=== PATIENT | male | born 1965 | race Caucasian/White ===

== ENCOUNTER 2018-04-01 09:21 | Outpatient (RCR) | payer OTHER, SELFPAY ==
[2018-04-01 09:51] VITALS: BP 153/97; PULSE 102; RESP 18; TEMP 37.2; BMI 38.3
== END 2018-04-07 23:59 ==
LOC: WC 09:21
PROVIDERS: Visit Provider Nurse Practitioner
DX: Z09 Encounter for follow-up examination after completed treatment for conditions other than malignant neoplasm (principal)

== ENCOUNTER 2020-06-19 07:15 | Day surgery (SDC) | payer MEDICARE, SELFPAY ==
--- NOTE | 2020-06-09 14:13 | HP.PCM_ITS ---
History and Physical Date of Admission: 06/19/20 HISTORY AND PHYSICAL ? Timothy Shankar 1965 ? REFERRING PHYSICIAN: Suzanna Murphy MD ? CHIEF COMPLAINT: Postive IFOBT ? HPI: The patient is a 54 year old male referred for endoscopy. Timothy notes a recent hemoccult test which was positive for blood. He tells me has a long- term history of irregular bowel habits secondary to being on numerous antibiotics. He does note last year he had an episode of severe constipation was given the stuff they have you drink for this procedure, and it didn't work. Patient denies any weight changes, visible blood in stools, black tarry stools or abdominal pain. Family history unknown per patient in regards to colon issues. Timothy has not undergone prior endoscopy. ? Patient's past medical history is significant for diabetes, hypertension, hyperlipidemia, diabetes, depression, tobacco use, s/p right lower extremity below-knee amputation. He follows with Dr. Suzanna Murphy for his chronic medical conditions. ? Patient denies chest pain, shortness of breath or recent hospitalizations. Denies problems with sedation in the past. ? ? PAST MEDICAL HISTORY PAST MEDICAL HISTORY Diagnosis Date ? Amputation of right lower extremity below knee upon examination (HCC) ? ? Carpal tunnel syndrome on both sides ? ? Diabetes (HCC) ? ? Hyperlipidemia ? ? Hypertension ? ? Major depression, recurrent, chronic (HCC) ? ? Neuropathy associated with endocrine disorder (HCC) ? ? Tobacco use ? ? ? PAST SURGICAL HISTORY PAST SURGICAL HISTORY Procedure Laterality Date ? LEG AMPUTATION HX Right 02/2016 ? BKA ? PAST SURGICAL HISTORY OF Right 01/2019 ? carpal tunnel and cubital tunnel release ? SINUS SURGERY HX ? 1998 ? for [facility] ? ? ? CURRENT MEDICATIONS Current Outpatient Medications Medication Sig ? atorvastatin (LIPITOR) 40 mg tablet Take 1 tablet by mouth daily at bedtime. ? buPROPion XL (WELLBUTRIN XL) 300 mg 24 hr tablet Take 1 tablet by mouth once daily. ? dilTIAZem CD (CARDIZEM CD, CARTIA XT) 180 mg 24 hr capsule Take 1 capsule by mouth once daily. ? furosemide (LASIX) 40 mg tablet Take 1 tablet by mouth twice daily. ? gabapentin (NEURONTIN) 800 mg tablet Take 1 tablet by mouth three times daily for 180 days. ? hydroCHLOROthiazide (HYDRODIURIL, ESIDRIX) 25 mg tablet Take 1 tablet by mouth once daily. ? losartan (COZAAR) 100 mg tablet Take 1 tablet by mouth once daily. ? metFORMIN (GLUCOPHAGE) 1,000 mg tablet Take 1 tablet by mouth twice daily with meals. ? insulin glargine (LANTUS SOLOSTAR U-100 INSULIN) 100 unit/mL (3 mL) INJECT 70 UNITS SUBCUTANEOUSLY TWO TIMES DAILY ? pantoprazole DR (PROTONIX) 40 mg tablet Take 1 tablet by mouth once daily. ? ramelteon (ROZEREM) 8 mg tablet Take 1 tablet by mouth daily at bedtime. ? traZODone (DESYREL) 100 mg tablet Take 2 tablets by mouth daily at bedtime. ? sodium sulfate-potassium sulfate-magnesium sulfate (SUPREP BOWEL PREP KIT) 17.5-3.13-1.6 gram oral liquid Take 1 Bottle by mouth as directed. ? Blood Glucose Control, High (ONETOUCH VERIO HIGH CONTROL) Use to test accuracy of glucometer as directed. ? Blood Glucose Control, Normal (ONETOUCH VERIO MID CONTROL) soln Use to test accuracy of glucometer as directed. ? CPAP 1 Units by MISCELLANEOUS route daily at bedtime. Autopap 11-20 cm H2O. Use as directed. ? oxyCODONE-acetaminophen (PERCOCET) 5-325 mg tablet Take 1 tablet by mouth twice daily as needed for Pain for up to 30 days. Do not start before May 12, 2020. ? testosterone enanthate (DELATESTRYL) 200 mg/mL injection INJECT 1 ML EVERY 10 DAYS AND SAFETY LABS INDICATED IN PROTOCOL. ? Needle, Disp, 18 G ([employer] BLUNT CANNULA) 18 gauge x 1 ndle 1 Each as needed. ? blood sugar diagnostic (ONETOUCH VERIO TEST STRIPS) test strip Use as instructed QID ? insulin lispro (HUMALOG KWIKPEN INSULIN) 100 unit/mL Inject 14 Units subcutaneously three times daily before meals. ? traZODone (DESYREL) 100 mg tablet Take 2 tablets by mouth daily at bedtime. ? VICTOZA 3-EMPERATRIZ 0.6 mg/0.1 mL (18 mg/3 mL) INJECT SUBCUTANEOUSLY 1.8MG ONCE DAILY ? Syringe with Needle, Disp, (MONOJECT SYRINGE) 3 mL 22 x 1 1/2 1 syringe w needle for TRT Injection ? Blood-Glucose Meter (ONETOUCH VERIO SYSTEM) misc Use as directed. ? Diabetes Pen Pep 31 gauge, 8 mm Use TID as directed ? ACCU-CHEK FASTCLIX LANCET DRUM lancets ? ? aspirin, enteric coated (ASPIRIN, ENTERIC COATED) 81 mg EC tablet Take 81 mg by mouth once daily. ? mupirocin (BACTROBAN) 2 % ointment Apply to wound 2 times daily (Patient not taking: Reported on 06/03/2020 ) ? oxyCODONE-acetaminophen (PERCOCET) 5-325 mg tablet Take 1 tablet by mouth twice daily as needed for Pain for up to 30 days. Do not start before April 13, 2020. ? oxyCODONE-acetaminophen (PERCOCET) 5-325 mg tablet Take 1 tablet by mouth twice daily as needed for Pain for up to 30 days. ? No current facility-administered medications for this visit. ? ? ALLERGIES: Duloxetine and Penicillins ? PERSONAL HISTORY: SOCIAL HISTORY Social History ? Tobacco Use ? Smoking status: Former Smoker ? ? Packs/day: 1.00 ? ? Start date: 1976 ? ? Quit date: 04/21/2019 ? ? Years since quittin.1 ? Smokeless tobacco: Never Used Substance Use Topics ? Alcohol use: Yes ? ? Comment: rarely ? Drug use: No ? FAMILY HISTORY: FAMILY HISTORY FAMILY HISTORY Problem Relation Age of Onset ? other (adapted) Other ? ? other (congestive heart failure) Mother ? ? other (afib) Mother ? ? ? REVIEW OF SYMPTOMS: The review of systems data was entered by the nurse and reviewed by me ? Nursing Notes: Abimbola Russell LPN 06/03/2020 11:18 AM Signed REVIEW OF SYSTEMS: General: The patient denies fatigue, denies weight loss, denies weight gain, denies feeling hot, and denies feelings of cold. Eyes: The patient denies glaucoma, denies eye injury/surgery, wears glasses or contacts. Ear/Nose/Throat: The patient denies allergies, denies hayfever, denies ear infections, and denies bloody noses. Cardiovascular: The patient denies chest pain, denies heart disease, NOTES high blood pressure,denies cardiac stent, denies prior heart attack, denies irregular heart beat, denies high cholesterol, denies poor circulation, denies heart failure, other cardiac issues, denies claudication, denies cold feet, denies peripheral arterial stent. Respiratory: The patient denies tuberculosis, denies pneumonia, denies frequent cough, denies pulmonary embolism, denies shortness of breath, and denies coughing up blood. Gastrointestinal: The patient denies difficulty swallowing, NOTES acid reflux, denies ulcers, denies vomiting, denies jaundice/hepatitis, denies gallbladder problems, denies black or tarry stools, denies hemorrhoids, denies bleeding from rectum, denies diverticulitis, NOTES constipation, NOTES diarrhea, denies loss of stool control, and denies hernias. Kidney/Bladder: The patient denies kidney stones, denies urine infections, and denies bloody urine. Skin: The patient NOTES a history of skin cancer, denies bleeding/changing moles, and denies a history of skin rash. Neurologic: The patient denies a history of epilepsy/convulsions, denies headaches, denies head/spinal injuries, and denies stroke/TIA. Psychiatric: The patient denies psychiatric medications, NOTES depression, and denies voices, denies substance abuse. Endocrine: The patient denies thyroid disorders, denies diabetes, and denies hormonal problems. Hematologic: The patient denies a history of bruising, denies bleeding, and denies anemia, denies blood clots. Infections: The patient denies a history of measles and mumps, denies rheumatic fever, and denies sexually transmitted diseases. Musculoskeletal: The patient NOTES back pain/injury, denies back problems, denies sciatica, NOTES knee/foot trouble, NOTES arthritis, or denies gout. ? ? When was patient's last Mammogram screening? N/A ? Last Colonoscopy: None ? Abimbola Russell LPN I have confirmed and edited as necessary, the PFSH and ROS obtained by others. ? PHYSICAL EXAMINATION: ? General: The patient is 54 year old male, well nourished, well hydrated in no acute distress. The patient is oriented to time, place, and person. ? VITALS: Blood pressure 138/84, pulse 106, temperature 36.5 ?C (97.7 ?F), temperature source Temporal Artery, height 193 cm (6' 4), weight (!) 145.2 kg (320 lb), SpO2 96 %. Body mass index is 38.95 kg/m?. ? HEENT: Normal cephalic, ataumatic, pupils are equally round, sclera are anicteric, mucous membranes are moist, oropharynx is clear. Neck has no masses, asymmetry or lymphadenopathy. ? Respiratory: Clear to auscultation and percussion. Normal respiratory excursion and pattern. ? Cardiac: Examination is regular rate and rhythm. Normal S1/S2 ? Abdominal exam: Soft, nontender, with no palpable masses. No hepatosplenomegaly. No palpable hernias. ? Extremities: no clubbing, cyanosis or edema. No adenopathy. ? LABORATORY VALUES: As Noted ? RADIOLOGIC STUDIES: As Noted ? ? IMPRESSION: heme positive stool-recommend upper and lower endoscopy ? PLAN: I have reviewed my findings with the surgeon. Will plan for lower endoscopy. Patient was offered EGD as well but he declines at this time. He verbalizes he is unsure whether he will even end up having the colonoscopy. Patient called back 06/04 stating he does wish to proceed with both EGD and colonoscopy at same setting. He verbalizes frustration about requiring a cryogenic transport driver for the procedure, I explained that he will be unable to drive himself the rest of the day after having sedation. He states he will see if someone can bring him to [facility] for the procedure, but needs to check on his insurance coverage there. We discussed the risks and benefits of the planned endoscopy. I have informed the patient that complications can occur including failure to complete the endoscopy and perforation. The patient had the opportunity to ask questions concerning the planned endoscopy. My staff has also explained the procedure to the patient in understandable terms and has given the patient printed material concerning the procedure. The patient freely consents to surgery. ? The patient was offered a surgery/procedure at a [facility] facility. I have counseled the patient regarding the risk of exposure to and/or potential harm posed by the COVID-19 virus with having a surgery/procedure at this time versus the risk of? delaying the surgery/procedure. It is not possible to know either the risk of delaying the surgery or procedure or chance of getting an infection with perfect accuracy, but a joint decision was made between the patient and myself?to proceed at this time with endoscopy. ? ? I plan to use Suprep bowel prep (patient was given this Rx already by PCP), or can use miralax/dulcolax if he prefers. Recommend 3-5 days of low-residue diet prior to procedure, as patient notes history of long-term constipation ? The patient has medical comorbidities for which we will plan for the procedure to be performed under Monitored Anesthetic Care. The patient takes prescription medications which I feel decrease the chance of successful sedation, therefore we will plan for procedure to be done under Monitored Anesthetic Care. ? ? ? Diagnoses: (R19.5) Heme positive stool (primary encounter diagnosis) (R19.8) Irregular bowel habits ? Crystal Urban PA-C
[2020-06-12 08:08] VITALS: BMI 37.7
[2020-06-19] VITALS (7 sets, daily range): BP systolic 107–128; BP diastolic 73–93; PULSE 82–92; RESP 16; TEMP 36.5–36.9; O2SAT 96–100; BMI 38.9
--- NOTE | 2020-06-19 | GASB_PTH ---
PATIENT: JOHN BLEVINS LOC: EN U#:[id number] AGE/SX: 54/M ROOM: RE06/19/[address]: Dr. Myrna Cedeno MD : 1965 BED: DIS: 06/19/2020 SPEC #: [id number] RECD: 06/19/20 10:22 STATUS: TASH REMartha #: [id number] MATHEW: 06/19/20 00:[address]: Myrna Cedeno DEPT: SURGICAL PATHOLOGY RECD BY: Andriy Combs ENTERED: 06/19/20 10:23 SP TYPE: Gastric Bx OTHR DR: Dr. Suzanna Murphy MD Tissues: A - Gastric mucous membrane B - Gastric mucous membrane C - Rectum, NOS Procedures: Surgery Specimen Level IV HEADER OPERATION: [place] [place] DIAGNOSIS: Heme-positive stool TISSUE SUBMITTED: A - Antrum biopsy for H. pylori and path, B - Hepatic flexure polyp biopsy, C - Rectal polyp biopsy MICROSCOPIC DIAGNOSIS A. Gastric antrum, biopsy: Chronic gastritis. See comment. B. Colonic polyp at hepatic flexure, biopsy: Fragments of hyperplastic polyp. C. 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 AM:sarwat 06/20/2020 COMMENT A. The results of immunohistochemistry for Helicobacter pylori will be reported separately ([id number]). MICROSCOPIC DESCRIPTION Slides are reviewed. GROSS DESCRIPTION A - Received in fixative is one container labeled with the patient's name and designated antrum biopsy. The specimen consists of one irregular fragment of light nguyễn soft tissue that measures 0.3 x 0.3 x 0.1 cm. The specimen is totally submitted in one cassette. B - Received in fixative is one container labeled with the patient's name and designated hepatic flexure polyp biopsy. The specimen consists of multiple irregular fragments of nguyễn soft tissue mixed with fecal material that in aggregate measure 1.5 x 0.4 x 0.1 cm. The specimen is totally submitted in one cassette. C - Received in fixative is one container labeled with the patient's name and designated rectal polyp. The specimen consists of multiple irregular fragments of nguyễn soft tissue that in aggregate measure 2 x 0.5 x 0.3 cm. Multiple fragments of fecal material are also noted. The specimen is totally submitted in one cassette. / KIMBERLY:sarwat 06/19/20 TC:5 CPT: 52249 x3
[2020-06-19 07:41] LABS: Bedside Glucose 215 mg/dL (70-110)
[2020-06-19] MEDS: Lactated Ringers 1,000 ML 100 ML IV (07:54)
--- NOTE | 2020-06-19 08:15 | IMM_PTH ---
PATIENT: JOHN BLEVINS LOC: EN U#:[id number] AGE/SX: 54/M ROOM: RE06/19/[address]: Dr. Myrna Cedeno MD : 1965 BED: DIS: 06/19/2020 SPEC #: [id number] RECD: 06/19/20 14:20 STATUS: TASH REQ #: [id number] MATHEW: 06/19/20 08:[address]: Myrna Cedeno DEPT: IMMUNOHISTOCHEMISTRY RECD BY: Lisette Branch ENTERED: 06/19/20 14:21 SP TYPE: IMMUNO OTHR DR: Dr. Suzanna Murphy MD Tissues: A - Stomach, NOS Procedures: H Pylori (initial) PHYSICIAN & INSTITUTION [place] [id number] SPECIMEN INFORMATION: Tissue Source: A - Antrum biopsy Clinical Info: Heme-positive stool Specimen Number: [id number] CPT code: 59333 METHODOLOGY: Deparaffinized sections of prefer/formalin-fixed tissue or PAP/DQ stained slides are incubated with monoclonal/polyclonal antibodies/oligonucleotide probes. Localization is made via biotin free immunoperoxidase method. Appropriate controls are performed and reacted as expected. Results on target cell population are indicated in the following table: RESULTS: ANTIBODY / CLONE RESULT Block A H Pylori (polyclonal) negative These tests were developed and their performance characteristics determined by [facility]. They may not have been cleared or approved by the U.S. Food and Drug Administration. The FDA has determined that such clearance or approval is not necessary. INTERPRETATION: A. Antrum, biopsy: Negative for Helicobacter pylori organisms. AM:sarwat 06/20/2020
--- NOTE | 2020-06-19 09:18 | OP.CCLET_ITS ---
06/19/2020 Suzanna Murphy Md Re : Upper GI endoscopy procedure for Timothy Shankar Dear [place] This procedure was performed on Friday, June 19, 2020. My impressions and recommendations are as follows: Impressions : - Normal first portion of the duodenum and second portion of the duodenum. - Erythematous mucosa in the antrum. Biopsied. - Small hiatal hernia. Recommendations : - Discharge patient to home (via wheelchair). - Resume previous diet. - Continue present medications. - Await pathology results. - Follow up visit via telemedicine with Crystal Urban PA-C to discuss results. Call to set this up, thank you My findings are described in the full procedure note, which is enclosed. If I can be of further assistance, please feel free to contact me at Doctor phone number(s): , Work: . Sincerely, MD Myrna Sorto MD 06/19/2020 9:18:43 AM This report has been signed electronically.
--- NOTE | 2020-06-19 09:18 | OP.EGD_ITS ---
Patient Name: Timothy Shankar Procedure Date: 06/19/2020 8:10 AM Date of : 1965 Age: 54 Procedure: Upper GI endoscopy Indications: Heme positive stool Providers: Myrna Cedeno MD Referring MD: Myrna Cedeno MD Medicines: See the Anesthesia note for documentation of the administered medications Patient Profile: Refer to note in patient chart for documentation of history and physical. Complications: No immediate complications. Procedure: Pre-Anesthesia Assessment: - see anesthesia note After obtaining informed consent, the endoscope was passed under direct vision. Throughout the procedure, the patient's blood pressure, pulse, and oxygen saturations were monitored continuously. The gastroscope was introduced through the mouth, and advanced to the second part of duodenum. The upper GI endoscopy was accomplished without difficulty. The patient tolerated the procedure well. Scope In: 8:19:17 AM Scope Out: 8:25:00 AM Total Procedure Duration Time 0 hours 5 minutes 43 seconds Findings: The first portion of the duodenum and second portion of the duodenum were normal. Striped mildly erythematous mucosa without bleeding was found in the gastric antrum. Biopsies were taken with a cold forceps for histology. Estimated blood loss was minimal. A small hiatal hernia was present. Impression: - Normal first portion of the duodenum and second portion of the duodenum. - Erythematous mucosa in the antrum. Biopsied. - Small hiatal hernia. Recommendation: - Discharge patient to home (via wheelchair). - Resume previous diet. - Continue present medications. - Await pathology results. - Follow up visit via telemedicine with Crystal Urban PA-C to discuss results. Call to set this up, thank you Procedure Code(s): --- Professional --- 12152, Esophagogastroduodenoscopy, flexible, transoral; with biopsy, single or multiple Diagnosis Code(s): --- Professional --- K31.89, Other diseases of stomach and duodenum K44.9, Diaphragmatic hernia without obstruction or gangrene R19.5, Other fecal abnormalities CPT copyright 2017 [employer]. All rights reserved. The codes documented in this report are preliminary and upon chef de cuisine review may be revised to meet current compliance requirements. MD Myrna Sorto MD 06/19/2020 9:18:43 AM This report has been signed electronically. Number of Addenda: 0 Note Initiated On: 06/19/2020 8:10 AM
--- NOTE | 2020-06-19 09:21 | OP.CCLET_ITS ---
06/19/2020 Suzanna Murphy Md Re : Colonoscopy procedure for Timothy Shankar Dear [place] This procedure was performed on Friday, June 19, 2020. My impressions and recommendations are as follows: Impressions : - One 3 to 10 mm polyp at the hepatic flexure, removed with a hot snare. Resected and retrieved. - One 5 to 9 mm polyp in the rectum, removed with a hot snare. Resected and retrieved. - External and internal hemorrhoids. Recommendations : - Repeat colonoscopy date to be determined after pending pathology results are reviewed for surveillance based on pathology results. - Follow up visit via telemedicine with Crystal Urban PA-C to discuss results. Call to set this up, thank you - Continue present medications. My findings are described in the full procedure note, which is enclosed. If I can be of further assistance, please feel free to contact me at Doctor phone number(s): , Work: . Sincerely, MD Myrna Sorto MD 06/19/2020 9:21:06 AM This report has been signed electronically.
--- NOTE | 2020-06-19 09:21 | OP.COLON_ITS ---
Patient Name: Timothy Shankar Procedure Date: 06/19/2020 8:26 AM Date of : 1965 Age: 54 Procedure: Colonoscopy Indications: Heme positive stool Providers: Myrna Cedeno MD Referring MD: Myrna Cedeno MD Medicines: See the Anesthesia note for documentation of the administered medications Patient Profile: Refer to note in patient chart for documentation of history and physical. Last Colonoscopy: date unknown. Complications: No immediate complications. Procedure: Pre-Anesthesia Assessment: - see anesthesia note After I obtained informed consent, the scope was passed under direct vision. Throughout the procedure, the patient's blood pressure, pulse, and oxygen saturations were monitored continuously. The Colonoscope was introduced through the anus and advanced to the cecum, identified by the appendiceal orifice, ileocecal valve and palpation. The colonoscopy was performed without difficulty. The patient tolerated the procedure well. The quality of the bowel preparation was adequate to identify polyps 6 mm and larger in size. Scope In: 8:28:15 AM Scope Withdrawal Time 0 hours 21 minutes 9 seconds Scope Out: 9:14:38 AM Total Procedure Duration Time 0 hours 46 minutes 23 seconds Findings: The perianal and digital rectal examinations were normal. A 3 to 10 mm polyp was found in the hepatic flexure. The polyp was sessile. The polyp was removed with a hot snare. Resection and retrieval were complete. Verification of patient identification for the specimen was done by the nurse. Estimated blood loss was minimal. A 5 to 9 mm polyp was found in the rectum. The polyp was sessile. The polyp was removed with a hot snare. Resection and retrieval were complete. Verification of patient identification for the specimen was done by the nurse. Estimated blood loss was minimal. External and internal hemorrhoids were found. Impression: - One 3 to 10 mm polyp at the hepatic flexure, removed with a hot snare. Resected and retrieved. - One 5 to 9 mm polyp in the rectum, removed with a hot snare. Resected and retrieved. - External and internal hemorrhoids. Recommendation: - Repeat colonoscopy date to be determined after pending pathology results are reviewed for surveillance based on pathology results. - Follow up visit via telemedicine with Crystal Urban PA-C to discuss results. Call to set this up, thank you - Continue present medications. Procedure Code(s): --- Professional --- 00592, Colonoscopy, flexible; with removal of tumor(s), polyp(s), or other lesion(s) by snare technique Diagnosis Code(s): --- Professional --- D12.3, Benign neoplasm of transverse colon (hepatic flexure or splenic flexure) K62.1, Rectal polyp K64.8, Other hemorrhoids R19.5, Other fecal abnormalities CPT copyright 2017 [employer]. All rights reserved. The codes documented in this report are preliminary and upon mixed animal veterinarian review may be revised to meet current compliance requirements. MD Myrna Sorto MD 06/19/2020 9:21:06 AM This report has been signed electronically. Number of Addenda: 0 Note Initiated On: 06/19/2020 8:26 AM
== END 2020-06-19 10:13 | disposition home or self-care (01) ==
LOC: EN 07:15 → AC 07:16
PROVIDERS: PCP Family Medicine Sports Medicine; Referring Provider Surgery; Visit Provider Surgery
PROC: 0DJD8ZZ Inspection of Lower Intestinal Tract, Via Natural or Artificial Opening Endoscopic (ICD-10-PCS; CPT 45378; principal; 2020-06-19 08:10)
DX: D12.8 Benign neoplasm of rectum (principal); K63.5 Polyp of colon; K64.4 Residual hemorrhoidal skin tags; K64.8 Other hemorrhoids; K29.50 Unspecified chronic gastritis without bleeding; K44.9 Diaphragmatic hernia without obstruction or gangrene; E11.40 Type 2 diabetes mellitus with diabetic neuropathy, unspecified; I10 Essential (primary) hypertension; E78.5 Hyperlipidemia, unspecified; K21.9 Gastro-esophageal reflux disease without esophagitis; F32.9 Major depressive disorder, single episode, unspecified; F41.8 Other specified anxiety disorders; G47.33 Obstructive sleep apnea (adult) (pediatric); Z79.4 Long term (current) use of insulin; Z79.82 Long term (current) use of aspirin; Z87.891 Personal history of nicotine dependence; Z79.899 Other long term (current) drug therapy; Z89.511 Acquired absence of right leg below knee; Z85.828 Personal history of other malignant neoplasm of skin
CPT/HCPCS: 43239; 45385; 82962; 87426; 88305; 88342; C9803; J7120

== ENCOUNTER 2020-07-03 09:30 | Outpatient (RCR) | payer MEDICARE, SELFPAY ==
[2020-06-12 08:08] VITALS: BP 116/55; PULSE 100; RESP 16; TEMP 36.6; BMI 37.7
--- NOTE | 2020-06-12 09:04 | HP.PCM_ITS ---
(1) Diabetic foot ulcers Status: Acute Code(s): E11.621 - Type 2 diabetes mellitus with foot ulcer; L97.509 - Non-pressure chronic ulcer of other part of unspecified foot with unspecified severity (2) Diabetic peripheral vascular disease Status: Acute Code(s): E11.51 - Type 2 diabetes mellitus with diabetic peripheral angiopathy without gangrene (3) Pressure ulcer of foot, stage 3 Status: Acute Qualifiers: Laterality: left Qualified Code(s): L89.893 - Pressure ulcer of other site, stage 3 Code(s): L89.893 - Pressure ulcer of other site, stage 3 (4) Polyneuropathy in diabetes Status: Acute Code(s): E11.42 - Type 2 diabetes mellitus with diabetic po lyneuropathy History of Present Illness Date of Service: 06/12/20 Chief Complaint: Left foot ulceration History of Wound: 54-year-old white male with history of a right BK amp. 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 Patient is turning his foot and and developing Charcot. Now has a large open wound with depth and abrasion on top of the skin where a brace was cutting into the lateral foot. Patient wears a false leg on the right leg and is dependent on this leg that he wears brace to also to make up for the Charcot foot. Patient has been using silver to clean wound is very dry with lots of callus around the wound base. Past Medical History Past Medical History: Chronic Problems Type 2 diabetes mellitus with diabetic polyneuropathy (Chronic) Smoker (Chronic) Surgical History: - - R foot transmetatarsal amputation Allergies/Adverse Reactions: Allergies Penicillins Allergy (Unknown, Verified 04/01/18 10:16) Unknown duloxetine Adverse Reaction (Verified 06/12/20 08:27) Constipation Home Medications: Ambulatory Orders Medication Instructions Recorded Aspirin [Aspirin, Baby] 81 mg PO DAILY@0800 06/25/15 buPROPion XL [Wellbutrin Xl] 300 mg PO DAILY 06/25/15 metFORMIN HCl [Glucophage] 1,000 mg PO BID 06/25/15 Gabapentin [Neurontin] 800 mg PO TID 08/21/15 Pantoprazole Sodium [Protonix] 40 mg PO DAILY 08/21/15 Atorvastatin Calcium [Lipitor] 40 mg PO QHS 04/01/18 Hydrochlorothiazide [Hctz] 25 mg PO DAILY 04/01/18 Insulin Glargine,Hum.rec.anlog 70 unit SQ BID 04/01/18 [Lantus Solostar] Insulin Lispro [Humalog KwikPen] 14 unit SQ TID 04/01/18 Diltiazem CD [Cardizem CD] 180 mg PO DAILY 06/12/20 Furosemide 40 mg PO BID 06/12/20 Losartan Potassium 100 mg PO DAILY 06/12/20 Ramelteon 8 mg PO QHS 06/12/20 traZODone [Desyrel] 200 mg PO QHS 06/12/20 - Family History Maternal Diabetes Paternal Unknown, - - adopted Smoking Status: Former smoker Review of Systems Constitutional: Denies: Chills, Fever Eyes: Denies: Blurred vision, Drainage, Pain HEENT: Denies: Difficulty Hearing, Difficulty Swallowing, Sore Throat, Visual Changes Cardiovascular: Denies: Chest Pain, Palpitations, Syncope Respiratory: Denies: Cough, Shortness of Breath Gastrointestinal: Denies: Abdominal Pain, Nausea, Vomiting Genitourinary: Denies: Dysuria, Frequency Musculoskeletal: Denies: Joint Pain, Muscle pain Skin: Reports: - - DFU left lateral foot decubitus ulcer stage III from pressure of a brace. Denies: Jaundice, Rash Neurological: Denies: Balance problems, Change in Speech, Difficulty swallowing, Focal weakness Psychiatric: Denies: Anxiety, Depression Endocrine: Denies: Change in Body Habitus Hematologic/ Lymphatic: Denies: Adenopathy - Physical Exam Vital Signs Temp Pulse Resp BP 97.9 F 100 16 116/55 L 06/12/20 08:08 06/12/20 08:08 06/12/20 08:08 06/12/20 08:08 General: Oriented x3, Cooperative, Well developed HEENT: Atraumatic, PERRLA Oral: Moist Mucosa Neck: Supple, No JVD Lungs: Clear to auscultation, Normal air movement Cardiovascular: Regular rate, Regular Rhythm Abdomen: Bowel Sounds Present, Soft, Non Tender, No Hepato-splenomegaly Extremities: No clubbing, No edema Skin: Ulcer/ Wound - Left DFU lateral foot and pressure ulcer stage III Wound Measurements and Assessment WC - Nurse 1 - General Ulcer Measurement Start: 06/12/20 08:07 Freq: Status: Active Protocol: Activity Type Activity Date Activity User E-Sign Co-Sign Detail Recorded Client Recorded Date Recorded By Document 06/12/20 08:08 BM [id number] 06/12/20 08:23 BMF 06/12/20 08:08 Wound Center Nurse 1 [Ulcer Assessment] #3 L LATERAL PLANTAR FOOT -Combined with other wound No -Current Size (cm) - Length 1.6 -Current Size (cm) - Width 1.8 -Current Size (cm) - Depth 0.3 -Total Square Cm 2.88 -Date of Last Picture (Recall this 06/12/20 field) -Photo Taken Yes -Epithelialization None Present -Tunneling No -Undermining/Tunneling No -Circular Undermining No -Exudate Amt Medium -Exudate Type Serosanguineous -Wound Margin Distinct, Outline Attached -Granulation Amt Large (67-100%) -Granulation Quality [place] -Slough/Fibrin Yes -Necrosis Amt Small (1-33%) -Necrotic Tissue Type Adherent Slough -Texture ([place]-wound Skin Appearance) Assessed, Scarring -Moisture ([place]-wound Skin Appearance Assessed,Dry/ ) Scaly -Color ([place]-wound Skin Appearance) Assessed -Temperature ([place]-wound Skin No Abnormality Appearance) (Pt Warm) -Tenderness on Palpation ([place]-wound No Skin Appearance) -Ulcer Cleansing SOAPY WATER -Foul Odor after Cleansing No -Anesthetic Used 4% Lidocaine Solution [Edema Assessment] -Lower Limb Edema Present Yes -Left Calf (cm) 39 -Left Ankle (cm) 25.5 - Nurse 2 - General Ulcer CM Notes Start: 06/12/20 08:07 Freq: Status: Active Protocol: Activity Type Activity Date Activity User E-Sign Co-Sign Detail Recorded Client Recorded Date Recorded By Document 06/12/20 08:38 MW [id number] 06/12/20 08:52 MW 06/12/20 08:38 Wound Center Nurse 2 [Procedure/Treatment] #4 LEFT LATERAL FOOT CLUSTER -Time 08:46 -Correct Patient Yes -Correct Side, Site, Position Yes -Correct Procedure Yes -Procedure Performed Yes -Type of Procedure Debridement -Clinical Debridement Subcutaneous -Tissue Removed Subcutaneous -Post Debridement (cm) - Length 2.8 -Post Debridement (cm) - Width 1.0 -Post Debridement (cm) - Depth 0.2 -Total Square (Post) (cm) 2.80 -Area of Debridement (cm) - Length 2.8 -Area of Debridement (cm) - Width 1.0 -Total Square (Area) (cm) 2.80 -Tunneling No -Undermining/Tunneling No -Circular Undermining No -Wound/Ulcer Outcome Not Healed -Ulcer Cleansing Rinsed/ Irrigated with Saline -Foul Odor after Cleansing No -Bioengineered Tissue No -Bleeding Controlled with Pressure -Offloading No -Treatment Response Procedure Tolerated Well -Debridement - Subq, 1st 20sq cm No #3 L LATERAL PLANTAR FOOT -Time 08:38 -Correct Patient Yes -Correct Side, Site, Position Yes -Correct Procedure Yes -Procedure Performed Yes -Type of Procedure Debridement -Clinical Debridement Subcutaneous -Tissue Removed Subcutaneous -Post Debridement (cm) - Length 1.5 -Post Debridement (cm) - Width 1.5 -Post Debridement (cm) - Depth 0.5 -Total Square (Post) (cm) 2.25 -Area of Debridement (cm) - Length 1.5 -Area of Debridement (cm) - Width 1.5 -Total Square (Area) (cm) 2.25 -Tunneling No -Undermining/Tunneling No -Circular Undermining No -Wound/Ulcer Outcome Not Healed -Ulcer Cleansing Rinsed/ Irrigated with Saline -Foul Odor after Cleansing No -Bioengineered Tissue No -Bleeding Controlled with Pressure -Offloading No -Treatment Response Procedure Tolerated Well -Debridement - Subq, 1st 20sq cm Yes [See Physician Procedure note for Specifics] Pain Scale: 0-10 Numeric [Pain] -Is Patient Pain Free? Yes WC - Nurse 3 - General Ulcer D/C NN Start: 06/12/20 08:07 Freq: Status: Active Protocol: Activity Type Activity Date Activity User E-Sign Co-Sign Detail Recorded Client Recorded Date Recorded By Document 06/12/20 08:57 EV [id number] 06/12/20 08:59 EV 06/12/20 08:57 Wound Care Nurse 3 [Wound Dressing] #4 LEFT LATERAL FOOT CLUSTER -Ulcer Cleansing Rinsed/ Irrigated with Saline -Primary Dressing Applied NonAdherent Contact Layer -Primary Dressing Covered/Secured Dry Gauze,Dry with Gauze & Roll Gauze,Secured with Tape #3 L LATERAL PLANTAR FOOT -Ulcer Cleansing Rinsed/ Irrigated with Saline -Primary Dressing Applied C Hydrogel ($), NonAdherent Contact Layer -Primary Dressing Covered/Secured Dry Gauze,Dry with Gauze & Roll Gauze,Secured with Tape Pain Scale: 0-10 Numeric [Pain] -Is Patient Pain Free? Yes WC - Visit Discharge [Visit Discharge Information] -Discharge Condition Stable -Ambulatory Status Wheelchair -Transportation Private Auto Musculoskeletal: No Tenderness to Palpation of Joints or Extremities Lymphatic: No Cervical, Supraclavicular, or Inguinal Adenopathy Neurological: Cranial nerves II-XII grossly intact, Neuro grossly intact Psych/Mental Status: Normal Affect, Appropriate Debridement Note Post-Debridement Measurements/Treatment WC - Nurse 2 - General Ulcer CM Notes Start: 06/12/20 08:07 Freq: Status: Active Protocol: Activity Type Activity Date Activity User E-Sign Co-Sign Detail Recorded Client Recorded Date Recorded By Document 06/12/20 08:38 MW [id number] 06/12/20 08:52 MW 06/12/20 08:38 Wound Center Nurse 2 #4 LEFT LATERAL FOOT CLUSTER -Time 08:46 -Correct Patient Yes -Correct Side, Site, Position Yes -Correct Procedure Yes -Procedure Performed Yes -Type of Procedure Debridement -Clinical Debridement Subcutaneous -Tissue Removed Subcutaneous -Post Debridement (cm) - Length 2.8 -Post Debridement (cm) - Width 1.0 -Post Debridement (cm) - Depth 0.2 -Total Square (Post) (cm) 2.80 -Area of Debridement (cm) - Length 2.8 -Area of Debridement (cm) - Width 1.0 -Total Square (Area) (cm) 2.80 -Tunneling No -Undermining/Tunneling No -Circular Undermining No -Wound/Ulcer Outcome Not Healed -Ulcer Cleansing Rinsed/ Irrigated with Saline -Foul Odor after Cleansing No -Bioengineered Tissue No -Bleeding Controlled with Pressure -Offloading No -Treatment Response Procedure Tolerated Well -Debridement - Subq, 1st 20sq cm No #3 L LATERAL PLANTAR FOOT -Time 08:38 -Correct Patient Yes -Correct Side, Site, Position Yes -Correct Procedure Yes -Procedure Performed Yes -Type of Procedure Debridement -Clinical Debridement Subcutaneous -Tissue Removed Subcutaneous -Post Debridement (cm) - Length 1.5 -Post Debridement (cm) - Width 1.5 -Post Debridement (cm) - Depth 0.5 -Total Square (Post) (cm) 2.25 -Area of Debridement (cm) - Length 1.5 -Area of Debridement (cm) - Width 1.5 -Total Square (Area) (cm) 2.25 -Tunneling No -Undermining/Tunneling No -Circular Undermining No -Wound/Ulcer Outcome Not Healed -Ulcer Cleansing Rinsed/ Irrigated with Saline -Foul Odor after Cleansing No -Bioengineered Tissue No -Bleeding Controlled with Pressure -Offloading No -Treatment Response Procedure Tolerated Well -Debridement - Subq, 1st 20sq cm Yes Pain Scale: 0-10 Numeric Is Patient Pain Free? Yes - Nurse 3 - General Ulcer D/C NN Start: 06/12/20 08:07 Freq: Status: Active Protocol: Activity Type Activity Date Activity User E-Sign Co-Sign Detail Recorded Client Recorded Date Recorded By Document 06/12/20 08:57 EV [id number] 06/12/20 08:59 EV 06/12/20 08:57 Wound Care Nurse 3 #4 LEFT LATERAL FOOT CLUSTER -Ulcer Cleansing Rinsed/ Irrigated with Saline -Primary Dressing Applied NonAdherent Contact Layer -Primary Dressing Covered/Secured with Dry Gauze,Dry Gauze & Roll Gauze,Secured with Tape #3 L LATERAL PLANTAR FOOT -Ulcer Cleansing Rinsed/ Irrigated with Saline -Primary Dressing Applied C Hydrogel ($), NonAdherent Contact Layer -Primary Dressing Covered/Secured with Dry Gauze,Dry Gauze & Roll Gauze,Secured with Tape Pain Scale: 0-10 Numeric Is Patient Pain Free? Yes - Visit Discharge Discharge Condition Stable Ambulatory Status Wheelchair Transportation Private Auto Wound debrided: Left plantar midfoot Laterality: Left Wound Grade/Stage: Page 3 Type of Debridement: Excisional debridement Anesthesia Used: 5% Lidocaine Gel Depth: Down to and including healthy tissue, in the subcutaneous layer Percentage of wound debrided: 100 Instrument Used: 7mm curette, - - Nippers Tissue Removed: Callus and fibrin and slough Severity: Fat Layer Exposed Amount of bleeding with debridement: Mild Bleeding Controlled with: Pressure, Compression and gauze Patient tolerated procedure well - Additional Wound Wound debrided: Left lateral foot wound Laterality: Left Type of Debridement: Excisional debridement Anesthesia Used: 5% Lidocaine Gel Depth: Down to and including healthy tissue Percentage of wound debrided: 100 Instrument Used: 7mm curette Tissue Removed: Callus and devitalized tissue Severity: Limited To Skin Breakdown Amount of bleeding with debridement: Mild Bleeding Controlled with: Pressure Patient tolerated procedure: Patient tolerated procedure well Assessment/Plan Aerobic and anaerobic cultures obtained Active Problems Diabetic foot ulcers (Acute) Pressure ulcer of foot, stage 3 (Acute) Diabetic peripheral vascular disease (Acute) Assessment: see diagnoses Plan: Wash left foot well with antibacterial soap even between his toes. Santyl to wound base and left lateral foot nickel thickness cover with Adaptic then gauze and ABD every day dressing change. Wear splint on left foot. Will call with results of cultures if positive. Follow-up in 1 week
[2020-07-03 09:29] VITALS: BP 106/74; PULSE 98; RESP 16; TEMP 37; BMI 37.7
--- NOTE | 2020-07-03 11:11 | PCM.PROGNOTE ---
Subjective Subjective: 54 year old male diabetic male her for follow up on his L plantar mid foot DFU and L lat foot open wound. Objective Data Objective Data the plantr foot is more shallow than in the past from 0.7 to 0.3 the size .size has not changed much 1.7x2.0x0.3 and lat L foot is 0.2x1.0x0.1 performed debridement with a #7 for fibrin callus . Bleeding controlled with nitro stix then rinsed with NS. patient was approved for epifix . #1 applied and tolerated well . Vital Signs: Vital Signs Temp Pulse Resp BP 98.6 F 98 16 106/74 07/03/20 09:29 07/03/20 09:29 07/03/20 09:29 07/03/20 09:29 Oxygen Delivery Method Room Air Weight: 310 lb Body Mass Index (BMI) 37.7 Lab / Micro Data Micro: Microbiology 06/12/20 08:50 Wound - Heel, Left Gram Stain - Final 06/12/20 08:50 Wound - Heel, Left Wound Culture - Final Enterobacter cloacae complex Klebsiella oxytoca Strep anginosus 06/12/20 08:50 Wound - Heel, Left Anaerobic Culture - Final Anaerobic cocci Physical Exam Const alert and oriented x3 HEENT head/scalp atraumatic Eyes PERRL Neck supple Lymph Lymphatic: no lymphadenopathy noted Resp normal respiratory effort Cardio regular rate and regular rhythm GI normal to inspection, nondistended, normoactive bowel sounds Extremity Extremity Narrative: 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 intact L leg with wounds described above and with nurses notes and measurements Skin General Skin Exam: turgor normal Rashes: no rashes Wounds: wounds noted Neuro CN's II-XII intact bilaterally Psych affect normal Assessment & Plan Assessment/Plan (1) Diabetic foot ulcers: Status: Acute Code(s): E11.621 - Type 2 diabetes mellitus with foot ulcer; L97.509 - Non-pressure chronic ulcer of other part of unspecified foot with unspecified severity Qualifiers: Diabetic foot ulcer location: midfoot Diabetes mellitus type: type 2 Laterality: left Non-pressure ulcer stage: with fat layer exposed Qualified Code(s): E11.621 - Type 2 diabetes mellitus with foot ulcer; L97.422 - 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 follow up 1 week finish antibiotics till gone for bacteria growth. (2) Pressure ulcer of foot, stage 3: Status: Acute Code(s): L89.893 - Pressure ulcer of other site, stage 3 Qualifiers: Laterality: left Qualified Code(s): L89.893 - Pressure ulcer of other site, stage 3 (3) Polyneuropathy in diabetes: Status: Acute Code(s): E11.42 - Type 2 diabetes mellitus with diabetic polyneuropathy Qualifiers: Diabetes mellitus type: type 2 Qualified Code(s): E11.42 - Type 2 diabetes mellitus with diabetic polyneuropathy (4) Type 2 diabetes mellitus with diabetic polyneuropathy: Status: Chronic Code(s): E11.42 - Type 2 diabetes mellitus with diabetic polyneuropathy Qualifiers: Diabetes mellitus intermediate teacher insulin use: unspecified intermediate teacher insulin use status Qualified Code(s): E11.42 - Type 2 diabetes mellitus with diabetic polyneuropathy Plan: better control of BS (5) Smoker: Status: Chronic Code(s): F17.200 - Nicotine dependence, unspecified, uncomplicated Plan: Stop smoking for better healing (6) Diabetic peripheral vascular disease: Status: Acute Code(s): E11.51 - Type 2 diabetes mellitus with diabetic peripheral angiopathy without gangrene
== END 2020-07-05 23:59 ==
LOC: WC 09:30
PROVIDERS: PCP Family Medicine Sports Medicine; Visit Provider Nurse Practitioner
DX: E11.621 Type 2 diabetes mellitus with foot ulcer (principal); L97.422 Non-pressure 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 with fat layer exposed; E11.42 Type 2 diabetes mellitus with diabetic polyneuropathy; E11.51 Type 2 diabetes mellitus with diabetic peripheral angiopathy without gangrene; L89.893 Pressure ulcer of other site, stage 3; F17.200 Nicotine dependence, unspecified, uncomplicated
CPT/HCPCS: 11042; 15275; 87070; 87075; 87077; 87186; 87205; 99213; Q4186; G0463

== ENCOUNTER 2020-07-31 09:30 | Outpatient (RCR) | payer MEDICARE, SELFPAY ==
[2020-07-03 11:51] VITALS: BMI 38.9
[2020-07-06 00:53] VITALS: BP 106/74; PULSE 98; RESP 16; TEMP 37
[2020-07-10 09:25] VITALS: BP 131/97; PULSE 102; RESP 16; TEMP 36.9; BMI 38.9
--- NOTE | 2020-07-10 12:06 | PN.PCM_ITS ---
History of Present Illness Date of Service: 07/10/20 Chief Complaint: Left foot ulceration History of Wound: 54-year-old white male with history of a right BK amp. 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 Patient is turning his foot and and developing Charcot. Now has a large open wound with depth and abrasion on top of the skin where a brace was cutting into the lateral foot. Patient wears a false leg on the right leg and is dependent on this leg that he wears brace to also to make up for the Charcot foot. Patient has been using silver to clean wound is very dry with lots of callus around the wound base. Subjective Subjective: patient states he does not have Charcot but tendon problems that are collapsing in his ankle. Objective Data Objective Data Vital Signs: Vital Signs Temp Pulse Resp BP 98.5 F 102 H 16 131/97 H 07/10/20 09:25 07/10/20 09:25 07/10/20 09:25 07/10/20 09:25 Oxygen Delivery Method Room Air Weight: 310 lb Body Mass Index (BMI) 38.9 Assessment & Plan Assessment/Plan (1) Diabetic foot ulcers: Status: Acute Code(s): E11.621 - Type 2 diabetes mellitus with foot ulcer; L97.509 - Non-pressure chronic ulcer of other part of unspecified foot with unspecified severity Qualifiers: Diabetic foot ulcer location: midfoot Diabetes mellitus type: type 2 Laterality: left Non-pressure ulcer stage: with fat layer exposed Qualified Code(s): E11.621 - Type 2 diabetes mellitus with foot ulcer; L97.422 - Non- pressure 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 with fat layer exposed Plan: epifix #2 shows improvement from last week. covered with wound veil and steri- strips. covered all with aqucell-xtra then gauze dressing. follow up 1 week (2) Polyneuropathy in diabetes: Status: Acute Code(s): E11.42 - Type 2 diabetes mellitus with diabetic polyneuropathy Qualifiers: Diabetes mellitus type: type 2 Qualified Code(s): E11.42 - Type 2 diabetes mellitus with diabetic polyneuropathy (3) Type 2 diabetes mellitus with diabetic polyneuropathy: Status: Chronic Code(s): E11.42 - Type 2 diabetes mellitus with diabetic polyneuropathy Qualifiers: Diabetes mellitus long term care pharmacist insulin use: unspecified prison insulin use status Qualified Code(s): E11.42 - Type 2 diabetes mellitus with diabetic polyneuropathy (4) Non-pressure chronic ulcer of other part of right foot with fat layer exposed: Status: Acute Code(s): L97.512 - Non-pressure chronic ulcer of other part of right foot with fat layer exposed Plan: aquacell-Xtra to the area then moisten and covered with gauze dressing (5) Diabetic peripheral vascular disease: Status: Acute Code(s): E11.51 - Type 2 diabetes mellitus with diabetic peripheral angiopathy without gangrene Physical Exam Const oriented x3 General Appearance: cooperative Exam Limitations: no limitations HEENT normocephalic Head and Scalp: normal to inspection Face and Sinus: normal facial exam Nose: external nose normal General Ear: hearing grossly impaired External Ear: external ears normal Mouth: oral and palatal mucosa normal Eyes PERRL General Eye: normal appearance of both eyes Neck full ROM General: normal visual inspection Resp normal respiratory effort Effort and Inspection: able to speak in complete sentences Auscultation: clear to auscultation bilaterally Cardio regular rate and regular rhythm Palpation: normal PMI Rate: regular rate Rhythm: regular rhythm GI Auscultation: normoactive bowel sounds Palpation: soft and no hepatosplenomegaly external exam normal Back/Spine Cervical Spine: cervical ROM normal Thoracic Spine / Upper Back: normal to inspection Lumbar Spine / Lower Back: normal to inspection Extremity no pedal edema Extremity Narrative: amputated R leg L leg normal L foot open wounds and partial ampuatation Skin Wounds: wounds noted Neuro oriented x3 Psych Appearance: grossly normal Speech: normal speech Thought Content: normal thought content Judgement: judgement good Debridement Note Debridement Note Post-Debridement Measurements and Additional Note: Post-Debridement Measurements/Treatment WC - Nurse 2 - General Ulcer CM Notes Start: 07/10/20 09:25 Freq: Status: Active Protocol: Activity Type Activity Date Activity User E-Sign Co-Sign Detail Recorded Client Recorded Date Recorded By Document 07/10/20 09:44 MW [id number] 07/10/20 09:53 MW 07/10/20 09:44 Wound Center Nurse 2 #4 LEFT LATERAL FOOT CLUSTER -Time 09:51 -Correct Patient Yes -Correct Side, Site, Position Yes -Correct Procedure Yes -Procedure Performed No -Post Debridement (cm) - Length 0.2 -Post Debridement (cm) - Width 0.2 -Post Debridement (cm) - Depth 0.1 -Total Square (Post) (cm) 0.04 -Tunneling No -Undermining/Tunneling No -Circular Undermining No -Wound/Ulcer Outcome Not Healed -Ulcer Cleansing Rinsed/ Irrigated with Saline -Foul Odor after Cleansing No -Bioengineered Tissue No -Bleeding Controlled with NA -Offloading No #3 L LATERAL PLANTAR FOOT -Time 09:45 -Correct Patient Yes -Correct Side, Site, Position Yes -Correct Procedure Yes -Procedure Performed Yes -Type of Procedure Debridement -Clinical Debridement Subcutaneous -Tissue Removed Subcutaneous -Post Debridement (cm) - Length 1.4 -Post Debridement (cm) - Width 1.6 -Post Debridement (cm) - Depth 0.3 -Total Square (Post) (cm) 2.24 -Area of Debridement (cm) - Length 1.4 -Area of Debridement (cm) - Width 1.6 -Total Square (Area) (cm) 2.24 -Tunneling No -Tunneling Position (O'clock) 3 -Tunneling Distance (cm) 0.3 -Undermining/Tunneling No -Circular Undermining No -Wound/Ulcer Outcome Not Healed -Ulcer Cleansing Rinsed/ Irrigated with Saline -Foul Odor after Cleansing No -Bioengineered Tissue Yes -Type of Bioengineered Tissue Epifix -Expiration Date 03/08/25 -Product Lot Number [id number] -Percent Used 100 -Lot number of Saline Used [id number] -Bleeding Controlled with Pressure -Offloading No -Treatment Response Procedure Tolerated Well -Debridement - Subq, 1st 20sq cm No -Apply Skin Sub - 1st 25 sq cm - Feet 1 -Epifix (per sq cm) 4 WC - Nurse 3 - General Ulcer D/C NN Start: 07/10/20 09:25 Freq: Status: Active Protocol: Activity Type Activity Date Activity User E-Sign Co-Sign Detail Recorded Client Recorded Date Recorded By Document 07/10/20 09:57 EV [id number] 07/10/20 09:58 KR 07/10/20 09:57 Wound Care Nurse 3 #4 LEFT LATERAL FOOT CLUSTER -Primary Dressing Applied Aquacel Extra -Primary Dressing Covered/Secured with Dry Gauze, Secured with Tape -Aquacel Extra 1 #3 L LATERAL PLANTAR FOOT -Primary Dressing Covered/Secured with Dry Gauze, Secured with Tape Pain Scale: 0-10 Numeric Is Patient Pain Free? Yes WC - Visit Discharge Discharge Condition Stable Ambulatory Status Wheelchair Transportation Private Auto Wound debrided: l LATERAL PLANTAR Laterality: Left Type of Debridement: Excisional debridement Anesthesia Used: 5% Lidocaine Gel Depth: in the subcutaneous layer Percentage of wound debrided: 100 Instrument Used: 5mm curette and - (nippers) Tissue Removed: slough and devitalized tissue and callus Severity: Fat Layer Exposed Amount of bleeding with debridement: Mild Bleeding Controlled with: Pressure Patient tolerated procedure: Patient tolerated procedure well Additional Wound Wound debrided: L lat foot Laterality: Left Type of Debridement: Selective debridement Percentage of wound debrided: 100 Instrument Used: - (gauze) Tissue Removed: fibrin Severity: Limited To Skin Breakdown Amount of bleeding with debridement: None Bleeding Controlled with: Pressure Patient tolerated procedure: Patient tolerated procedure well
[2020-07-17 09:36] VITALS: BP 110/76; PULSE 106; RESP 18; TEMP 36.8; BMI 38.9
--- NOTE | 2020-07-17 11:52 | PN.PCM_ITS ---
History of Present Illness Date of Service: 07/17/20 Chief Complaint: Left foot ulceration History of Wound: 54-year-old white male with history of a right BK amp. 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 Patient is turning his foot and and developing Charcot. Now has a large open wound with depth and abrasion on top of the skin where a brace was cutting into the lateral foot. Patient wears a false leg on the right leg and is dependent on this leg that he wears brace to also to make up for the Charcot foot. Patient has been using silver to clean wound is very dry with lots of callus around the wound base. Progress of Wound: Today the opening is small but has depth and full of slough. Very painful. will debride and use Aquacel Xtra and off load as much as possible . Subjective Subjective he has no concerns Objective Data Objective Data mid wound is a pressure area and shows maceration to the mid wound area. The lat foot is still healed and will still continue to cover with Aquacel extra to protect . Continue to get callus around wound base and is filling in nicely with the Epifix. No undermining this week Vital Signs: Vital Signs Temp Pulse Resp BP 98.3 F 106 H 18 110/76 07/17/20 09:36 07/17/20 09:36 07/17/20 09:36 07/17/20 09:36 Oxygen Delivery Method Room Air Weight: 310 lb Body Mass Index (BMI) 38.9 Assessment & Plan Assessment/Plan (1) Diabetic foot ulcers: QUALIFIERS: Diabetic foot ulcer location: midfoot Diabetes mellitus type: type 2 Laterality: left Non-pressure ulcer stage: with fat layer exposed Qualified Code(s): E11.621 - Type 2 diabetes mellitus with foot ulcer; L97.422 - 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 layer exposed PLAN: Epifix #3 applied with wound veil and steri-strips and Aquacell extra overtop Will revamp his foot wear to stop the pressure on the L lat foot at the wound site. (2) Pressure ulcer of foot, stage 3: QUALIFIERS: Laterality: left Qualified Code(s): L89.893 - Pressure ulcer of other site, stage 3 (3) Polyneuropathy in diabetes: QUALIFIERS: Diabetes mellitus type: type 2 Qualified Code(s): E11.42 - Type 2 diabetes mellitus with diabetic polyneuropathy (4) Non-pressure chronic ulcer of other part of right foot with fat layer exposed: (5) Diabetic peripheral vascular disease: Physical Exam Const oriented x3 General Appearance: cooperative Exam Limitations: no limitations HEENT normocephalic Head and Scalp: normal to inspection Face and Sinus: normal facial exam Nose: external nose normal General Ear: hearing grossly impaired External Ear: external ears normal Mouth: oral and palatal mucosa normal Eyes PERRL General Eye: normal appearance of both eyes Neck full ROM General: normal visual inspection Resp normal respiratory effort Effort and Inspection: able to speak in complete sentences Auscultation: clear to auscultation bilaterally Cardio regular rate and regular rhythm Palpation: normal PMI Rate: regular rate Rhythm: regular rhythm GI Auscultation: normoactive bowel sounds Palpation: soft and no hepatosplenomegaly external exam normal Back/Spine Cervical Spine: cervical ROM normal Thoracic Spine / Upper Back: normal to inspection Lumbar Spine / Lower Back: normal to inspection Extremity normal to inspection General Extremity: normal exam except as noted Skin no rashes or lesions noted Neuro oriented x3 Psych Appearance: grossly normal Speech: normal speech Thought Content: normal thought content Judgement: judgement good Debridement Note Debridement Note Post-Debridement Measurements and Additional Note: Post-Debridement Measurements/Treatment - Nurse 1 - General Ulcer Assessment Start: 07/10/20 09:25 Freq: Status: Active Protocol: .[facility] Activity Type Activity Date Activity User E-Sign Co-Sign Detail Recorded Client Recorded Date Recorded By Document 07/10/20 09:25 [facility] [id number] 07/10/20 09:33 [facility] Document 07/17/20 09:36 [facility] [id number] 07/17/20 09:38 [facility] 07/10/20 07/17/20 09:25 09:36 - Today's Visit Information Type of service Follow-up Visit Follow-up Visit (Physician/BRUSHER HAND (Physician/BRUSHER HAND ) ) Arrival Mode Wheelchair Wheelchair Transfer Assistance None None Patient Identification Verified (Name & Yes Yes ) Patient Requires Transmission-Based No No Precautions Height and Weight Body Mass Index (BMI) 38.9 38.9 BMI Classification Obese Obese Vital Signs Temperature (97.8 F-99.1 F) 98.5 F 98.3 F Temperature Source Temporal Temporal Pulse Rate (60-100) 102 H 106 H Pulse Location Monitor Monitor Respiratory Rate (12-18) 16 18 Respiratory rate source Observation Observation Oxygen Delivery Method Room Air Room Air Blood Pressure (90/60-120/80) 131/97 H 110/76 Blood Pressure Mean (mm Hg) 108 87 Source Monitor Monitor Position Sitting Sitting Blood Pressure Location Left Arm Right Arm History Since Last Visit- (Skip if this is Patient's initial visit) Have you changed medications since your No No last visit? Any new allergies or adverse reactions No No Had a fall/change in ADL's that may No No increase risk of falls Signs or symptoms of abuse and/or No No neglect since last visit Have you been in the hospital since your No No last visit? Has dressing in place as prescribed Yes Yes Has compression in place as prescribed N/A No Has offloadiing in place as prescribed Yes Yes Experienced any changes in pain level or No No management Left Footwear Custom Shoe Custom Shoe Pain Scale: 0-10 Numeric Is Patient Pain Free? Yes Yes - Nurse 1 - General Ulcer Measurement Start: 07/10/20 09:25 Freq: Status: Active Protocol: Activity Type Activity Date Activity User E-Sign Co-Sign Detail Recorded Client Recorded Date Recorded By Document 07/10/20 09:25 [facility] [id number] 07/10/20 09:33 [facility] Document 07/17/20 09:36 [facility] [id number] 07/17/20 09:38 [facility] 07/10/20 07/17/20 09:25 09:36 Wound Center Nurse 1 #4 LEFT LATERAL FOOT CLUSTER -Combined with other wound No -Current Size (cm) - Length 0.1 0.1 -Current Size (cm) - Width 0.1 0.1 -Current Size (cm) - Depth 0.1 0.1 -Total Square Cm 0.01 0.01 -Photo Taken No -Epithelialization Large 67-100% -Tunneling No -Undermining/Tunneling No -Circular Undermining No -Exudate Amt None Present None Present -Wound Margin Distinct, Outline Attached -Granulation Amt None Present (0 %) -Slough/Fibrin No -Texture ([place]-wound Skin Appearance) Assessed, Assessed, Scarring Scarring -Moisture ([place]-wound Skin Appearance) No Abnormality, Assessed,Dry/ Assessed Scaly -Color ([place]-wound Skin Appearance) No Abnormality, Assessed, Assessed Erythema -Temperature ([place]-wound Skin No Abnormality Appearance) (Pt Warm) -Tenderness on Palpation ([place]-wound No Skin Appearance) -Ulcer Cleansing Rinsed/ Irrigated with Saline -Foul Odor after Cleansing No -Anesthetic Used 5% Lidocaine Gel #3 L LATERAL PLANTAR FOOT -Combined with other wound No -Current Size (cm) - Length 1.3 1.2 -Current Size (cm) - Width 1.4 1.5 -Current Size (cm) - Depth 0.3 0.2 -Total Square Cm 1.82 1.80 -Photo Taken No -Epithelialization None Present -Tunneling No -Undermining/Tunneling No -Undermining/Tunneling Starts (O'clock 2 ) -Undermining/Tunneling Ends (O'clock) 4 -Maximum Distance (cm) 0.3 -Circular Undermining No -Exudate Amt Medium Medium -Exudate Type Serosanguineous Serosanguineous -Wound Margin Distinct, Distinct, Outline Outline Attached Attached -Granulation Amt Medium (34-66%) Large (67-100%) -Granulation Quality Red -Slough/Fibrin Yes -Necrosis Amt Medium (34-66%) Small (1-33%) -Necrotic Tissue Type Adherent Slough Adherent Slough -Texture ([place]-wound Skin Appearance) Assessed, Assessed, Scarring Scarring -Moisture ([place]-wound Skin Appearance) No Abnormality, Assessed, Assessed Maceration -Color ([place]-wound Skin Appearance) No Abnormality, Assessed,Palor Assessed -Temperature ([place]-wound Skin No Abnormality No Abnormality Appearance) (Pt Warm) (Pt Warm) -Tenderness on Palpation ([place]-wound No No Skin Appearance) -Ulcer Cleansing Rinsed/ soapy water Irrigated with Saline -Foul Odor after Cleansing No No -Anesthetic Used 5% Lidocaine 5% Lidocaine Gel Gel WC - Nurse 2 - General Ulcer CM Notes Start: 07/10/20 09:25 Freq: Status: Active Protocol: Activity Type Activity Date Activity User E-Sign Co-Sign Detail Recorded Client Recorded Date Recorded By Document 07/10/20 09:44 MW [id number] 07/10/20 09:53 MW Document 07/17/20 09:48 MW [id number] 05/12/21 09:58 MW 07/10/20 07/17/20 09:44 09:48 Wound Center Nurse 2 #4 LEFT LATERAL FOOT CLUSTER -Time 09:51 09:48 -Correct Patient Yes Yes -Correct Side, Site, Position Yes Yes -Correct Procedure Yes Yes -Procedure Performed No No -Post Debridement (cm) - Length 0.2 0 -Post Debridement (cm) - Width 0.2 0 -Post Debridement (cm) - Depth 0.1 0 -Total Square (Post) (cm) 0.04 0 -Tunneling No No -Undermining/Tunneling No No -Circular Undermining No No -Wound/Ulcer Outcome Not Healed Healed- Epithelialized -Ulcer Cleansing Rinsed/ Irrigated with Saline -Foul Odor after Cleansing No -Bioengineered Tissue No -Bleeding Controlled with NA -Offloading No #3 L LATERAL PLANTAR FOOT -Time 09:45 09:49 -Correct Patient Yes Yes -Correct Side, Site, Position Yes Yes -Correct Procedure Yes Yes -Procedure Performed Yes Yes -Type of Procedure Debridement Debridement -Clinical Debridement Subcutaneous Subcutaneous -Tissue Removed Subcutaneous Subcutaneous -Post Debridement (cm) - Length 1.4 1.3 -Post Debridement (cm) - Width 1.6 1.1 -Post Debridement (cm) - Depth 0.3 0.3 -Total Square (Post) (cm) 2.24 1.43 -Area of Debridement (cm) - Length 1.4 1.3 -Area of Debridement (cm) - Width 1.6 1.1 -Total Square (Area) (cm) 2.24 1.43 -Tunneling No No -Tunneling Position (O'clock) 3 -Tunneling Distance (cm) 0.3 -Undermining/Tunneling No No -Circular Undermining No No -Wound/Ulcer Outcome Not Healed Not Healed -Ulcer Cleansing Rinsed/ Rinsed/ Irrigated with Irrigated with Saline Saline -Foul Odor after Cleansing No No -Bioengineered Tissue Yes Yes -Type of Bioengineered Tissue Epifix Epifix 18mm Disc -Expiration Date 03/08/25 03/08/25 -Product Lot Number [id number] -Percent Used 100 100 -Lot number of Saline Used [id number] -Bleeding Controlled with Pressure Pressure -Offloading No No -Treatment Response Procedure Procedure Tolerated Well Tolerated Well -Debridement - Subq, 1st 20sq cm No No -Apply Skin Sub - 1st 25 sq cm - Feet 1 1 -Epifix (per sq cm) 4 -Epifix 18mm Disc 3 Pain Scale: 0-10 Numeric Is Patient Pain Free? Yes - Nurse 3 - General Ulcer D/C NN Start: 07/10/20 09:25 Freq: Status: Active Protocol: Activity Type Activity Date Activity User E-Sign Co-Sign Detail Recorded Client Recorded Date Recorded By Document 07/10/20 09:57 EV [id number] 07/10/20 09:58 KR Document 07/17/20 10:18 EV [id number] 07/17/20 10:18 KR 07/10/20 07/17/20 09:57 10:18 Wound Care Nurse 3 #4 LEFT LATERAL FOOT CLUSTER -Primary Dressing Applied Aquacel Extra -Primary Dressing Covered/Secured with Dry Gauze, Secured with Tape -Aquacel Extra 1 #3 L LATERAL PLANTAR FOOT -Primary Dressing Applied Aquacel AG 4x4 -Primary Dressing Covered/Secured with Dry Gauze, Dry Gauze,Dry Secured with Gauze & Roll Tape Gauze,Secured with Tape -Aquacel AG 4x4 1 Pain Scale: 0-10 Numeric Is Patient Pain Free? Yes Yes WC - Visit Discharge Discharge Condition Stable Stable Ambulatory Status Wheelchair Wheelchair Transportation Private Auto Private Auto Wound debrided: L lat foot Laterality: Left Wound Grade/Stage: DFU medeiros 3 Type of Debridement: Excisional debridement Anesthesia Used: 5% Lidocaine Gel Depth: Down to and including healthy tissue and in the subcutaneous layer Percentage of wound debrided: 100 Instrument Used: 5mm curette and - (nippers) Tissue Removed: callus and fibrin Severity: Fat Layer Exposed Amount of bleeding with debridement: Mild Bleeding Controlled with: Compression and gauze Patient tolerated procedure: Patient tolerated procedure well
[2020-07-24 09:32] VITALS: BP 109/76; PULSE 98; RESP 16; TEMP 37; BMI 38.9
--- NOTE | 2020-07-24 12:20 | PN.PCM_ITS ---
History of Present Illness Date of Service: 07/25/20 Chief Complaint: Left foot ulceration History of Wound: 54-year-old white male with history of a right BK amp. 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 Patient is turning his foot and and developing Charcot. Now has a large open wound with depth and abrasion on top of the skin where a brace was cutting into the lateral foot. Patient wears a false leg on the right leg and is dependent on this leg that he wears brace to also to make up for the Charcot foot. Patient has been using silver to clean wound is very dry with lots of callus around the wound base. Progress of Wound: Today the opening is small but has depth and full of slough. Very painful. will debride and use Aquacel Xtra and off load as much as possible . Subjective Subjective WAs able to cut out the section of his boot that got rid of the pressure rausch through the wound . Looks better Objective Data Objective Data Epi fix # 4 applied . Wound is smaller and the surrounding tissue looks good no maceration like last week. Much improvement Vital Signs: Vital Signs Temp Pulse Resp BP 98.6 F 98 16 109/76 07/24/20 09:32 07/24/20 09:32 07/24/20 09:32 07/24/20 09:32 Oxygen Delivery Method Room Air Weight: 310 lb Body Mass Index (BMI) 38.9 Physical Exam Const oriented x3 General Appearance: cooperative Exam Limitations: no limitations HEENT normocephalic Head and Scalp: normal to inspection Face and Sinus: normal facial exam Nose: external nose normal General Ear: hearing grossly impaired External Ear: external ears normal Mouth: oral and palatal mucosa normal Eyes PERRL General Eye: normal appearance of both eyes Neck full ROM General: normal visual inspection Resp normal respiratory effort Effort and Inspection: able to speak in complete sentences Auscultation: clear to auscultation bilaterally Cardio regular rate and regular rhythm Palpation: normal PMI Rate: regular rate Rhythm: regular rhythm GI Auscultation: normoactive bowel sounds Palpation: soft and no hepatosplenomegaly external exam normal Back/Spine Cervical Spine: cervical ROM normal Thoracic Spine / Upper Back: normal to inspection Lumbar Spine / Lower Back: normal to inspection Extremity normal to inspection General Extremity: normal exam except as noted Skin no rashes or lesions noted Neuro oriented x3 Psych Appearance: grossly normal Speech: normal speech Thought Content: normal thought content Judgement: judgement good Debridement Note Debridement Note Post-Debridement Measurements and Additional Note: Post-Debridement Measurements/Treatment - Nurse 1 - General Ulcer Assessment Start: 07/10/20 09:25 Freq: Status: Active Protocol: GM.JOSÉ MIGUEL Activity Type Activity Date Activity User E-Sign Co-Sign Detail Recorded Client Recorded Date Recorded By Document 07/10/20 09:25 [facility] [id number] 07/10/20 09:33 [facility] Document 07/17/20 09:36 [facility] [id number] 07/17/20 09:38 BM Document 07/24/20 09:32 [facility] [id number] 07/24/20 09:38 BMF 07/10/20 07/17/20 07/24/20 09:25 09:36 09:32 - Today's Visit Information Type of service Follow-up Visit Follow-up Visit Follow-up Visit (Physician/PREFABRICATOR (Physician/PREFABRICATOR (Physician/PREFABRICATOR ) ) ) Arrival Mode Wheelchair Wheelchair Wheelchair Transfer Assistance None None None Patient Identification Verified (Name & Yes Yes Yes ) Patient Requires Transmission-Based No No No Precautions Height and Weight Body Mass Index (BMI) 38.9 38.9 38.9 BMI Classification Obese Obese Obese Vital Signs Temperature (97.8 F-99.1 F) 98.5 F 98.3 F 98.6 F Temperature Source Temporal Temporal Temporal Pulse Rate (60-100) 102 H 106 H 98 Pulse Location Monitor Monitor Monitor Respiratory Rate (12-18) 16 18 16 Respiratory rate source Observation Observation Observation Oxygen Delivery Method Room Air Room Air Room Air Blood Pressure (90/60-120/80) 131/97 H 110/76 109/76 Blood Pressure Mean (mm Hg) 108 87 87 Source Monitor Monitor Monitor Position Sitting Sitting Sitting Blood Pressure Location Left Arm Right Arm Left Arm History Since Last Visit- (Skip if this is Patient's initial visit) Have you changed medications since your No No No last visit? Any new allergies or adverse reactions No No No Had a fall/change in ADL's that may No No No increase risk of falls Signs or symptoms of abuse and/or No No No neglect since last visit Have you been in the hospital since your No No No last visit? Has dressing in place as prescribed Yes Yes Yes Has compression in place as prescribed N/A No Yes Has offloadiing in place as prescribed Yes Yes N/A Experienced any changes in pain level or No No No management Left Footwear Custom Shoe Custom Shoe Pain Scale: 0-10 Numeric Is Patient Pain Free? Yes Yes Yes WC - Nurse 1 - General Ulcer Measurement Start: 07/10/20 09:25 Freq: Status: Active Protocol: Activity Type Activity Date Activity User E-Sign Co-Sign Detail Recorded Client Recorded Date Recorded By Document 07/10/20 09:25 [employer] [id number] 07/10/20 09:33 [employer] Document 07/17/20 09:36 [employer] [id number] 07/17/20 09:38 [employer] Document 07/24/20 09:32 [employer] [id number] 07/24/20 09:38 BMF 07/10/20 07/17/20 07/24/20 09:25 09:36 09:32 Wound Center Nurse 1 #4 LEFT LATERAL FOOT CLUSTER -Combined with other wound No -Current Size (cm) - Length 0.1 0.1 -Current Size (cm) - Width 0.1 0.1 -Current Size (cm) - Depth 0.1 0.1 -Total Square Cm 0.01 0.01 -Photo Taken No -Epithelialization Large 67-100% -Tunneling No -Undermining/Tunneling No -Circular Undermining No -Exudate Amt None Present None Present -Wound Margin Distinct, Outline Attached -Granulation Amt None Present (0 %) -Slough/Fibrin No -Texture ([place]-wound Skin Appearance) Assessed, Assessed, Scarring Scarring -Moisture ([place]-wound Skin Appearance) No Abnormality, Assessed,Dry/ Assessed Scaly -Color ([place]-wound Skin Appearance) No Abnormality, Assessed, Assessed Erythema -Temperature ([place]-wound Skin No Abnormality Appearance) (Pt Warm) -Tenderness on Palpation ([place]-wound No Skin Appearance) -Ulcer Cleansing Rinsed/ Irrigated with Saline -Foul Odor after Cleansing No -Anesthetic Used 5% Lidocaine Gel #3 L LATERAL PLANTAR FOOT -Combined with other wound No No -Current Size (cm) - Length 1.3 1.2 1.3 -Current Size (cm) - Width 1.4 1.5 2 -Current Size (cm) - Depth 0.3 0.2 0.2 -Total Square Cm 1.82 1.80 2.6 -Photo Taken No No -Epithelialization None Present Small 1-33% -Tunneling No No -Undermining/Tunneling No No -Undermining/Tunneling Starts (O'clock 2 ) -Undermining/Tunneling Ends (O'clock) 4 -Maximum Distance (cm) 0.3 -Circular Undermining No No -Exudate Amt Medium Medium Medium -Exudate Type Serosanguineous Serosanguineous Serosanguineous -Wound Margin Distinct, Distinct, Thickened Outline Outline Attached Attached -Granulation Amt Medium (34-66%) Large (67-100%) Large (67-100%) -Granulation Quality Red [place] -Slough/Fibrin Yes -Necrosis Amt Medium (34-66%) Small (1-33%) -Necrotic Tissue Type Adherent Slough Adherent Slough -Texture ([place]-wound Skin Appearance) Assessed, Assessed, Assessed, Scarring Scarring Scarring -Moisture ([place]-wound Skin Appearance) No Abnormality, Assessed, Assessed, Assessed Maceration Maceration,Dry/ Scaly -Color ([place]-wound Skin Appearance) No Abnormality, Assessed,Palor Assessed,Palor Assessed -Temperature ([place]-wound Skin No Abnormality No Abnormality No Abnormality Appearance) (Pt Warm) (Pt Warm) (Pt Warm) -Tenderness on Palpation ([place]-wound No No No Skin Appearance) -Ulcer Cleansing Rinsed/ soapy water SOAPY WATER Irrigated with Saline -Foul Odor after Cleansing No No No -Anesthetic Used 5% Lidocaine 5% Lidocaine 5% Lidocaine Gel Gel Gel WC - Nurse 2 - General Ulcer CM Notes Start: 07/10/20 09:25 Freq: Status: Active Protocol: Activity Type Activity Date Activity User E-Sign Co-Sign Detail Recorded Client Recorded Date Recorded By Document 07/10/20 09:44 MW [id number] 07/10/20 09:53 MW Document 07/17/20 09:48 MW [id number] 07/17/20 09:58 MW Document 07/24/20 10:00 MW [id number] 07/24/20 10:06 MW 07/10/20 07/17/20 07/24/20 09:44 09:48 10:00 Wound Center Nurse 2 #4 LEFT LATERAL FOOT CLUSTER -Time 09:51 09:48 -Correct Patient Yes Yes -Correct Side, Site, Position Yes Yes -Correct Procedure Yes Yes -Procedure Performed No No -Post Debridement (cm) - Length 0.2 0 -Post Debridement (cm) - Width 0.2 0 -Post Debridement (cm) - Depth 0.1 0 -Total Square (Post) (cm) 0.04 0 -Tunneling No No -Undermining/Tunneling No No -Circular Undermining No No -Wound/Ulcer Outcome Not Healed Healed- Epithelialized -Ulcer Cleansing Rinsed/ Irrigated with Saline -Foul Odor after Cleansing No -Bioengineered Tissue No -Bleeding Controlled with NA -Offloading No #3 L LATERAL PLANTAR FOOT -Time 09:45 09:49 10:00 -Correct Patient Yes Yes Yes -Correct Side, Site, Position Yes Yes Yes -Correct Procedure Yes Yes Yes -Procedure Performed Yes Yes Yes -Type of Procedure Debridement Debridement Debridement -Clinical Debridement Subcutaneous Subcutaneous Subcutaneous -Tissue Removed Subcutaneous Subcutaneous Subcutaneous -Post Debridement (cm) - Length 1.4 1.3 1.3 -Post Debridement (cm) - Width 1.6 1.1 1.2 -Post Debridement (cm) - Depth 0.3 0.3 0.3 -Total Square (Post) (cm) 2.24 1.43 1.56 -Area of Debridement (cm) - Length 1.4 1.3 1.3 -Area of Debridement (cm) - Width 1.6 1.1 1.2 -Total Square (Area) (cm) 2.24 1.43 1.56 -Tunneling No No No -Tunneling Position (O'clock) 3 -Tunneling Distance (cm) 0.3 -Undermining/Tunneling No No No -Circular Undermining No No No -Wound/Ulcer Outcome Not Healed Not Healed Not Healed -Ulcer Cleansing Rinsed/ Rinsed/ Rinsed/ Irrigated with Irrigated with Irrigated with Saline Saline Saline -Foul Odor after Cleansing No No No -Bioengineered Tissue Yes Yes Yes -Type of Bioengineered Tissue Epifix Epifix 18mm Epifix 18mm Disc Disc -Expiration Date 03/08/25 03/08/25 03/08/25 -Product Lot Number [id number] -Percent Used 100 100 100 -Lot number of Saline Used [id number] -Bleeding Controlled with Pressure Pressure Pressure -Offloading No No No -Treatment Response Procedure Procedure Procedure Tolerated Well Tolerated Well Tolerated Well -Debridement - Subq, 1st 20sq cm No No No -Apply Skin Sub - 1st 25 sq cm - Feet 1 1 1 -Epifix (per sq cm) 4 -Epifix 18mm Disc 3 3 Pain Scale: 0-10 Numeric Is Patient Pain Free? Yes Yes - Nurse 3 - General Ulcer D/C NN Start: 07/10/20 09:25 Freq: Status: Active Protocol: Activity Type Activity Date Activity User E-Sign Co-Sign Detail Recorded Client Recorded Date Recorded By Document 07/10/20 09:57 KR [id number] 07/10/20 09:58 KR Document 07/17/20 10:18 KR [id number] 07/17/20 10:18 KR Document 07/24/20 10:17 KR [id number] 07/24/20 10:17 KR 07/10/20 07/17/20 07/24/20 09:57 10:18 10:17 Wound Care Nurse 3 #4 LEFT LATERAL FOOT CLUSTER -Primary Dressing Applied Aquacel Extra -Primary Dressing Covered/Secured with Dry Gauze, Secured with Tape -Aquacel Extra 1 #3 L LATERAL PLANTAR FOOT -Primary Dressing Applied Aquacel AG 4x4 Aquacel Extra -Primary Dressing Covered/Secured with Dry Gauze, Dry Gauze,Dry Dry Gauze, Secured with Gauze & Roll Secured with Tape Gauze,Secured Tape with Tape -Aquacel Extra 1 -Aquacel AG 4x4 1 Pain Scale: 0-10 Numeric Is Patient Pain Free? Yes Yes Yes - Visit Discharge Discharge Condition Stable Stable Stable Ambulatory Status Wheelchair Wheelchair Wheelchair Transportation Private Auto Private Auto Private Auto Wound debrided: L plantar foot Laterality: Left Wound Grade/Stage: [place] stage 3 Type of Debridement: Excisional debridement Anesthesia Used: 5% Lidocaine Gel Depth: Down to and including healthy tissue Percentage of wound debrided: 100 Instrument Used: 5mm curette Tissue Removed: fibrin Severity: Limited To Skin Breakdown Amount of bleeding with debridement: Mild Bleeding Controlled with: Pressure Patient tolerated procedure: Patient tolerated procedure well Assessment/Plan Assessment/Plan (1) Diabetic foot ulcers: CODE(S): Code(s): E11.621 - Type 2 diabetes mellitus with foot ulcer; L97.509 - Non-pressure chronic ulcer of other part of unspecified foot with unspecified severity QUALIFIERS: Diabetes mellitus type: type 2 Diabetic foot ulcer location: midfoot Laterality: left Non-pressure ulcer stage: with fat layer exposed Qualified Code(s): E11.621 - Type 2 diabetes mellitus with foot ulcer; L97.422 - 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 layer exposed PLAN: #4 Epifix applied to lat foot veil and steri-strips with abd for pad ding follow up 1 week (2) Pressure ulcer of foot, stage 3: CODE(S): Code(s): L89.893 - Pressure ulcer of other site, stage 3 QUALIFIERS: Laterality: left Qualified Code(s): L89.893 - Pressure ulcer of other site, stage 3 (3) Polyneuropathy in diabetes: CODE(S): Code(s): E11.42 - Type 2 diabetes mellitus with diabetic polyneuropathy QUALIFIERS: Diabetes mellitus type: type 2 Qualified Code(s): E11.42 - Type 2 diabetes mellitus with diabetic polyneuropathy (4) Cellulitis of right leg: CODE(S): Code(s): L03.115 - Cellulitis of right lower limb (5) Type 2 diabetes mellitus with diabetic polyneuropathy: CODE(S): Code(s): E11.42 - Type 2 diabetes mellitus with diabetic polyneuropathy QUALIFIERS: Diabetes mellitus rn long term care insulin use: unspecified mcc insulin use status Qualified Code(s): E11.42 - Type 2 diabetes mellitus with diabetic polyneuropathy (6) Type 2 diabetes mellitus with foot ulcer: CODE(S): Code(s): E11.621 - Type 2 diabetes mellitus with foot ulcer; L97.509 - Non-pressure chronic ulcer of other part of unspecified foot with unspecified severity QUALIFIERS: Diabetes mellitus rn long term care insulin use: unspecified rn long term care insulin use status Qualified Code(s): E11.621 - Type 2 diabetes me llitus with foot ulcer
[2020-07-31 09:48] VITALS: BP 109/67; PULSE 101; TEMP 36.6; BMI 38.9
--- NOTE | 2020-07-31 10:25 | PN.PCM_ITS ---
History of Present Illness Date of Service: 07/31/20 Chief Complaint: Left foot ulceration History of Wound: 54-year-old white male with history of a right BK amp. 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 Patient is turning his foot and and developing Charcot. Now has a large open wound with depth and abrasion on top of the skin where a brace was cutting into the lateral foot. Patient wears a false leg on the right leg and is dependent on this leg that he wears brace to also to make up for the Charcot foot. Patient has been using silver to clean wound is very dry with lots of callus around the wound base. Progress of Wound: Today the opening is smaller and improving Subjective Subjective States will be getting a new AFO next week for his left lower leg Objective Data Objective Data The wound itself is more shallow and filling in nicely with the epi fix. The surrounding tissue looks healthy. Patient is tolerating the epi fix as well. No sign of infection noted Vital Signs: Vital Signs Temp Pulse Resp BP 97.9 F 101 H 16 109/67 07/31/20 09:48 07/31/20 09:48 07/24/20 09:32 07/31/20 09:48 Oxygen Delivery Method Room Air Weight: 310 lb Body Mass Index (BMI) 38.9 Physical Exam Const oriented x3 General Appearance: cooperative Exam Limitations: no limitations Resp normal respiratory effort Effort and Inspection: able to speak in complete sentences Auscultation: clear to auscultation bilaterally Cardio regular rate and regular rhythm Palpation: normal PMI Rate: regular rate Rhythm: regular rhythm GI Auscultation: normoactive bowel sounds Palpation: soft and no hepatosplenomegaly external exam normal Back/Spine Cervical Spine: cervical ROM normal Thoracic Spine / Upper Back: normal to inspection Lumbar Spine / Lower Back: normal to inspection Extremity normal to inspection General Extremity: normal exam except as noted Skin Wounds: wounds noted Neuro oriented x3 Psych Appearance: grossly normal Speech: normal speech Thought Content: normal thought content Judgement: judgement good Debridement Note Debridement Note Post-Debridement Measurements and Additional Note: Post-Debridement Measurements/Treatment WC - Nurse 1 - General Ulcer Assessment Start: 07/10/20 09:25 Freq: Status: Active Protocol: WC.LOWEXT Activity Type Activity Date Activity User E-Sign Co-Sign Detail Recorded Client Recorded Date Recorded By Document 07/10/20 09:25 [facility] [id number] 07/10/20 09:33 [facility] Document 07/17/20 09:36 [facility] [id number] 07/17/20 09:38 BM Document 07/24/20 09:32 BMF [id number] 07/24/20 09:38 [facility] Document 07/31/20 09:48 KR [id number] 07/31/20 09:49 KR 07/10/20 07/17/20 07/24/20 09:25 09:36 09:32 WC - Today's Visit Information Type of service Follow-up Visit Follow-up Visit Follow-up Visit (Physician/GROUNDS AND NURSERY SPECIALIST (Physician/GROUNDS AND NURSERY SPECIALIST (Physician/GROUNDS AND NURSERY SPECIALIST ) ) ) Arrival Mode Wheelchair Wheelchair Wheelchair Transfer Assistance None None None Patient Identification Verified (Name & Yes Yes Yes ) Patient Requires Transmission-Based No No No Precautions Height and Weight Body Mass Index (BMI) 38.9 38.9 38.9 BMI Classification Obese Obese Obese Vital Signs Temperature (97.8 F-99.1 F) 98.5 F 98.3 F 98.6 F Temperature Source Temporal Temporal Temporal Pulse Rate (60-100) 102 H 106 H 98 Pulse Location Monitor Monitor Monitor Respiratory Rate (12-18) 16 18 16 Respiratory rate source Observation Observation Observation Oxygen Delivery Method Room Air Room Air Room Air Blood Pressure (90/60-120/80) 131/97 H 110/76 109/76 Blood Pressure Mean (mm Hg) 108 87 87 Source Monitor Monitor Monitor Position Sitting Sitting Sitting Blood Pressure Location Left Arm Right Arm Left Arm History Since Last Visit- (Skip if this is Patient's initial visit) Have you changed medications since your No No No last visit? Any new allergies or adverse reactions No No No Had a fall/change in ADL's that may No No No increase risk of falls Signs or symptoms of abuse and/or No No No neglect since last visit Have you been in the hospital since your No No No last visit? Has dressing in place as prescribed Yes Yes Yes Has compression in place as prescribed N/A No Yes Has offloadiing in place as prescribed Yes Yes N/A Experienced any changes in pain level or No No No management Left Footwear Custom Shoe Custom Shoe Right Footwear Pain Scale: 0-10 Numeric Is Patient Pain Free? Yes Yes Yes 07/31/20 09:48 WC - Today's Visit Information Type of service Follow-up Visit (Physician/GROUNDS AND NURSERY SPECIALIST ) Arrival Mode Wheelchair Transfer Assistance Patient Identification Verified (Name & Yes ) Patient Requires Transmission-Based Precautions Height and Weight Body Mass Index (BMI) 38.9 BMI Classification Obese Vital Signs Temperature (97.8 F-99.1 F) 97.9 F Temperature Source Temporal Pulse Rate (60-100) 101 H Pulse Location Monitor Respiratory Rate (12-18) Respiratory rate source Oxygen Delivery Method Blood Pressure (90/60-120/80) 109/67 Blood Pressure Mean (mm Hg) 81 Source Monitor Position Sitting Blood Pressure Location Right Arm History Since Last Visit- (Skip if this is Patient's initial visit) Have you changed medications since your No last visit? Any new allergies or adverse reactions No Had a fall/change in ADL's that may No increase risk of falls Signs or symptoms of abuse and/or No neglect since last visit Have you been in the hospital since your last visit? Has dressing in place as prescribed Yes Has compression in place as prescribed N/A Has offloadiing in place as prescribed N/A Experienced any changes in pain level or No management Left Footwear Regular Shoe Right Footwear Regular Shoe Pain Scale: 0-10 Numeric Is Patient Pain Free? Yes - Nurse 1 - General Ulcer Measurement Start: 07/10/20 09:25 Freq: Status: Active Protocol: Activity Type Activity Date Activity User E-Sign Co-Sign Detail Recorded Client Recorded Date Recorded By Document 07/10/20 09:25 [facility] [id number] 07/10/20 09:33 [facility] Document 07/17/20 09:36 [facility] [id number] 07/17/20 09:38 BM Document 07/24/20 09:32 BMF [id number] 07/24/20 09:38 BM Document 07/31/20 09:48 KR [id number] 07/31/20 09:49 KR 07/10/20 07/17/20 07/24/20 09:25 09:36 09:32 Wound Center Nurse 1 #4 LEFT LATERAL FOOT CLUSTER -Combined with other wound No -Current Size (cm) - Length 0.1 0.1 -Current Size (cm) - Width 0.1 0.1 -Current Size (cm) - Depth 0.1 0.1 -Total Square Cm 0.01 0.01 -Photo Taken No -Epithelialization Large 67-100% -Tunneling No -Undermining/Tunneling No -Circular Undermining No -Exudate Amt None Present None Present -Wound Margin Distinct, Outline Attached -Granulation Amt None Present (0 %) -Slough/Fibrin No -Texture ([place]-wound Skin Appearance) Assessed, Assessed, Scarring Scarring -Moisture ([place]-wound Skin Appearance) No Abnormality, Assessed,Dry/ Assessed Scaly -Color ([place]-wound Skin Appearance) No Abnormality, Assessed, Assessed Erythema -Temperature ([place]-wound Skin No Abnormality Appearance) (Pt Warm) -Tenderness on Palpation ([place]-wound No Skin Appearance) -Ulcer Cleansing Rinsed/ Irrigated with Saline -Foul Odor after Cleansing No -Anesthetic Used 5% Lidocaine Gel #3 L LATERAL PLANTAR FOOT -Combined with other wound No No -Current Size (cm) - Length 1.3 1.2 1.3 -Current Size (cm) - Width 1.4 1.5 2 -Current Size (cm) - Depth 0.3 0.2 0.2 -Total Square Cm 1.82 1.80 2.6 -Photo Taken No No -Epithelialization None Present Small 1-33% -Tunneling No No -Undermining/Tunneling No No -Undermining/Tunneling Starts (O'clock 2 ) -Undermining/Tunneling Ends (O'clock) 4 -Maximum Distance (cm) 0.3 -Circular Undermining No No -Exudate Amt Medium Medium Medium -Exudate Type Serosanguineous Serosanguineous Serosanguineous -Wound Margin Distinct, Distinct, Thickened Outline Outline Attached Attached -Granulation Amt Medium (34-66%) Large (67-100%) Large (67-100%) -Granulation Quality Red [place] -Slough/Fibrin Yes -Necrosis Amt Medium (34-66%) Small (1-33%) -Necrotic Tissue Type Adherent Slough Adherent Slough -Texture ([place]-wound Skin Appearance) Assessed, Assessed, Assessed, Scarring Scarring Scarring -Moisture ([place]-wound Skin Appearance) No Abnormality, Assessed, Assessed, Assessed Maceration Maceration,Dry/ Scaly -Color ([place]-wound Skin Appearance) No Abnormality, Assessed,Palor Assessed,Palor Assessed -Temperature ([place]-wound Skin No Abnormality No Abnormality No Abnormality Appearance) (Pt Warm) (Pt Warm) (Pt Warm) -Tenderness on Palpation ([place]-wound No No No Skin Appearance) -Ulcer Cleansing Rinsed/ soapy water SOAPY WATER Irrigated with Saline -Foul Odor after Cleansing No No No -Anesthetic Used 5% Lidocaine 5% Lidocaine 5% Lidocaine Gel Gel Gel 07/31/20 09:48 Wound Center Nurse 1 #4 LEFT LATERAL FOOT CLUSTER -Combined with other wound -Current Size (cm) - Length -Current Size (cm) - Width -Current Size (cm) - Depth -Total Square Cm -Photo Taken -Epithelialization -Tunneling -Undermining/Tunneling -Circular Undermining -Exudate Amt -Wound Margin -Granulation Amt -Slough/Fibrin -Texture ([place]-wound Skin Appearance) -Moisture ([place]-wound Skin Appearance) -Color ([place]-wound Skin Appearance) -Temperature ([place]-wound Skin Appearance) -Tenderness on Palpation ([place]-wound Skin Appearance) -Ulcer Cleansing -Foul Odor after Cleansing -Anesthetic Used #3 L LATERAL PLANTAR FOOT -Combined with other wound -Current Size (cm) - Length 1.1 -Current Size (cm) - Width 1.1 -Current Size (cm) - Depth 0.2 -Total Square Cm 1.21 -Photo Taken -Epithelialization -Tunneling -Undermining/Tunneling -Undermining/Tunneling Starts (O'clock ) -Undermining/Tunneling Ends (O'clock) -Maximum Distance (cm) -Circular Undermining -Exudate Amt Small -Exudate Type Serosanguineous -Wound Margin Distinct, Outline Attached -Granulation Amt Medium (34-66%) -Granulation Quality Red -Slough/Fibrin -Necrosis Amt Medium (34-66%) -Necrotic Tissue Type Adherent Slough -Texture ([place]-wound Skin Appearance) Assessed, Scarring -Moisture ([place]-wound Skin Appearance) No Abnormality, Assessed -Color ([place]-wound Skin Appearance) No Abnormality, Assessed -Temperature ([place]-wound Skin No Abnormality Appearance) (Pt Warm) -Tenderness on Palpation ([place]-wound No Skin Appearance) -Ulcer Cleansing Rinsed/ Irrigated with Saline -Foul Odor after Cleansing No -Anesthetic Used 5% Lidocaine Gel WC - Nurse 2 - General Ulcer CM Notes Start: 07/10/20 09:25 Freq: Status: Active Protocol: Activity Type Activity Date Activity User E-Sign Co-Sign Detail Recorded Client Recorded Date Recorded By Document 07/10/20 09:44 MW [id number] 07/10/20 09:53 MW Document 07/17/20 09:48 MW [id number] 07/17/20 09:58 MW Document 07/24/20 10:00 MW [id number] 07/24/20 10:06 MW Document 07/31/20 10:01 MW [id number] 07/31/20 10:08 MW 07/10/20 07/17/20 07/24/20 09:44 09:48 10:00 Wound Center Nurse 2 #4 LEFT LATERAL FOOT CLUSTER -Time 09:51 09:48 -Correct Patient Yes Yes -Correct Side, Site, Position Yes Yes -Correct Procedure Yes Yes -Procedure Performed No No -Post Debridement (cm) - Length 0.2 0 -Post Debridement (cm) - Width 0.2 0 -Post Debridement (cm) - Depth 0.1 0 -Total Square (Post) (cm) 0.04 0 -Tunneling No No -Undermining/Tunneling No No -Circular Undermining No No -Wound/Ulcer Outcome Not Healed Healed- Epithelialized -Ulcer Cleansing Rinsed/ Irrigated with Saline -Foul Odor after Cleansing No -Bioengineered Tissue No -Bleeding Controlled with NA -Offloading No #3 L LATERAL PLANTAR FOOT -Time 09:45 09:49 10:00 -Correct Patient Yes Yes Yes -Correct Side, Site, Position Yes Yes Yes -Correct Procedure Yes Yes Yes -Procedure Performed Yes Yes Yes -Type of Procedure Debridement Debridement Debridement -Clinical Debridement Subcutaneous Subcutaneous Subcutaneous -Tissue Removed Subcutaneous Subcutaneous Subcutaneous -Post Debridement (cm) - Length 1.4 1.3 1.3 -Post Debridement (cm) - Width 1.6 1.1 1.2 -Post Debridement (cm) - Depth 0.3 0.3 0.3 -Total Square (Post) (cm) 2.24 1.43 1.56 -Area of Debridement (cm) - Length 1.4 1.3 1.3 -Area of Debridement (cm) - Width 1.6 1.1 1.2 -Total Square (Area) (cm) 2.24 1.43 1.56 -Tunneling No No No -Tunneling Position (O'clock) 3 -Tunneling Distance (cm) 0.3 -Undermining/Tunneling No No No -Circular Undermining No No No -Wound/Ulcer Outcome Not Healed Not Healed Not Healed -Ulcer Cleansing Rinsed/ Rinsed/ Rinsed/ Irrigated with Irrigated with Irrigated with Saline Saline Saline -Foul Odor after Cleansing No No No -Bioengineered Tissue Yes Yes Yes -Type of Bioengineered Tissue Epifix Epifix 18mm Epifix 18mm Disc Disc -Expiration Date 03/08/25 03/08/25 03/08/25 -Product Lot Number [id number] -Percent Used 100 100 100 -Lot number of Saline Used [id number] -Bleeding Controlled with Pressure Pressure Pressure -Offloading No No No -Treatment Response Procedure Procedure Procedure Tolerated Well Tolerated Well Tolerated Well -Debridement - Subq, 1st 20sq cm No No No -Apply Skin Sub - 1st 25 sq cm - Feet 1 1 1 -Epifix (per sq cm) 4 -Epifix 18mm Disc 3 3 Pain Scale: 0-10 Numeric Is Patient Pain Free? Yes Yes 07/31/20 10:01 Wound Center Nurse 2 #4 LEFT LATERAL FOOT CLUSTER -Time -Correct Patient -Correct Side, Site, Position -Correct Procedure -Procedure Performed -Post Debridement (cm) - Length -Post Debridement (cm) - Width -Post Debridement (cm) - Depth -Total Square (Post) (cm) -Tunneling -Undermining/Tunneling -Circular Undermining -Wound/Ulcer Outcome -Ulcer Cleansing -Foul Odor after Cleansing -Bioengineered Tissue -Bleeding Controlled with -Offloading #3 L LATERAL PLANTAR FOOT -Time 10:01 -Correct Patient Yes -Correct Side, Site, Position Yes -Correct Procedure Yes -Procedure Performed Yes -Type of Procedure Debridement -Clinical Debridement Subcutaneous -Tissue Removed Subcutaneous -Post Debridement (cm) - Length 1.4 -Post Debridement (cm) - Width 1.1 -Post Debridement (cm) - Depth 0.2 -Total Square (Post) (cm) 1.54 -Area of Debridement (cm) - Length 1.4 -Area of Debridement (cm) - Width 1.1 -Total Square (Area) (cm) 1.54 -Tunneling No -Tunneling Position (O'clock) -Tunneling Distance (cm) -Undermining/Tunneling No -Circular Undermining No -Wound/Ulcer Outcome Not Healed -Ulcer Cleansing Rinsed/ Irrigated with Saline -Foul Odor after Cleansing No -Bioengineered Tissue Yes -Type of Bioengineered Tissue Epifix 18mm Disc -Expiration Date 05/06/25 -Product Lot Number [id number] -Percent Used 100 -Lot number of Saline Used [id number] -Bleeding Controlled with Pressure -Offloading No -Treatment Response Procedure Tolerated Well -Debridement - Subq, 1st 20sq cm No -Apply Skin Sub - 1st 25 sq cm - Feet 1 -Epifix (per sq cm) -Epifix 18mm Disc 3 Pain Scale: 0-10 Numeric Is Patient Pain Free? Yes - Nurse 3 - General Ulcer D/C NN Start: 07/10/20 09:25 Freq: Status: Active Protocol: Activity Type Activity Date Activity User E-Sign Co-Sign Detail Recorded Client Recorded Date Recorded By Document 07/10/20 09:57 KR [id number] 07/10/20 09:58 KR Document 07/17/20 10:18 KR [id number] 07/17/20 10:18 KR Document 07/24/20 10:17 KR [id number] 07/24/20 10:17 KR Document 07/31/20 10:17 [facility] [id number] 07/31/20 10:18 BMF 07/10/20 07/17/20 07/24/20 09:57 10:18 10:17 Wound Care Nurse 3 #4 LEFT LATERAL FOOT CLUSTER -Primary Dressing Applied Aquacel Extra -Primary Dressing Covered/Secured with Dry Gauze, Secured with Tape -Aquacel Extra 1 #3 L LATERAL PLANTAR FOOT -Primary Dressing Applied Aquacel AG 4x4 Aquacel Extra -Other Dressing -Primary Dressing Covered/Secured with Dry Gauze, Dry Gauze,Dry Dry Gauze, Secured with Gauze & Roll Secured with Tape Gauze,Secured Tape with Tape -Other Covering -Aquacel Extra 1 -Aquacel AG 4x4 1 Left -Compression Wrap -Other Treatment Response Pain Scale: 0-10 Numeric Is Patient Pain Free? Yes Yes Yes - Visit Discharge Discharge Condition Stable Stable Stable Ambulatory Status Wheelchair Wheelchair Wheelchair Transportation Private Auto Private Auto Private Auto 07/31/20 10:17 Wound Care Nurse 3 #4 LEFT LATERAL FOOT CLUSTER -Primary Dressing Applied -Primary Dressing Covered/Secured with -Aquacel Extra #3 L LATERAL PLANTAR FOOT -Primary Dressing Applied Aquacel Extra -Other Dressing EPIFIX -Primary Dressing Covered/Secured with Dry Gauze & Roll Gauze, Secured with Tape,Other -Other Covering ABD -Aquacel Extra 1 -Aquacel AG 4x4 Left -Compression Wrap Vinay Wrap -Other VINAY TO SECURE Treatment Response Procedure Tolerated Well Pain Scale: 0-10 Numeric Is Patient Pain Free? Yes WC - Visit Discharge Discharge Condition Stable Ambulatory Status Wheelchair Transportation Wound debrided: Left lateral plantar foot Wound Grade/Stage: Grimaldo 2 Type of Debridement: Excisional debridement Anesthesia Used: 5% Lidocaine Gel Depth: Down to and including healthy tissue Percentage of wound debrided: 100 Instrument Used: 5mm curette Tissue Removed: Fibrin and some callus Severity: Fat Layer Exposed Amount of bleeding with debridement: Mild Bleeding Controlled with: Compression and gauze Patient tolerated procedure: Patient tolerated procedure well Assessment/Plan Assessment/Plan (1) Diabetic foot ulcers: CODE(S): E11.621 - Type 2 diabetes mellitus with foot ulcer; L97.509 - Non-pressure chronic ulcer of other part of unspecified foot with unspecified severity QUALIFIERS: Diabetic foot ulcer location: midfoot Diabetes mellitus type: type 2 Laterality: left Non-pressure ulcer stage: with fat layer exposed Qualified Code(s): E11.621 - Type 2 diabetes mellitus with foot ulcer; L97.422 - 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 layer exposed PLAN: Epi fix #5 applied to foot covered with veil and Steri-Strips will continue to pad with an ABD Follow-up in 1 week (2) Pressure ulcer of foot, stage 3: CODE(S): L89.893 - Pressure ulcer of other site, stage 3 QUALIFIERS: Laterality: left Qualified Code(s): L89.893 - Pressure ulcer of other site, stage 3 (3) Polyneuropathy in diabetes: CODE(S): E11.42 - Type 2 diabetes mellitus with diabetic polyneuropathy QUALIFIERS: Diabetes mellitus type: type 2 Qualified Code(s): E11.42 - Type 2 diabetes mellitus with diabetic polyneuropathy
== END 2020-08-05 23:59 ==
LOC: WC 09:30
PROVIDERS: PCP Family Medicine Sports Medicine; Visit Provider Nurse Practitioner
DX: E11.621 Type 2 diabetes mellitus with foot ulcer (principal); L89.893 Pressure ulcer of other site, stage 3; L97.422 Non-pressure 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 with fat layer exposed; E11.42 Type 2 diabetes mellitus with diabetic polyneuropathy; E11.51 Type 2 diabetes mellitus with diabetic peripheral angiopathy without gangrene; Z79.4 Long term (current) use of insulin
CPT/HCPCS: 15275; Q4186

== ENCOUNTER 2020-08-28 09:30 | Outpatient (RCR) | payer MEDICARE, SELFPAY ==
[2020-08-06 00:34] VITALS: BP 109/67; PULSE 101; RESP 16; TEMP 36.6
[2020-08-07 09:28] VITALS: BP 122/75; PULSE 102; RESP 18; TEMP 36.2; BMI 38.9
--- NOTE | 2020-08-07 12:09 | PN.PCM_ITS ---
History of Present Illness Date of Service: 08/07/20 Chief Complaint: Left foot ulceration History of Wound: 54-year-old white male with history of a right BK amp. 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 Patient is turning his foot and and developing Charcot. Now has a large open wound with depth and abrasion on top of the skin where a brace was cutting into the lateral foot. Patient wears a false leg on the right leg and is dependent on this leg that he wears brace to also to make up for the Charcot foot. Patient has been using silver to clean wound is very dry with lots of callus around the wound base. Subjective Subjective Patient states he feels it is doing better though he cannot really see it he does have an appointment today for a new AFO fitting. Objective Data Objective Data Left lateral foot is just new skin looks good no sign of pressure the plantar lateral side of his foot has some maceration around the edges that was removed with nippers patient was tolerant the actual size of the wound is less than a di me it is flatter less depth improving definitely he is getting the epi fix will put an extra layer of Aquacel to help absorb drainage and wetness. Epifix #6 apply with wound veil and Steri-Strips extra padding of Aquacel and an ABD pad. He is to follow-up in 1 week Vital Signs: Vital Signs Temp Pulse Resp BP 97.2 F L 102 H 18 122/75 H 08/07/20 09:28 08/07/20 09:28 08/07/20 09:28 08/07/20 09:28 Weight: 310 lb Body Mass Index (BMI) 38.9 Physical Exam Const oriented x3 General Appearance: cooperative Exam Limitations: no limitations Resp normal respiratory effort Effort and Inspection: able to speak in complete sentences Auscultation: clear to auscultation bilaterally Cardio regular rate and regular rhythm Palpation: normal PMI Rate: regular rate Rhythm: regular rhythm Extremity normal to inspection General Extremity: normal exam except as noted Skin no rashes or lesions noted Neuro oriented x3 Psych Appearance: grossly normal Speech: normal speech Thought Content: normal thought content Judgement: judgement good Debridement Note Debridement Note Post-Debridement Measurements and Additional Note: Post-Debridement Measurements/Treatment WC - Nurse 1 - General Ulcer Assessment Start: 08/07/20 09:28 Freq: Status: Active Protocol: MARIEL Activity Type Activity Date Activity User E-Sign Co-Sign Detail Recorded Client Recorded Date Recorded By Document 08/07/20 09:28 PL [id number] 08/07/20 09:38 PL 08/07/20 09:28 - Today's Visit Information Type of service Follow-up Visit (Physician/[employer]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 ) Arrival Mode Wheelchair Transfer Assistance None Patient Identification Verified (Name & Yes ) Patient Requires Transmission-Based No Precautions Safety Precautions NA Finger Stick Blood Sugar(mg/dl) (if 138 indicated): Blood Sugar Stated by Patient Height and Weight Body Mass Index (BMI) 38.9 BMI Classification Obese Vital Signs Temperature (97.8 F-99.1 F) 97.2 F L Temperature Source Temporal Pulse Rate (60-100) 102 H Respiratory Rate (12-18) 18 Blood Pressure (90/60-120/80) 122/75 H Blood Pressure Mean (mm Hg) 90 History Since Last Visit- (Skip if this is Patient's initial visit) Have you changed medications since your No last visit? Any new allergies or adverse reactions No Had a fall/change in ADL's that may No increase risk of falls Signs or symptoms of abuse and/or No neglect since last visit Have you been in the hospital since your No last visit? Has dressing in place as prescribed Yes Has compression in place as prescribed N/A Has offloadiing in place as prescribed N/A Experienced any changes in pain level or No management Pain Scale: 0-10 Numeric Is Patient Pain Free? Yes - Nurse 1 - General Ulcer Measurement Start: 08/07/20 09:28 Freq: Status: Active Protocol: Activity Type Activity Date Activity User E-Sign Co-Sign Detail Recorded Client Recorded Date Recorded By Document 08/07/20 09:28 KJ [id number] 08/07/20 09:38 KJ 08/07/20 09:28 Wound Center Nurse 1 #3 L LATERAL PLANTAR FOOT -Combined with other wound No -Current Size (cm) - Length 1.0 -Current Size (cm) - Width 1.0 -Current Size (cm) - Depth 0.2 -Total Square Cm 1.00 -Photo Taken No -Epithelialization None Present -Tunneling No -Undermining/Tunneling No -Circular Undermining No -Exudate Amt Medium -Exudate Type Serosanguineous -Wound Margin Thickened & Rolled Under -Granulation Amt Large (67-100%) -Granulation Quality [place] -Slough/Fibrin Yes -Necrosis Amt Small (1-33%) -Necrotic Tissue Type Adherent Slough -Moisture ([place]-wound Skin Appearance) Maceration,Dry/ Scaly -Color ([place]-wound Skin Appearance) No Abnormality -Temperature ([place]-wound Skin No Abnormality Appearance) (Pt Warm) -Ulcer Cleansing Rinsed/ Irrigated with Saline -Foul Odor after Cleansing No WC - Nurse 2 - General Ulcer CM Notes Start: 08/07/20 09:28 Freq: Status: Active Protocol: Activity Type Activity Date Activity User E-Sign Co-Sign Detail Recorded Client Recorded Date Recorded By Document 08/07/20 09:44 MW [id number] 08/07/20 09:50 MW 08/07/20 09:44 Wound Center Nurse 2 -Time 09:48 -Correct Patient Yes -Correct Side, Site, Position Yes -Correct Procedure Yes -Procedure Performed Yes -Type of Procedure Debridement -Clinical Debridement Subcutaneous -Tissue Removed Subcutaneous -Post Debridement (cm) - Length 1.2 -Post Debridement (cm) - Width 1.0 -Post Debridement (cm) - Depth 0.2 -Total Square (Post) (cm) 1.20 -Area of Debridement (cm) - Length 1.2 -Area of Debridement (cm) - Width 1.0 -Total Square (Area) (cm) 1.20 -Tunneling No -Undermining/Tunneling No -Circular Undermining No -Wound/Ulcer Outcome Not Healed -Ulcer Cleansing Rinsed/ Irrigated with Saline -Foul Odor after Cleansing No -Bioengineered Tissue Yes -Type of Bioengineered Tissue Epifix 18mm Disc -Expiration Date 05/06/25 -Product Lot Number [id number] -Percent Used 100 -Lot number of Saline Used [id number] -Bleeding Controlled with Pressure -Offloading No -Treatment Response Procedure Tolerated Well -Debridement - Subq, 1st 20sq cm No -Apply Skin Sub - 1st 25 sq cm - Feet 1 -Epifix 18mm Disc 3 Pain Scale: 0-10 Numeric Is Patient Pain Free? Yes WC - Nurse 3 - General Ulcer D/C NN Start: 08/07/20 09:28 Freq: Status: Active Protocol: Activity Type Activity Date Activity User E-Sign Co-Sign Detail Recorded Client Recorded Date Recorded By Document 08/07/20 09:51 MW [id number] 08/07/20 09:52 MW 08/07/20 09:51 Wound Care Nurse 3 #3 L LATERAL PLANTAR FOOT -Ulcer Cleansing Not Cleansed -Foul Odor after Cleansing No -Negative Pressure Wound Therapy N/A -Primary Dressing Applied Aquacel Extra -Primary Dressing Covered/Secured with Dry Gauze & Roll Gauze, Secured with Tape -Other Covering ABD PAD -Aquacel Extra 2 Treatment Response Procedure Tolerated Well Pain Scale: 0-10 Numeric Is Patient Pain Free? Yes Teaching: Wound Center Dressing Your Wound -Person Taught Patient -Teaching Method Discussion -Response to teaching Verbalize understanding WC - Visit Discharge Discharge Condition Stable Ambulatory Status Wheelchair Transportation Private Auto Accompanied by SELF Medication Reconcilliation completed & No provided to patient/care provider Clinical Summary of Care Provided Yes Wound debrided: Left lateral plantar foot Wound Grade/Stage: Grimaldo II Type of Debridement: Excisional debridement Anesthesia Used: 5% Lidocaine Gel Depth: Down to and including healthy tissue Percentage of wound debrided: 100 Instrument Used: 5mm curette and - (Nippers for the maceration) Severity: Fat Layer Exposed Amount of bleeding with debridement: Mild Bleeding Controlled with: Compression and gauze Patient tolerated procedure: Patient tolerated procedure well Assessment/Plan Assessment/Plan (1) Diabetic foot ulcers: CODE(S): E11.621 - Type 2 diabetes mellitus with foot ulcer; L97.509 - Non-pressure chronic ulcer of other part of unspecified foot with unspecified severity QUALIFIERS: Diabetic foot ulcer location: midfoot Diabetes mellitus type: type 2 Laterality: left Non-pressure ulcer stage: with fat layer exposed Qualified Code(s): E11.621 - Type 2 diabetes mellitus with foot ulcer; L97.422 - 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 layer exposed PLAN: We will continue with epi fix #6 wound veil Steri-Strips and double layer Aquacel extra and ABD pad Continue wearing AFO and follow-up in 1 week (2) Pressure ulcer of foot, stage 3: CODE(S): L89.893 - Pressure ulcer of other site, stage 3 QUALIFIERS: Laterality: left Qualified Code(s): L89.893 - Pressure ulcer of other site, stage 3 (3) Polyneuropathy in diabetes: CODE(S): E11.42 - Type 2 diabetes mellitus with diabetic polyneuropathy QUALIFIERS: Diabetes mellitus type: type 2 Qualified Code(s): E11.42 - Type 2 diabetes mellitus with diabetic polyneuropathy (4) Diabetic peripheral vascular disease: CODE(S): E11.51 - Type 2 diabetes mellitus with diabetic peripheral angiopathy without gangrene
[2020-08-14 09:24] VITALS: BP 117/73; PULSE 111; RESP 18; TEMP 36.7; BMI 38.9
--- NOTE | 2020-08-14 12:52 | PN.PCM_ITS ---
History of Present Illness Date of Service: 08/14/20 Chief Complaint: Left foot ulceration History of Wound: 54-year-old white male with history of a right BK amp. 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 Patient is turning his foot and and developing Charcot. Now has a large open wound with depth and abrasion on top of the skin where a brace was cutting into the lateral foot. Patient wears a false leg on the right leg and is dependent on this leg that he wears brace to also to make up for the Charcot foot. Patient has been using silver to clean wound is very dry with lots of callus around the wound base. Subjective Subjective Just received a new AFO and wanted us to look at before using . I told him try it and see what happens. Objective Data Objective Data the wound is visibly improved flatter and just needs skin on top. Vital Signs: Vital Signs Temp Pulse Resp BP 98.1 F 111 H 18 117/73 08/14/20 09:24 08/14/20 09:24 08/14/20 09:24 08/14/20 09:24 Oxygen Delivery Method Room Air Weight: 310 lb Body Mass Index (BMI) 38.9 Physical Exam Const oriented x3 General Appearance: cooperative Exam Limitations: no limitations HEENT normocephalic Head and Scalp: normal to inspection Face and Sinus: normal facial exam Nose: external nose normal General Ear: hearing grossly impaired External Ear: external ears normal Mouth: oral and palatal mucosa normal Eyes PERRL General Eye: normal appearance of both eyes Neck full ROM General: normal visual inspection Resp normal respiratory effort Effort and Inspection: able to speak in complete sentences Auscultation: clear to auscultation bilaterally Cardio regular rate and regular rhythm Palpation: normal PMI Rate: regular rate Rhythm: regular rhythm GI Auscultation: normoactive bowel sounds Palpation: soft and no hepatosplenomegaly external exam normal Back/Spine Cervical Spine: cervical ROM normal Thoracic Spine / Upper Back: normal to inspection Lumbar Spine / Lower Back: normal to inspection Extremity normal to inspection General Extremity: normal exam except as noted Skin no rashes or lesions noted Neuro oriented x3 Psych Appearance: grossly normal Speech: normal speech Thought Content: normal thought content Judgement: judgement good Debridement Note Debridement Note Post-Debridement Measurements and Additional Note: Post-Debridement Measurements/Treatment - Nurse 1 - General Ulcer Assessment Start: 08/07/20 09:28 Freq: Status: Active Protocol: MARIEL Activity Type Activity Date Activity User E-Sign Co-Sign Detail Recorded Client Recorded Date Recorded By Document 08/07/20 09:28 PL [id number] 08/07/20 09:38 PL Document 08/14/20 09:24 [facility] [id number] 08/14/20 09:28 BM 08/07/20 08/14/20 09:28 09:24 WC - Today's Visit Information Type of service Follow-up Visit Follow-up Visit (Physician/DRILLING FIELD PROFESSIONAL (Physician/DRILLING FIELD PROFESSIONAL ) ) Arrival Mode Wheelchair Wheelchair Transfer Assistance None None Patient Identification Verified (Name & Yes Yes ) Patient Requires Transmission-Based No No Precautions Safety Precautions NA Finger Stick Blood Sugar(mg/dl) (if 138 indicated): Blood Sugar Stated by Patient Height and Weight Body Mass Index (BMI) 38.9 38.9 BMI Classification Obese Obese Vital Signs Temperature (97.8 F-99.1 F) 97.2 F L 98.1 F Temperature Source Temporal Temporal Pulse Rate (60-100) 102 H 111 H Pulse Location Monitor Respiratory Rate (12-18) 18 18 Respiratory rate source Observation Oxygen Delivery Method Room Air Blood Pressure (90/60-120/80) 122/75 H 117/73 Blood Pressure Mean (mm Hg) 90 87 Source Monitor Position Sitting Blood Pressure Location Left Arm History Since Last Visit- (Skip if this is Patient's initial visit) Have you changed medications since your No No last visit? Any new allergies or adverse reactions No No Had a fall/change in ADL's that may No No increase risk of falls Signs or symptoms of abuse and/or No No neglect since last visit Have you been in the hospital since your No No last visit? Has dressing in place as prescribed Yes Yes Has compression in place as prescribed N/A N/A Has offloadiing in place as prescribed N/A Yes Experienced any changes in pain level or No No management Left Footwear Custom Shoe Other Footwear r prosthesis Pain Scale: 0-10 Numeric Is Patient Pain Free? Yes Yes [facility] [place] Nurse 1 - General Ulcer Measurement Start: 08/07/20 09:28 Freq: Status: Active Protocol: Activity Type Activity Date Activity User E-Sign Co-Sign Detail Recorded Client Recorded Date Recorded By Document 08/07/20 09:28 PL [id number] 08/07/20 09:38 PL Document 08/14/20 09:24 BM [id number] 08/14/20 09:28 BM 08/07/20 08/14/20 09:28 09:24 Wound Center Nurse 1 #3 L LATERAL PLANTAR FOOT -Combined with other wound No No -Current Size (cm) - Length 1.0 1.3 -Current Size (cm) - Width 1.0 1.4 -Current Size (cm) - Depth 0.2 0.2 -Total Square Cm 1.00 1.82 -Photo Taken No No -Epithelialization None Present Medium 34-66% -Tunneling No No -Undermining/Tunneling No No -Circular Undermining No No -Exudate Amt Medium Medium -Exudate Type Serosanguineous Serosanguineous -Wound Margin Thickened & Distinct, Rolled Under Outline Attached -Granulation Amt Large (67-100%) Large (67-100%) -Granulation Quality [place] Red -Slough/Fibrin Yes Yes -Necrosis Amt Small (1-33%) Small (1-33%) -Necrotic Tissue Type Adherent Slough Adherent Slough -Texture ([place]-wound Skin Appearance) Assessed, Scarring -Moisture ([place]-wound Skin Appearance) Maceration,Dry/ Assessed, Scaly Maceration -Color ([place]-wound Skin Appearance) No Abnormality Assessed,Palor -Temperature ([place]-wound Skin No Abnormality No Abnormality Appearance) (Pt Warm) (Pt Warm) -Tenderness on Palpation ([place]-wound No Skin Appearance) -Ulcer Cleansing Rinsed/ soapy water Irrigated with Saline -Foul Odor after Cleansing No No -Anesthetic Used 5% Lidocaine Gel WC - Nurse 2 - General Ulcer CM Notes Start: 08/07/20 09:28 Freq: Status: Active Protocol: Activity Type Activity Date Activity User E-Sign Co-Sign Detail Recorded Client Recorded Date Recorded By Document 08/07/20 09:44 MW [id number] 08/07/20 09:50 MW Document 08/14/20 10:13 MW [id number] 08/14/20 10:15 MW 08/07/20 08/14/20 09:44 10:13 Wound Center Nurse 2 #3 L LATERAL PLANTAR FOOT -Time 09:48 10:13 -Correct Patient Yes Yes -Correct Side, Site, Position Yes Yes -Correct Procedure Yes Yes -Procedure Performed Yes Yes -Type of Procedure Debridement Debridement -Clinical Debridement Subcutaneous Subcutaneous -Tissue Removed Subcutaneous Subcutaneous -Post Debridement (cm) - Length 1.2 1.2 -Post Debridement (cm) - Width 1.0 1.0 -Post Debridement (cm) - Depth 0.2 0.1 -Total Square (Post) (cm) 1.20 1.20 -Area of Debridement (cm) - Length 1.2 1.2 -Area of Debridement (cm) - Width 1.0 1.0 -Total Square (Area) (cm) 1.20 1.20 -Tunneling No No -Undermining/Tunneling No No -Circular Undermining No No -Wound/Ulcer Outcome Not Healed Not Healed -Ulcer Cleansing Rinsed/ Rinsed/ Irrigated with Irrigated with Saline Saline -Foul Odor after Cleansing No No -Bioengineered Tissue Yes Yes -Type of Bioengineered Tissue Epifix 18mm Epifix 18mm Disc Disc -Expiration Date 05/06/25 05/06/25 -Product Lot Number [id number] -Percent Used 100 100 -Lot number of Saline Used [id number] -Bleeding Controlled with Pressure Pressure -Offloading No No -Treatment Response Procedure Procedure Tolerated Well Tolerated Well -Debridement - Subq, 1st 20sq cm No No -Apply Skin Sub - 1st 25 sq cm - Feet 1 -Apply Skin Sub - 1st 100 sq cm - Feet 1 -Epifix 18mm Disc 3 3 Pain Scale: 0-10 Numeric Is Patient Pain Free? Yes Yes - Nurse 3 - General Ulcer D/C NN Start: 08/07/20 09:28 Freq: Status: Active Protocol: Activity Type Activity Date Activity User E-Sign Co-Sign Detail Recorded Client Recorded Date Recorded By Document 08/07/20 09:51 MW [id number] 08/07/20 09:52 MW Document 08/14/20 10:21 BM [id number] 08/14/20 10:22 BMF 08/07/20 08/14/20 09:51 10:21 Wound Care Nurse 3 #3 L LATERAL PLANTAR FOOT -Ulcer Cleansing Not Cleansed -Foul Odor after Cleansing No -Negative Pressure Wound Therapy N/A -Primary Dressing Applied Aquacel Extra Aquacel Extra -Other Dressing EPIFIX -Primary Dressing Covered/Secured with Dry Gauze & Dry Gauze & Roll Gauze, Roll Gauze, Secured with Secured with Tape Tape,Other -Other Covering ABD PAD ABD -Aquacel Extra 2 1 Treatment Response Procedure Procedure Tolerated Well Tolerated Well Pain Scale: 0-10 Numeric Is Patient Pain Free? Yes Yes Teaching: Wound Center Dressing Your Wound -Person Taught Patient -Teaching Method Discussion -Response to teaching Verbalize understanding WC - Visit Discharge Discharge Condition Stable Stable Ambulatory Status Wheelchair Wheelchair Transportation Private Auto Accompanied by SELF Medication Reconcilliation completed & No provided to patient/care provider Clinical Summary of Care Provided Yes Wound debrided: L lat plantar foot Laterality: Left Type of Debridement: Excisional debridement Anesthesia Used: 5% Lidocaine Gel Depth: Down to and including healthy tissue Percentage of wound debrided: 100 Instrument Used: 5mm curette Severity: Limited To Skin Breakdown Amount of bleeding with debridement: Mild Bleeding Controlled with: Pressure Patient tolerated procedure: Patient tolerated procedure well Assessment/Plan Assessment/Plan (1) Diabetic foot ulcers: CODE(S): E11.621 - Type 2 diabetes mellitus with foot ulcer; L97.509 - Non-pressure chronic ulcer of other part of unspecified foot with unspecified severity QUALIFIERS: Diabetic foot ulcer location: midfoot Diabetes mellitus type: type 2 Laterality: left Non-pressure ulcer stage: with fat layer exposed Qualified Code(s): E11.621 - Type 2 diabetes mellitus with foot ulcer; L97.422 - 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 layer exposed (2) Pressure ulcer of foot, stage 3: CODE(S): L89.893 - Pressure ulcer of other site, stage 3 QUALIFIERS: Laterality: left Qualified Code(s): L89.893 - Pressure ulcer of other site, stage 3 PLAN: Epi-fix #7 to the wound covered with wound veil and steri-strips gauze dressing double layer of Aquacel then ABD dressing Try new AFO and keep the old one just incase of pressure (3) Polyneuropathy in diabetes: CODE(S): E11.42 - Type 2 diabetes mellitus with diabetic polyneuropathy QUALIFIERS: Diabetes mellitus type: type 2 Qualified Code(s): E11.42 - Type 2 diabetes mellitus with diabetic polyneuropathy PLAN: wear AFO L foot
[2020-08-21 09:31] VITALS: BP 138/77; PULSE 102; TEMP 35.7; BMI 38.9
--- NOTE | 2020-08-21 12:23 | PCM.WC.PN ---
History of Present Illness Date of Service: 08/21/20 Chief Complaint: Left foot ulceration History of Wound: 54-year-old white male with history of a right BK amp. 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 Patient is turning his foot and and developing Charcot. Now has a large open wound with depth and abrasion on top of the skin where a brace was cutting into the lateral foot. Patient wears a false leg on the right leg and is dependent on this leg that he wears brace to also to make up for the Charcot foot. Patient has been using silver to clean wound is very dry with lots of callus around the wound base. Subjective Subjective has been using the the New AFO on and off . Objective Data Objective Data The wound itself looks smaller and flatter still over producing skin cells . Will hit with nitrostix and irrigate well before adding the epifix looks very good Vital Signs: Vital Signs Temp Pulse Resp BP 96.3 F L 102 H 18 138/77 H 08/21/20 09:31 08/21/20 09:31 08/14/20 09:24 08/21/20 09:31 Oxygen Delivery Method Room Air Weight: 310 lb Body Mass Index (BMI) 38.9 Physical Exam Const oriented x3 General Appearance: cooperative Exam Limitations: no limitations HEENT normocephalic Head and Scalp: normal to inspection Face and Sinus: normal facial exam Nose: external nose normal General Ear: hearing grossly impaired External Ear: external ears normal Mouth: oral and palatal mucosa normal Eyes PERRL General Eye: normal appearance of both eyes Neck full ROM General: normal visual inspection Resp normal respiratory effort Effort and Inspection: able to speak in complete sentences Auscultation: clear to auscultation bilaterally Cardio regular rate and regular rhythm Palpation: normal PMI Rate: regular rate Rhythm: regular rhythm GI Auscultation: normoactive bowel sounds Palpation: soft and no hepatosplenomegaly external exam normal Back/Spine Cervical Spine: cervical ROM normal Thoracic Spine / Upper Back: normal to inspection Lumbar Spine / Lower Back: normal to inspection Extremity normal to inspection General Extremity: normal exam except as noted Skin no rashes or lesions noted Neuro oriented x3 Psych Appearance: grossly normal Speech: normal speech Thought Content: normal thought content Judgement: judgement good Debridement Note Debridement Note Post-Debridement Measurements and Additional Note: Post-Debridement Measurements/Treatment WC - Nurse 1 - General Ulcer Assessment Start: 08/07/20 09:28 Freq: Status: Active Protocol: MARIEL Activity Type Activity Date Activity User E-Sign Co-Sign Detail Recorded Client Recorded Date Recorded By Document 08/07/20 09:28 PL [id number] 08/07/20 09:38 PL Document 08/14/20 09:24 BMF [id number] 08/14/20 09:28 BMF Document 08/21/20 09:31 KR [id number] 08/21/20 09:36 KR 08/07/20 08/14/20 08/21/20 09:28 09:24 09:31 WC - Today's Visit Information Type of service Follow-up Visit Follow-up Visit Follow-up Visit (Physician/[employer] (Physician/[employer] (Physician/[employer] ) ) ) Arrival Mode Wheelchair Wheelchair Wheelchair Transfer Assistance None None Patient Identification Verified (Name & Yes Yes Yes ) Patient Requires Transmission-Based No No Precautions Safety Precautions NA Finger Stick Blood Sugar(mg/dl) (if 138 indicated): Blood Sugar Stated by Patient Height and Weight Body Mass Index (BMI) 38.9 38.9 38.9 BMI Classification Obese Obese Obese Vital Signs Temperature (97.8 F-99.1 F) 97.2 F L 98.1 F 96.3 F L Temperature Source Temporal Temporal Temporal Pulse Rate (60-100) 102 H 111 H 102 H Pulse Location Monitor Monitor Respiratory Rate (12-18) 18 18 Respiratory rate source Observation Oxygen Delivery Method Room Air Blood Pressure (90/60-120/80) 122/75 H 117/73 138/77 H Blood Pressure Mean (mm Hg) 90 87 97 Source Monitor Monitor Position Sitting Semi-Fowlers Blood Pressure Location Left Arm Right Arm History Since Last Visit- (Skip if this is Patient's initial visit) Have you changed medications since your No No No last visit? Any new allergies or adverse reactions No No No Had a fall/change in ADL's that may No No No increase risk of falls Signs or symptoms of abuse and/or No No No neglect since last visit Have you been in the hospital since your No No No last visit? Has dressing in place as prescribed Yes Yes Yes Has compression in place as prescribed N/A N/A N/A Has offloadiing in place as prescribed N/A Yes N/A Experienced any changes in pain level or No No No management Left Footwear Custom Shoe Other Footwear r prosthesis Pain Scale: 0-10 Numeric Is Patient Pain Free? Yes Yes Yes WC - Nurse 1 - General Ulcer Measurement Start: 08/07/20 09:28 Freq: Status: Active Protocol: Activity Type Activity Date Activity User E-Sign Co-Sign Detail Recorded Client Recorded Date Recorded By Document 08/07/20 09:28 PL [id number] 08/07/20 09:38 PL Document 08/14/20 09:24 BMF [id number] 08/14/20 09:28 BMF Document 08/21/20 09:31 KR [id number] 08/21/20 09:36 KR 08/07/20 08/14/20 08/21/20 09:28 09:24 09:31 Wound Center Nurse 1 #3 L LATERAL PLANTAR FOOT -Combined with other wound No No -Current Size (cm) - Length 1.0 1.3 1 -Current Size (cm) - Width 1.0 1.4 0.9 -Current Size (cm) - Depth 0.2 0.2 0.1 -Total Square Cm 1.00 1.82 0.9 -Photo Taken No No -Epithelialization None Present Medium 34-66% -Tunneling No No -Undermining/Tunneling No No -Circular Undermining No No -Exudate Amt Medium Medium Medium -Exudate Type Serosanguineous Serosanguineous Serosanguineous -Wound Margin Thickened & Distinct, Distinct, Rolled Under Outline Outline Attached Attached -Granulation Amt Large (67-100%) Large (67-100%) Medium (34-66%) -Granulation Quality [place] Red Red -Slough/Fibrin Yes Yes -Necrosis Amt Small (1-33%) Small (1-33%) Medium (34-66%) -Necrotic Tissue Type Adherent Slough Adherent Slough Adherent Slough -Texture ([place]-wound Skin Appearance) Assessed, Assessed, Scarring Scarring -Moisture ([place]-wound Skin Appearance) Maceration,Dry/ Assessed, No Abnormality, Scaly Maceration Assessed -Color ([place]-wound Skin Appearance) No Abnormality Assessed,Palor No Abnormality, Assessed -Temperature ([place]-wound Skin No Abnormality No Abnormality No Abnormality Appearance) (Pt Warm) (Pt Warm) (Pt Warm) -Tenderness on Palpation ([place]-wound No No Skin Appearance) -Ulcer Cleansing Rinsed/ soapy water Rinsed/ Irrigated with Irrigated with Saline Saline -Foul Odor after Cleansing No No No -Anesthetic Used 5% Lidocaine 5% Lidocaine Gel Gel WC - Nurse 2 - General Ulcer CM Notes Start: 08/07/20 09:28 Freq: Status: Active Protocol: Activity Type Activity Date Activity User E-Sign Co-Sign Detail Recorded Client Recorded Date Recorded By Document 08/07/20 09:44 MW [id number] 08/07/20 09:50 MW Document 08/14/20 10:13 MW [id number] 08/14/20 10:15 MW Edit Result 08/14/20 10:13 MW (1) [id number] 08/15/20 17:48 PL Document 08/21/20 10:03 MW [id number] 08/21/20 10:09 MW (1) #3 L LATERAL PLANTAR FOOT - Apply Skin Sub - 1st 25 sq cm - Feet => 1 - Apply Skin Sub - 1st 100 sq cm - Feet 1 => 08/07/20 08/14/20 08/21/20 09:44 10:13 10:03 Wound Center Nurse 2 #3 L LATERAL PLANTAR FOOT -Time 09:48 10:13 10:04 -Correct Patient Yes Yes Yes -Correct Side, Site, Position Yes Yes Yes -Correct Procedure Yes Yes Yes -Procedure Performed Yes Yes Yes -Type of Procedure Debridement Debridement Debridement -Clinical Debridement Subcutaneous Subcutaneous Subcutaneous -Tissue Removed Subcutaneous Subcutaneous Subcutaneous -Post Debridement (cm) - Length 1.2 1.2 1.1 -Post Debridement (cm) - Width 1.0 1.0 1.1 -Post Debridement (cm) - Depth 0.2 0.1 0.2 -Total Square (Post) (cm) 1.20 1.20 1.21 -Area of Debridement (cm) - Length 1.2 1.2 1.1 -Area of Debridement (cm) - Width 1.0 1.0 1.1 -Total Square (Area) (cm) 1.20 1.20 1.21 -Tunneling No No No -Undermining/Tunneling No No No -Circular Undermining No No No -Wound/Ulcer Outcome Not Healed Not Healed Not Healed -Ulcer Cleansing Rinsed/ Rinsed/ Rinsed/ Irrigated with Irrigated with Irrigated with Saline Saline Saline -Foul Odor after Cleansing No No No -Bioengineered Tissue Yes Yes Yes -Type of Bioengineered Tissue Epifix 18mm Epifix 18mm Epifix 18mm Disc Disc Disc -Expiration Date 05/06/25 05/06/25 05/06/25 -Product Lot Number [id number] -Percent Used 100 100 100 -Lot number of Saline Used [id number] -Bleeding Controlled with Pressure Pressure Pressure -Offloading No No No -Treatment Response Procedure Procedure Procedure Tolerated Well Tolerated Well Tolerated Well -Debridement - Subq, 1st 20sq cm No No No -Apply Skin Sub - 1st 25 sq cm - Feet 1 1 1 -Epifix 18mm Disc 3 3 3 Pain Scale: 0-10 Numeric Is Patient Pain Free? Yes Yes Yes - Nurse 3 - General Ulcer D/C NN Start: 08/07/20 09:28 Freq: Status: Active Protocol: Activity Type Activity Date Activity User E-Sign Co-Sign Detail Recorded Client Recorded Date Recorded By Document 08/07/20 09:51 MW [id number] 08/07/20 09:52 MW Document 08/14/20 10:21 [facility] [id number] 08/14/20 10:22 [facility] 08/07/20 08/14/20 09:51 10:21 Wound Care Nurse 3 #3 L LATERAL PLANTAR FOOT -Ulcer Cleansing Not Cleansed -Foul Odor after Cleansing No -Negative Pressure Wound Therapy N/A -Primary Dressing Applied Aquacel Extra Aquacel Extra -Other Dressing EPIFIX -Primary Dressing Covered/Secured with Dry Gauze & Dry Gauze & Roll Gauze, Roll Gauze, Secured with Secured with Tape Tape,Other -Other Covering ABD PAD ABD -Aquacel Extra 2 1 Treatment Response Procedure Procedure Tolerated Well Tolerated Well Pain Scale: 0-10 Numeric Is Patient Pain Free? Yes Yes Teaching: Wound Center Dressing Your Wound -Person Taught Patient -Teaching Method Discussion -Response to teaching Verbalize understanding WC - Visit Discharge Discharge Condition Stable Stable Ambulatory Status Wheelchair Wheelchair Transportation Private Auto Accompanied by SELF Medication Reconcilliation completed & No provided to patient/care provider Clinical Summary of Care Provided Yes Wound debrided: L lat plantar foot Laterality: Left Wound Grade/Stage: stage 3 Type of Debridement: Excisional debridement Anesthesia Used: 5% Lidocaine Gel Depth: Down to and including healthy tissue Percentage of wound debrided: 100 Instrument Used: 5mm curette and - (nippers) Tissue Removed: callus and maceration, Severity: Limited To Skin Breakdown Amount of bleeding with debridement: Mild Bleeding Controlled with: Pressure and Silver Nitrate Patient tolerated procedure: Patient tolerated procedure well Assessment/Plan Assessment/Plan (1) Diabetic foot ulcers: CODE(S): E11.621 - Type 2 diabetes mellitus with foot ulcer; L97.509 - Non-pressure chronic ulcer of other part of unspecified foot with unspecified severity QUALIFIERS: Diabetic foot ulcer location: midfoot Diabetes mellitus type: type 2 Laterality: left Non-pressure ulcer stage: with fat layer exposed Qualified Code(s): E11.621 - Type 2 diabetes mellitus with foot ulcer; L97.422 - 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 layer exposed (2) Pressure ulcer of foot, stage 3: CODE(S): L89.893 - Pressure ulcer of other site, stage 3 QUALIFIERS: Laterality: left Qualified Code(s): L89.893 - Pressure ulcer of other site, stage 3 PLAN: Epi-fix #8 to the wound covered with wound veil and steri-strips gauze dressing double layer of Aquacel then ABD dressing Try new AFO and keep the old one just incase of pressure (3) Polyneuropathy in diabetes: CODE(S): E11.42 - Type 2 diabetes mellitus with diabetic polyneuropathy QUALIFIERS: Diabetes mellitus type: type 2 Qualified Code(s): E11.42 - Type 2 diabetes mellitus with diabetic polyneuropathy PLAN: wear AFO L foot (4) Diabetic peripheral vascular disease: CODE(S): E11.51 - Type 2 diabetes mellitus with diabetic peripheral angiopathy without gangrene
[2020-08-28 09:45] VITALS: BP 128/74; PULSE 96; TEMP 36.5; BMI 38.9
--- NOTE | 2020-08-28 12:28 | PCM.WC.PN ---
History of Present Illness Date of Service: 08/28/20 Chief Complaint: Left foot ulceration History of Wound: 54-year-old white male with history of a right BK amp. Patient is referred to us from his chemistry intern in [place] for a left lateral foot DFU pressure ulcer from a improperly fitting splint that started back in 2019. Patient is turning his foot and and developing Charcot. Now has a large open wound with depth and abrasion on top of the skin where a brace was cutting into the lateral foot. Patient wears a false leg on the right leg and is dependent on this leg that he wears brace to also to make up for the Charcot foot. Patient has been using silver to clean wound is very dry with lots of callus around the wound base. Subjective Subjective Being more active on his artificial leg Objective Data Objective Data Wound is getting smaller but still has a lot of maceration around the edges may be because he has too many dressings over top to hold in place we are going to try to cut back on those to see if that is causing his foot to sweat and holding moisture. Vital Signs: Vital Signs Temp Pulse Resp BP 97.7 F L 96 18 128/74 H 08/28/20 09:45 08/28/20 09:45 08/14/20 09:24 08/28/20 09:45 Oxygen Delivery Method Room Air Weight: 310 lb Body Mass Index (BMI) 38.9 Physical Exam Const oriented x3 General Appearance: cooperative Exam Limitations: no limitations HEENT normocephalic Head and Scalp: normal to inspection Face and Sinus: normal facial exam Nose: external nose normal General Ear: hearing grossly impaired External Ear: external ears normal Mouth: oral and palatal mucosa normal Eyes PERRL General Eye: normal appearance of both eyes Neck full ROM General: normal visual inspection Resp normal respiratory effort Effort and Inspection: able to speak in complete sentences Auscultation: clear to auscultation bilaterally Cardio regular rate and regular rhythm Palpation: normal PMI Rate: regular rate Rhythm: regular rhythm GI Auscultation: normoactive bowel sounds Palpation: soft and no hepatosplenomegaly external exam normal Back/Spine Cervical Spine: cervical ROM normal Thoracic Spine / Upper Back: normal to inspection Lumbar Spine / Lower Back: normal to inspection Extremity normal to inspection General Extremity: normal exam except as noted Skin no rashes or lesions noted Neuro oriented x3 Psych Appearance: grossly normal Speech: normal speech Thought Content: normal thought content Judgement: judgement good Debridement Note Debridement Note Post-Debridement Measurements and Additional Note: Post-Debridement Measurements/Treatment - Nurse 1 - General Ulcer Assessment Start: 08/07/20 09:28 Freq: Status: Active Protocol: GM.ELIAST Activity Type Activity Date Activity User E-Sign Co-Sign Detail Recorded Client Recorded Date Recorded By Document 08/07/20 09:28 PL [id number] 08/07/20 09:38 PL Document 08/14/20 09:24 BMF [id number] 08/14/20 09:28 BMF Document 08/21/20 09:31 KR [id number] 08/21/20 09:36 KR Document 08/28/20 09:45 DL [id number] 08/28/20 09:51 DL 08/07/20 08/14/20 08/21/20 09:28 09:24 09:31 - Today's Visit Information Type of service Follow-up Visit Follow-up Visit Follow-up Visit (Physician/DIRECTOR EPIDEMIOLOGY (Physician/DIRECTOR EPIDEMIOLOGY (Physician/DIRECTOR EPIDEMIOLOGY ) ) ) Arrival Mode Wheelchair Wheelchair Wheelchair Transfer Assistance None None Patient Identification Verified (Name & Yes Yes Yes ) Patient Requires Transmission-Based No No Precautions Safety Precautions NA Finger Stick Blood Sugar(mg/dl) (if 138 indicated): Blood Sugar Stated by Patient Height and Weight Body Mass Index (BMI) 38.9 38.9 38.9 BMI Classification Obese Obese Obese Vital Signs Temperature (97.8 F-99.1 F) 97.2 F L 98.1 F 96.3 F L Temperature Source Temporal Temporal Temporal Pulse Rate (60-100) 102 H 111 H 102 H Pulse Location Monitor Monitor Respiratory Rate (12-18) 18 18 Respiratory rate source Observation Oxygen Delivery Method Room Air Blood Pressure (90/60-120/80) 122/75 H 117/73 138/77 H Blood Pressure Mean (mm Hg) 90 87 97 Source Monitor Monitor Position Sitting Semi-Fowlers Blood Pressure Location Left Arm Right Arm History Since Last Visit- (Skip if this is Patient's initial visit) Have you changed medications since your No No No last visit? Any new allergies or adverse reactions No No No Had a fall/change in ADL's that may No No No increase risk of falls Signs or symptoms of abuse and/or No No No neglect since last visit Have you been in the hospital since your No No No last visit? Has dressing in place as prescribed Yes Yes Yes Has compression in place as prescribed N/A N/A N/A Has offloadiing in place as prescribed N/A Yes N/A Experienced any changes in pain level or No No No management Left Footwear Custom Shoe Other Footwear r prosthesis Pain Scale: 0-10 Numeric Is Patient Pain Free? Yes Yes Yes 08/28/20 09:45 WC - Today's Visit Information Type of service Follow-up Visit (Physician/DIRECTOR EPIDEMIOLOGY ) Arrival Mode Ambulatory,Cane Transfer Assistance Patient Identification Verified (Name & Yes ) Patient Requires Transmission-Based Precautions Safety Precautions Finger Stick Blood Sugar(mg/dl) (if indicated): Blood Sugar Height and Weight Body Mass Index (BMI) 38.9 BMI Classification Obese Vital Signs Temperature (97.8 F-99.1 F) 97.7 F L Temperature Source Temporal Pulse Rate (60-100) 96 Pulse Location Monitor Respiratory Rate (12-18) Respiratory rate source Oxygen Delivery Method Blood Pressure (90/60-120/80) 128/74 H Blood Pressure Mean (mm Hg) 92 Source Monitor Position Sitting Blood Pressure Location Right Arm History Since Last Visit- (Skip if this is Patient's initial visit) Have you changed medications since your No last visit? Any new allergies or adverse reactions No Had a fall/change in ADL's that may No increase risk of falls Signs or symptoms of abuse and/or No neglect since last visit Have you been in the hospital since your No last visit? Has dressing in place as prescribed Yes Has compression in place as prescribed N/A Has offloadiing in place as prescribed N/A Experienced any changes in pain level or No management Left Footwear Other Footwear Pain Scale: 0-10 Numeric Is Patient Pain Free? Yes - Nurse 1 - General Ulcer Measurement Start: 08/07/20 09:28 Freq: Status: Active Protocol: Activity Type Activity Date Activity User E-Sign Co-Sign Detail Recorded Client Recorded Date Recorded By Document 08/07/20 09:28 PL [id number] 08/07/20 09:38 PL Document 08/14/20 09:24 BMF [id number] 08/14/20 09:28 BMF Document 08/21/20 09:31 KR [id number] 08/21/20 09:36 KR Document 08/28/20 09:45 DL [id number] 08/28/20 09:51 DL 08/07/20 08/14/20 08/21/20 09:28 09:24 09:31 Wound Center Nurse 1 #3 L LATERAL PLANTAR FOOT -Combined with other wound No No -Current Size (cm) - Length 1.0 1.3 1 -Current Size (cm) - Width 1.0 1.4 0.9 -Current Size (cm) - Depth 0.2 0.2 0.1 -Total Square Cm 1.00 1.82 0.9 -Photo Taken No No -Epithelialization None Present Medium 34-66% -Tunneling No No -Undermining/Tunneling No No -Circular Undermining No No -Exudate Amt Medium Medium Medium -Exudate Type Serosanguineous Serosanguineous Serosanguineous -Wound Margin Thickened & Distinct, Distinct, Rolled Under Outline Outline Attached Attached -Granulation Amt Large (67-100%) Large (67-100%) Medium (34-66%) -Granulation Quality [place] Red Red -Slough/Fibrin Yes Yes -Necrosis Amt Small (1-33%) Small (1-33%) Medium (34-66%) -Necrotic Tissue Type Adherent Slough Adherent Slough Adherent Slough -Texture ([place]-wound Skin Appearance) Assessed, Assessed, Scarring Scarring -Moisture ([place]-wound Skin Appearance) Maceration,Dry/ Assessed, No Abnormality, Scaly Maceration Assessed -Color ([place]-wound Skin Appearance) No Abnormality Assessed,Palor No Abnormality, Assessed -Temperature ([place]-wound Skin No Abnormality No Abnormality No Abnormality Appearance) (Pt Warm) (Pt Warm) (Pt Warm) -Tenderness on Palpation ([place]-wound No No Skin Appearance) -Ulcer Cleansing Rinsed/ soapy water Rinsed/ Irrigated with Irrigated with Saline Saline -Foul Odor after Cleansing No No No -Anesthetic Used 5% Lidocaine 5% Lidocaine Gel Gel 08/28/20 09:45 Wound Center Nurse 1 #3 L LATERAL PLANTAR FOOT -Combined with other wound -Current Size (cm) - Length 0.9 -Current Size (cm) - Width 0.8 -Current Size (cm) - Depth 0.1 -Total Square Cm 0.72 -Photo Taken -Epithelialization -Tunneling -Undermining/Tunneling -Circular Undermining -Exudate Amt Medium -Exudate Type Serosanguineous -Wound Margin Distinct, Outline Attached -Granulation Amt Medium (34-66%) -Granulation Quality Red -Slough/Fibrin -Necrosis Amt Medium (34-66%) -Necrotic Tissue Type Adherent Slough -Texture ([place]-wound Skin Appearance) Assessed, Scarring -Moisture ([place]-wound Skin Appearance) No Abnormality, Assessed -Color ([place]-wound Skin Appearance) No Abnormality, Assessed -Temperature ([place]-wound Skin No Abnormality Appearance) (Pt Warm) -Tenderness on Palpation ([place]-wound No Skin Appearance) -Ulcer Cleansing soap and water -Foul Odor after Cleansing No -Anesthetic Used 4% Lidocaine Solution WC - Nurse 2 - General Ulcer CM Notes Start: 08/07/20 09:28 Freq: Status: Active Protocol: Activity Type Activity Date Activity User E-Sign Co-Sign Detail Recorded Client Recorded Date Recorded By Document 08/07/20 09:44 MW [id number] 08/07/20 09:50 MW Document 08/14/20 10:13 MW [id number] 08/14/20 10:15 MW Edit Result 08/14/20 10:13 MW (1) [id number] 08/15/20 17:48 PL Document 08/21/20 10:03 MW [id number] 08/21/20 10:09 MW Document 08/28/20 10:19 MW [id number] 08/28/20 10:29 MW (1) #3 L LATERAL PLANTAR FOOT - Apply Skin Sub - 1st 25 sq cm - Feet => 1 - Apply Skin Sub - 1st 100 sq cm - Feet 1 => 08/07/20 08/14/20 08/21/20 09:44 10:13 10:03 Wound Center Nurse 2 #3 L LATERAL PLANTAR FOOT -Time 09:48 10:13 10:04 -Correct Patient Yes Yes Yes -Correct Side, Site, Position Yes Yes Yes -Correct Procedure Yes Yes Yes -Procedure Performed Yes Yes Yes -Type of Procedure Debridement Debridement Debridement -Clinical Debridement Subcutaneous Subcutaneous Subcutaneous -Tissue Removed Subcutaneous Subcutaneous Subcutaneous -Post Debridement (cm) - Length 1.2 1.2 1.1 -Post Debridement (cm) - Width 1.0 1.0 1.1 -Post Debridement (cm) - Depth 0.2 0.1 0.2 -Total Square (Post) (cm) 1.20 1.20 1.21 -Area of Debridement (cm) - Length 1.2 1.2 1.1 -Area of Debridement (cm) - Width 1.0 1.0 1.1 -Total Square (Area) (cm) 1.20 1.20 1.21 -Tunneling No No No -Undermining/Tunneling No No No -Circular Undermining No No No -Wound/Ulcer Outcome Not Healed Not Healed Not Healed -Ulcer Cleansing Rinsed/ Rinsed/ Rinsed/ Irrigated with Irrigated with Irrigated with Saline Saline Saline -Foul Odor after Cleansing No No No -Bioengineered Tissue Yes Yes Yes -Type of Bioengineered Tissue Epifix 18mm Epifix 18mm Epifix 18mm Disc Disc Disc -Expiration Date 05/06/25 05/06/25 05/06/25 -Product Lot Number [id number] -Percent Used 100 100 100 -Lot number of Saline Used [id number] -Bleeding Controlled with Pressure Pressure Pressure -Offloading No No No -Treatment Response Procedure Procedure Procedure Tolerated Well Tolerated Well Tolerated Well -Debridement - Subq, 1st 20sq cm No No No -Apply Skin Sub - 1st 25 sq cm - Feet 1 1 1 -Epifix 18mm Disc 3 3 3 Pain Scale: 0-10 Numeric Is Patient Pain Free? Yes Yes Yes 08/28/20 10:19 Wound Center Nurse 2 #3 L LATERAL PLANTAR FOOT -Time 10:19 -Correct Patient Yes -Correct Side, Site, Position Yes -Correct Procedure Yes -Procedure Performed Yes -Type of Procedure Debridement -Clinical Debridement Subcutaneous -Tissue Removed Subcutaneous -Post Debridement (cm) - Length 1.0 -Post Debridement (cm) - Width 0.7 -Post Debridement (cm) - Depth 0.1 -Total Square (Post) (cm) 0.70 -Area of Debridement (cm) - Length 1.0 -Area of Debridement (cm) - Width 0.7 -Total Square (Area) (cm) 0.70 -Tunneling No -Undermining/Tunneling No -Circular Undermining No -Wound/Ulcer Outcome Not Healed -Ulcer Cleansing Rinsed/ Irrigated with Saline -Foul Odor after Cleansing No -Bioengineered Tissue Yes -Type of Bioengineered Tissue Epifix 18mm Disc -Expiration Date 06/06/25 -Product Lot Number [id number] -Percent Used 100 -Lot number of Saline Used [id number] -Bleeding Controlled with Pressure -Offloading No -Treatment Response Procedure Tolerated Well -Debridement - Subq, 1st 20sq cm Yes -Apply Skin Sub - 1st 25 sq cm - Feet 1 -Epifix 18mm Disc 3 Pain Scale: 0-10 Numeric Is Patient Pain Free? Yes - Nurse 3 - General Ulcer D/C NN Start: 08/07/20 09:28 Freq: Status: Active Protocol: Activity Type Activity Date Activity User E-Sign Co-Sign Detail Recorded Client Recorded Date Recorded By Document 08/07/20 09:51 MW [id number] 08/07/20 09:52 MW Document 08/14/20 10:21 [facility] [id number] 08/14/20 10:22 [facility] Document 08/28/20 10:43 [facility] [id number] 08/28/20 10:44 [facility] 08/07/20 08/14/20 08/28/20 09:51 10:21 10:43 Wound Care Nurse 3 #3 L LATERAL PLANTAR FOOT -Ulcer Cleansing Not Cleansed -Foul Odor after Cleansing No -Negative Pressure Wound Therapy N/A -Primary Dressing Applied Aquacel Extra Aquacel Extra Mepilex Border -Other Dressing EPIFIX EPIFIX -Primary Dressing Covered/Secured with Dry Gauze & Dry Gauze & Dry Gauze & Roll Gauze, Roll Gauze, Roll Gauze, Secured with Secured with Secured with Tape Tape,Other Tape -Other Covering ABD PAD ABD -Aquacel Extra 2 1 -Mepilex Border 2 Left -Compression Wrap Vinay Wrap Treatment Response Procedure Procedure Procedure Tolerated Well Tolerated Well Tolerated Well Pain Scale: 0-10 Numeric Is Patient Pain Free? Yes Yes Yes Teaching: Wound Center Dressing Your Wound -Person Taught Patient -Teaching Method Discussion -Response to teaching Verbalize understanding WC - Visit Discharge Discharge Condition Stable Stable Stable Ambulatory Status Wheelchair Wheelchair Ambulatory,Cane Transportation Private Auto Private Auto Accompanied by SELF Medication Reconcilliation completed & No provided to patient/care provider Clinical Summary of Care Provided Yes Wound debrided: Left lateral plantar foot Wound Grade/Stage: Stage III Type of Debridement: Excisional debridement Anesthesia Used: 5% Lidocaine Gel Depth: Down to and including healthy tissue and in the subcutaneous layer Percentage of wound debrided: 100 Instrument Used: 5mm curette Tissue Removed: Macerated tissue devitalized and fibrin Severity: Limited To Skin Breakdown Amount of bleeding with debridement: Mild Bleeding Controlled with: Pressure and Silver Nitrate Patient tolerated procedure: Patient tolerated procedure well Assessment/Plan Assessment/Plan (1) Diabetic foot ulcers: CODE(S): E11.621 - Type 2 diabetes mellitus with foot ulcer; L97.509 - Non-pressure chronic ulcer of other part of unspecified foot with unspecified severity QUALIFIERS: Diabetic foot ulcer location: midfoot Diabetes mellitus type: type 2 Laterality: left Non-pressure ulcer stage: with fat layer exposed Qualified Code(s): E11.621 - Type 2 diabetes mellitus with foot ulcer; L97.422 - 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 layer exposed (2) Pressure ulcer of foot, stage 3: CODE(S): L89.893 - Pressure ulcer of other site, stage 3 QUALIFIERS: Laterality: left Qualified Code(s): L89.893 - Pressure ulcer of other site, stage 3 PLAN: Epi-fix #9 to the wound covered with wound veil and steri-strips gauze dressing double layer of Aquacel then Mediplex dressing then Vinay wrap Try new AFO and keep the old one just incase of pressure
== END 2020-09-04 23:59 ==
LOC: WC 09:30
PROVIDERS: PCP Family Medicine Sports Medicine; Visit Provider Nurse Practitioner
DX: E11.621 Type 2 diabetes mellitus with foot ulcer (principal); L97.422 Non-pressure 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 with fat layer exposed; L89.893 Pressure ulcer of other site, stage 3; E11.42 Type 2 diabetes mellitus with diabetic polyneuropathy; E11.51 Type 2 diabetes mellitus with diabetic peripheral angiopathy without gangrene
CPT/HCPCS: 11042; 15275; 15277; Q4186

== ENCOUNTER 2020-10-02 09:30 | Outpatient (RCR) | payer MEDICARE, SELFPAY ==
[2020-09-05 00:25] VITALS: BP 128/74; PULSE 96; RESP 18; TEMP 36.5
[2020-09-11 09:21] VITALS: BP 100/60; PULSE 95; RESP 18; TEMP 37; BMI 38.9
--- NOTE | 2020-09-11 10:09 | PN.PCM_ITS ---
History of Present Illness Date of Service: 09/11/20 Chief Complaint: Left foot ulceration History of Wound: 54-year-old white male with history of a right BK amp. Patient is referred to us from his glycerin operator in [place] for a left lateral foot DFU pressure ulcer from a improperly fitting splint that started back in 2019. Patient is turning his foot and and developing Charcot. Now has a large open wound with depth and abrasion on top of the skin where a brace was cutting into the lateral foot. Patient wears a false leg on the right leg and is dependent on this leg that he wears brace to also to make up for the Charcot foot. Patient has been using silver to clean wound is very dry with lots of callus around the wound base. Progress of Wound: The wound itself is improved it is flat it is much smaller he just needs to get another good layer skin over top. Patient has been gone on vacation for 2 weeks. Has developed some pressure on the lateral aspect that has scabbed over but needs to pay more attention to the pressure. Subjective Subjective Has no concerns at this time Objective Data Objective Data Today will be his last epi fix applied #10 to wound base covered with Adaptic gentle Steri-Strips and Aquacel padding and then ABD over top. Needs to be more careful about his pressure on the lateral side of his foot Vital Signs: Vital Signs Temp Pulse Resp BP 98.6 F 95 18 100/60 09/11/20 09:21 09/11/20 09:21 09/11/20 09:21 09/11/20 09:21 Weight: 310 lb Body Mass Index (BMI) 38.9 Physical Exam Const oriented x3 General Appearance: cooperative Exam Limitations: no limitations Resp normal respiratory effort Effort and Inspection: able to speak in complete sentences Auscultation: clear to auscultation bilaterally Cardio regular rate and regular rhythm Palpation: normal PMI Rate: regular rate Rhythm: regular rhythm Extremity normal to inspection General Extremity: normal exam except as noted Skin no rashes or lesions noted Wounds: wounds noted Neuro oriented x3 Psych Appearance: grossly normal Speech: normal speech Thought Content: normal thought content Judgement: judgement good Debridement Note Debridement Note Post-Debridement Measurements and Additional Note: Post-Debridement Measurements/Treatment GM - Nurse 1 - General Ulcer Assessment Start: 09/11/20 09:18 Freq: Status: Active Protocol: WC.LOWEXT Activity Type Activity Date Activity User E-Sign Co-Sign Detail Recorded Client Recorded Date Recorded By Document 09/11/20 09:21 [id number] 09/11/20 09:27 09/11/20 09:21 - Today's Visit Information Type of service Follow-up Visit (Physician/MATHEMATICS ACADEMIC CHAIR ) Arrival Mode Wheelchair Transfer Assistance None Patient Identification Verified (Name & Yes ) Patient Requires Transmission-Based No Precautions Safety Precautions NA Finger Stick Blood Sugar(mg/dl) (if 131 indicated): Blood Sugar Stated by Patient Height and Weight Body Mass Index (BMI) 38.9 BMI Classification Obese Vital Signs Temperature (97.8 F-99.1 F) 98.6 F Temperature Source Temporal Pulse Rate (60-100) 95 Respiratory Rate (12-18) 18 Blood Pressure (90/60-120/80) 100/60 Blood Pressure Mean (mm Hg) 73 History Since Last Visit- (Skip if this is Patient's initial visit) Have you changed medications since your No last visit? Any new allergies or adverse reactions No Had a fall/change in ADL's that may No increase risk of falls Signs or symptoms of abuse and/or No neglect since last visit Have you been in the hospital since your No last visit? Has dressing in place as prescribed Yes Has compression in place as prescribed N/A Has offloadiing in place as prescribed N/A Experienced any changes in pain level or No management Pain Scale: 0-10 Numeric Is Patient Pain Free? Yes - Nurse 1 - General Ulcer Measurement Start: 09/11/20 09:18 Freq: Status: Active Protocol: Activity Type Activity Date Activity User E-Sign Co-Sign Detail Recorded Client Recorded Date Recorded By Document 09/11/20 09:21 [id number] 09/11/20 09:27 09/11/20 09:21 Wound Center Nurse 1 #3 L LATERAL PLANTAR FOOT -Combined with other wound No -Current Size (cm) - Length 0.7 -Current Size (cm) - Width 0.5 -Current Size (cm) - Depth 0.1 -Total Square Cm 0.35 -Photo Taken No -Epithelialization None Present -Tunneling No -Undermining/Tunneling No -Circular Undermining No -Exudate Amt Medium -Exudate Type Serosanguineous -Granulation Amt Medium (34-66%) -Granulation Quality [place] -Slough/Fibrin Yes -Necrosis Amt Medium (34-66%) -Necrotic Tissue Type Adherent Slough -Ulcer Cleansing Rinsed/ Irrigated with Saline -Foul Odor after Cleansing No WC - Nurse 2 - General Ulcer CM Notes Start: 09/11/20 09:18 Freq: Status: Active Protocol: Activity Type Activity Date Activity User E-Sign Co-Sign Detail Recorded Client Recorded Date Recorded By Document 09/11/20 09:40 MW [id number] 09/11/20 09:47 MW 09/11/20 09:40 Wound Center Nurse 2 -Time 09:40 -Correct Patient Yes -Correct Side, Site, Position Yes -Correct Procedure Yes -Procedure Performed Yes -Type of Procedure Debridement -Clinical Debridement Subcutaneous -Tissue Removed Subcutaneous -Post Debridement (cm) - Length 0.9 -Post Debridement (cm) - Width 0.8 -Post Debridement (cm) - Depth 0.1 -Total Square (Post) (cm) 0.72 -Area of Debridement (cm) - Length 0.9 -Area of Debridement (cm) - Width 0.8 -Total Square (Area) (cm) 0.72 -Tunneling No -Undermining/Tunneling No -Circular Undermining No -Wound/Ulcer Outcome Not Healed -Ulcer Cleansing Rinsed/ Irrigated with Saline -Foul Odor after Cleansing No -Bioengineered Tissue Yes -Type of Bioengineered Tissue Epifix 18mm Disc -Expiration Date 06/06/25 -Product Lot Number [id number] -Percent Used 100 -Lot number of Saline Used [id number] -Bleeding Controlled with Pressure -Offloading No -Treatment Response Procedure Tolerated Well -Debridement - Subq, 1st 20sq cm No -Apply Skin Sub - 1st 25 sq cm - Feet 1 -Epifix 18mm Disc 3 Pain Scale: 0-10 Numeric Is Patient Pain Free? Yes Wound debrided: Left lateral plantar foot Laterality: Left Wound Grade/Stage: Stage III Type of Debridement: Excisional debridement Anesthesia Used: 5% Lidocaine Gel Depth: Down to and including healthy tissue and in the subcutaneous layer Percentage of wound debrided: 100 Instrument Used: 3mm curette Tissue Removed: Fibrin and devitalized tissue Severity: Limited To Skin Breakdown Amount of bleeding with debridement: None Bleeding Controlled with: Pressure Patient tolerated procedure: Patient tolerated procedure well Assessment/Plan Assessment/Plan (1) Diabetic foot ulcers: CODE(S): E11.621 - Type 2 diabetes mellitus with foot ulcer; L97.509 - Non-pressure chronic ulcer of other part of unspecified foot with unspecified severity QUALIFIERS: Diabetic foot ulcer location: midfoot Diabetes mellitus type: type 2 Laterality: left Non-pressure ulcer stage: with fat layer exposed Qualified Code(s): E11.621 - Type 2 diabetes mellitus with foot ulcer; L97.422 - 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 layer exposed (2) Pressure ulcer of foot, stage 3: CODE(S): L89.893 - Pressure ulcer of other site, stage 3 QUALIFIERS: Laterality: left Qualified Code(s): L89.893 - Pressure ulcer of other site, stage 3 PLAN: Epi-fix #10 to the wound covered with wound veil and steri-strips gauze dressing double layer of Aquacel then ABD dressing then Vinay wrap Try new AFO and keep the old one just incase of pressure (3) Polyneuropathy in diabetes: CODE(S): E11.42 - Type 2 diabetes mellitus with diabetic polyneuropathy QUALIFIERS: Diabetes mellitus type: type 2 Qualified Code(s): E11.42 - Type 2 diabetes mellitus with diabetic polyneuropathy
[2020-09-18 10:06] VITALS: BP 129/69; PULSE 96; RESP 16; TEMP 36.4; BMI 38.9
--- NOTE | 2020-09-18 12:13 | PCM.WC.PN ---
History of Present Illness Date of Service: 09/18/20 Chief Complaint: Left foot ulceration History of Wound: 54-year-old white male with history of a right BK amp. 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 Patient is turning his foot and and developing Charcot. Now has a large open wound with depth and abrasion on top of the skin where a brace was cutting into the lateral foot. Patient wears a false leg on the right leg and is dependent on this leg that he wears brace to also to make up for the Charcot foot. Patient has been using silver to clean wound is very dry with lots of callus around the wound base. Progress of Wound: The wound itself is improved it is flat it is much smaller he just needs to get another good layer skin over top. Has developed some pressure on the lateral aspect that has scabbed over but needs to pay more attention to the pressure. I suggested he changed back to his old AFO Subjective Subjective No concerns Objective Data Objective Data Pay more attention to the pressure that is developing on the lateral foot above the wound that is has a good layer of skin over but is not quite tough. We will continue with Promogran for another week to see if we can get another layer of skin to consider it closed. Vital Signs: Vital Signs Temp Pulse Resp BP 97.5 F L 96 16 129/69 H 09/18/20 10:06 09/18/20 10:06 09/18/20 10:06 09/18/20 10:06 Oxygen Delivery Method Room Air Weight: 310 lb Body Mass Index (BMI) 38.9 Lab / Micro Data Attestation: I reviewed the patient's lab results. Physical Exam Const oriented x3 General Appearance: cooperative Exam Limitations: no limitations Resp normal respiratory effort Effort and Inspection: able to speak in complete sentences Auscultation: clear to auscultation bilaterally Cardio regular rate and regular rhythm Palpation: normal PMI Rate: regular rate Rhythm: regular rhythm Extremity normal to inspection General Extremity: normal exam except as noted and amputation Skin Wounds: wounds noted Neuro oriented x3 Psych Appearance: grossly normal Speech: normal speech Thought Content: normal thought content Judgement: judgement good Debridement Note Debridement Note Post-Debridement Measurements and Additional Note: Post-Debridement Measurements/Treatment WC - Nurse 1 - General Ulcer Assessment Start: 09/11/20 09:18 Freq: Status: Active Protocol: MARIEL Activity Type Activity Date Activity User E-Sign Co-Sign Detail Recorded Client Recorded Date Recorded By Document 09/11/20 09:21 PL [id number] 09/11/20 09:27 PL Document 09/18/20 10:06 BM [id number] 09/18/20 10:12 BM 09/11/20 09/18/20 09:21 10:06 WC - Today's Visit Information Type of service Follow-up Visit Follow-up Visit (Physician/OPHTHALMIC MEDICAL TECHNICIAN (Physician/OPHTHALMIC MEDICAL TECHNICIAN ) ) Arrival Mode Wheelchair Wheelchair Transfer Assistance None Patient Identification Verified (Name & Yes Yes ) Patient Requires Transmission-Based No No Precautions Safety Precautions NA Finger Stick Blood Sugar(mg/dl) (if 131 indicated): Blood Sugar Stated by Patient Height and Weight Body Mass Index (BMI) 38.9 38.9 BMI Classification Obese Obese Vital Signs Temperature (97.8 F-99.1 F) 98.6 F 97.5 F L Temperature Source Temporal Temporal Pulse Rate (60-100) 95 96 Pulse Location Monitor Respiratory Rate (12-18) 18 16 Respiratory rate source Observation Oxygen Delivery Method Room Air Blood Pressure (90/60-120/80) 100/60 129/69 H Blood Pressure Mean (mm Hg) 73 89 Source Monitor Position Sitting Blood Pressure Location Left Arm History Since Last Visit- (Skip if this is Patient's initial visit) Have you changed medications since your No No last visit? Any new allergies or adverse reactions No No Had a fall/change in ADL's that may No No increase risk of falls Signs or symptoms of abuse and/or No No neglect since last visit Have you been in the hospital since your No No last visit? Has dressing in place as prescribed Yes Yes Has compression in place as prescribed N/A N/A Has offloadiing in place as prescribed N/A N/A Experienced any changes in pain level or No No management Pain Scale: 0-10 Numeric Is Patient Pain Free? Yes Yes GM - Nurse 1 - General Ulcer Measurement Start: 09/11/20 09:18 Freq: Status: Active Protocol: Activity Type Activity Date Activity User E-Sign Co-Sign Detail Recorded Client Recorded Date Recorded By Document 09/11/20 09:21 PL [id number] 09/11/20 09:27 PL Document 09/18/20 10:06 BM [id number] 09/18/20 10:12 BM 09/11/20 09/18/20 09:21 10:06 Wound Center Nurse 1 #3 L LATERAL PLANTAR FOOT -Combined with other wound No No -Current Size (cm) - Length 0.7 1 -Current Size (cm) - Width 0.5 0.4 -Current Size (cm) - Depth 0.1 0.2 -Total Square Cm 0.35 0.4 -Photo Taken No -Epithelialization None Present Medium 34-66% -Tunneling No No -Undermining/Tunneling No No -Circular Undermining No No -Exudate Amt Medium Medium -Exudate Type Serosanguineous Serosanguineous -Wound Margin Distinct, Outline Attached -Granulation Amt Medium (34-66%) Large (67-100%) -Granulation Quality [place] Red -Slough/Fibrin Yes No -Necrosis Amt Medium (34-66%) None Present (0 %) -Necrotic Tissue Type Adherent Slough -Texture ([place]-wound Skin Appearance) Assessed, Scarring -Moisture ([place]-wound Skin Appearance) Assessed, Maceration -Color ([place]-wound Skin Appearance) Assessed,Palor -Temperature ([place]-wound Skin No Abnormality Appearance) (Pt Warm) -Tenderness on Palpation ([place]-wound No Skin Appearance) -Ulcer Cleansing Rinsed/ SOAPY WATER Irrigated with Saline -Foul Odor after Cleansing No No -Anesthetic Used 5% Lidocaine Gel WC - Nurse 2 - General Ulcer CM Notes Start: 09/11/20 09:18 Freq: Status: Active Protocol: Activity Type Activity Date Activity User E-Sign Co-Sign Detail Recorded Client Recorded Date Recorded By Document 09/11/20 09:40 MW [id number] 09/11/20 09:47 MW Document 09/18/20 10:37 MW [id number] 09/18/20 10:41 MW 09/11/20 09/18/20 09:40 10:37 Wound Center Nurse 2 #3 L LATERAL PLANTAR FOOT -Time 09:40 10:38 -Correct Patient Yes Yes -Correct Side, Site, Position Yes Yes -Correct Procedure Yes Yes -Procedure Performed Yes Yes -Type of Procedure Debridement Debridement -Clinical Debridement Subcutaneous Subcutaneous -Tissue Removed Subcutaneous Subcutaneous -Post Debridement (cm) - Length 0.9 0.8 -Post Debridement (cm) - Width 0.8 0.4 -Post Debridement (cm) - Depth 0.1 0.1 -Total Square (Post) (cm) 0.72 0.32 -Area of Debridement (cm) - Length 0.9 0.8 -Area of Debridement (cm) - Width 0.8 0.4 -Total Square (Area) (cm) 0.72 0.32 -Tunneling No No -Undermining/Tunneling No No -Circular Undermining No No -Wound/Ulcer Outcome Not Healed Not Healed -Ulcer Cleansing Rinsed/ Rinsed/ Irrigated with Irrigated with Saline Saline -Foul Odor after Cleansing No No -Bioengineered Tissue Yes No -Type of Bioengineered Tissue Epifix 18mm Disc -Expiration Date 06/06/25 -Product Lot Number [id number] -Percent Used 100 -Lot number of Saline Used [id number] -Bleeding Controlled with Pressure Pressure -Offloading No No -Treatment Response Procedure Procedure Tolerated Well Tolerated Well -Debridement - Subq, 1st 20sq cm No Yes -Apply Skin Sub - 1st 25 sq cm - Feet 1 -Epifix 18mm Disc 3 Pain Scale: 0-10 Numeric Is Patient Pain Free? Yes Yes - Nurse 3 - General Ulcer D/C NN Start: 09/11/20 09:18 Freq: Status: Active Protocol: Activity Type Activity Date Activity User E-Sign Co-Sign Detail Recorded Client Recorded Date Recorded By Document 09/11/20 13:18 PL [id number] 09/11/20 13:18 PL Document 09/18/20 10:51 [facility] [id number] 09/18/20 10:52 [facility] 09/11/20 09/18/20 13:18 10:51 Wound Care Nurse 3 #3 L LATERAL PLANTAR FOOT -Ulcer Cleansing Rinsed/ Irrigated with Saline -Foul Odor after Cleansing No -Primary Dressing Applied Aquacel Extra Fibracol Plus 4x4 -Other Dressing ABD, Kerlix OK PER CM TO USE FIBRACOL IN PLACE OF PROMOGRAN. -Primary Dressing Covered/Secured with Secured with Dry Gauze & Tape Roll Gauze, Secured with Tape,Other -Other Covering ABD -Aquacel Extra 1 -Fibracol Plus 4x4 1 Treatment Response Procedure Tolerated Well Pain Scale: 0-10 Numeric Is Patient Pain Free? Yes WC - Visit Discharge Discharge Condition Stable Ambulatory Status Wheelchair Transportation Private Auto Wound debrided: Left lateral foot Wound Grade/Stage: DFU stage III Type of Debridement: Excisional debridement Anesthesia Used: 5% Lidocaine Gel Depth: Down to and including healthy tissue Percentage of wound debrided: 100 Instrument Used: 7mm curette Severity: Limited To Skin Breakdown Amount of bleeding with debridement: None Bleeding Controlled with: Pressure Patient tolerated procedure: Patient tolerated procedure well Assessment/Plan Assessment/Plan (1) Diabetic foot ulcers: CODE(S): E11.621 - Type 2 diabetes mellitus with foot ulcer; L97.509 - Non-pressure chronic ulcer of other part of unspecified foot with unspecified severity QUALIFIERS: Diabetic foot ulcer location: midfoot Diabetes mellitus type: type 2 Laterality: left Non-pressure ulcer stage: with fat layer exposed Qualified Code(s): E11.621 - Type 2 diabetes mellitus with foot ulcer; L97.422 - 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 layer exposed (2) Pressure ulcer of foot, stage 3: CODE(S): L89.893 - Pressure ulcer of other site, stage 3 QUALIFIERS: Laterality: left Qualified Code(s): L89.893 - Pressure ulcer of other site, stage 3 PLAN: Wash right foot with antibacterial soap or Hibiclens apply Promogran to wound and cover with Adaptic pad try using old AFO because the new one is causing pressure get it reevaluated in follow-up in 1 week (3) Polyneuropathy in diabetes: CODE(S): E11.42 - Type 2 diabetes mellitus with diabetic polyneuropathy QUALIFIERS: Diabetes mellitus type: type 2 Qualified Code(s): E11.42 - Type 2 diabetes mellitus with diabetic polyneuropathy (4) Non-pressure chronic ulcer of other part of right foot with fat layer exposed: CODE(S): L97.512 - Non-pressure chronic ulcer of other part of right foot with fat layer exposed
[2020-09-25 09:21] VITALS: BP 116/69; PULSE 101; RESP 17; TEMP 36.5; BMI 38.9
--- NOTE | 2020-09-25 11:08 | PCM.WC.PN ---
History of Present Illness Date of Service: 09/25/20 Chief Complaint: Left foot ulceration History of Wound: 54-year-old white male with history of a right BK amp. 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 Patient is turning his foot and and developing Charcot. Now has a large open wound with depth and abrasion on top of the skin where a brace was cutting into the lateral foot. Patient wears a false leg on the right leg and is dependent on this leg that he wears brace to also to make up for the Charcot foot. Patient has been using silver to clean wound is very dry with lots of callus around the wound base. Progress of Wound: The wound itself is improved it is flat it is much smaller he just needs to get another good layer skin over top. Patient has finished his 10 epi fix his and he just needs good developed skin over the top. Patient dropped a piece of steel down his leg and scraped the skin off the top of his left agrawal cluster no infection noted no redness top layer of skin off granulated tissue with some scabbing around the edge Subjective Subjective Patient stopped wearing his AFO to stop the pressure which now looks good Objective Data Objective Data The wound itself on the left plantar is practically healed were just waiting for a thicker to the skin to develop on top patient is using Promogran which we will continue left lateral foot no more scabbing and no more pressure just new skin agrawal is open no real depth clean we will try to heal with Aquacel extra. Vital Signs: Vital Signs Temp Pulse Resp BP 97.7 F L 101 H 17 116/69 09/25/20 09:21 09/25/20 09:21 09/25/20 09:21 09/25/20 09:21 Oxygen Delivery Method Room Air Weight: 310 lb Body Mass Index (BMI) 38.9 Physical Exam Const oriented x3 General Appearance: cooperative Exam Limitations: no limitations Resp normal respiratory effort Effort and Inspection: able to speak in complete sentences Auscultation: clear to auscultation bilaterally Cardio regular rate and regular rhythm Palpation: normal PMI Rate: regular rate Rhythm: regular rhythm Extremity normal to inspection General Extremity: normal exam except as noted and amputation Skin Wounds: wounds noted Neuro oriented x3 Psych Appearance: grossly normal Speech: normal speech Thought Content: normal thought content Judgement: judgement good Debridement Note Debridement Note Post-Debridement Measurements and Additional Note: Post-Debridement Measurements/Treatment - Nurse 1 - General Ulcer Assessment Start: 09/11/20 09:18 Freq: Status: Active Protocol: GM.JOSÉ MIGUEL Activity Type Activity Date Activity User E-Sign Co-Sign Detail Recorded Client Recorded Date Recorded By Document 09/11/20 09:21 PL [id number] 09/11/20 09:27 PL Document 09/18/20 10:06 BMF [id number] 09/18/20 10:12 BMF Document 09/25/20 09:21 ML [id number] 09/25/20 09:30 ML 09/11/20 09/18/20 09/25/20 09:21 10:06 09:21 - Today's Visit Information Type of service Follow-up Visit Follow-up Visit Follow-up Visit (Physician/PAD EXTRACTION TENDER (Physician/PAD EXTRACTION TENDER (Physician/PAD EXTRACTION TENDER ) ) ) Arrival Mode Wheelchair Wheelchair Wheelchair Transfer Assistance None Patient Identification Verified (Name & Yes Yes Yes ) Patient Requires Transmission-Based No No No Precautions Safety Precautions NA NA Finger Stick Blood Sugar(mg/dl) (if 131 indicated): Blood Sugar Stated by Patient Height and Weight Body Mass Index (BMI) 38.9 38.9 38.9 BMI Classification Obese Obese Obese Vital Signs Temperature (97.8 F-99.1 F) 98.6 F 97.5 F L 97.7 F L Temperature Source Temporal Temporal Temporal Pulse Rate (60-100) 95 96 101 H Pulse Location Monitor Monitor Respiratory Rate (12-18) 18 16 17 Respiratory rate source Observation Observation Oxygen Delivery Method Room Air Blood Pressure (90/60-120/80) 100/60 129/69 H 116/69 Blood Pressure Mean (mm Hg) 73 89 84 Source Monitor Monitor Position Sitting Sitting Blood Pressure Location Left Arm Left Arm History Since Last Visit- (Skip if this is Patient's initial visit) Have you changed medications since your No No No last visit? Any new allergies or adverse reactions No No No Had a fall/change in ADL's that may No No No increase risk of falls Signs or symptoms of abuse and/or No No No neglect since last visit Have you been in the hospital since your No No No last visit? Has dressing in place as prescribed Yes Yes Yes Has compression in place as prescribed N/A N/A N/A Has offloadiing in place as prescribed N/A N/A N/A Experienced any changes in pain level or No No No management Left Footwear Regular Shoe Right Footwear No Footwear Pain Scale: 0-10 Numeric Is Patient Pain Free? Yes Yes Yes WC - Nurse 1 - General Ulcer Measurement Start: 09/11/20 09:18 Freq: Status: Active Protocol: Activity Type Activity Date Activity User E-Sign Co-Sign Detail Recorded Client Recorded Date Recorded By Document 09/11/20 09:21 PL [id number] 09/11/20 09:27 PL Document 09/18/20 10:06 BMF [id number] 09/18/20 10:12 BMF Document 09/25/20 09:21 ML [id number] 09/25/20 09:30 ML 09/11/20 09/18/20 09/25/20 09:21 10:06 09:21 Wound Center Nurse 1 #5 left lower leg cluster -Current Size (cm) - Length 7 -Current Size (cm) - Width 3.5 -Current Size (cm) - Depth 0.1 -Total Square Cm 24.5 -Exudate Amt Medium -Exudate Type Serosanguineous -Wound Margin Distinct, Outline Attached -Granulation Amt Medium (34-66%) -Slough/Fibrin Yes -Necrosis Amt Medium (34-66%) -Necrotic Tissue Type Adherent Slough -Texture ([place]-wound Skin Appearance) Assessed -Color ([place]-wound Skin Appearance) Assessed -Temperature ([place]-wound Skin No Abnormality Appearance) (Pt Warm) -Tenderness on Palpation ([place]-wound No Skin Appearance) -Ulcer Cleansing Wound Cleanser -Foul Odor after Cleansing No #3 L LATERAL PLANTAR FOOT -Combined with other wound No No -Current Size (cm) - Length 0.7 1 0.1 -Current Size (cm) - Width 0.5 0.4 0.1 -Current Size (cm) - Depth 0.1 0.2 0.1 -Total Square Cm 0.35 0.4 0.01 -Photo Taken No -Epithelialization None Present Medium 34-66% -Tunneling No No -Undermining/Tunneling No No -Circular Undermining No No -Exudate Amt Medium Medium Small -Exudate Type Serosanguineous Serosanguineous Serosanguineous -Wound Margin Distinct, Distinct, Outline Outline Attached Attached -Granulation Amt Medium (34-66%) Large (67-100%) Medium (34-66%) -Granulation Quality [place] Red -Slough/Fibrin Yes No Yes -Necrosis Amt Medium (34-66%) None Present (0 Small (1-33%) %) -Necrotic Tissue Type Adherent Slough Adherent Slough -Texture ([place]-wound Skin Appearance) Assessed, Assessed Scarring -Moisture ([place]-wound Skin Appearance) Assessed, Assessed Maceration -Color ([place]-wound Skin Appearance) Assessed,Palor Assessed -Temperature ([place]-wound Skin No Abnormality No Abnormality Appearance) (Pt Warm) (Pt Warm) -Tenderness on Palpation ([place]-wound No Skin Appearance) -Ulcer Cleansing Rinsed/ SOAPY WATER Wound Cleanser Irrigated with Saline -Foul Odor after Cleansing No No -Anesthetic Used 5% Lidocaine Gel WC - Nurse 2 - General Ulcer CM Notes Start: 09/11/20 09:18 Freq: Status: Active Protocol: Activity Type Activity Date Activity User E-Sign Co-Sign Detail Recorded Client Recorded Date Recorded By Document 09/11/20 09:40 MW [id number] 09/11/20 09:47 MW Document 09/18/20 10:37 MW [id number] 09/18/20 10:41 MW Document 09/25/20 09:44 MW [id number] 09/25/20 09:48 MW 09/11/20 09/18/20 09/25/20 09:40 10:37 09:44 Wound Center Nurse 2 #5 left lower leg cluster -Time 09:44 -Correct Patient Yes -Correct Side, Site, Position Yes -Correct Procedure Yes -Procedure Performed Yes -Type of Procedure Debridement -Clinical Debridement Subcutaneous -Tissue Removed Subcutaneous -Post Debridement (cm) - Length 7.3 -Post Debridement (cm) - Width 2.5 -Post Debridement (cm) - Depth 0.1 -Total Square (Post) (cm) 18.25 -Area of Debridement (cm) - Length 7.3 -Area of Debridement (cm) - Width 2.5 -Total Square (Area) (cm) 18.25 -Tunneling No -Undermining/Tunneling No -Circular Undermining No -Ulcer Cleansing Rinsed/ Irrigated with Saline -Foul Odor after Cleansing No -Bioengineered Tissue No -Bleeding Controlled with Pressure -Offloading No -Treatment Response Procedure Tolerated Well -Debridement - Subq, 1st 20sq cm Yes #3 L LATERAL PLANTAR FOOT -Time 09:40 10:38 09:45 -Correct Patient Yes Yes Yes -Correct Side, Site, Position Yes Yes Yes -Correct Procedure Yes Yes Yes -Procedure Performed Yes Yes Yes -Type of Procedure Debridement Debridement Debridement -Clinical Debridement Subcutaneous Subcutaneous Subcutaneous -Tissue Removed Subcutaneous Subcutaneous Subcutaneous -Post Debridement (cm) - Length 0.9 0.8 0.5 -Post Debridement (cm) - Width 0.8 0.4 0.3 -Post Debridement (cm) - Depth 0.1 0.1 0.1 -Total Square (Post) (cm) 0.72 0.32 0.15 -Area of Debridement (cm) - Length 0.9 0.8 0.5 -Area of Debridement (cm) - Width 0.8 0.4 0.3 -Total Square (Area) (cm) 0.72 0.32 0.15 -Tunneling No No No -Undermining/Tunneling No No No -Circular Undermining No No No -Wound/Ulcer Outcome Not Healed Not Healed Not Healed -Ulcer Cleansing Rinsed/ Rinsed/ Rinsed/ Irrigated with Irrigated with Irrigated with Saline Saline Saline -Foul Odor after Cleansing No No No -Bioengineered Tissue Yes No No -Type of Bioengineered Tissue Epifix 18mm Disc -Expiration Date 06/06/25 -Product Lot Number [id number] -Percent Used 100 -Lot number of Saline Used [id number] -Bleeding Controlled with Pressure Pressure Pressure -Offloading No No No -Treatment Response Procedure Procedure Procedure Tolerated Well Tolerated Well Tolerated Well -Debridement - Subq, 1st 20sq cm No Yes No -Apply Skin Sub - 1st 25 sq cm - Feet 1 -Epifix 18mm Disc 3 Pain Scale: 0-10 Numeric Is Patient Pain Free? Yes Yes Yes - Nurse 3 - General Ulcer D/C NN Start: 09/11/20 09:18 Freq: Status: Active Protocol: Activity Type Activity Date Activity User E-Sign Co-Sign Detail Recorded Client Recorded Date Recorded By Document 09/11/20 13:18 PL [id number] 09/11/20 13:18 PL Document 09/18/20 10:51 [facility] [id number] 09/18/20 10:52 [facility] Document 09/25/20 10:06 ML [id number] 09/25/20 10:09 ML 09/11/20 09/18/20 09/25/20 13:18 10:51 10:06 Wound Care Nurse 3 #5 left lower leg cluster -Ulcer Cleansing Rinsed/ Irrigated with Saline -Primary Dressing Applied Aquacel Extra -Other Dressing ADAPTIC -Primary Dressing Covered/Secured with Dry Gauze,Dry Gauze & Roll Gauze,Secured with Tape -Aquacel Extra 1 #3 L LATERAL PLANTAR FOOT -Ulcer Cleansing Rinsed/ Rinsed/ Irrigated with Irrigated with Saline Saline -Foul Odor after Cleansing No No -Primary Dressing Applied Aquacel Extra Fibracol Plus Promogran 4x4 -Other Dressing ABD, Kerlix OK PER CM TO USE FIBRACOL IN PLACE OF PROMOGRAN. -Primary Dressing Covered/Secured with Secured with Dry Gauze & Dry Gauze & Tape Roll Gauze, Roll Gauze, Secured with Secured with Tape,Other Tape -Other Covering ABD CANDACE -Aquacel Extra 1 -Fibracol Plus 4x4 1 -Promogran 1 Treatment Response Procedure Tolerated Well Pain Scale: 0-10 Numeric Is Patient Pain Free? Yes WC - Visit Discharge Discharge Condition Stable Stable Ambulatory Status Wheelchair Wheelchair Transportation Private Auto Medication Reconcilliation completed & No provided to patient/care provider Clinical Summary of Care Provided Yes Wound debrided: Left agrawal cluster traumatic wound Type of Debridement: Excisional debridement Anesthesia Used: 5% Lidocaine Gel Depth: Down to and including healthy tissue Percentage of wound debrided: 100 Instrument Used: 7mm curette Tissue Removed: Devitalized tissue and fibrin Severity: Limited To Skin Breakdown Amount of bleeding with debridement: Mild Bleeding Controlled with: Pressure Patient tolerated procedure: Patient tolerated procedure well Additional Wound Wound debrided: Left plantar DFU Wound Grade/Stage: Stage 3 resolving Type of Debridement: Excisional debridement Anesthesia Used: 5% Lidocaine Gel Depth: Down to and including healthy tissue Percentage of wound debrided: 100 Instrument Used: 7mm curette Tissue Removed: Callus fibrin Severity: Limited To Skin Breakdown Amount of bleeding with debridement: Mild Bleeding Controlled with: Pressure Patient tolerated procedure: Patient tolerated procedure well Assessment/Plan Assessment/Plan (1) Pressure ulcer of foot, stage 3: CODE(S): L89.893 - Pressure ulcer of other site, stage 3 QUALIFIERS: Laterality: left Qualified Code(s): L89.893 - Pressure ulcer of other site, stage 3 PLAN: Wash right foot with antibacterial soap or Hibiclens apply Promogran to wound and cover with Adaptic pad try using old AFO because the new one is causing pressure get it reevaluated in follow-up in 1 week (2) Polyneuropathy in diabetes: CODE(S): E11.42 - Type 2 diabetes mellitus with diabetic polyneuropathy QUALIFIERS: Diabetes mellitus type: type 2 Qualified Code(s): E11.42 - Type 2 diabetes mellitus with diabetic polyneuropathy (3) Nonhealing nonsurgical wound limited to breakdown of skin: CODE(S): T14.8XXA - Other injury of unspecified body region, initial encounter PLAN: Wash agrawal with soap and water apply Aquacel extra to wound base moistened cover with Adaptic gauze and tape every day, follow-up in 1 week
[2020-10-02 09:29] VITALS: BP 144/80; PULSE 96; RESP 18; TEMP 37.1; BMI 38.9
--- NOTE | 2020-10-02 11:58 | PN.PCM_ITS ---
History of Present Illness Date of Service: 10/02/20 Chief Complaint: Left foot ulceration History of Wound: 54-year-old white male with history of a right BK amp. Patient is referred to us from his water/wastewater project engineer in [place] for a left lateral foot DFU pressure ulcer from a improperly fitting splint that started back in 2019. Patient is turning his foot and and developing Charcot. Now has a large open wound with depth and abrasion on top of the skin where a brace was cutting into the lateral foot. Patient wears a false leg on the right leg and is dependent on this leg that he wears brace to also to make up for the Charcot foot. Patient has been using silver to clean wound is very dry with lots of callus around the wound base. Progress of Wound: The left foot plantar and lateral foot is healed patient will be discharged from the wound center. Subjective Subjective Patient has no concerns Objective Data Objective Data Continue to talk to him about the lateral foot pressure that the AFO is causing on that foot and it is going to reopen we took the pad that was there off and gave him new pads and discussed new shoes for him that are wider so when he puts pressure on his foot the width can give and not rub. Patient states he has an appointment with his water/wastewater project engineer to buy new shoes that they can develop may be something else with his AFO. Vital Signs: Vital Signs Temp Pulse Resp BP 98.7 F 96 18 144/80 H 10/02/20 09:29 10/02/20 09:29 10/02/20 09:29 10/02/20 09:29 Oxygen Delivery Method Room Air Weight: 310 lb Body Mass Index (BMI) 38.9 Physical Exam Const oriented x3 General Appearance: cooperative Exam Limitations: no limitations HEENT normocephalic Head and Scalp: normal to inspection Face and Sinus: normal facial exam Nose: external nose normal General Ear: hearing grossly impaired External Ear: external ears normal Mouth: oral and palatal mucosa normal Eyes PERRL General Eye: normal appearance of both eyes Neck full ROM General: normal visual inspection Resp normal respiratory effort Effort and Inspection: able to speak in complete sentences Auscultation: clear to auscultation bilaterally Cardio regular rate and regular rhythm Palpation: normal PMI Rate: regular rate Rhythm: regular rhythm GI Auscultation: normoactive bowel sounds Palpation: soft and no hepatosplenomegaly external exam normal Back/Spine Cervical Spine: cervical ROM normal Thoracic Spine / Upper Back: normal to inspection Lumbar Spine / Lower Back: normal to inspection Extremity normal to inspection General Extremity: normal exam except as noted Skin no rashes or lesions noted Neuro oriented x3 Psych Appearance: grossly normal Speech: normal speech Thought Content: normal thought content Judgement: judgement good Debridement Note Debridement Note Wound debrided: Left lateral lower leg No debridement was completed: No debridement was completed today Assessment/Plan Assessment/Plan (1) Nonhealing nonsurgical wound limited to breakdown of skin: CODE(S): T14.8XXA - Other injury of unspecified body region, initial encounter PLAN: Discharge from the wound center follow-up as needed keep appointment with your water/wastewater project engineer about proper foot wear for that left foot. (2) Diabetic foot ulcers: CODE(S): E11.621 - Type 2 diabetes mellitus with foot ulcer; L97.509 - Non-pressure chronic ulcer of other part of unspecified foot with unspecified severity QUALIFIERS: Diabetic foot ulcer location: midfoot Diabetes mellitus type: type 2 Laterality: left Non-pressure ulcer stage: with fat layer exposed Qualified Code(s): E11.621 - Type 2 diabetes mellitus with foot ulcer; L97.422 - 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 layer exposed (3) Polyneuropathy in diabetes: CODE(S): E11.42 - Type 2 diabetes mellitus with diabetic polyneuropathy QUALIFIERS: Diabetes mellitus type: type 2 Qualified Code(s): E11.42 - Type 2 diabetes mellitus with diabetic polyneuropathy
== END 2020-10-02 10:28 | disposition home or self-care (01) ==
LOC: WC 09:30
PROVIDERS: PCP Family Medicine Sports Medicine; Visit Provider Nurse Practitioner
DX: E11.621 Type 2 diabetes mellitus with foot ulcer (principal); L97.421 Non-pressure 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 limited to breakdown of skin; E11.42 Type 2 diabetes mellitus with diabetic polyneuropathy; A52.16 Charcot's arthropathy (tabetic); Z89.511 Acquired absence of right leg below knee
CPT/HCPCS: 11042; 15275; 99213; Q4186; G0463

== ENCOUNTER 2020-12-04 09:15 | Outpatient (RCR) | payer MEDICARE, SELFPAY ==
[2020-11-20 08:57] VITALS: BP 125/74; TEMP 35.8
--- NOTE | 2020-11-20 10:13 | PCM.WC.PN ---
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 He therefore wears an AFO on the left lower leg. Patient is developing Charcot and his left foot and the AFO rubs on the bone that is protruding at the left lateral foot. Is a currently scabbed was seen by a wood carver in [place] and he felt it looked infected and start him on antibiotics which patient refused to take. The area does not look infected it looks irritated. We will try covering the area with Aquacel and a Mepilex dressing. Have him follow-up with Dr. Araujo on 4 evaluation of that left lateral foot. Progress of Wound: Today the wound is scabbed did not do any kind of debridement just washed it and will try padding it with medicated dressings. Patient will have him follow-up with podiatry. Subjective Subjective No concerns would like to get it fixed Objective Data Objective Data As above no debridement done area looks irritated but not infected scab intact good scab Vital Signs: Vital Signs Temp BP 96.5 F L 125/74 H 11/20/20 08:57 11/20/20 08:57 Physical Exam Const oriented x3 General Appearance: cooperative Exam Limitations: no limitations HEENT normocephalic Head and Scalp: normal to inspection Face and Sinus: normal facial exam Nose: external nose normal General Ear: hearing grossly impaired External Ear: external ears normal Mouth: oral and palatal mucosa normal Eyes PERRL General Eye: normal appearance of both eyes Neck full ROM General: normal visual inspection Resp normal respiratory effort Effort and Inspection: able to speak in complete sentences Auscultation: clear to auscultation bilaterally Cardio regular rate and regular rhythm Palpation: normal PMI Rate: regular rate Rhythm: regular rhythm GI Auscultation: normoactive bowel sounds Palpation: soft and no hepatosplenomegaly external exam normal Back/Spine Cervical Spine: cervical ROM normal Thoracic Spine / Upper Back: normal to inspection Lumbar Spine / Lower Back: normal to inspection Extremity normal to inspection General Extremity: normal exam except as noted Skin no rashes or lesions noted Neuro oriented x3 Psych Appearance: grossly normal Speech: normal speech Thought Content: normal thought content Judgement: judgement good Debridement Note Debridement Note Wound debrided: Left lateral foot No debridement was completed: No debridement was completed today Post-Debridement Measurements and Additional Note: Post-Debridement Measurements/Treatment - Nurse 1 - General Ulcer Assessment Start: 11/20/20 08:57 Freq: Status: Active Protocol: MARIEL Activity Type Activity Date Activity User E-Sign Co-Sign Detail Recorded Client Recorded Date Recorded By Document 11/20/20 08:57 EV [id number] 11/20/20 09:00 EV 11/20/20 08:57 WC - Today's Visit Information Type of service Follow-up Visit (Physician/MONOTYPE KEYBOARD OPERATOR ) Arrival Mode Wheelchair Patient Identification Verified (Name & Yes ) Vital Signs Temperature (97.8 F-99.1 F) 96.5 F L Temperature Source Temporal Pulse Location Monitor Blood Pressure (90/60-120/80) 125/74 H Blood Pressure Mean (mm Hg) 91 Source Monitor Position Sitting Blood Pressure Location Left Arm History Since Last Visit- (Skip if this is Patient's initial visit) Have you changed medications since your No last visit? Any new allergies or adverse reactions No Had a fall/change in ADL's that may No increase risk of falls Signs or symptoms of abuse and/or No neglect since last visit Have you been in the hospital since your No last visit? Has dressing in place as prescribed Yes Has compression in place as prescribed N/A Has offloadiing in place as prescribed N/A Experienced any changes in pain level or No management Left Footwear Regular Shoe Right Footwear Regular Shoe Pain Scale: 0-10 Numeric Is Patient Pain Free? Yes GM - Nurse 1 - General Ulcer Measurement Start: 11/20/20 08:57 Freq: Status: Active Protocol: Activity Type Activity Date Activity User E-Sign Co-Sign Detail Recorded Client Recorded Date Recorded By Document 11/20/20 08:57 KR [id number] 11/20/20 09:00 KR 11/20/20 08:57 Wound Center Nurse 1 #6 Left Lateral Plantar foot -Current Size (cm) - Length 0.3 -Current Size (cm) - Width 0.3 -Current Size (cm) - Depth 0.1 -Total Square Cm 0.09 -Exudate Amt Small -Exudate Type Serosanguineous -Wound Margin Distinct, Outline Attached -Granulation Amt Medium (34-66%) -Granulation Quality Red -Necrosis Amt Small (1-33%) -Necrotic Tissue Type Adherent Slough -Texture ([place]-wound Skin Appearance) Assessed, Scarring -Moisture ([place]-wound Skin Appearance) Assessed, Maceration -Color ([place]-wound Skin Appearance) No Abnormality, Assessed -Temperature ([place]-wound Skin No Abnormality Appearance) (Pt Warm) -Tenderness on Palpation ([place]-wound No Skin Appearance) -Ulcer Cleansing Rinsed/ Irrigated with Saline -Foul Odor after Cleansing No -Anesthetic Used 5% Lidocaine Gel Right Calf (cm) 40 Right Ankle (cm) 24 WC - Nurse 2 - General Ulcer CM Notes Start: 11/20/20 08:57 Freq: Status: Active Protocol: Activity Type Activity Date Activity User E-Sign Co-Sign Detail Recorded Client Recorded Date Recorded By Document 11/20/20 09:15 MW [id number] 11/20/20 09:18 MW 11/20/20 09:15 Wound Center Nurse 2 #6 Left Lateral Plantar foot -Time 09:16 -Correct Patient Yes -Correct Side, Site, Position Yes -Correct Procedure Yes -Procedure Performed No -Wound/Ulcer Outcome Healed- Surgical Closure -Foul Odor after Cleansing No -Bioengineered Tissue No Pain Scale: 0-10 Numeric Is Patient Pain Free? Yes WC - Nurse 3 - General Ulcer D/C NN Start: 11/20/20 08:57 Freq: Status: Active Protocol: Activity Type Activity Date Activity User E-Sign Co-Sign Detail Recorded Client Recorded Date Recorded By Document 11/20/20 09:34 AK [id number] 11/20/20 09:36 AK 11/20/20 09:34 Wound Care Nurse 3 #6 Left Lateral Plantar foot -Ulcer Cleansing Rinsed/ Irrigated with Saline -Foul Odor after Cleansing No -Negative Pressure Wound Therapy N/A -Primary Dressing Applied Aquacel Extra, Mepilex Border -Other Dressing ABD- patient request -Aquacel Extra 1 -Mepilex Border 1 Left -Lotion applied to leg before No compression wrap -Other Vinay wrap small patient request WC - Visit Discharge Discharge Condition Stable Ambulatory Status Wheelchair Transportation Private Auto Medication Reconcilliation completed & No provided to patient/care provider Clinical Summary of Care Provided Yes Assessment/Plan Assessment/Plan (1) Nonhealing nonsurgical wound limited to breakdown of skin: CODE(S): T14.8XXA - Other injury of unspecified body region, initial encounter PLAN: Wash the left lateral foot with soap and water apply the Aquacel to the scabbed area dry and cover with Mepilex dressing Follow-up in 2 weeks (2) Diabetic foot ulcers: CODE(S): E11.621 - Type 2 diabetes mellitus with foot ulcer; L97.509 - Non-pressure chronic ulcer of other part of unspecified foot with unspecified severity QUALIFIERS: Diabetic foot ulcer location: midfoot Diabetes mellitus type: type 2 Laterality: left Non-pressure ulcer stage: with fat layer exposed Qualified Code(s): E11.621 - Type 2 diabetes mellitus with foot ulcer; L97.422 - 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 layer exposed PLAN: Referral to Dr. Araujo's office for proper fitting and evaluation of the left lateral foot (3) Polyneuropathy in diabetes: CODE(S): E11.42 - Type 2 diabetes mellitus with diabetic polyneuropathy QUALIFIERS: Diabetes mellitus type: type 2 Qualified Code(s): E11.42 - Type 2 diabetes mellitus with diabetic polyneuropathy
[2020-12-04 09:13] VITALS: BP 124/65; PULSE 94; TEMP 36.4
--- NOTE | 2020-12-04 10:39 | PCM.WC.PN ---
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 He therefore wears an AFO on the left lower leg. Patient is developing Charcot and his left foot and the AFO rubs on the bone that is protruding at the left lateral foot. Is a currently scabbed was seen by a property management accountant in [place] and he felt it looked infected and start him on antibiotics which patient refused to take. The area does not look infected it looks irritated. We will try covering the area with Aquacel and a Mepilex dressing. Have him follow-up with Dr. Araujo on 4 evaluation of that left lateral foot. Progress of Wound: Today the wound is scabbed he is gone and he is has a deep hole now on the lateral plantar side of his foot foot. Patient has an appointment with podiatry in a few days. Subjective Subjective Patient is just keeps talking about his pads not working. He states the wound will never heal Objective Data Objective Data The odor is overwhelming when you walk in the room unable to determine if it is from the foot or shoe but cultures were obtained after debridement. Pretty significant hole in the lateral plantar side of his foot. Vital Signs: Vital Signs Temp Pulse BP 97.6 F L 94 124/65 H 12/04/20 09:13 12/04/20 09:13 12/04/20 09:13 Physical Exam Const oriented x3 General Appearance: cooperative Exam Limitations: no limitations HEENT normocephalic Head and Scalp: normal to inspection Face and Sinus: normal facial exam Nose: external nose normal General Ear: hearing grossly impaired External Ear: external ears normal Mouth: oral and palatal mucosa normal Eyes PERRL General Eye: normal appearance of both eyes Neck full ROM General: normal visual inspection Resp normal respiratory effort Effort and Inspection: able to speak in complete sentences Auscultation: clear to auscultation bilaterally Cardio regular rate and regular rhythm Palpation: normal PMI Rate: regular rate Rhythm: regular rhythm GI Auscultation: normoactive bowel sounds Palpation: soft and no hepatosplenomegaly external exam normal Back/Spine Cervical Spine: cervical ROM normal Thoracic Spine / Upper Back: normal to inspection Lumbar Spine / Lower Back: normal to inspection Extremity normal to inspection General Extremity: normal exam except as noted Skin no rashes or lesions noted Neuro oriented x3 Psych Appearance: grossly normal Speech: normal speech Thought Content: normal thought content Judgement: judgement good Debridement Note Debridement Note Wound debrided: Left lateral plantar ulcer Laterality: Left Type of Debridement: Excisional debridement Anesthesia Used: 5% Lidocaine Gel Depth: Down to and including healthy tissue, in the subcutaneous layer and to bone Percentage of wound debrided: 100 Instrument Used: 5mm curette Tissue Removed: Fibrin and devitalized tissue Severity: Fat Layer Exposed Amount of bleeding with debridement: Mild Bleeding Controlled with: Compression and gauze Patient tolerated procedure: Patient tolerated procedure well Post-Debridement Measurements and Additional Note: Post-Debridement Measurements/Treatment - Nurse 1 - General Ulcer Assessment Start: 11/20/20 08:57 Freq: Status: Active Protocol: MARIEL Activity Type Activity Date Activity User E-Sign Co-Sign Detail Recorded Client Recorded Date Recorded By Document 11/20/20 08:57 EV [id number] 11/20/20 09:00 KR Document 12/04/20 09:13 EV [id number] 12/04/20 09:16 KR 11/20/20 12/04/20 08:57 09:13 - Today's Visit Information Type of service Follow-up Visit Follow-up Visit (Physician/VIRTUAL OFFICE ASSISTANT (Physician/VIRTUAL OFFICE ASSISTANT ) ) Arrival Mode Wheelchair Wheelchair Patient Identification Verified (Name & Yes Yes ) Vital Signs Temperature (97.8 F-99.1 F) 96.5 F L 97.6 F L Temperature Source Temporal Oral Pulse Rate (60-100) 94 Pulse Location Monitor Monitor Blood Pressure (90/60-120/80) 125/74 H 124/65 H Blood Pressure Mean (mm Hg) 91 84 Source Monitor Monitor Position Sitting Semi-Fowlers Blood Pressure Location Left Arm Left Arm History Since Last Visit- (Skip if this is Patient's initial visit) Have you changed medications since your No No last visit? Any new allergies or adverse reactions No No Had a fall/change in ADL's that may No No increase risk of falls Signs or symptoms of abuse and/or No No neglect since last visit Have you been in the hospital since your No No last visit? Has dressing in place as prescribed Yes Yes Has compression in place as prescribed N/A N/A Has offloadiing in place as prescribed N/A N/A Experienced any changes in pain level or No No management Left Footwear Regular Shoe Regular Shoe Right Footwear Regular Shoe Regular Shoe Pain Scale: 0-10 Numeric Is Patient Pain Free? Yes Yes - Nurse 1 - General Ulcer Measurement Start: 11/20/20 08:57 Freq: Status: Active Protocol: Activity Type Activity Date Activity User E-Sign Co-Sign Detail Recorded Client Recorded Date Recorded By Document 11/20/20 08:57 KR [id number] 11/20/20 09:00 KR Document 12/04/20 09:13 KR [id number] 12/04/20 09:16 KR 11/20/20 12/04/20 08:57 09:13 Wound Center Nurse 1 #6 Left Lateral Plantar foot -Current Size (cm) - Length 0.3 0.7 -Current Size (cm) - Width 0.3 0.6 -Current Size (cm) - Depth 0.1 0.6 -Total Square Cm 0.09 0.42 -Exudate Amt Small Small -Exudate Type Serosanguineous Serosanguineous -Wound Margin Distinct, Distinct, Outline Outline Attached Attached -Granulation Amt Medium (34-66%) Small (1-33%) -Granulation Quality Red Red -Necrosis Amt Small (1-33%) Small (1-33%) -Necrotic Tissue Type Adherent Slough Adherent Slough -Texture ([place]-wound Skin Appearance) Assessed, Callus,Scarring Scarring -Moisture ([place]-wound Skin Appearance) Assessed, No Abnormality, Maceration Assessed -Color ([place]-wound Skin Appearance) No Abnormality, Assessed -Temperature ([place]-wound Skin No Abnormality No Abnormality Appearance) (Pt Warm) (Pt Warm) -Tenderness on Palpation ([place]-wound No No Skin Appearance) -Ulcer Cleansing Rinsed/ Rinsed/ Irrigated with Irrigated with Saline Saline -Foul Odor after Cleansing No No -Anesthetic Used 5% Lidocaine 5% Lidocaine Gel Gel Right Calf (cm) 40 Right Ankle (cm) 24 WC - Nurse 2 - General Ulcer CM Notes Start: 11/20/20 08:57 Freq: Status: Active Protocol: Activity Type Activity Date Activity User E-Sign Co-Sign Detail Recorded Client Recorded Date Recorded By Document 11/20/20 09:15 MW [id number] 11/20/20 09:18 MW Document 12/04/20 09:25 MW [id number] 12/04/20 09:27 MW 11/20/20 12/04/20 09:15 09:25 Wound Center Nurse 2 #6 Left Lateral Plantar foot -Time 09:16 09:26 -Correct Patient Yes Yes -Correct Side, Site, Position Yes Yes -Correct Procedure Yes Yes -Procedure Performed No Yes -Type of Procedure Debridement -Clinical Debridement Subcutaneous -Tissue Removed Subcutaneous -Post Debridement (cm) - Length 0.5 -Post Debridement (cm) - Width 0.5 -Post Debridement (cm) - Depth 0.6 -Total Square (Post) (cm) 0.25 -Area of Debridement (cm) - Length 0.5 -Area of Debridement (cm) - Width 0.5 -Total Square (Area) (cm) 0.25 -Tunneling No -Undermining/Tunneling No -Circular Undermining No -Wound/Ulcer Outcome Healed- Not Healed Surgical Closure -Ulcer Cleansing Rinsed/ Irrigated with Saline -Foul Odor after Cleansing No No -Bioengineered Tissue No No -Bleeding Controlled with Pressure -Offloading No -Treatment Response Procedure Tolerated Well -Debridement - Subq, 1st 20sq cm Yes Pain Scale: 0-10 Numeric Is Patient Pain Free? Yes WC - Nurse 3 - General Ulcer D/C NN Start: 11/20/20 08:57 Freq: Status: Active Protocol: Activity Type Activity Date Activity User E-Sign Co-Sign Detail Recorded Client Recorded Date Recorded By Document 11/20/20 09:34 AK [id number] 11/20/20 09:36 AK Document 12/04/20 09:33 AK [id number] 12/04/20 09:34 AK 11/20/20 12/04/20 09:34 09:33 Wound Care Nurse 3 #6 Left Lateral Plantar foot -Ulcer Cleansing Rinsed/ Rinsed/ Irrigated with Irrigated with Saline Saline -Foul Odor after Cleansing No No -Negative Pressure Wound Therapy N/A N/A -Primary Dressing Applied Aquacel Extra, Aquacel Extra Mepilex Border -Other Dressing ABD- patient ABD request -Primary Dressing Covered/Secured with Secured with Tape -Aquacel Extra 1 1 -Mepilex Border 1 Left -Lotion applied to leg before No No compression wrap -Compression Wrap Vinay Wrap -Other Vinay wrap small patient request WC - Visit Discharge Discharge Condition Stable Stable Ambulatory Status Wheelchair Wheelchair Transportation Private Auto Medication Reconcilliation completed & No No provided to patient/care provider Clinical Summary of Care Provided Yes Yes Assessment/Plan Assessment/Plan (1) Diabetic foot ulcers: CODE(S): E11.621 - Type 2 diabetes mellitus with foot ulcer; L97.509 - Non-pressure chronic ulcer of other part of unspecified foot with unspecified severity QUALIFIERS: Diabetic foot ulcer location: midfoot Diabetes mellitus type: type 2 Laterality: left Non-pressure ulcer stage: with fat layer exposed Qualified Code(s): E11.621 - Type 2 diabetes mellitus with foot ulcer; L97.422 - 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 layer exposed PLAN: Wash foot with Hibiclens or antibacterial soap pack wound with Aquacel extra cover with Adaptic gauze ABD pad Follow-up [address] Araujo for proper foot covering (2) Pressure ulcer of foot, stage 3: CODE(S): L89.893 - Pressure ulcer of other site, stage 3 QUALIFIERS: Laterality: left Qualified Code(s): L89.893 - Pressure ulcer of other site, stage 3 (3) Polyneuropathy in diabetes: CODE(S): E11.42 - Type 2 diabetes mellitus with diabetic polyneuropathy QUALIFIERS: Diabetes mellitus type: type 2 Qualified Code(s): E11.42 - Type 2 diabetes mellitus with diabetic polyneuropathy
--- NOTE | 2020-12-10 09:50 | WC ---
Spoke to patient regarding wound culture results per Gaye Diaz RN PROCEDURE from Wednesday12/04/20. Patient stated he is in [facility] in [place]. Stated he went to ER wednesday and was diagnosed with cellulitis of LLE. Spoke to his hospital nurse Magda GREWAL. She requested wound culture results be faxed to the hospital at [phone] for continuity of care. She stated patient is currently on IV Vacomycin and Muropenem. Hospital will notify wound center when patient is discharged home. Gaye Diaz NP notified.
== END 2020-12-05 23:59 ==
LOC: WC 09:15
PROVIDERS: PCP Family Medicine Sports Medicine; Visit Provider Nurse Practitioner
DX: E11.621 Type 2 diabetes mellitus with foot ulcer (principal); L97.422 Non-pressure 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 with fat layer exposed; L89.893 Pressure ulcer of other site, stage 3; E11.42 Type 2 diabetes mellitus with diabetic polyneuropathy; Z99.3 Dependence on wheelchair; Z89.511 Acquired absence of right leg below knee
CPT/HCPCS: 11042; 87070; 87075; 87077; 87186; 87205; 99213; G0463

== ENCOUNTER 2021-06-04 09:30 | Outpatient (RCR) | payer MEDICARE, SELFPAY ==
[2020-12-06 00:37] VITALS: BP 124/65; PULSE 94; TEMP 36.4
--- NOTE | 2021-01-01 10:10 | WC ---
Letter of missed appointment was sent to the patient today.
[2021-05-14 09:32] VITALS: BP 121/69; PULSE 91; RESP 16; TEMP 36.4; BMI 37.7
--- NOTE | 2021-05-14 10:40 | PCM.WC.PN ---
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 He therefore wears an AFO on the left lower leg. Patient is developing Charcot and his left foot and the AFO rubs on the bone that is protruding at the left lateral foot. The area is perfectly round and positive depth about the size of a dime on the left lateral foot. Same area that always opens. Patient never follows up with Christopher about the rubbing and is gone back to his old boot. Progress of Wound: Cultures obtained today it was crusted and callused around the wound area perfectly round round valley half inch depth and old dried blood in the center. Patient still wearing old boot on his foot. We will try to get home health care nurse and therefore wound dressed changing. Subjective Subjective Patient states the Monserrate boot rubbed so he stopped wearing it. Patient states just noticed wound in last 2 weeks Objective Data Objective Data Obtain cultures after debridement. Callus around the edge of wound debrided with a 15 blade and the positive deep about the size of a dime open wound on left lateral foot same area as we have been treating for the last year at just keeps reopening because of improper footwear and not offloading properly.. Vital Signs: Vital Signs Temp Pulse Resp BP 97.5 F L 91 16 121/69 H 05/14/21 09:32 05/14/21 09:32 05/14/21 09:32 05/14/21 09:32 Oxygen Delivery Method Room Air Weight: 310 lb Body Mass Index (BMI) 37.7 Lab / Micro Data Attestation: I reviewed the patient's lab results. Physical Exam Const oriented x3 General Appearance: cooperative Exam Limitations: no limitations Resp normal respiratory effort Effort and Inspection: able to speak in complete sentences Auscultation: clear to auscultation bilaterally Cardio regular rate and regular rhythm Palpation: normal PMI Rate: regular rate Rhythm: regular rhythm Extremity Extremity Narrative: Left lateral foot wound DFU from improper footwear and offloading about the size of a dime with depth General Extremity: normal exam except as noted Skin Wound Narrative: Left lateral foot DFU wound Neuro oriented x3 Psych Appearance: grossly normal Speech: normal speech Thought Content: normal thought content Judgement: judgement good Debridement Note Debridement Note Wound debrided: Left lateral foot DFU Laterality: Left Wound Grade/Stage: Stage III Type of Debridement: Excisional debridement Anesthesia Used: 5% Lidocaine Gel Depth: Down to and including healthy tissue Percentage of wound debrided: 100 Instrument Used: 7mm curette and #15 blade Tissue Removed: Callus and fibrin and devitalized tissue Severity: Fat Layer Exposed Amount of bleeding with debridement: Mild Bleeding Controlled with: Compression and gauze Patient tolerated procedure: Patient tolerated procedure well Post-Debridement Measurements and Additional Note: Post-Debridement Measurements/Treatment - Nurse 1 - General Ulcer Assessment Start: 05/14/21 09:32 Freq: Status: Active Protocol: MARIEL Activity Type Activity Date Activity User E-Sign Co-Sign Detail Recorded Client Recorded Date Recorded By Document 05/14/21 09:32 [facility] [id number] 05/14/21 09:38 [facility] 05/14/21 09:32 WC - Today's Visit Information Type of service Initial Visit Arrival Mode Wheelchair Transfer Assistance None Patient Identification Verified (Name & Yes ) Patient Requires Transmission-Based No Precautions Height and Weight Height 6 ft 4 in Weight 310 lb Weight in Pounds 310.0 lbs Weight Measurement Method Stated by Patient Body Mass Index (BMI) 37.7 BMI Classification Obese BSA - Emily 2.67 Vital Signs Temperature (97.8 F-99.1 F) 97.5 F L Temperature Source Temporal Pulse Rate (60-100) 91 Pulse Location Monitor Respiratory Rate (12-18) 16 Respiratory rate source Observation Oxygen Delivery Method Room Air Blood Pressure (90/60-120/80) 121/69 H Blood Pressure Mean (mm Hg) 86 Source Monitor Position Sitting Blood Pressure Location Left Arm History Since Last Visit- (Skip if this is Patient's initial visit) Left Footwear Removable Cast Walker/Walking Boot Right Footwear Other Footwear (Comment) Other Footwear RBKA Pain Scale: 0-10 Numeric Is Patient Pain Free? Yes [facility] Nurse 1 - General Ulcer Measurement Start: 05/14/21 09:32 Freq: Status: Active Protocol: Activity Type Activity Date Activity User E-Sign Co-Sign Detail Recorded Client Recorded Date Recorded By Document 05/14/21 09:32 [facility] [id number] 05/14/21 09:38 BMF 05/14/21 09:32 Wound Center Nurse 1 #7- L LAT PLANTAR FOOT -Combined with other wound No -Current Size (cm) - Length 1 -Current Size (cm) - Width 1.2 -Current Size (cm) - Depth 0.3 -Total Square Cm 1.2 -Date of Last Picture (Recall this 05/14/21 field) -Photo Taken Yes -Epithelialization None Present -Tunneling No -Undermining/Tunneling No -Circular Undermining No -Exudate Amt Large -Exudate Type Serosanguineous -Wound Margin Distinct, Outline Attached -Granulation Amt Large (67-100%) -Granulation Quality Red -Slough/Fibrin Yes -Necrosis Amt Small (1-33%) -Necrotic Tissue Type Adherent Slough -Texture ([place]-wound Skin Appearance) Assessed,Callus ,Localized Edema,Scarring -Moisture ([place]-wound Skin Appearance) Assessed -Color ([place]-wound Skin Appearance) Assessed, Erythema -Temperature ([place]-wound Skin No Abnormality Appearance) (Pt Warm) -Tenderness on Palpation ([place]-wound No Skin Appearance) -Ulcer Cleansing Soap and Water -Foul Odor after Cleansing No -Anesthetic Used 5% Lidocaine Gel WC - Nurse 2 - General Ulcer CM Notes Start: 05/14/21 09:32 Freq: Status: Active Protocol: Activity Type Activity Date Activity User E-Sign Co-Sign Detail Recorded Client Recorded Date Recorded By Document 05/14/21 09:49 MW [id number] 05/14/21 10:00 MW 05/14/21 09:49 Wound Center Nurse 2 -Time 09:50 -Correct Patient Yes -Correct Side, Site, Position Yes -Correct Procedure Yes -Procedure Performed Yes -Type of Procedure Debridement -Clinical Debridement Subcutaneous -Tissue Removed Subcutaneous -Post Debridement (cm) - Length 1.2 -Post Debridement (cm) - Width 1.2 -Post Debridement (cm) - Depth 0.7 -Total Square (Post) (cm) 1.44 -Area of Debridement (cm) - Length 1.2 -Area of Debridement (cm) - Width 1.2 -Total Square (Area) (cm) 1.44 -Tunneling No -Undermining/Tunneling No -Circular Undermining Yes -Wound/Ulcer Outcome Not Healed -Ulcer Cleansing Rinsed/ Irrigated with Saline -Foul Odor after Cleansing No -Bioengineered Tissue No -Bleeding Controlled with Pressure -Offloading No -Treatment Response Procedure Tolerated Well -Debridement - Subq, 1st 20sq cm Yes Pain Scale: 0-10 Numeric Is Patient Pain Free? Yes Assessment/Plan Assessment/Plan (1) Nonhealing nonsurgical wound limited to breakdown of skin: CODE(S): T14.8XXA - Other injury of unspecified body region, initial encounter (2) Diabetic foot ulcers: CODE(S): E11.621 - Type 2 diabetes mellitus with foot ulcer; L97.509 - Non-pressure chronic ulcer of other part of unspecified foot with unspecified severity QUALIFIERS: Diabetic foot ulcer location: midfoot Diabetes mellitus type: type 2 Laterality: left Non-pressure ulcer stage: with fat layer exposed Qualified Code(s): E11.621 - Type 2 diabetes mellitus with foot ulcer; L97.422 - 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 Apply Aquacel extra to wound base cover with Adaptic gauze and tape and ABD Continue to offload foot Applied for home health nursing to do dressing changes Follow-up 1 week (3) Pressure ulcer of foot, stage 3: CODE(S): L89.893 - Pressure ulcer of other site, stage 3 QUALIFIERS: Laterality: left Qualified Code(s): L89.893 - Pressure ulcer of other site, stage 3 (4) Polyneuropathy in diabetes: CODE(S): E11.42 - Type 2 diabetes mellitus with diabetic polyneuropathy QUALIFIERS: Diabetes mellitus type: type 2 Qualified Code(s): E11.42 - Type 2 diabetes mellitus with diabetic polyneuropathy
[2021-05-21 09:32] VITALS: BP 118/83; PULSE 98; TEMP 36.1; BMI 37.7
--- NOTE | 2021-05-21 10:12 | PCM.WC.PN ---
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 He therefore wears an AFO on the left lower leg. Patient is developing Charcot and his left foot and the AFO rubs on the bone that is protruding at the left lateral foot. The area is perfectly round and positive depth about the size of a dime on the left lateral foot. Same area that always opens. Patient never follows up with Karjason about the rubbing and is gone back to his old boot. Progress of Wound: Cultures show 2 bacteria and 2 anaerobes patient will be started on ciprofloxacin and metronidazole. Continues to callus around the wound. A little bit more shallow wound base using the Aquacel extra. Trying to get home health in there but until then we are going to switch up his medications to something that can stay on for a couple of days. We will use Samantha with an absorbent dressing and a stasis pad over the pressure area on the lateral side of his foot. And he will do dry day Wednesday we do Wednesdays. Patient still wearing a boot, trying to convince him to go back to [place] and get his brace readjusted. Patient shows no fever chills nausea vomiting or signs of infection foot coloring has a a wide barrow of redness that will probably disappear with antibiotic therapy. Subjective Subjective Patient has 1 amputated leg wears a thick leg and then his left leg is in a boot not real ambulatory denies pain that is the problem he has no feeling. Objective Data Objective Data As written in progress notes the same. No sign of other infections noted we will continue with wound care as described and progress note Vital Signs: Vital Signs Temp Pulse Resp BP 96.9 F L 98 16 118/83 H 05/21/21 09:32 05/21/21 09:32 05/14/21 09:32 05/21/21 09:32 Oxygen Delivery Method Room Air Weight: 310 lb Body Mass Index (BMI) 37.7 Lab / Micro Data Micro: Microbiology 05/14/21 10:00 Wound Abcess - Left Foot Gram Stain - Final 05/14/21 10:00 Wound Abcess - Left Foot Wound Culture - Final Proteus hauseri Corynebacterium striatum 05/14/21 10:00 Wound Abcess - Left Foot Anaerobic Culture - Final Bacteroides fragilis group Peptostreptococcus species Physical Exam Const oriented x3 General Appearance: cooperative Exam Limitations: no limitations Resp normal respiratory effort Effort and Inspection: able to speak in complete sentences Auscultation: clear to auscultation bilaterally Cardio regular rate and regular rhythm Palpation: normal PMI Rate: regular rate Rhythm: regular rhythm Extremity Extremity Narrative: Left lateral foot wound DFU from improper footwear and offloading about the size of a dime with depth General Extremity: normal exam except as noted Skin Wound Narrative: Left lateral foot DFU wound Neuro oriented x3 Psych Appearance: grossly normal Speech: normal speech Thought Content: normal thought content Judgement: judgement good Debridement Note Debridement Note Wound debrided: Left lateral ulcer DFU Wound Grade/Stage: Stage III Type of Debridement: Excisional debridement Anesthesia Used: 5% Lidocaine Gel Depth: Down to and including healthy tissue Percentage of wound debrided: 100 Instrument Used: 7mm curette Severity: Fat Layer Exposed Amount of bleeding with debridement: Mild Bleeding Controlled with: Pressure Patient tolerated procedure: Patient tolerated procedure well Post-Debridement Measurements and Additional Note: Post-Debridement Measurements/Treatment - Nurse 1 - General Ulcer Assessment Start: 05/14/21 09:32 Freq: Status: Active Protocol: MARIEL Activity Type Activity Date Activity User E-Sign Co-Sign Detail Recorded Client Recorded Date Recorded By Document 05/14/21 09:32 [facility] [id number] 05/14/21 09:38 [facility] Document 05/21/21 09:32 MS [id number] 05/21/21 09:40 MS 05/14/21 05/21/21 09:32 09:32 - Today's Visit Information Type of service Initial Visit Follow-up Visit (Physician/ENGINEERING INSPECTOR ) Arrival Mode Wheelchair Wheelchair Transfer Assistance None Patient Identification Verified (Name & Yes Yes ) Patient Requires Transmission-Based No No Precautions Height and Weight Height 6 ft 4 in Weight 310 lb Weight in Pounds 310.0 lbs Weight Measurement Method Stated by Patient Body Mass Index (BMI) 37.7 37.7 BMI Classification Obese Obese BSA - Emily 2.67 Vital Signs Temperature (97.8 F-99.1 F) 97.5 F L 96.9 F L Temperature Source Temporal Temporal Pulse Rate (60-100) 91 98 Pulse Location Monitor Monitor Respiratory Rate (12-18) 16 Respiratory rate source Observation Oxygen Delivery Method Room Air Blood Pressure (90/60-120/80) 121/69 H 118/83 H Blood Pressure Mean (mm Hg) 86 94 Source Monitor Monitor Position Sitting Blood Pressure Location Left Arm Have you changed medications since your No last visit? Any new allergies or adverse reactions No Had a fall/change in ADL's that may No increase risk of falls Signs or symptoms of abuse and/or No neglect since last visit Have you been in the hospital since your No last visit? Has dressing in place as prescribed Yes Has compression in place as prescribed Yes Has offloadiing in place as prescribed N/A Experienced any changes in pain level or No management History Since Last Visit- (Skip if this is Patient's initial visit) Left Footwear Removable Cast Regular Shoe Walker/Walking Boot Right Footwear Other Footwear Regular Shoe (Comment) Other Footwear RBKA Pain Scale: 0-10 Numeric Is Patient Pain Free? Yes Yes WC - Nurse 1 - General Ulcer Measurement Start: 05/14/21 09:32 Freq: Status: Active Protocol: Activity Type Activity Date Activity User E-Sign Co-Sign Detail Recorded Client Recorded Date Recorded By Document 05/14/21 09:32 [facility] [id number] 05/14/21 09:38 [facility] Document 05/21/21 09:32 MS [id number] 05/21/21 09:40 [place] 05/14/21 05/21/21 09:32 09:32 Wound Center Nurse 1 #7- L LAT PLANTAR FOOT -Combined with other wound No No -Current Size (cm) - Length 1 1.2 -Current Size (cm) - Width 1.2 1 -Current Size (cm) - Depth 0.3 0.4 -Total Square Cm 1.2 1.2 -Date of Last Picture (Recall this 05/14/21 field) -Photo Taken Yes No -Epithelialization None Present None Present -Tunneling No No -Undermining/Tunneling No No -Circular Undermining No No -Change in Wound Grade/Stage No -Exudate Amt Large Medium -Exudate Type Serosanguineous Serosanguineous -Wound Margin Distinct, Distinct, Outline Outline Attached Attached -Granulation Amt Large (67-100%) Medium (34-66%) -Granulation Quality Red N/A -Slough/Fibrin Yes Yes -Necrosis Amt Small (1-33%) Medium (34-66%) -Necrotic Tissue Type Adherent Slough Adherent Slough -Structure Exposed N/A -Texture ([place]-wound Skin Appearance) Assessed,Callus Assessed,Callus ,Localized Edema,Scarring -Moisture ([place]-wound Skin Appearance) Assessed No Abnormality, Assessed -Color ([place]-wound Skin Appearance) Assessed, No Abnormality, Erythema Assessed -Temperature ([place]-wound Skin No Abnormality No Abnormality Appearance) (Pt Warm) (Pt Warm) -Tenderness on Palpation ([place]-wound No Yes Skin Appearance) -Ulcer Cleansing Soap and Water Rinsed/ Irrigated with Saline -Foul Odor after Cleansing No No -Anesthetic Used 5% Lidocaine 4% Lidocaine Gel Solution Lower Limb Edema Present No Left Calf (cm) 39 Left Ankle (cm) 26 WC - Nurse 2 - General Ulcer CM Notes Start: 05/14/21 09:32 Freq: Status: Active Protocol: Activity Type Activity Date Activity User E-Sign Co-Sign Detail Recorded Client Recorded Date Recorded By Document 05/14/21 09:49 MW [id number] 05/14/21 10:00 MW Document 05/21/21 09:48 MW [id number] 05/21/21 09:57 MW 05/14/21 05/21/21 09:49 09:48 Wound Center Nurse 2 #7- L LAT PLANTAR FOOT -Time 09:50 09:48 -Correct Patient Yes Yes -Correct Side, Site, Position Yes Yes -Correct Procedure Yes Yes -Procedure Performed Yes Yes -Type of Procedure Debridement Debridement -Clinical Debridement Subcutaneous Subcutaneous -Tissue Removed Subcutaneous Subcutaneous -Post Debridement (cm) - Length 1.2 1.4 -Post Debridement (cm) - Width 1.2 1.4 -Post Debridement (cm) - Depth 0.7 0.3 -Total Square (Post) (cm) 1.44 1.96 -Area of Debridement (cm) - Length 1.2 1.4 -Area of Debridement (cm) - Width 1.2 1.4 -Total Square (Area) (cm) 1.44 1.96 -Tunneling No No -Undermining/Tunneling No No -Circular Undermining Yes No -Wound/Ulcer Outcome Not Healed Not Healed -Ulcer Cleansing Rinsed/ Rinsed/ Irrigated with Irrigated with Saline Saline -Foul Odor after Cleansing No No -Bioengineered Tissue No No -Bleeding Controlled with Pressure Pressure -Offloading No No -Treatment Response Procedure Procedure Tolerated Well Tolerated Well -Debridement - Subq, 1st 20sq cm Yes Yes Pain Scale: 0-10 Numeric Is Patient Pain Free? Yes Yes - Nurse 3 - General Ulcer D/C NN Start: 05/14/21 09:32 Freq: Status: Active Protocol: Activity Type Activity Date Activity User E-Sign Co-Sign Detail Recorded Client Recorded Date Recorded By Document 05/14/21 10:53 MS [id number] 05/14/21 10:54 MS Document 05/21/21 10:05 [facility] [id number] 05/21/21 10:07 [facility] 05/14/21 05/21/21 10:53 10:05 Wound Care Nurse 3 #7- L LAT PLANTAR FOOT -Ulcer Cleansing Rinsed/ Rinsed/ Irrigated with Irrigated with Saline Saline -Foul Odor after Cleansing No No -Negative Pressure Wound Therapy N/A -Primary Dressing Applied Aquacel Extra Optilok 6.5x10, Promogran Samantha Matter -Primary Dressing Covered/Secured with Dry Gauze Dry Gauze & Roll Gauze, Secured with Tape -Other Covering vinay wrap requested -Aquacel Extra 1 -Optilok 6.5x10 1 -Promogran Samantha Matter 1 Left -Compression Wrap Vinay Wrap Treatment Response Procedure Tolerated Well Pain Scale: 0-10 Numeric Is Patient Pain Free? Yes Yes - Visit Discharge Discharge Condition Stable Stable Ambulatory Status Ambulatory Wheelchair Transportation Private Auto Medication Reconcilliation completed & Yes provided to patient/care provider Clinical Summary of Care Provided Yes Assessment/Plan Assessment/Plan (1) Nonhealing nonsurgical wound limited to breakdown of skin: CODE(S): T14.8XXA - Other injury of unspecified body region, initial encounter (2) Diabetic foot ulcers: CODE(S): E11.621 - Type 2 diabetes mellitus with foot ulcer; L97.509 - Non-pressure chronic ulcer of other part of unspecified foot with unspecified severity QUALIFIERS: Diabetic foot ulcer location: midfoot Diabetes mellitus type: type 2 Laterality: left Non-pressure ulcer stage: with fat layer exposed Qualified Code(s): E11.621 - Type 2 diabetes mellitus with foot ulcer; L97.422 - 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 Apply Samantha to wound base cover with absorbent dressing and stasis pad on left lateral pressure area change Fridays Start ciprofloxacin 500 mg orally 2 times a day for 14 days Start metronidazole 250 mg 3 times a day for 14 days #42 Continue to offload foot Applied for home health nursing to do dressing changes Follow-up 1 week (3) Pressure ulcer of foot, stage 3: CODE(S): L89.893 - Pressure ulcer of other site, stage 3 QUALIFIERS: Laterality: left Qualified Code(s): L89.893 - Pressure ulcer of other site, stage 3 (4) Polyneuropathy in diabetes: CODE(S): E11.42 - Type 2 diabetes mellitus with diabetic polyneuropathy QUALIFIERS: Diabetes mellitus type: type 2 Qualified Code(s): E11.42 - Type 2 diabetes mellitus with diabetic polyneuropathy
[2021-06-04 09:30] VITALS: BP 102/67; PULSE 97; TEMP 35.3; BMI 37.7
--- NOTE | 2021-06-04 11:09 | PN.PCM_ITS ---
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 He therefore wears an AFO on the left lower leg. Patient is developing Charcot and his left foot and the AFO rubs on the bone that is protruding at the left lateral foot. The area is perfectly round and positive depth about the size of a dime on the left lateral foot. Same area that always opens. Patient never follows up with Christopher about the rubbing and is gone back to his old boot. Progress of Wound: Patient has not been seen for 2 weeks because he developed sepsis from his left foot wound. Ended up in [facility], For sepsis of the wound on his left foot was admitted from Wednesday to last Wednesday. Feeling better wound is developed some undermining but is slightly smaller depth is deeper. No sign of infection patient is still taking new pills they gave him of Levaquin and doxycycline. Subjective Subjective Patient states he feels much better he had not had a lot of pain in his leg. Still has not gotten home health care. The hospital did question him about it but has not proceeded also Objective Data Objective Data As written above open wound positive depth more undermining no odor debrided to bleeding clear. We will continue with same treatments Vital Signs: Vital Signs Temp Pulse Resp BP 95.6 F L 97 16 102/67 06/04/21 09:30 06/04/21 09:30 05/14/21 09:32 06/04/21 09:30 Oxygen Delivery Method Room Air Weight: 310 lb Body Mass Index (BMI) 37.7 Lab / Micro Data Micro: Microbiology 05/14/21 10:00 Wound Abcess - Left Foot Gram Stain - Final 05/14/21 10:00 Wound Abcess - Left Foot Wound Culture - Final Proteus hauseri Corynebacterium striatum 05/14/21 10:00 Wound Abcess - Left Foot Anaerobic Culture - Final Bacteroides fragilis group Peptostreptococcus species Physical Exam Const oriented x3 General Appearance: cooperative Exam Limitations: no limitations Resp normal respiratory effort Effort and Inspection: able to speak in complete sentences Auscultation: clear to auscultation bilaterally Cardio regular rate and regular rhythm Palpation: normal PMI Rate: regular rate Rhythm: regular rhythm Extremity Extremity Narrative: Left lateral foot wound DFU from improper footwear and offloading about the size of a dime with depth General Extremity: normal exam except as noted Skin Wound Narrative: Left lateral foot DFU wound Neuro oriented x3 Psych Appearance: grossly normal Speech: normal speech Thought Content: normal thought content Judgement: judgement good Debridement Note Debridement Note Wound debrided: Left lateral foot DFU Laterality: Left Wound Grade/Stage: Stage III Type of Debridement: Excisional debridement Anesthesia Used: 5% Lidocaine Gel Depth: Down to and including healthy tissue and in the subcutaneous layer Percentage of wound debrided: 100 Instrument Used: 5mm curette Tissue Removed: Fibrin and devitalized tissue Severity: Fat Layer Exposed Amount of bleeding with debridement: Mild Bleeding Controlled with: Compression and gauze Patient tolerated procedure: Patient tolerated procedure well Post-Debridement Measurements and Additional Note: Post-Debridement Measurements/Treatment - Nurse 1 - General Ulcer Assessment Start: 05/14/21 09:32 Freq: Status: Active Protocol: MARIEL Activity Type Activity Date Activity User E-Sign Co-Sign Detail Recorded Client Recorded Date Recorded By Document 05/14/21 09:32 [facility] [id number] 05/14/21 09:38 [facility] Document 05/21/21 09:32 CO [id number] 05/21/21 09:40 CO Document 06/04/21 09:30 CO [id number] 06/04/21 09:39 CO 05/14/21 05/21/21 06/04/21 09:32 09:32 09:30 - Today's Visit Information Type of service Initial Visit Follow-up Visit Follow-up Visit (Physician/ANAESTHESIOLOGIST (Physician/ANAESTHESIOLOGIST ) ) Arrival Mode Wheelchair Wheelchair Wheelchair Transfer Assistance None Patient Identification Verified (Name & Yes Yes Yes ) Patient Requires Transmission-Based No No No Precautions Height and Weight Height 6 ft 4 in Weight 310 lb Weight in Pounds 310.0 lbs Weight Measurement Method Stated by Patient Body Mass Index (BMI) 37.7 37.7 37.7 BMI Classification Obese Obese Obese BSA - Emily 2.67 Vital Signs Temperature (97.8 F-99.1 F) 97.5 F L 96.9 F L 95.6 F L Temperature Source Temporal Temporal Temporal Pulse Rate (60-100) 91 98 97 Pulse Location Monitor Monitor Monitor Respiratory Rate (12-18) 16 Respiratory rate source Observation Oxygen Delivery Method Room Air Blood Pressure (90/60-120/80) 121/69 H 118/83 H 102/67 Blood Pressure Mean (mm Hg) 86 94 78 Source Monitor Monitor Monitor Position Sitting Blood Pressure Location Left Arm Have you changed medications since your No Yes last visit? Any new allergies or adverse reactions No No Had a fall/change in ADL's that may No No increase risk of falls Signs or symptoms of abuse and/or No No neglect since last visit Have you been in the hospital since your No No last visit? Has dressing in place as prescribed Yes Yes Has compression in place as prescribed Yes Yes Has offloadiing in place as prescribed N/A N/A Experienced any changes in pain level or No No management History Since Last Visit- (Skip if this is Patient's initial visit) Left Footwear Removable Cast Regular Shoe Regular Shoe Walker/Walking Boot Right Footwear Other Footwear Regular Shoe (Comment) Other Footwear RBKA Pain Scale: 0-10 Numeric Is Patient Pain Free? Yes Yes Yes WC - Nurse 1 - General Ulcer Measurement Start: 05/14/21 09:32 Freq: Status: Active Protocol: Activity Type Activity Date Activity User E-Sign Co-Sign Detail Recorded Client Recorded Date Recorded By Document 05/14/21 09:32 [facility] [id number] 05/14/21 09:38 [facility] Document 05/21/21 09:32 AK [id number] 05/21/21 09:40 AK Document 06/04/21 09:30 CO [id number] 06/04/21 09:39 AK 05/14/21 05/21/21 06/04/21 09:32 09:32 09:30 Wound Center Nurse 1 #7- L LAT PLANTAR FOOT -Combined with other wound No No No -Current Size (cm) - Length 1 1.2 0.5 -Current Size (cm) - Width 1.2 1 1 -Current Size (cm) - Depth 0.3 0.4 0.3 -Total Square Cm 1.2 1.2 0.5 -Date of Last Picture (Recall this 05/14/21 field) -Photo Taken Yes No No -Epithelialization None Present None Present -Tunneling No No No -Undermining/Tunneling No No No -Circular Undermining No No No -Change in Wound Grade/Stage No No -Exudate Amt Large Medium Medium -Exudate Type Serosanguineous Serosanguineous Serosanguineous -Wound Margin Distinct, Distinct, Distinct, Outline Outline Outline Attached Attached Attached -Granulation Amt Large (67-100%) Medium (34-66%) None Present (0 %) -Granulation Quality Red N/A N/A -Slough/Fibrin Yes Yes Yes -Necrosis Amt Small (1-33%) Medium (34-66%) Medium (34-66%) -Necrotic Tissue Type Adherent Slough Adherent Slough Adherent Slough -Structure Exposed N/A N/A -Texture ([place]-wound Skin Appearance) Assessed,Callus Assessed,Callus Assessed,Callus ,Localized Edema,Scarring -Moisture ([place]-wound Skin Appearance) Assessed No Abnormality, No Abnormality, Assessed Assessed -Color ([place]-wound Skin Appearance) Assessed, No Abnormality, No Abnormality, Erythema Assessed Assessed -Temperature ([place]-wound Skin No Abnormality No Abnormality No Abnormality Appearance) (Pt Warm) (Pt Warm) (Pt Warm) -Tenderness on Palpation ([place]-wound No Yes No Skin Appearance) -Ulcer Cleansing Soap and Water Rinsed/ Rinsed/ Irrigated with Irrigated with Saline Saline -Foul Odor after Cleansing No No No -Anesthetic Used 5% Lidocaine 4% Lidocaine 5% Lidocaine Gel Solution Gel Lower Limb Edema Present No Left Calf (cm) 39 37 Left Ankle (cm) 26 24.6 WC - Nurse 2 - General Ulcer CM Notes Start: 05/14/21 09:32 Freq: Status: Active Protocol: Activity Type Activity Date Activity User E-Sign Co-Sign Detail Recorded Client Recorded Date Recorded By Document 05/14/21 09:49 MW [id number] 05/14/21 10:00 MW Document 05/21/21 09:48 MW [id number] 05/21/21 09:57 MW Document 06/04/21 09:58 MW [id number] 06/04/21 10:03 MW 05/14/21 05/21/21 06/04/21 09:49 09:48 09:58 Wound Center Nurse 2 #7- L LAT PLANTAR FOOT -Time 09:50 09:48 09:59 -Correct Patient Yes Yes Yes -Correct Side, Site, Position Yes Yes Yes -Correct Procedure Yes Yes Yes -Procedure Performed Yes Yes Yes -Type of Procedure Debridement Debridement Debridement -Clinical Debridement Subcutaneous Subcutaneous Subcutaneous -Tissue Removed Subcutaneous Subcutaneous Subcutaneous -Post Debridement (cm) - Length 1.2 1.4 0.7 -Post Debridement (cm) - Width 1.2 1.4 1.4 -Post Debridement (cm) - Depth 0.7 0.3 0.5 -Total Square (Post) (cm) 1.44 1.96 0.98 -Area of Debridement (cm) - Length 1.2 1.4 0.7 -Area of Debridement (cm) - Width 1.2 1.4 1.4 -Total Square (Area) (cm) 1.44 1.96 0.98 -Tunneling No No No -Undermining/Tunneling No No Yes -Undermining/Tunneling Starts (O'clock 9 ) -Undermining/Tunneling Ends (O'clock) 3 -Maximum Distance (cm) 0.6 -Circular Undermining Yes No No -Wound/Ulcer Outcome Not Healed Not Healed Not Healed -Ulcer Cleansing Rinsed/ Rinsed/ Rinsed/ Irrigated with Irrigated with Irrigated with Saline Saline Saline -Foul Odor after Cleansing No No No -Bioengineered Tissue No No No -Bleeding Controlled with Pressure Pressure Pressure -Treatment Response Procedure Procedure Procedure Tolerated Well Tolerated Well Tolerated Well -Offloading No No No -Debridement - Subq, 1st 20sq cm Yes Yes Yes Pain Scale: 0-10 Numeric Is Patient Pain Free? Yes Yes Yes WC - Nurse 3 - General Ulcer D/C NN Start: 05/14/21 09:32 Freq: Status: Active Protocol: Activity Type Activity Date Activity User E-Sign Co-Sign Detail Recorded Client Recorded Date Recorded By Document 05/14/21 10:53 CO [id number] 05/14/21 10:54 AK Document 05/21/21 10:05 [facility] [id number] 05/21/21 10:07 [facility] Document 06/04/21 10:17 [facility] [id number] 06/04/21 10:17 [facility] 05/14/21 05/21/21 06/04/21 10:53 10:05 10:17 Wound Care Nurse 3 #7- L LAT PLANTAR FOOT -Ulcer Cleansing Rinsed/ Rinsed/ Rinsed/ Irrigated with Irrigated with Irrigated with Saline Saline Saline -Foul Odor after Cleansing No No No -Negative Pressure Wound Therapy N/A -Primary Dressing Applied Aquacel Extra Optilok 6.5x10, Promogran Promogran Samantha Matter Samantha Matter -Primary Dressing Covered/Secured with Dry Gauze Dry Gauze & Dry Gauze & Roll Gauze, Roll Gauze, Secured with Secured with Tape Tape,Other -Other Covering vinay wrap ABD requested -Aquacel Extra 1 -Optilok 6.5x10 1 -Promogran Samantha Matter 1 1 Left -Compression Wrap Vinay Wrap Vinay Wrap Treatment Response Procedure Procedure Tolerated Well Tolerated Well Pain Scale: 0-10 Numeric Is Patient Pain Free? Yes Yes Yes WC - Visit Discharge Discharge Condition Stable Stable Stable Ambulatory Status Ambulatory Wheelchair Wheelchair Transportation Private Auto Medication Reconcilliation completed & Yes provided to patient/care provider Clinical Summary of Care Provided Yes Notes: HOME HEALTH PENDING Assessment/Plan Assessment/Plan (1) Nonhealing nonsurgical wound limited to breakdown of skin: CODE(S): T14.8XXA - Other injury of unspecified body region, initial encounter (2) Diabetic foot ulcers: CODE(S): E11.621 - Type 2 diabetes mellitus with foot ulcer; L97.509 - Non-pressure chronic ulcer of other part of unspecified foot with unspecified severity QUALIFIERS: Diabetic foot ulcer location: midfoot Diabetes mellitus type: type 2 Laterality: left Non-pressure ulcer stage: with fat layer exposed Qualified Code(s): E11.621 - Type 2 diabetes mellitus with foot ulcer; L97.422 - 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 Apply Samantha to wound base cover with absorbent dressing and stasis pad on left lateral pressure area change Fridays Continue levofloxacin 500 mg orally daily Continue doxycycline as prescribed from hospital Continue to offload foot Applied for home health nursing to do dressing changes Mondays will call again Follow-up 1 week (3) Pressure ulcer of foot, stage 3: CODE(S): L89.893 - Pressure ulcer of other site, stage 3 QUALIFIERS: Laterality: left Qualified Code(s): L89.893 - Pressure ulcer of other site, stage 3 (4) Polyneuropathy in diabetes: CODE(S): E11.42 - Type 2 diabetes mellitus with diabetic polyneuropathy QUALIFIERS: Diabetes mellitus type: type 2 Qualified Code(s): E11.42 - Type 2 diabetes mellitus with diabetic polyneuropathy
== END 2021-06-05 23:59 | disposition home or self-care (01) ==
LOC: WC 09:30
PROVIDERS: PCP Family Medicine Sports Medicine; Visit Provider Nurse Practitioner
DX: E11.621 Type 2 diabetes mellitus with foot ulcer (principal); L89.893 Pressure ulcer of other site, stage 3; Z89.511 Acquired absence of right leg below knee; L97.422 Non-pressure 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 with fat layer exposed; E11.42 Type 2 diabetes mellitus with diabetic polyneuropathy; T14.8XXA Other injury of unspecified body region, initial encounter; Z86.19 Personal history of other infectious and parasitic diseases; Z86.2 Personal history of diseases of the blood and blood-forming organs and certain disorders involving the immune mechanism
CPT/HCPCS: 11042; 87070; 87075; 87077; 87186; 87205; 99213; G0463

== ENCOUNTER 2021-07-02 09:30 | Outpatient (RCR) | payer MEDICARE, SELFPAY ==
[2021-06-06 00:05] VITALS: BP 102/67; PULSE 97; RESP 16; TEMP 35.3; BMI 37.7
[2021-06-11 09:22] VITALS: BP 130/77; PULSE 91; TEMP 36.4; BMI 37.7
--- NOTE | 2021-06-11 10:37 | PCM.WC.PN ---
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 He therefore wears an AFO on the left lower leg. Patient is developing Charcot and his left foot and the AFO rubs on the bone that is protruding at the left lateral foot. The area is perfectly round and positive depth about the size of a dime on the left lateral foot. Same area that always opens. Patient never follows up with Christopher about the rubbing and is gone back to his old boot. Progress of Wound: Left lateral foot DFU is improving still has some undermining measuring smaller. Also developed a skin tear on the left agrawal Subjective Subjective No concerns doing well. Nursing has finally showed up and is doing him 3 days a week. Objective Data Objective Data No sign of infection all wounds are measuring smaller new wound on left agrawal. Vital Signs: Vital Signs Temp Pulse Resp BP 97.6 F L 91 16 130/77 H 06/11/21 09:22 06/11/21 09:22 06/06/21 00:05 06/11/21 09:22 Weight: 310 lb Body Mass Index (BMI) 37.7 Lab / Micro Data Attestation: I reviewed the patient's lab results. Physical Exam Const oriented x3 General Appearance: cooperative Exam Limitations: no limitations Resp normal respiratory effort Effort and Inspection: able to speak in complete sentences Auscultation: clear to auscultation bilaterally Cardio regular rate and regular rhythm Palpation: normal PMI Rate: regular rate Rhythm: regular rhythm Extremity Extremity Narrative: Left lateral foot wound DFU from improper footwear and offloading about the size of a dime with depth General Extremity: normal exam except as noted Skin Wound Narrative: Left lateral foot DFU wound Neuro oriented x3 Psych Appearance: grossly normal Speech: normal speech Thought Content: normal thought content Judgement: judgement good Debridement Note Debridement Note Wound debrided: Left lateral foot DFU Laterality: Left Wound Grade/Stage: Stage III Type of Debridement: Excisional debridement Anesthesia Used: 5% Lidocaine Gel Depth: Down to and including healthy tissue Percentage of wound debrided: 100 Instrument Used: 7mm curette Tissue Removed: Callus and fibrin Severity: Limited To Skin Breakdown Amount of bleeding with debridement: Mild Bleeding Controlled with: Compression and gauze Patient tolerated procedure: Patient tolerated procedure well Post-Debridement Measurements and Additional Note: Post-Debridement Measurements/Treatment - Nurse 1 - General Ulcer Assessment Start: 06/11/21 09:22 Freq: Status: Active Protocol: MARIEL Activity Type Activity Date Activity User E-Sign Co-Sign Detail Recorded Client Recorded Date Recorded By Document 06/11/21 09:22 EV [id number] 06/11/21 09:27 EV 06/11/21 09:22 WC - Today's Visit Information Type of service 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-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 ) Arrival Mode Wheelchair Patient Identification Verified (Name & Yes ) Finger Stick Blood Sugar(mg/dl) (if 139 indicated): Blood Sugar Stated by Patient Height and Weight Body Mass Index (BMI) 37.7 BMI Classification Obese Vital Signs Temperature (97.8 F-99.1 F) 97.6 F L Temperature Source Temporal Pulse Rate (60-100) 91 Pulse Location Monitor Blood Pressure (90/60-120/80) 130/77 H Blood Pressure Mean (mm Hg) 94 Source Monitor Position Sitting Blood Pressure Location Right Arm History Since Last Visit- (Skip if this is Patient's initial visit) Have you changed medications since your No last visit? Any new allergies or adverse reactions No Had a fall/change in ADL's that may No increase risk of falls Signs or symptoms of abuse and/or No neglect since last visit Have you been in the hospital since your No last visit? Has dressing in place as prescribed Yes Has compression in place as prescribed Yes Has offloadiing in place as prescribed N/A Experienced any changes in pain level or No management Pain Scale: 0-10 Numeric Is Patient Pain Free? Yes - Nurse 1 - General Ulcer Measurement Start: 06/11/21 09:22 Freq: Status: Active Protocol: Activity Type Activity Date Activity User E-Sign Co-Sign Detail Recorded Client Recorded Date Recorded By Document 06/11/21 09:22 EV [id number] 06/11/21 09:27 EV 06/11/21 09:22 Wound Center Nurse 1 #8 Left Agrawal -Current Size (cm) - Length 1.6 -Current Size (cm) - Width 2 -Current Size (cm) - Depth 0.1 -Total Square Cm 3.2 -Exudate Amt Small -Exudate Type Serosanguineous -Wound Margin Distinct, Outline Attached -Granulation Amt Large (67-100%) -Granulation Quality Red -Necrosis Amt None Present (0 %) -Texture ([place]-wound Skin Appearance) Assessed, Scarring -Moisture ([place]-wound Skin Appearance) No Abnormality, Assessed -Color ([place]-wound Skin Appearance) No Abnormality, Assessed -Temperature ([place]-wound Skin No Abnormality Appearance) (Pt Warm) -Tenderness on Palpation ([place]-wound No Skin Appearance) -Ulcer Cleansing Rinsed/ Irrigated with Saline -Foul Odor after Cleansing No -Anesthetic Used 5% Lidocaine Gel #7- L LAT PLANTAR FOOT -Current Size (cm) - Length 0.6 -Current Size (cm) - Width 1.2 -Current Size (cm) - Depth 0.3 -Total Square Cm 0.72 -Exudate Amt Small -Exudate Type Serosanguineous -Wound Margin Distinct, Outline Attached -Granulation Amt Small (1-33%) -Granulation Quality [place] -Necrosis Amt Medium (34-66%) -Necrotic Tissue Type Adherent Slough -Texture ([place]-wound Skin Appearance) Assessed, Scarring -Moisture ([place]-wound Skin Appearance) Assessed,Dry/ Scaly -Color ([place]-wound Skin Appearance) No Abnormality, Assessed -Ulcer Cleansing Rinsed/ Irrigated with Saline -Foul Odor after Cleansing No -Anesthetic Used 5% Lidocaine Gel Left Calf (cm) 38 Left Ankle (cm) 25 WC - Nurse 2 - General Ulcer CM Notes Start: 06/11/21 09:22 Freq: Status: Active Protocol: Activity Type Activity Date Activity User E-Sign Co-Sign Detail Recorded Client Recorded Date Recorded By Document 06/11/21 09:36 MW [id number] 06/11/21 09:42 MW 06/11/21 09:36 Wound Center Nurse 2 #8 Left Agrwaal -Time 09:36 -Correct Patient Yes -Correct Side, Site, Position Yes -Correct Procedure Yes -Procedure Performed Yes -Type of Procedure Debridement -Clinical Debridement Subcutaneous -Tissue Removed Subcutaneous -Post Debridement (cm) - Length 1.5 -Post Debridement (cm) - Width 1.8 -Post Debridement (cm) - Depth 0.1 -Total Square (Post) (cm) 2.70 -Area of Debridement (cm) - Length 1.5 -Area of Debridement (cm) - Width 1.8 -Total Square (Area) (cm) 2.70 -Tunneling No -Undermining/Tunneling No -Circular Undermining No -Wound/Ulcer Outcome Not Healed -Ulcer Cleansing Rinsed/ Irrigated with Saline -Foul Odor after Cleansing No -Bioengineered Tissue No -Bleeding Controlled with Pressure -Treatment Response Procedure Tolerated Well -Offloading No -Debridement - Subq, 1st 20sq cm Yes #7- L LAT PLANTAR FOOT -Time 09:37 -Correct Patient Yes -Correct Side, Site, Position Yes -Correct Procedure Yes -Procedure Performed Yes -Type of Procedure Debridement -Clinical Debridement Subcutaneous -Tissue Removed Subcutaneous -Post Debridement (cm) - Length 0.8 -Post Debridement (cm) - Width 1.0 -Post Debridement (cm) - Depth 0.3 -Total Square (Post) (cm) 0.80 -Area of Debridement (cm) - Length 0.8 -Area of Debridement (cm) - Width 1.0 -Total Square (Area) (cm) 0.80 -Tunneling No -Undermining/Tunneling No -Circular Undermining No -Wound/Ulcer Outcome Not Healed -Ulcer Cleansing Rinsed/ Irrigated with Saline -Foul Odor after Cleansing No -Bioengineered Tissue No -Bleeding Controlled with Pressure -Treatment Response Procedure Tolerated Well -Offloading No -Debridement - Subq, 1st 20sq cm No Pain Scale: 0-10 Numeric Is Patient Pain Free? Yes - Nurse 3 - General Ulcer D/C NN Start: 06/11/21 09:22 Freq: Status: Active Protocol: Activity Type Activity Date Activity User E-Sign Co-Sign Detail Recorded Client Recorded Date Recorded By Document 06/11/21 09:58 EV [id number] 06/11/21 09:59 EV 06/11/21 09:58 Wound Care Nurse 3 #8 Left Agrawal -Ulcer Cleansing Rinsed/ Irrigated with Saline -Other Dressing 2 x xeroform -Primary Dressing Covered/Secured with Dry Gauze, Secured with Tape #7- L LAT PLANTAR FOOT -Ulcer Cleansing Rinsed/ Irrigated with Saline -Primary Dressing Applied Promogran Samantha Matter -Other Dressing ABD -Primary Dressing Covered/Secured with Dry Gauze,Dry Gauze & Roll Gauze,Secured with Tape -Promogran Samantha Matter 1 Pain Scale: 0-10 Numeric Is Patient Pain Free? Yes WC - Visit Discharge Discharge Condition Stable Ambulatory Status Wheelchair Transportation Private Auto Additional Wound Wound debrided: Left agrawal skin tear Type of Debridement: Excisional debridement Anesthesia Used: 5% Lidocaine Gel Depth: Down to and including healthy tissue Percentage of wound debrided: 100 Instrument Used: 7mm curette Severity: Limited To Skin Breakdown Amount of bleeding with debridement: Mild Bleeding Controlled with: Pressure Patient tolerated procedure: Patient tolerated procedure well Assessment/Plan Assessment/Plan (1) Nonhealing nonsurgical wound limited to breakdown of skin: CODE(S): T14.8XXA - Other injury of unspecified body region, initial encounter PLAN: Wash left leg with antibacterial soap pat dry apply Xeroform dressing cover with gauze and Vicky (2) Diabetic foot ulcers: CODE(S): E11.621 - Type 2 diabetes mellitus with foot ulcer; L97.509 - Non-pressure chronic ulcer of other part of unspecified foot with unspecified severity QUALIFIERS: Diabetic foot ulcer location: midfoot Diabetes mellitus type: type 2 Laterality: left Non-pressure ulcer stage: with fat layer exposed Qualified Code(s): E11.621 - Type 2 diabetes mellitus with foot ulcer; L97.422 - 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 Apply Samantha to wound base cover with absorbent dressing and stasis pad on left lateral pressure area change Fridays Continue levofloxacin 500 mg orally daily Continue doxycycline as prescribed from hospital Continue to offload foot Applied for home health nursing to do dressing changes Mondays will call again Follow-up 1 week (3) Pressure ulcer of foot, stage 3: CODE(S): L89.893 - Pressure ulcer of other site, stage 3 QUALIFIERS: Laterality: left Qualified Code(s): L89.893 - Pressure ulcer of other site, stage 3 (4) Polyneuropathy in diabetes: CODE(S): E11.42 - Type 2 diabetes mellitus with diabetic polyneuropathy QUALIFIERS: Diabetes mellitus type: type 2 Qualified Code(s): E11.42 - Type 2 diabetes mellitus with diabetic polyneuropathy (5) Type 2 diabetes mellitus with diabetic polyneuropathy: CODE(S): E11.42 - Type 2 diabetes mellitus with diabetic polyneuropathy QUALIFIERS: Diabetes mellitus buttermaker helper insulin use: unspecified custodial insulin use status Qualified Code(s): E11.42 - Type 2 diabetes mellitus with diabetic polyneuropathy
--- NOTE | 2021-06-18 10:45 | PCM.WC.PN ---
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 He therefore wears an AFO on the left lower leg. Patient is developing Charcot and his left foot and the AFO rubs on the bone that is protruding at the left lateral foot. The area is perfectly round and positive depth about the size of a dime on the left lateral foot. Same area that always opens. Patient never follows up with Christopher about the rubbing and is gone back to his old boot. Progress of Wound: Left lateral foot DFU is improving now has circumferential undermining. We will change up in try Fibracol and continue using the Xeroform to the agrawal. Subjective Subjective Patient has been compliant with his dressing changes has no concerns at this time Objective Data Objective Data As stated above circumferential undermining no increase in callus developing around wound base like before. Measurements are about the same. Left agrawal is flatter and improving Vital Signs: Vital Signs Temp Pulse Resp BP 97.6 F L 91 16 130/77 H 06/11/21 09:22 06/11/21 09:22 06/06/21 00:05 06/11/21 09:22 Weight: 310 lb Body Mass Index (BMI) 37.7 Physical Exam Const oriented x3 General Appearance: cooperative Exam Limitations: no limitations Resp normal respiratory effort Effort and Inspection: able to speak in complete sentences Auscultation: clear to auscultation bilaterally Cardio regular rate and regular rhythm Palpation: normal PMI Rate: regular rate Rhythm: regular rhythm Extremity Extremity Narrative: Left lateral foot wound DFU from improper footwear and offloading about the size of a dime with depth General Extremity: normal exam except as noted Skin Wound Narrative: Left lateral foot DFU wound Neuro oriented x3 Psych Appearance: grossly normal Speech: normal speech Thought Content: normal thought content Judgement: judgement good Debridement Note Debridement Note Wound debrided: Left lateral foot DFU Wound Grade/Stage: Stage III Type of Debridement: Excisional debridement Anesthesia Used: 5% Lidocaine Gel Depth: Down to and including healthy tissue Percentage of wound debrided: 100 Instrument Used: 3mm curette Tissue Removed: Fibrin Severity: Fat Layer Exposed Amount of bleeding with debridement: Mild Bleeding Controlled with: Compression and gauze Patient tolerated procedure: Patient tolerated procedure well Post-Debridement Measurements and Additional Note: Post-Debridement Measurements/Treatment - Nurse 1 - General Ulcer Assessment Start: 06/11/21 09:22 Freq: Status: Active Protocol: MARIEL Activity Type Activity Date Activity User E-Sign Co-Sign Detail Recorded Client Recorded Date Recorded By Document 06/11/21 09:22 EV [id number] 06/11/21 09:27 EV 06/11/21 09:22 - Today's Visit Information Type of service Follow-up Visit (Physician/[employer]ER ) Arrival Mode Wheelchair Patient Identification Verified (Name & Yes ) Finger Stick Blood Sugar(mg/dl) (if 139 indicated): Blood Sugar Stated by Patient Height and Weight Body Mass Index (BMI) 37.7 BMI Classification Obese Vital Signs Temperature (97.8 F-99.1 F) 97.6 F L Temperature Source Temporal Pulse Rate (60-100) 91 Pulse Location Monitor Blood Pressure (90/60-120/80) 130/77 H Blood Pressure Mean (mm Hg) 94 Source Monitor Position Sitting Blood Pressure Location Right Arm History Since Last Visit- (Skip if this is Patient's initial visit) Have you changed medications since your No last visit? Any new allergies or adverse reactions No Had a fall/change in ADL's that may No increase risk of falls Signs or symptoms of abuse and/or No neglect since last visit Have you been in the hospital since your No last visit? Has dressing in place as prescribed Yes Has compression in place as prescribed Yes Has offloadiing in place as prescribed N/A Experienced any changes in pain level or No management Pain Scale: 0-10 Numeric Is Patient Pain Free? Yes - Nurse 1 - General Ulcer Measurement Start: 06/11/21 09:22 Freq: Status: Active Protocol: Activity Type Activity Date Activity User E-Sign Co-Sign Detail Recorded Client Recorded Date Recorded By Document 06/11/21 09:22 EV [id number] 06/11/21 09:27 EV 06/11/21 09:22 Wound Center Nurse 1 #8 Left Agrawal -Current Size (cm) - Length 1.6 -Current Size (cm) - Width 2 -Current Size (cm) - Depth 0.1 -Total Square Cm 3.2 -Exudate Amt Small -Exudate Type Serosanguineous -Wound Margin Distinct, Outline Attached -Granulation Amt Large (67-100%) -Granulation Quality Red -Necrosis Amt None Present (0 %) -Texture ([place]-wound Skin Appearance) Assessed, Scarring -Moisture ([place]-wound Skin Appearance) No Abnormality, Assessed -Color ([place]-wound Skin Appearance) No Abnormality, Assessed -Temperature ([place]-wound Skin No Abnormality Appearance) (Pt Warm) -Tenderness on Palpation ([place]-wound No Skin Appearance) -Ulcer Cleansing Rinsed/ Irrigated with Saline -Foul Odor after Cleansing No -Anesthetic Used 5% Lidocaine Gel #7- L LAT PLANTAR FOOT -Current Size (cm) - Length 0.6 -Current Size (cm) - Width 1.2 -Current Size (cm) - Depth 0.3 -Total Square Cm 0.72 -Exudate Amt Small -Exudate Type Serosanguineous -Wound Margin Distinct, Outline Attached -Granulation Amt Small (1-33%) -Granulation Quality [place] -Necrosis Amt Medium (34-66%) -Necrotic Tissue Type Adherent Slough -Texture ([place]-wound Skin Appearance) Assessed, Scarring -Moisture ([place]-wound Skin Appearance) Assessed,Dry/ Scaly -Color ([place]-wound Skin Appearance) No Abnormality, Assessed -Ulcer Cleansing Rinsed/ Irrigated with Saline -Foul Odor after Cleansing No -Anesthetic Used 5% Lidocaine Gel Left Calf (cm) 38 Left Ankle (cm) 25 WC - Nurse 2 - General Ulcer CM Notes Start: 06/11/21 09:22 Freq: Status: Active Protocol: Activity Type Activity Date Activity User E-Sign Co-Sign Detail Recorded Client Recorded Date Recorded By Document 06/11/21 09:36 MW [id number] 06/11/21 09:42 MW Document 06/18/21 09:29 MW [id number] 06/18/21 09:33 MW 06/11/21 06/18/21 09:36 09:29 Wound Center Nurse 2 #8 Left Agrawal -Time 09:36 09:32 -Correct Patient Yes Yes -Correct Side, Site, Position Yes Yes -Correct Procedure Yes Yes -Procedure Performed Yes Yes -Type of Procedure Debridement Debridement -Clinical Debridement Subcutaneous Subcutaneous -Tissue Removed Subcutaneous Subcutaneous -Post Debridement (cm) - Length 1.5 2.5 -Post Debridement (cm) - Width 1.8 1.5 -Post Debridement (cm) - Depth 0.1 0.1 -Total Square (Post) (cm) 2.70 3.75 -Area of Debridement (cm) - Length 1.5 2.5 -Area of Debridement (cm) - Width 1.8 1.5 -Total Square (Area) (cm) 2.70 3.75 -Tunneling No No -Undermining/Tunneling No No -Circular Undermining No No -Wound/Ulcer Outcome Not Healed Not Healed -Ulcer Cleansing Rinsed/ Rinsed/ Irrigated with Irrigated with Saline Saline -Foul Odor after Cleansing No No -Bioengineered Tissue No No -Bleeding Controlled with Pressure Pressure -Treatment Response Procedure Procedure Tolerated Well Tolerated Well -Offloading No No -Debridement - Subq, 1st 20sq cm Yes Yes #7- L LAT PLANTAR FOOT -Time 09:37 09:32 -Correct Patient Yes Yes -Correct Side, Site, Position Yes Yes -Correct Procedure Yes Yes -Procedure Performed Yes Yes -Type of Procedure Debridement Debridement -Clinical Debridement Subcutaneous Subcutaneous -Tissue Removed Subcutaneous Subcutaneous -Post Debridement (cm) - Length 0.8 0.8 -Post Debridement (cm) - Width 1.0 1.0 -Post Debridement (cm) - Depth 0.3 0.5 -Total Square (Post) (cm) 0.80 0.80 -Area of Debridement (cm) - Length 0.8 0.8 -Area of Debridement (cm) - Width 1.0 1.0 -Total Square (Area) (cm) 0.80 0.80 -Tunneling No No -Undermining/Tunneling No No -Circular Undermining No Yes -Wound/Ulcer Outcome Not Healed Not Healed -Ulcer Cleansing Rinsed/ Rinsed/ Irrigated with Irrigated with Saline Saline -Foul Odor after Cleansing No No -Bioengineered Tissue No No -Bleeding Controlled with Pressure Pressure -Treatment Response Procedure Procedure Tolerated Well Tolerated Well -Offloading No No -Debridement - Subq, 1st 20sq cm No No Pain Scale: 0-10 Numeric Is Patient Pain Free? Yes Yes WC - Nurse 3 - General Ulcer D/C NN Start: 06/11/21 09:22 Freq: Status: Active Protocol: Activity Type Activity Date Activity User E-Sign Co-Sign Detail Recorded Client Recorded Date Recorded By Document 06/11/21 09:58 [id number] 06/11/21 09:59 EV 06/11/21 09:58 Wound Care Nurse 3 #8 Left Agrawal -Ulcer Cleansing Rinsed/ Irrigated with Saline -Other Dressing 2 x xeroform -Primary Dressing Covered/Secured with Dry Gauze, Secured with Tape #7- L LAT PLANTAR FOOT -Ulcer Cleansing Rinsed/ Irrigated with Saline -Primary Dressing Applied Promogran Samantha Matter -Other Dressing ABD -Primary Dressing Covered/Secured with Dry Gauze,Dry Gauze & Roll Gauze,Secured with Tape -Promogran Samantha Matter 1 Pain Scale: 0-10 Numeric Is Patient Pain Free? Yes WC - Visit Discharge Discharge Condition Stable Ambulatory Status Wheelchair Transportation Private Auto Additional Wound Wound debrided: Left agrawal from trauma Type of Debridement: Excisional debridement Anesthesia Used: 5% Lidocaine Gel Depth: Down to and including healthy tissue Percentage of wound debrided: 100 Instrument Used: 5mm curette Severity: Limited To Skin Breakdown Amount of bleeding with debridement: Mild Bleeding Controlled with: Compression and gauze Patient tolerated procedure: Patient tolerated procedure well Assessment/Plan Assessment/Plan (1) Nonhealing nonsurgical wound limited to breakdown of skin: CODE(S): T14.8XXA - Other injury of unspecified body region, initial encounter PLAN: Wash left leg with antibacterial soap pat dry apply Xeroform dressing cover with gauze and Vicky (2) Diabetic foot ulcers: CODE(S): E11.621 - Type 2 diabetes mellitus with foot ulcer; L97.509 - Non-pressure chronic ulcer of other part of unspecified foot with unspecified severity QUALIFIERS: Diabetic foot ulcer location: midfoot Diabetes mellitus type: type 2 Laterality: left Non-pressure ulcer stage: with fat layer exposed Qualified Code(s): E11.621 - Type 2 diabetes mellitus with foot ulcer; L97.422 - 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 Apply Fibracol to wound base cover with absorbent dressing and stasis pad on left lateral pressure area change Fridays Continue to offload foot home health nursing to do dressing changes Mondays Follow-up 2 week (3) Pressure ulcer of foot, stage 3: CODE(S): L89.893 - Pressure ulcer of other site, stage 3 QUALIFIERS: Laterality: left Qualified Code(s): L89.893 - Pressure ulcer of other site, stage 3 (4) Polyneuropathy in diabetes: CODE(S): E11.42 - Type 2 diabetes mellitus with diabetic polyneuropathy QUALIFIERS: Diabetes mellitus type: type 2 Qualified Code(s): E11.42 - Type 2 diabetes mellitus with diabetic polyneuropathy (5) Type 2 diabetes mellitus with diabetic polyneuropathy: CODE(S): E11.42 - Type 2 diabetes mellitus with diabetic polyneuropathy QUALIFIERS: Diabetes mellitus nursing home insulin use: unspecified oysterman insulin use status Qualified Code(s): E11.42 - Type 2 diabetes mellitus with diabetic polyneuropathy
[2021-06-18 11:40] VITALS: BP 115/76; PULSE 101; RESP 18; TEMP 36.2; BMI 37.7
[2021-07-02 09:39] VITALS: BP 132/82; PULSE 104; TEMP 36.1; BMI 37.7
--- NOTE | 2021-07-02 11:20 | PCM.WC.PN ---
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 He therefore wears an AFO on the left lower leg. Patient is developing Charcot and his left foot and the AFO rubs on the bone that is protruding at the left lateral foot. The area is perfectly round and positive depth about the size of a dime on the left lateral foot. Same area that always opens. Patient never follows up with Christopher about the rubbing and is gone back to his old boot. Progress of Wound: Left lateral foot DFU is improving now has circumferential undermining. We will continue using Fibracol and continue . The left agrawal is healed Subjective Subjective No concerns Home health is showing up Objective Data Objective Data No sign of infection still has the undermining circumferential but smaller wound is measuring smaller also doing well on the Fibracol will continue Vital Signs: Vital Signs Temp Pulse Resp BP 97.0 F L 104 H 18 132/82 H 07/02/21 09:39 07/02/21 09:39 06/18/21 11:40 07/02/21 09:39 Weight: 310 lb Body Mass Index (BMI) 37.7 Physical Exam Const oriented x3 General Appearance: cooperative Exam Limitations: no limitations Resp normal respiratory effort Effort and Inspection: able to speak in complete sentences Auscultation: clear to auscultation bilaterally Cardio regular rate and regular rhythm Palpation: normal PMI Rate: regular rate Rhythm: regular rhythm Extremity Extremity Narrative: Left lateral foot wound DFU from improper footwear and offloading about the size of a dime with depth General Extremity: normal exam except as noted Skin Wound Narrative: Left lateral foot DFU wound Neuro oriented x3 Psych Appearance: grossly normal Speech: normal speech Thought Content: normal thought content Judgement: judgement good Debridement Note Debridement Note Wound debrided: Left lateral foot DFU Laterality: Left Wound Grade/Stage: Stage III Type of Debridement: Excisional debridement Anesthesia Used: 5% Lidocaine Gel Depth: in the subcutaneous layer Percentage of wound debrided: 100 Instrument Used: 3mm curette Tissue Removed: Fibrin devitalized tissue Severity: Fat Layer Exposed Amount of bleeding with debridement: Mild Bleeding Controlled with: Compression and gauze Patient tolerated procedure: Patient tolerated procedure well Post-Debridement Measurements and Additional Note: Post-Debridement Measurements/Treatment WC - Nurse 1 - General Ulcer Assessment Start: 06/11/21 09:22 Freq: Status: Active Protocol: MARIEL Activity Type Activity Date Activity User E-Sign Co-Sign Detail Recorded Client Recorded Date Recorded By Document 06/11/21 09:22 EV [id number] 06/11/21 09:27 KR Document 06/18/21 11:40 DL [id number] 06/18/21 11:46 DL Document 07/02/21 09:39 KR [id number] 07/02/21 09:45 KR 06/11/21 06/18/21 07/02/21 09:22 11:40 09:39 WC - Today's Visit Information Type of service Follow-up Visit Follow-up Visit Follow-up Visit (Physician/ANALYSIS DIRECTOR (Physician/ANALYSIS DIRECTOR (Physician/ANALYSIS DIRECTOR ) ) ) Arrival Mode Wheelchair Wheelchair Wheelchair Patient Identification Verified (Name & Yes Yes Yes ) Patient Requires Transmission-Based No Precautions Finger Stick Blood Sugar(mg/dl) (if 139 indicated): Blood Sugar Stated by Patient Height and Weight Body Mass Index (BMI) 37.7 37.7 37.7 BMI Classification Obese Obese Obese Vital Signs Temperature (97.8 F-99.1 F) 97.6 F L 97.2 F L 97.0 F L Temperature Source Temporal Temporal Temporal Pulse Rate (60-100) 91 101 H 104 H Pulse Location Monitor Monitor Monitor Respiratory Rate (12-18) 18 Respiratory rate source Observation Blood Pressure (90/60-120/80) 130/77 H 115/76 132/82 H Blood Pressure Mean (mm Hg) 94 89 98 Source Monitor Monitor Monitor Position Sitting Sitting Blood Pressure Location Right Arm Right Arm History Since Last Visit- (Skip if this is Patient's initial visit) Have you changed medications since your No No No last visit? Any new allergies or adverse reactions No No No Had a fall/change in ADL's that may No No No increase risk of falls Signs or symptoms of abuse and/or No No No neglect since last visit Have you been in the hospital since your No No No last visit? Has dressing in place as prescribed Yes Yes Yes Has compression in place as prescribed Yes N/A Yes Has offloadiing in place as prescribed N/A Yes N/A Experienced any changes in pain level or No Yes No management Left Footwear Surgical Shoe Regular Shoe with pressure relief insole Right Footwear Regular Shoe Pain Scale: 0-10 Numeric Is Patient Pain Free? Yes Yes Yes WC - Nurse 1 - General Ulcer Measurement Start: 06/11/21 09:22 Freq: Status: Active Protocol: Activity Type Activity Date Activity User E-Sign Co-Sign Detail Recorded Client Recorded Date Recorded By Document 06/11/21 09:22 KR [id number] 06/11/21 09:27 KR Document 06/18/21 11:40 DL [id number] 06/18/21 11:46 DL Document 07/02/21 09:39 KR [id number] 07/02/21 09:45 KR 06/11/21 06/18/21 07/02/21 09:22 11:40 09:39 Wound Center Nurse 1 #8 Left Agrawal -Current Size (cm) - Length 1.6 2.3 0.4 -Current Size (cm) - Width 2 2.1 0.8 -Current Size (cm) - Depth 0.1 0.1 0.2 -Total Square Cm 3.2 4.83 0.32 -Photo Taken No -Exudate Amt Small Small Small -Exudate Type Serosanguineous Serosanguineous Serosanguineous -Wound Margin Distinct, Distinct, Distinct, Outline Outline Outline Attached Attached Attached -Granulation Amt Large (67-100%) Large (67-100%) Medium (34-66%) -Granulation Quality Red [place] -Necrosis Amt None Present (0 Small (1-33%) Medium (34-66%) %) -Necrotic Tissue Type Adherent Slough -Structure Exposed N/A -Texture ([place]-wound Skin Appearance) Assessed, Scarring Assessed, Scarring Scarring -Moisture ([place]-wound Skin Appearance) No Abnormality, No Abnormality Assessed,Dry/ Assessed Scaly -Color ([place]-wound Skin Appearance) No Abnormality, Hemosiderin No Abnormality, Assessed Staining Assessed -Temperature ([place]-wound Skin No Abnormality No Abnormality No Abnormality Appearance) (Pt Warm) (Pt Warm) (Pt Warm) -Tenderness on Palpation ([place]-wound No No No Skin Appearance) -Ulcer Cleansing Rinsed/ Soap and Water Rinsed/ Irrigated with Irrigated with Saline Saline -Foul Odor after Cleansing No No No -Anesthetic Used 5% Lidocaine 4% Lidocaine 5% Lidocaine Gel Solution Gel #7- L LAT PLANTAR FOOT -Current Size (cm) - Length 0.6 0.7 -Current Size (cm) - Width 1.2 1 -Current Size (cm) - Depth 0.3 0.7 -Total Square Cm 0.72 0.7 -Photo Taken No -Exudate Amt Small Small -Exudate Type Serosanguineous Serosanguineous -Wound Margin Distinct, Distinct, Outline Outline Attached Attached -Granulation Amt Small (1-33%) Medium (34-66%) -Granulation Quality [place] Red -Necrosis Amt Medium (34-66%) Medium (34-66%) -Necrotic Tissue Type Adherent Slough Adherent Slough -Structure Exposed N/A -Texture ([place]-wound Skin Appearance) Assessed, Scarring Scarring -Moisture ([place]-wound Skin Appearance) Assessed,Dry/ Dry/Scaly Scaly -Color ([place]-wound Skin Appearance) No Abnormality, Hemosiderin Assessed Staining -Temperature ([place]-wound Skin No Abnormality Appearance) (Pt Warm) -Tenderness on Palpation ([place]-wound No Skin Appearance) -Ulcer Cleansing Rinsed/ Soap and Water Irrigated with Saline -Foul Odor after Cleansing No No -Anesthetic Used 5% Lidocaine 4% Lidocaine Gel Solution Left Calf (cm) 38 Left Ankle (cm) 25 WC - Nurse 2 - General Ulcer CM Notes Start: 06/11/21 09:22 Freq: Status: Active Protocol: Activity Type Activity Date Activity User E-Sign Co-Sign Detail Recorded Client Recorded Date Recorded By Document 06/11/21 09:36 MW [id number] 06/11/21 09:42 MW Document 06/18/21 09:29 MW [id number] 06/18/21 09:33 MW Document 07/02/21 09:59 MW [id number] 07/02/21 10:02 MW 06/11/21 06/18/21 07/02/21 09:36 09:29 09:59 Wound Center Nurse 2 #8 Left Agrawal -Time 09:36 09:32 09:59 -Correct Patient Yes Yes Yes -Correct Side, Site, Position Yes Yes Yes -Correct Procedure Yes Yes Yes -Procedure Performed Yes Yes No -Type of Procedure Debridement Debridement -Clinical Debridement Subcutaneous Subcutaneous -Tissue Removed Subcutaneous Subcutaneous -Post Debridement (cm) - Length 1.5 2.5 0 -Post Debridement (cm) - Width 1.8 1.5 0 -Post Debridement (cm) - Depth 0.1 0.1 0 -Total Square (Post) (cm) 2.70 3.75 0 -Area of Debridement (cm) - Length 1.5 2.5 -Area of Debridement (cm) - Width 1.8 1.5 -Total Square (Area) (cm) 2.70 3.75 -Tunneling No No -Undermining/Tunneling No No -Circular Undermining No No -Wound/Ulcer Outcome Not Healed Not Healed Healed- Epithelialized -Ulcer Cleansing Rinsed/ Rinsed/ Irrigated with Irrigated with Saline Saline -Foul Odor after Cleansing No No -Bioengineered Tissue No No -Bleeding Controlled with Pressure Pressure -Treatment Response Procedure Procedure Tolerated Well Tolerated Well -Offloading No No -Debridement - Subq, 1st 20sq cm Yes Yes #7- L LAT PLANTAR FOOT -Time 09:37 09:32 09:59 -Correct Patient Yes Yes Yes -Correct Side, Site, Position Yes Yes Yes -Correct Procedure Yes Yes Yes -Procedure Performed Yes Yes Yes -Type of Procedure Debridement Debridement Debridement -Clinical Debridement Subcutaneous Subcutaneous Subcutaneous -Tissue Removed Subcutaneous Subcutaneous Subcutaneous -Post Debridement (cm) - Length 0.8 0.8 0.6 -Post Debridement (cm) - Width 1.0 1.0 0.9 -Post Debridement (cm) - Depth 0.3 0.5 0.4 -Total Square (Post) (cm) 0.80 0.80 0.54 -Area of Debridement (cm) - Length 0.8 0.8 0.6 -Area of Debridement (cm) - Width 1.0 1.0 0.9 -Total Square (Area) (cm) 0.80 0.80 0.54 -Tunneling No No No -Undermining/Tunneling No No No -Circular Undermining No Yes Yes -Wound/Ulcer Outcome Not Healed Not Healed Not Healed -Ulcer Cleansing Rinsed/ Rinsed/ Rinsed/ Irrigated with Irrigated with Irrigated with Saline Saline Saline -Foul Odor after Cleansing No No No -Bioengineered Tissue No No No -Bleeding Controlled with Pressure Pressure Pressure -Treatment Response Procedure Procedure Procedure Tolerated Well Tolerated Well Tolerated Well -Offloading No No No -Debridement - Subq, 1st 20sq cm No No Yes Pain Scale: 0-10 Numeric Is Patient Pain Free? Yes Yes Yes - Nurse 3 - General Ulcer D/C NN Start: 06/11/21 09:22 Freq: Status: Active Protocol: Activity Type Activity Date Activity User E-Sign Co-Sign Detail Recorded Client Recorded Date Recorded By Document 06/11/21 09:58 KR [id number] 06/11/21 09:59 KR Document 06/18/21 11:46 DL [id number] 06/18/21 11:49 DL 06/11/21 06/18/21 09:58 11:46 Wound Care Nurse 3 #8 Left Agrawal -Ulcer Cleansing Rinsed/ Soap and Water Irrigated with Saline -Foul Odor after Cleansing No -Primary Dressing Applied NonAdherent Contact Layer -Other Dressing 2 x xeroform adaptic today -Primary Dressing Covered/Secured with Dry Gauze, Dry Gauze & Secured with Roll Gauze, Tape Secured with Tape #7- L LAT PLANTAR FOOT -Ulcer Cleansing Rinsed/ Soap and Water Irrigated with Saline -Foul Odor after Cleansing No -Primary Dressing Applied Promogran Fibracol Plus Samantha Matter 4x4 -Other Dressing ABD -Primary Dressing Covered/Secured with Dry Gauze,Dry Dry Gauze & Gauze & Roll Roll Gauze, Gauze,Secured Secured with with Tape Tape -Fibracol Plus 4x4 1 -Promogran Samantha Matter 1 Treatment Response Procedure Tolerated Well Pain Scale: 0-10 Numeric Is Patient Pain Free? Yes Yes - Visit Discharge Discharge Condition Stable Stable Ambulatory Status Wheelchair Wheelchair Transportation Private Auto Private Auto Facility Type Lap Polisher Care Facility Notes: pt to resume xeroform with next dressing change. Orders Sent Yes Assessment/Plan Assessment/Plan (1) Nonhealing nonsurgical wound limited to breakdown of skin: CODE(S): T14.8XXA - Other injury of unspecified body region, initial encounter PLAN: Resolved agrawal may start doing with dressing changes open air follow-up as needed (2) Diabetic foot ulcers: CODE(S): E11.621 - Type 2 diabetes mellitus with foot ulcer; L97.509 - Non-pressure chronic ulcer of other part of unspecified foot with unspecified severity QUALIFIERS: Diabetic foot ulcer location: midfoot Diabetes mellitus type: type 2 Laterality: left Non-pressure ulcer stage: with fat layer exposed Qualified Code(s): E11.621 - Type 2 diabetes mellitus with foot ulcer; L97.422 - 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 Apply Fibracol to wound base cover with absorbent dressing and stasis pad on left lateral pressure area change Fridays Continue to offload foot home health nursing to do dressing changes Mondays Follow-up 1 week (3) Pressure ulcer of foot, stage 3: CODE(S): L89.893 - Pressure ulcer of other site, stage 3 QUALIFIERS: Laterality: left Qualified Code(s): L89.893 - Pressure ulcer of other site, stage 3 (4) Polyneuropathy in diabetes: CODE(S): E11.42 - Type 2 diabetes mellitus with diabetic polyneuropathy QUALIFIERS: Diabetes mellitus type: type 2 Qualified Code(s): E11.42 - Type 2 diabetes mellitus with diabetic polyneuropathy (5) Type 2 diabetes mellitus with diabetic polyneuropathy: CODE(S): E11.42 - Type 2 diabetes mellitus with diabetic polyneuropathy QUALIFIERS: Diabetes mellitus group home insulin use: 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
== END 2021-07-05 23:59 | disposition home or self-care (01) ==
LOC: WC 09:30
PROVIDERS: PCP Family Medicine Sports Medicine; Visit Provider Nurse Practitioner
DX: E11.621 Type 2 diabetes mellitus with foot ulcer (principal); L89.893 Pressure ulcer of other site, stage 3; L97.422 Non-pressure 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 with fat layer exposed; E11.42 Type 2 diabetes mellitus with diabetic polyneuropathy; M14.672 Charcot's joint, left ankle and foot
CPT/HCPCS: 11042

== ENCOUNTER 2021-07-30 09:30 | Outpatient (RCR) | payer MEDICARE, SELFPAY ==
[2021-07-06 00:11] VITALS: BP 132/82; PULSE 104; RESP 18; TEMP 36.1; BMI 37.7
[2021-07-09 09:13] VITALS: BP 128/75; PULSE 91; TEMP 36.2; BMI 37.7
--- NOTE | 2021-07-09 09:46 | PN.PCM_ITS ---
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 He therefore wears an AFO on the left lower leg. Patient is developing Charcot and his left foot and the AFO rubs on the bone that is protruding at the left lateral foot. The area is perfectly round and positive depth about the size of a dime on the left lateral foot. Same area that always opens. Patient never follows up with Christopher about the rubbing and is gone back to his old boot. Progress of Wound: Patient was admitted to [facility] over the weekend for sepsis. Given IV antibiotics and cultures no wound care was performed. Patient is currently on doxycycline twice a day. The foot wound looks about the same measurements are about the same. No erythema around the wound actually looks very good and clean Subjective Subjective Patient has no concerns feeling better since his hospitalization Objective Data Objective Data Patient is continue his doxycycline. Measurements were about the same and size no sign of any infection or slough. We will continue with same dressing as this time Vital Signs: Vital Signs Temp Pulse Resp BP 97.2 F L 91 18 128/75 H 07/09/21 09:13 07/09/21 09:13 07/06/21 00:11 07/09/21 09:13 Weight: 310 lb Body Mass Index (BMI) 37.7 Physical Exam Const oriented x3 General Appearance: cooperative Exam Limitations: no limitations Resp normal respiratory effort Effort and Inspection: able to speak in complete sentences Auscultation: clear to auscultation bilaterally Cardio regular rate and regular rhythm Palpation: normal PMI Rate: regular rate Rhythm: regular rhythm Extremity Extremity Narrative: Left lateral foot wound DFU from improper footwear and offloading about the size of a dime with depth General Extremity: normal exam except as noted Skin Wound Narrative: Left lateral foot DFU wound Neuro oriented x3 Psych Appearance: grossly normal Speech: normal speech Thought Content: normal thought content Judgement: judgement good Debridement Note Debridement Note Wound debrided: Left lateral foot DFU Wound Grade/Stage: Stage III Type of Debridement: Excisional debridement Anesthesia Used: 5% Lidocaine Gel Depth: Down to and including healthy tissue Percentage of wound debrided: 100 Instrument Used: 5mm curette Tissue Removed: Fibrin Severity: Fat Layer Exposed Amount of bleeding with debridement: Mild Bleeding Controlled with: Compression and gauze Patient tolerated procedure: Patient tolerated procedure well Post-Debridement Measurements and Additional Note: Post-Debridement Measurements/Treatment - Nurse 1 - General Ulcer Assessment Start: 07/09/21 09:13 Freq: Status: Active Protocol: MARIEL Activity Type Activity Date Activity User E-Sign Co-Sign Detail Recorded Client Recorded Date Recorded By Document 07/09/21 09:13 STANLEY [id number] 07/09/21 09:18 SC 07/09/21 09:13 - Today's Visit Information Type of service Follow-up Visit (Physician/EXPLOSIVE ORDNANCE MANAGER ) Arrival Mode Wheelchair Patient Identification Verified (Name & Yes ) Height and Weight Body Mass Index (BMI) 37.7 BMI Classification Obese Vital Signs Temperature (97.8 F-99.1 F) 97.2 F L Temperature Source Temporal Pulse Rate (60-100) 91 Pulse Location Monitor Blood Pressure (90/60-120/80) 128/75 H Blood Pressure Mean (mm Hg) 92 Source Monitor Position Sitting Blood Pressure Location Left Arm History Since Last Visit- (Skip if this is Patient's initial visit) Have you changed medications since your No last visit? Any new allergies or adverse reactions No Had a fall/change in ADL's that may No increase risk of falls Signs or symptoms of abuse and/or No neglect since last visit Have you been in the hospital since your No last visit? Has dressing in place as prescribed Yes Has compression in place as prescribed Yes Has offloadiing in place as prescribed N/A Experienced any changes in pain level or No management Pain Scale: 0-10 Numeric Is Patient Pain Free? Yes - Nurse 1 - General Ulcer Measurement Start: 07/09/21 09:13 Freq: Status: Active Protocol: Activity Type Activity Date Activity User E-Sign Co-Sign Detail Recorded Client Recorded Date Recorded By Document 07/09/21 09:13 STANLEY [id number] 07/09/21 09:18 SC 07/09/21 09:13 Wound Center Nurse 1 #7- L LAT PLANTAR FOOT -Current Size (cm) - Length 0.4 -Current Size (cm) - Width 0.8 -Current Size (cm) - Depth 0.2 -Total Square Cm 0.32 -Undermining/Tunneling Starts (O'clock 7 ) -Undermining/Tunneling Ends (O'clock) 2 -Maximum Distance (cm) 0.2 -Exudate Amt Medium -Exudate Type Serosanguineous -Wound Margin Distinct, Outline Attached -Granulation Amt Medium (34-66%) -Granulation Quality [place] -Necrosis Amt None Present (0 %) -Texture ([place]-wound Skin Appearance) Assessed,Callus ,Scarring -Moisture ([place]-wound Skin Appearance) No Abnormality, Assessed -Color ([place]-wound Skin Appearance) No Abnormality, Assessed -Temperature ([place]-wound Skin No Abnormality Appearance) (Pt Warm) -Tenderness on Palpation ([place]-wound No Skin Appearance) -Ulcer Cleansing Rinsed/ Irrigated with Saline -Foul Odor after Cleansing No -Anesthetic Used 5% Lidocaine Gel WC - Nurse 2 - General Ulcer CM Notes Start: 07/09/21 09:13 Freq: Status: Active Protocol: Activity Type Activity Date Activity User E-Sign Co-Sign Detail Recorded Client Recorded Date Recorded By Document 07/09/21 09:28 MW [id number] 07/09/21 09:34 MW 07/09/21 09:28 Wound Center Nurse 2 #8 Left Agrawal -Time 09:28 -Correct Patient Yes -Correct Side, Site, Position Yes -Correct Procedure Yes -Procedure Performed No -Post Debridement (cm) - Length 0 -Post Debridement (cm) - Width 0 -Post Debridement (cm) - Depth 0 -Total Square (Post) (cm) 0 -Wound/Ulcer Outcome Healed- Epithelialized #7- L LAT PLANTAR FOOT -Time 09:28 -Correct Patient Yes -Correct Side, Site, Position Yes -Correct Procedure Yes -Procedure Performed Yes -Type of Procedure Incision & Drainage -Clinical Debridement Subcutaneous -Tissue Removed Subcutaneous -Post Debridement (cm) - Length 0.8 -Post Debridement (cm) - Width 1.0 -Post Debridement (cm) - Depth 0.3 -Total Square (Post) (cm) 0.80 -Area of Debridement (cm) - Length 0.8 -Area of Debridement (cm) - Width 1.0 -Total Square (Area) (cm) 0.80 -Tunneling No -Undermining/Tunneling No -Circular Undermining Yes -Wound/Ulcer Outcome Not Healed -Ulcer Cleansing Rinsed/ Irrigated with Saline -Foul Odor after Cleansing No -Bioengineered Tissue No -Bleeding Controlled with Pressure -Treatment Response Procedure Tolerated Well -Offloading No -Debridement - Subq, 1st 20sq cm Yes Pain Scale: 0-10 Numeric Is Patient Pain Free? Yes Assessment/Plan Assessment/Plan (1) Nonhealing nonsurgical wound limited to breakdown of skin: CODE(S): T14.8XXA - Other injury of unspecified body region, initial encounter PLAN: Resolved agrawal may start doing with dressing changes open air follow- up as needed (2) Diabetic foot ulcers: CODE(S): E11.621 - Type 2 diabetes mellitus with foot ulcer; L97.509 - Non-pressure chronic ulcer of other part of unspecified foot with unspecified severity QUALIFIERS: Diabetic foot ulcer location: midfoot Diabetes mellitus type: type 2 Laterality: left Non-pressure ulcer stage: with fat layer exposed Qualified Code(s): E11.621 - Type 2 diabetes mellitus with foot ulcer; L97.422 - 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 Apply Fibracol to wound base cover with absorbent dressing and stasis pad on left lateral pressure area change Fridays Continue to offload foot home health nursing to do dressing changes Mondays Follow-up 1 week (3) Pressure ulcer of foot, stage 3: CODE(S): L89.893 - Pressure ulcer of other site, stage 3 QUALIFIERS: Laterality: left Qualified Code(s): L89.893 - Pressure ulcer of other site, stage 3 (4) Polyneuropathy in diabetes: CODE(S): E11.42 - Type 2 diabetes mellitus with diabetic polyneuropathy QUALIFIERS: Diabetes mellitus type: type 2 Qualified Code(s): E11.42 - Type 2 diabetes mellitus with diabetic polyneuropathy (5) Type 2 diabetes mellitus with diabetic polyneuropathy: CODE(S): E11.42 - Type 2 diabetes mellitus with diabetic polyneuropathy QUALIFIERS: Diabetes mellitus watermaster insulin use: unspecified usp insulin use status Qualified Code(s): E11.42 - Type 2 diabetes mellitus with diabetic polyneuropathy
[2021-07-16 09:09] VITALS: BP 107/66; PULSE 98; RESP 18; TEMP 36.4; BMI 37.7
--- NOTE | 2021-07-16 09:34 | PN.PCM_ITS ---
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 He therefore wears an AFO on the left lower leg. Patient is developing Charcot and his left foot and the AFO rubs on the bone that is protruding at the left lateral foot. The area is perfectly round and positive depth about the size of a dime on the left lateral foot. Same area that always opens. Patient never follows up with Christopher about the rubbing and is gone back to his old boot. Progress of Wound: Patient is currently on doxycycline twice a day. The foot wound looks about the same measurements. Agrawal still has this undermining will trim the edge of the wound back and continue Fibracol for 1 more week. Subjective Subjective Patient is trying to offload well he states. Objective Data Objective Data As above no sign of infection healing fair not moving real quickly we suggested he start drinking protein shakes or supplements that are 30 g of protein and may be help boost his healing abilities. Vital Signs: Vital Signs Temp Pulse Resp BP 97.6 F L 98 18 107/66 07/16/21 09:09 07/16/21 09:09 07/16/21 09:09 07/16/21 09:09 Oxygen Delivery Method Room Air Weight: 310 lb Body Mass Index (BMI) 37.7 Physical Exam Const oriented x3 General Appearance: cooperative Exam Limitations: no limitations Resp normal respiratory effort Effort and Inspection: able to speak in complete sentences Auscultation: clear to auscultation bilaterally Cardio regular rate and regular rhythm Palpation: normal PMI Rate: regular rate Rhythm: regular rhythm Extremity Extremity Narrative: Left lateral foot wound DFU from improper footwear and offloading about the size of a dime with depth General Extremity: normal exam except as noted Skin Wound Narrative: Left lateral foot DFU wound Neuro oriented x3 Psych Appearance: grossly normal Speech: normal speech Thought Content: normal thought content Judgement: judgement good Debridement Note Debridement Note Wound debrided: Left plantar foot Wound Grade/Stage: DFU Grimaldo 2 Type of Debridement: Excisional debridement Anesthesia Used: 5% Lidocaine Gel Depth: Down to and including healthy tissue Percentage of wound debrided: 100 Instrument Used: 3mm curette and - (Nippers) Tissue Removed: Fibrin and devitalized tissue Severity: Fat Layer Exposed Amount of bleeding with debridement: Mild Bleeding Controlled with: Compression and gauze Patient tolerated procedure: Patient tolerated procedure well Post-Debridement Measurements and Additional Note: Post-Debridement Measurements/Treatment GM - Nurse 1 - General Ulcer Assessment Start: 07/09/21 09:13 Freq: Status: Active Protocol: JERSEYT Activity Type Activity Date Activity User E-Sign Co-Sign Detail Recorded Client Recorded Date Recorded By Document 07/09/21 09:13 AK [id number] 07/09/21 09:18 AK Document 07/16/21 09:09 [facility] [id number] 07/16/21 09:15 BM 07/09/21 07/16/21 09:13 09:09 WC - Today's Visit Information Type of service Follow-up Visit Follow-up Visit (Physician/THERAPY TECHNICIAN (Physician/THERAPY TECHNICIAN ) ) Arrival Mode Wheelchair Ambulatory, Wheelchair Transfer Assistance None Patient Identification Verified (Name & Yes Yes ) Patient Requires Transmission-Based No Precautions Height and Weight Body Mass Index (BMI) 37.7 37.7 BMI Classification Obese Obese Vital Signs Temperature (97.8 F-99.1 F) 97.2 F L 97.6 F L Temperature Source Temporal Temporal Pulse Rate (60-100) 91 98 Pulse Location Monitor Monitor Respiratory Rate (12-18) 18 Respiratory rate source Observation Oxygen Delivery Method Room Air Blood Pressure (90/60-120/80) 128/75 H 107/66 Blood Pressure Mean (mm Hg) 92 79 Source Monitor Monitor Position Sitting Sitting Blood Pressure Location Left Arm Right Arm History Since Last Visit- (Skip if this is Patient's initial visit) Have you changed medications since your No No last visit? Any new allergies or adverse reactions No No Had a fall/change in ADL's that may No No increase risk of falls Signs or symptoms of abuse and/or No No neglect since last visit Have you been in the hospital since your No No last visit? Has dressing in place as prescribed Yes Yes Has compression in place as prescribed Yes N/A Has offloadiing in place as prescribed N/A Yes Experienced any changes in pain level or No No management Left Footwear Removable Cast Walker/Walking Boot Pain Scale: 0-10 Numeric Is Patient Pain Free? Yes Yes GM - Nurse 1 - General Ulcer Measurement Start: 07/09/21 09:13 Freq: Status: Active Protocol: Activity Type Activity Date Activity User E-Sign Co-Sign Detail Recorded Client Recorded Date Recorded By Document 07/09/21 09:13 AK [id number] 07/09/21 09:18 AK Document 07/16/21 09:09 [facility] [id number] 07/16/21 09:15 BM 07/09/21 07/16/21 09:13 09:09 Wound Center Nurse 1 #7- L LAT PLANTAR FOOT -Combined with other wound No -Current Size (cm) - Length 0.4 0.5 -Current Size (cm) - Width 0.8 0.9 -Current Size (cm) - Depth 0.2 0.4 -Total Square Cm 0.32 0.45 -Date of Last Picture (Recall this 07/16/21 field) -Photo Taken Yes -Epithelialization Small 1-33% -Tunneling No -Undermining/Tunneling Yes -Undermining/Tunneling Starts (O'clock 7 12 ) -Undermining/Tunneling Ends (O'clock) 2 12 -Maximum Distance (cm) 0.2 0.2 -Circular Undermining Yes -Exudate Amt Medium Medium -Exudate Type Serosanguineous Serosanguineous -Wound Margin Distinct, Distinct, Outline Outline Attached Attached -Granulation Amt Medium (34-66%) Large (67-100%) -Granulation Quality [place] -Slough/Fibrin Yes -Necrosis Amt None Present (0 Small (1-33%) %) -Necrotic Tissue Type Adherent Slough -Texture ([place]-wound Skin Appearance) Assessed,Callus Assessed,Callus ,Scarring ,Localized Edema -Moisture ([place]-wound Skin Appearance) No Abnormality, Assessed,Dry/ Assessed Scaly -Color ([place]-wound Skin Appearance) No Abnormality, Assessed, Assessed Erythema -Temperature ([place]-wound Skin No Abnormality No Abnormality Appearance) (Pt Warm) (Pt Warm) -Tenderness on Palpation ([place]-wound No No Skin Appearance) -Ulcer Cleansing Rinsed/ Rinsed/ Irrigated with Irrigated with Saline Saline -Foul Odor after Cleansing No No -Anesthetic Used 5% Lidocaine 5% Lidocaine Gel Gel WC - Nurse 2 - General Ulcer CM Notes Start: 07/09/21 09:13 Freq: Status: Active Protocol: Activity Type Activity Date Activity User E-Sign Co-Sign Detail Recorded Client Recorded Date Recorded By Document 07/09/21 09:28 MW [id number] 07/09/21 09:34 MW Document 07/16/21 09:20 MW [id number] 07/16/21 09:25 MW 07/09/21 07/16/21 09:28 09:20 Wound Center Nurse 2 #8 Left Agrawal -Time 09:28 -Correct Patient Yes -Correct Side, Site, Position Yes -Correct Procedure Yes -Procedure Performed No -Post Debridement (cm) - Length 0 -Post Debridement (cm) - Width 0 -Post Debridement (cm) - Depth 0 -Total Square (Post) (cm) 0 -Wound/Ulcer Outcome Healed- Epithelialized #7- L LAT PLANTAR FOOT -Time 09: 09:21 -Correct Patient Yes Yes -Correct Side, Site, Position Yes Yes -Correct Procedure Yes Yes -Procedure Performed Yes Yes -Type of Procedure Incision & Debridement Drainage -Clinical Debridement Subcutaneous Subcutaneous -Tissue Removed Subcutaneous Subcutaneous -Post Debridement (cm) - Length 0.8 0.7 -Post Debridement (cm) - Width 1.0 1.0 -Post Debridement (cm) - Depth 0.3 0.3 -Total Square (Post) (cm) 0.80 0.70 -Area of Debridement (cm) - Length 0.8 0.7 -Area of Debridement (cm) - Width 1.0 1.0 -Total Square (Area) (cm) 0.80 0.70 -Tunneling No No -Undermining/Tunneling No No -Circular Undermining Yes No -Wound/Ulcer Outcome Not Healed Not Healed -Ulcer Cleansing Rinsed/ Rinsed/ Irrigated with Irrigated with Saline Saline -Foul Odor after Cleansing No No -Bioengineered Tissue No No -Bleeding Controlled with Pressure Pressure -Treatment Response Procedure Procedure Tolerated Well Tolerated Well -Offloading No No -Debridement - Subq, 1st 20sq cm Yes Yes Pain Scale: 0-10 Numeric Is Patient Pain Free? Yes Yes Assessment/Plan Assessment/Plan (1) Nonhealing nonsurgical wound limited to breakdown of skin: CODE(S): T14.8XXA - Other injury of unspecified body region, initial encounter PLAN: Resolved agrawal may start doing with dressing changes open air follow-up as needed (2) Diabetic foot ulcers: CODE(S): E11.621 - Type 2 diabetes mellitus with foot ulcer; L97.509 - Non-pressure chronic ulcer of other part of unspecified foot with unspecified severity QUALIFIERS: Diabetic foot ulcer location: midfoot Diabetes mellitus type: type 2 Laterality: left Non-pressure ulcer stage: with fat layer exposed Qualified Code(s): E11.621 - Type 2 diabetes mellitus with foot ulcer; L97.422 - 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 Apply Fibracol to woun d base cover with absorbent dressing and stasis pad on left lateral pressure area change Fridays Continue to offload foot home health nursing to do dressing changes Mondays Drink supplements of Premier 30 g of protein and increase protein intake. Follow-up 1 week (3) Pressure ulcer of foot, stage 3: CODE(S): L89.893 - Pressure ulcer of other site, stage 3 QUALIFIERS: Laterality: left Qualified Code(s): L89.893 - Pressure ulcer of other site, stage 3 (4) Polyneuropathy in diabetes: CODE(S): E11.42 - Type 2 diabetes mellitus with diabetic polyneuropathy QUALIFIERS: Diabetes mellitus type: type 2 Qualified Code(s): E11.42 - Type 2 diabetes mellitus with diabetic polyneuropathy (5) Type 2 diabetes mellitus with diabetic polyneuropathy: CODE(S): E11.42 - Type 2 diabetes mellitus with diabetic polyneuropathy QUALIFIERS: Diabetes mellitus penitentiary insulin use: unspecified penitentiary insulin use status Qualified Code(s): E11.42 - Type 2 diabetes mellitus with diabetic polyneuropathy
--- NOTE | 2021-07-16 11:33 | PCM.WC.PN ---
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 He therefore wears an AFO on the left lower leg. Patient is developing Charcot and his left foot and the AFO rubs on the bone that is protruding at the left lateral foot. The area is perfectly round and positive depth about the size of a dime on the left lateral foot. Same area that always opens. Patient never follows up with Christopher about the rubbing and is gone back to his old boot. Progress of Wound: The foot wound looks about the same measurements. Still has undermining circumferential to the wound trimmed back skin and callus around the edge of the wound to promote healing. No sign of infection surrounding skin looks very good. We will continue 1 more week with Fibracol. Subjective Subjective Patient just wonders if he should continue being offloading and I said yes he is doing a good job of staying off of the foot is much as possible. Objective Data Objective Data As above the same no sign of infection healing slowly we will try a new product on him next week if we see no movement this week. Suggested patient increase his protein intake to 30 g a day with a supplemental drink and eat more lean meat and more protein-based foods. Vital Signs: Vital Signs Temp Pulse Resp BP 97.6 F L 98 18 107/66 07/16/21 09:09 07/16/21 09:09 07/16/21 09:09 07/16/21 09:09 Oxygen Delivery Method Room Air Weight: 310 lb Body Mass Index (BMI) 37.7 Lab / Micro Data Attestation: I reviewed the patient's lab results. Physical Exam Const oriented x3 General Appearance: cooperative Exam Limitations: no limitations Resp normal respiratory effort Effort and Inspection: able to speak in complete sentences Auscultation: clear to auscultation bilaterally Cardio regular rate and regular rhythm Palpation: normal PMI Rate: regular rate Rhythm: regular rhythm Extremity Extremity Narrative: Left lateral foot wound DFU from improper footwear and offloading about the size of a dime with depth General Extremity: normal exam except as noted Skin Wound Narrative: Left lateral foot DFU wound Neuro oriented x3 Psych Appearance: grossly normal Speech: normal speech Thought Content: normal thought content Judgement: judgement good Debridement Note Debridement Note Wound debrided: Left plantar foot DFU Wound Grade/Stage: Grimaldo 2 Type of Debridement: Excisional debridement Anesthesia Used: 5% Lidocaine Gel Depth: Down to and including healthy tissue Percentage of wound debrided: 100 Instrument Used: 3mm curette Tissue Removed: Fibrin and devitalized tissue Severity: Fat Layer Exposed Amount of bleeding with debridement: Mild Bleeding Controlled with: Compression and gauze Patient tolerated procedure: Patient tolerated procedure well Post-Debridement Measurements and Additional Note: Post-Debridement Measurements/Treatment - Nurse 1 - General Ulcer Assessment Start: 07/09/21 09:13 Freq: Status: Active Protocol: JERSEYT Activity Type Activity Date Activity User E-Sign Co-Sign Detail Recorded Client Recorded Date Recorded By Document 07/09/21 09:13 [place] [id number] 07/09/21 09:18 AK Document 07/16/21 09:09 [facility] [id number] 07/16/21 09:15 [facility] 07/09/21 07/16/21 09:13 09:09 - Today's Visit Information Type of service Follow-up Visit Follow-up Visit (Physician/JOURNEYMAN TOOL AND DIE MAKER (Physician/JOURNEYMAN TOOL AND DIE MAKER ) ) Arrival Mode Wheelchair Ambulatory, Wheelchair Transfer Assistance None Patient Identification Verified (Name & Yes Yes ) Patient Requires Transmission-Based No Precautions Height and Weight Body Mass Index (BMI) 37.7 37.7 BMI Classification Obese Obese Vital Signs Temperature (97.8 F-99.1 F) 97.2 F L 97.6 F L Temperature Source Temporal Temporal Pulse Rate (60-100) 91 98 Pulse Location Monitor Monitor Respiratory Rate (12-18) 18 Respiratory rate source Observation Oxygen Delivery Method Room Air Blood Pressure (90/60-120/80) 128/75 H 107/66 Blood Pressure Mean (mm Hg) 92 79 Source Monitor Monitor Position Sitting Sitting Blood Pressure Location Left Arm Right Arm History Since Last Visit- (Skip if this is Patient's initial visit) Have you changed medications since your No No last visit? Any new allergies or adverse reactions No No Had a fall/change in ADL's that may No No increase risk of falls Signs or symptoms of abuse and/or No No neglect since last visit Have you been in the hospital since your No No last visit? Has dressing in place as prescribed Yes Yes Has compression in place as prescribed Yes N/A Has offloadiing in place as prescribed N/A Yes Experienced any changes in pain level or No No management Left Footwear Removable Cast Walker/Walking Boot Pain Scale: 0-10 Numeric Is Patient Pain Free? Yes Yes WC - Nurse 1 - General Ulcer Measurement Start: 07/09/21 09:13 Freq: Status: Active Protocol: Activity Type Activity Date Activity User E-Sign Co-Sign Detail Recorded Client Recorded Date Recorded By Document 07/09/21 09:13 AK [id number] 07/09/21 09:18 AK Document 07/16/21 09:09 BM [id number] 07/16/21 09:15 BM 07/09/21 07/16/21 09:13 09:09 Wound Center Nurse 1 #7- L LAT PLANTAR FOOT -Combined with other wound No -Current Size (cm) - Length 0.4 0.5 -Current Size (cm) - Width 0.8 0.9 -Current Size (cm) - Depth 0.2 0.4 -Total Square Cm 0.32 0.45 -Date of Last Picture (Recall this 07/16/21 field) -Photo Taken Yes -Epithelialization Small 1-33% -Tunneling No -Undermining/Tunneling Yes -Undermining/Tunneling Starts (O'clock 7 12 ) -Undermining/Tunneling Ends (O'clock) 2 12 -Maximum Distance (cm) 0.2 0.2 -Circular Undermining Yes -Exudate Amt Medium Medium -Exudate Type Serosanguineous Serosanguineous -Wound Margin Distinct, Distinct, Outline Outline Attached Attached -Granulation Amt Medium (34-66%) Large (67-100%) -Granulation Quality [place] -Slough/Fibrin Yes -Necrosis Amt None Present (0 Small (1-33%) %) -Necrotic Tissue Type Adherent Slough -Texture ([place]-wound Skin Appearance) Assessed,Callus Assessed,Callus ,Scarring ,Localized Edema -Moisture ([place]-wound Skin Appearance) No Abnormality, Assessed,Dry/ Assessed Scaly -Color ([place]-wound Skin Appearance) No Abnormality, Assessed, Assessed Erythema -Temperature ([place]-wound Skin No Abnormality No Abnormality Appearance) (Pt Warm) (Pt Warm) -Tenderness on Palpation ([place]-wound No No Skin Appearance) -Ulcer Cleansing Rinsed/ Rinsed/ Irrigated with Irrigated with Saline Saline -Foul Odor after Cleansing No No -Anesthetic Used 5% Lidocaine 5% Lidocaine Gel Gel - Nurse 2 - General Ulcer CM Notes Start: 07/09/21 09:13 Freq: Status: Active Protocol: Activity Type Activity Date Activity User E-Sign Co-Sign Detail Recorded Client Recorded Date Recorded By Document 07/09/21 09:28 MW [id number] 07/09/21 09:34 MW Document 07/16/21 09:20 MW [id number] 07/16/21 09:25 MW 07/09/21 07/16/21 09:28 09:20 Wound Center Nurse 2 #8 Left Agrawal -Time :28 -Correct Patient Yes -Correct Side, Site, Position Yes -Correct Procedure Yes -Procedure Performed No -Post Debridement (cm) - Length 0 -Post Debridement (cm) - Width 0 -Post Debridement (cm) - Depth 0 -Total Square (Post) (cm) 0 -Wound/Ulcer Outcome Healed- Epithelialized #7- L LAT PLANTAR FOOT -Time : 09:21 -Correct Patient Yes Yes -Correct Side, Site, Position Yes Yes -Correct Procedure Yes Yes -Procedure Performed Yes Yes -Type of Procedure Incision & Debridement Drainage -Clinical Debridement Subcutaneous Subcutaneous -Tissue Removed Subcutaneous Subcutaneous -Post Debridement (cm) - Length 0.8 0.7 -Post Debridement (cm) - Width 1.0 1.0 -Post Debridement (cm) - Depth 0.3 0.3 -Total Square (Post) (cm) 0.80 0.70 -Area of Debridement (cm) - Length 0.8 0.7 -Area of Debridement (cm) - Width 1.0 1.0 -Total Square (Area) (cm) 0.80 0.70 -Tunneling No No -Undermining/Tunneling No No -Circular Undermining Yes No -Wound/Ulcer Outcome Not Healed Not Healed -Ulcer Cleansing Rinsed/ Rinsed/ Irrigated with Irrigated with Saline Saline -Foul Odor after Cleansing No No -Bioengineered Tissue No No -Bleeding Controlled with Pressure Pressure -Treatment Response Procedure Procedure Tolerated Well Tolerated Well -Offloading No No -Debridement - Subq, 1st 20sq cm Yes Yes Pain Scale: 0-10 Numeric Is Patient Pain Free? Yes Yes WC - Nurse 3 - General Ulcer D/C NN Start: 07/09/21 09:13 Freq: Status: Active Protocol: Activity Type Activity Date Activity User E-Sign Co-Sign Detail Recorded Client Recorded Date Recorded By Document 07/16/21 09:41 MW [id number] 07/16/21 09:42 MW 07/16/21 09:41 Wound Care Nurse 3 #7- L LAT PLANTAR FOOT -Ulcer Cleansing Rinsed/ Irrigated with Saline -Foul Odor after Cleansing No -Negative Pressure Wound Therapy N/A -Primary Dressing Applied Fibracol Plus 4x4 -Primary Dressing Covered/Secured with Dry Gauze & Roll Gauze, Secured with Tape -Other Covering abd pad -Fibracol Plus 4x4 1 Left -Lotion applied to leg before No compression wrap -Compression Wrap Vinay Wrap -Tubular Bandage Double Layer -Size of Tubigrip Used Size E -Size E ($) 2 Treatment Response Procedure Tolerated Well Pain Scale: 0-10 Numeric Is Patient Pain Free? Yes Teaching: Wound Center Dressing Your Wound -Person Taught Patient -Teaching Method Discussion, Demonstration -Response to teaching Verbalize understanding WC - Visit Discharge Discharge Condition Stable Ambulatory Status Wheelchair Transportation Private Auto Accompanied by self Medication Reconcilliation completed & No provided to patient/care provider Clinical Summary of Care Provided Yes Assessment/Plan Assessment/Plan (1) Nonhealing nonsurgical wound limited to breakdown of skin: CODE(S): T14.8XXA - Other injury of unspecified body region, initial encounter PLAN: Resolved agrawal may start doing with dressing changes open air follow-up as needed (2) Diabetic foot ulcers: CODE(S): E11.621 - Type 2 diabetes mellitus with foot ulcer; L97.509 - Non-pressure chronic ulcer of other part of unspecified foot with unspecified severity QUALIFIERS: Diabetic foot ulcer location: midfoot Diabetes mellitus type: type 2 Laterality: left Non-pressure ulcer stage: with fat layer exposed Qualified Code(s): E11.621 - Type 2 diabetes mellitus with foot ulcer; L97.422 - 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 Apply Fibracol to wound base cover with absorbent dressing and stasis pad on left lateral pressure area change Fridays Continue to offload foot home health nursing to do dressing changes Mondays Drink supplements of Premier 30 g of protein and increase protein intake. Follow-up 1 week (3) Pressure ulcer of foot, stage 3: CODE(S): L89.893 - Pressure ulcer of other site, stage 3 QUALIFIERS: Laterality: left Qualified Code(s): L89.893 - Pressure ulcer of other site, stage 3 (4) Polyneuropathy in diabetes: CODE(S): E11.42 - Type 2 diabetes mellitus with diabetic polyneuropathy QUALIFIERS: Diabetes mellitus type: type 2 Qualified Code(s): E11.42 - Type 2 diabetes mellitus with diabetic polyneuropathy (5) Type 2 diabetes mellitus with diabetic polyneuropathy: CODE(S): E11.42 - Type 2 diabetes mellitus with diabetic polyneuropathy QUALIFIERS: Diabetes mellitus fci insulin use: unspecified long term care social worker insulin use status Qualified Code(s): E11.42 - Type 2 diabetes mellitus with diabetic polyneuropathy
[2021-07-30 08:57] VITALS: BP 112/72; PULSE 88; TEMP 36.3; BMI 37.7
--- NOTE | 2021-07-30 09:27 | PN.PCM_ITS ---
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 He therefore wears an AFO on the left lower leg. Patient is developing Charcot and his left foot and the AFO rubs on the bone that is protruding at the left lateral foot. The area is perfectly round and positive depth about the size of a dime on the left lateral foot. Same area that always opens. Patient never follows up with Christopher about the rubbing and is gone back to his old boot. Progress of Wound: The foot wound looks about the same measurements. Undermining is resolved wound is slightly bigger probably from a trimming back from last week patient is currently on ciprofloxacin and metronidazole from sepsis. We will stop the Fibracol and go back to Aquacel extra seems to be doing better on that. Subjective Subjective Patient is doing well wants to stop home health with he can do his own dressings now Objective Data Objective Data Same as progress notes as above we will change her over to the Aquacel and an check him in another week Vital Signs: Vital Signs Temp Pulse Resp BP 97.4 F L 88 18 112/72 07/30/21 08:57 07/30/21 08:57 07/16/21 09:09 07/30/21 08:57 Oxygen Delivery Method Room Air Weight: 310 lb Body Mass Index (BMI) 37.7 Lab / Micro Data Attestation: I reviewed the patient's lab results. Physical Exam Const oriented x3 General Appearance: cooperative Exam Limitations: no limitations Resp normal respiratory effort Effort and Inspection: able to speak in complete sentences Auscultation: clear to auscultation bilaterally Cardio regular rate and regular rhythm Palpation: normal PMI Rate: regular rate Rhythm: regular rhythm Extremity Extremity Narrative: Left lateral foot wound DFU from improper footwear and offloading about the size of a dime with depth General Extremity: normal exam except as noted Skin Wound Narrative: Left lateral foot DFU wound Neuro oriented x3 Psych Appearance: grossly normal Speech: normal speech Thought Content: normal thought content Judgement: judgement good Debridement Note Debridement Note Wound debrided: Left plantar foot DFU Wound Grade/Stage: Stage III Type of Debridement: Excisional debridement Anesthesia Used: 5% Lidocaine Gel Depth: Down to and including healthy tissue Percentage of wound debrided: 100 Instrument Used: 5mm curette Tissue Removed: Devitalized tissue and fibrin Severity: Fat Layer Exposed Amount of bleeding with debridement: Mild Bleeding Controlled with: Compression and gauze Patient tolerated procedure: Patient tolerated procedure well Post-Debridement Measurements and Additional Note: Post-Debridement Measurements/Treatment WC - Nurse 1 - General Ulcer Assessment Start: 07/09/21 09:13 Freq: Status: Active Protocol: MARIEL Activity Type Activity Date Activity User E-Sign Co-Sign Detail Recorded Client Recorded Date Recorded By Document 07/09/21 09:13 AK [id number] 07/09/21 09:18 AK Document 07/16/21 09:09 [facility] [id number] 07/16/21 09:15 BM Document 07/30/21 08:57 KR [id number] 07/30/21 09:03 KR 07/09/21 07/16/21 07/30/21 09:13 09:09 08:57 - Today's Visit Information Type of service Follow-up Visit Follow-up Visit Follow-up Visit (Physician/CONCHE LOADER AND UNLOADER (Physician/CONCHE LOADER AND UNLOADER (Physician/CONCHE LOADER AND UNLOADER ) ) ) Arrival Mode Wheelchair Ambulatory, Wheelchair Wheelchair Transfer Assistance None Patient Identification Verified (Name & Yes Yes Yes ) Patient Requires Transmission-Based No Precautions Height and Weight Body Mass Index (BMI) 37.7 37.7 37.7 BMI Classification Obese Obese Obese Vital Signs Temperature (97.8 F-99.1 F) 97.2 F L 97.6 F L 97.4 F L Temperature Source Temporal Temporal Temporal Pulse Rate (60-100) 91 98 88 Pulse Location Monitor Monitor Monitor Respiratory Rate (12-18) 18 Respiratory rate source Observation Oxygen Delivery Method Room Air Blood Pressure (90/60-120/80) 128/75 H 107/66 112/72 Blood Pressure Mean (mm Hg) 92 79 85 Source Monitor Monitor Monitor Position Sitting Sitting Sitting Blood Pressure Location Left Arm Right Arm Right Arm History Since Last Visit- (Skip if this is Patient's initial visit) Have you changed medications since your No No No last visit? Any new allergies or adverse reactions No No No Had a fall/change in ADL's that may No No No increase risk of falls Signs or symptoms of abuse and/or No No No neglect since last visit Have you been in the hospital since your No No last visit? Has dressing in place as prescribed Yes Yes Yes Has compression in place as prescribed Yes N/A Yes Has offloadiing in place as prescribed N/A Yes N/A Experienced any changes in pain level or No No No management Left Footwear Removable Cast Walker/Walking Boot Pain Scale: 0-10 Numeric Is Patient Pain Free? Yes Yes Yes WC - Nurse 1 - General Ulcer Measurement Start: 07/09/21 09:13 Freq: Status: Active Protocol: Activity Type Activity Date Activity User E-Sign Co-Sign Detail Recorded Client Recorded Date Recorded By Document 07/09/21 09:13 AK [id number] 07/09/21 09:18 AK Document 07/16/21 09:09 BM [id number] 07/16/21 09:15 BM Document 07/30/21 08:57 KR [id number] 07/30/21 09:03 KR 07/09/21 07/16/21 07/30/21 09:13 09:09 08:57 Wound Center Nurse 1 #7- L LAT PLANTAR FOOT -Combined with other wound No -Current Size (cm) - Length 0.4 0.5 0.7 -Current Size (cm) - Width 0.8 0.9 1.3 -Current Size (cm) - Depth 0.2 0.4 0.3 -Total Square Cm 0.32 0.45 0.91 -Date of Last Picture (Recall this 07/16/21 field) -Photo Taken Yes -Epithelialization Small 1-33% -Tunneling No -Undermining/Tunneling Yes -Undermining/Tunneling Starts (O'clock 7 12 ) -Undermining/Tunneling Ends (O'clock) 2 12 -Maximum Distance (cm) 0.2 0.2 -Circular Undermining Yes -Exudate Amt Medium Medium Medium -Exudate Type Serosanguineous Serosanguineous Serosanguineous -Wound Margin Distinct, Distinct, Distinct, Outline Outline Outline Attached Attached Attached -Granulation Amt Medium (34-66%) Large (67-100%) Small (1-33%) -Granulation Quality Sarita Sarita Sarita -Slough/Fibrin Yes -Necrosis Amt None Present (0 Small (1-33%) Large (67-100%) %) -Necrotic Tissue Type Adherent Slough Adherent Slough -Texture ([place]-wound Skin Appearance) Assessed,Callus Assessed,Callus Assessed, ,Scarring ,Localized Scarring Edema -Moisture ([place]-wound Skin Appearance) No Abnormality, Assessed,Dry/ No Abnormality, Assessed Scaly Assessed -Color ([place]-wound Skin Appearance) No Abnormality, Assessed, No Abnormality, Assessed Erythema Assessed -Temperature ([place]-wound Skin No Abnormality No Abnormality No Abnormality Appearance) (Pt Warm) (Pt Warm) (Pt Warm) -Tenderness on Palpation ([place]-wound No No No Skin Appearance) -Ulcer Cleansing Rinsed/ Rinsed/ Rinsed/ Irrigated with Irrigated with Irrigated with Saline Saline Saline -Foul Odor after Cleansing No No No -Anesthetic Used 5% Lidocaine 5% Lidocaine 5% Lidocaine Gel Gel Gel Left Calf (cm) 38.5 Left Ankle (cm) 26.5 WC - Nurse 2 - General Ulcer CM Notes Start: 07/09/21 09:13 Freq: Status: Active Protocol: Activity Type Activity Date Activity User E-Sign Co-Sign Detail Recorded Client Recorded Date Recorded By Document 07/09/21 09:28 MW [id number] 07/09/21 09:34 MW Document 07/16/21 09:20 MW [id number] 07/16/21 09:25 MW Document 07/30/21 09:19 PL [id number] 07/30/21 09:22 PL 07/09/21 07/16/21 07/30/21 09:28 09:20 09:19 Wound Center Nurse 2 #8 Left Agrawal -Time 09:28 -Correct Patient Yes -Correct Side, Site, Position Yes -Correct Procedure Yes -Procedure Performed No -Post Debridement (cm) - Length 0 -Post Debridement (cm) - Width 0 -Post Debridement (cm) - Depth 0 -Total Square (Post) (cm) 0 -Wound/Ulcer Outcome Healed- Epithelialized #7- L LAT PLANTAR FOOT -Time 09:28 09:21 09:10 -Correct Patient Yes Yes Yes -Correct Side, Site, Position Yes Yes Yes -Correct Procedure Yes Yes Yes -Procedure Performed Yes Yes Yes -Type of Procedure Incision & Debridement Debridement Drainage -Clinical Debridement Subcutaneous Subcutaneous Subcutaneous -Tissue Removed Subcutaneous Subcutaneous Subcutaneous -Post Debridement (cm) - Length 0.8 0.7 1.0 -Post Debridement (cm) - Width 1.0 1.0 1.0 -Post Debridement (cm) - Depth 0.3 0.3 0.3 -Total Square (Post) (cm) 0.80 0.70 1.00 -Area of Debridement (cm) - Length 0.8 0.7 1.0 -Area of Debridement (cm) - Width 1.0 1.0 1.0 -Total Square (Area) (cm) 0.80 0.70 1.00 -Tunneling No No No -Undermining/Tunneling No No No -Circular Undermining Yes No No -Wound/Ulcer Outcome Not Healed Not Healed Not Healed -Ulcer Cleansing Rinsed/ Rinsed/ Rinsed/ Irrigated with Irrigated with Irrigated with Saline Saline Saline -Foul Odor after Cleansing No No No -Bioengineered Tissue No No No -Bleeding Controlled with Pressure Pressure Pressure -Treatment Response Procedure Procedure Procedure Tolerated Well Tolerated Well Tolerated Well -Offloading No No -Debridement - Subq, 1st 20sq cm Yes Yes Yes Pain Scale: 0-10 Numeric Is Patient Pain Free? Yes Yes Yes WC - Nurse 3 - General Ulcer D/C NN Start: 07/09/21 09:13 Freq: Status: Active Protocol: Activity Type Activity Date Activity User E-Sign Co-Sign Detail Recorded Client Recorded Date Recorded By Document 07/16/21 09:41 MW [id number] 07/16/21 09:42 MW Document 07/30/21 09:20 KR [id number] 07/30/21 09:20 KR 07/16/21 07/30/21 09:41 09:20 Wound Care Nurse 3 #7- L LAT PLANTAR FOOT -Ulcer Cleansing Rinsed/ Rinsed/ Irrigated with Irrigated with Saline Saline -Foul Odor after Cleansing No -Negative Pressure Wound Therapy N/A -Primary Dressing Applied Fibracol Plus Aquacel AG 4x4 4x4 -Other Dressing ABD Pad -Primary Dressing Covered/Secured with Dry Gauze & Dry Gauze,Dry Roll Gauze, Gauze & Roll Secured with Gauze,Secured Tape with Tape -Other Covering abd pad -Aquacel AG 4x4 1 -Fibracol Plus 4x4 1 Left -Lotion applied to leg before No compression wrap -Compression Wrap Vinay Wrap -Tubular Bandage Double Layer -Size of Tubigrip Used Size E -Size E ($) 2 Treatment Response Procedure Tolerated Well Pain Scale: 0-10 Numeric Is Patient Pain Free? Yes Yes Teaching: Wound Center Dressing Your Wound -Person Taught Patient -Teaching Method Discussion, Demonstration -Response to teaching Verbalize understanding WC - Visit Discharge Discharge Condition Stable Stable Ambulatory Status Wheelchair Wheelchair Transportation Private Auto Private Auto Accompanied by self Medication Reconcilliation completed & No provided to patient/care provider Clinical Summary of Care Provided Yes Assessment/Plan Assessment/Plan (1) Nonhealing nonsurgical wound limited to breakdown of skin: CODE(S): T14.8XXA - Other injury of unspecified body region, initial encounter PLAN: Resolved agrawal may start doing with dressing changes open air follow- up as needed (2) Diabetic foot ulcers: CODE(S): E11.621 - Type 2 diabetes mellitus with foot ulcer; L97.509 - Non-pressure chronic ulcer of other part of unspecified foot with unspecified severity QUALIFIERS: Diabetic foot ulcer location: midfoot Diabetes mellitus type: type 2 Laterality: left Non-pressure ulcer stage: with fat layer exposed Qualified Code(s): E11.621 - Type 2 diabetes mellitus with foot ulcer; L97.422 - 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 Apply Aquacel extra to wound base cover with absorbent dressing and stasis pad on left lateral pressure area change Fridays Continue to offload foot Will discontinue home health nursing to do dressing changes Mondays Drink supplements of Premier 30 g of protein and increase protein intake. Follow-up 1 week (3) Pressure ulcer of foot, stage 3: CODE(S): L89.893 - Pressure ulcer of other site, stage 3 QUALIFIERS: Laterality: left Qualified Code(s): L89.893 - Pressure ulcer of other site, stage 3 (4) Polyneuropathy in diabetes: CODE(S): E11.42 - Type 2 diabetes mellitus with diabetic polyneuropathy QUALIFIERS: Diabetes mellitus type: type 2 Qualified Code(s): E11.42 - Type 2 diabetes mellitus with diabetic polyneuropathy (5) Type 2 diabetes mellitus with diabetic polyneuropathy: CODE(S): E11.42 - Type 2 diabetes mellitus with diabetic polyneuropathy QUALIFIERS: Diabetes mellitus extermination supervisor insulin use: unspecified snf insulin use status Qualified Code(s): E11.42 - Type 2 diabetes mellitus with diabetic polyneuropathy
== END 2021-08-05 23:59 | disposition home or self-care (01) ==
LOC: WC 09:30
PROVIDERS: PCP Family Medicine Sports Medicine; Visit Provider Nurse Practitioner
DX: E11.621 Type 2 diabetes mellitus with foot ulcer (principal); L89.893 Pressure ulcer of other site, stage 3; Z89.511 Acquired absence of right leg below knee; L97.422 Non-pressure 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 with fat layer exposed; E11.42 Type 2 diabetes mellitus with diabetic polyneuropathy; M14.672 Charcot's joint, left ankle and foot; T14.8XXA Other injury of unspecified body region, initial encounter
CPT/HCPCS: 11042

== ENCOUNTER 2021-09-03 09:30 | Outpatient (RCR) | payer MEDICARE, SELFPAY ==
[2021-08-06 00:24] VITALS: BP 112/72; PULSE 88; RESP 18; TEMP 36.3; BMI 37.7
[2021-08-06 09:27] VITALS: BP 139/78; PULSE 91; TEMP 36.2; BMI 37.7
--- NOTE | 2021-08-06 10:16 | PN.PCM_ITS ---
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 He therefore wears an AFO on the left lower leg. Patient is developing Charcot and his left foot and the AFO rubs on the bone that is protruding at the left lateral foot. The area is perfectly round and positive depth about the size of a dime on the left lateral foot. Same area that always opens. Patient never follows up with Christopher about the rubbing and is gone back to his old boot. Progress of Wound: The wound today is worse than it has been in the past. Positive depth and now it is macerated around to the site again and opened up another ulcer on the side of his foot same exact places last time. We will continue using the Aquacel extra and obtain cultures. Patient states he is currently on antibiotics from the hospital being septic. Patient has an appointment with [facility] and we gave him a prescription to go there to get offloading shoes or boot what ever is needed Subjective Subjective Patient states seeing [facility] either today or tomorrow for an appointment to get a better shoe fit. Objective Data Objective Data Same as above written progress note for today. The wound is bigger and slightly larger will be able to tell more after cultures are obtained and he needs a better fitting shoe Vital Signs: Vital Signs Temp Pulse Resp BP 97.2 F L 91 18 139/78 H 08/06/21 09:27 08/06/21 09:27 08/06/21 00:24 08/06/21 09:27 Weight: 310 lb Body Mass Index (BMI) 37.7 Lab / Micro Data Attestation: I reviewed the patient's lab results. Physical Exam Const oriented x3 General Appearance: cooperative Exam Limitations: no limitations Resp normal respiratory effort Effort and Inspection: able to speak in complete sentences Auscultation: clear to auscultation bilaterally Cardio regular rate and regular rhythm Palpation: normal PMI Rate: regular rate Rhythm: regular rhythm Extremity Extremity Narrative: Left lateral foot wound DFU from improper footwear and offloading about the size of a dime with depth General Extremity: normal exam except as noted Skin Wound Narrative: Left lateral foot DFU wound Neuro oriented x3 Psych Appearance: grossly normal Speech: normal speech Thought Content: normal thought content Judgement: judgement good Debridement Note Debridement Note Wound debrided: Left plantar foot and side Laterality: Left Wound Grade/Stage: Stage III Type of Debridement: Excisional debridement Anesthesia Used: 5% Lidocaine Gel Depth: in the subcutaneous layer Percentage of wound debrided: 100 Instrument Used: 5mm curette Tissue Removed: Fibrin devitalized tissue Severity: Fat Layer Exposed Amount of bleeding with debridement: Mild Bleeding Controlled with: Compression and gauze Patient tolerated procedure: Patient tolerated procedure well Post-Debridement Measurements and Additional Note: Post-Debridement Measurements/Treatment - Nurse 1 - General Ulcer Assessment Start: 08/06/21 09:27 Freq: Status: Active Protocol: MARIEL Activity Type Activity Date Activity User E-Sign Co-Sign Detail Recorded Client Recorded Date Recorded By Document 08/06/21 09:27 EV [id number] 08/06/21 09:34 EV 08/06/21 09:27 WC - Today's Visit Information Type of service Follow-up Visit (Physician/STOCKKEEPER ) Arrival Mode Wheelchair Patient Identification Verified (Name & Yes ) Height and Weight Body Mass Index (BMI) 37.7 BMI Classification Obese Vital Signs Temperature (97.8 F-99.1 F) 97.2 F L Temperature Source Temporal Pulse Rate (60-100) 91 Pulse Location Monitor Blood Pressure (90/60-120/80) 139/78 H Blood Pressure Mean (mm Hg) 98 Source Monitor Position Semi-Fowlers Blood Pressure Location Left Arm History Since Last Visit- (Skip if this is Patient's initial visit) Have you changed medications since your No last visit? Any new allergies or adverse reactions No Had a fall/change in ADL's that may No increase risk of falls Signs or symptoms of abuse and/or No neglect since last visit Have you been in the hospital since your No last visit? Has dressing in place as prescribed Yes Has compression in place as prescribed Yes Has offloadiing in place as prescribed N/A Experienced any changes in pain level or No management Pain Scale: 0-10 Numeric Is Patient Pain Free? Yes GM - Nurse 1 - General Ulcer Measurement Start: 08/06/21 09:27 Freq: Status: Active Protocol: Activity Type Activity Date Activity User E-Sign Co-Sign Detail Recorded Client Recorded Date Recorded By Document 08/06/21 09:27 EV [id number] 08/06/21 09:34 KR 08/06/21 09:27 Wound Center Nurse 1 #7- L LAT PLANTAR FOOT -Current Size (cm) - Length 1.1 -Current Size (cm) - Width 1 -Current Size (cm) - Depth 0.3 -Total Square Cm 1.1 -Exudate Amt Medium -Exudate Type Serosanguineous -Wound Margin Distinct, Outline Attached -Granulation Amt Medium (34-66%) -Granulation Quality [place] -Necrosis Amt Medium (34-66%) -Necrotic Tissue Type Adherent Slough -Texture ([place]-wound Skin Appearance) Assessed, Scarring -Moisture ([place]-wound Skin Appearance) No Abnormality, Assessed -Color ([place]-wound Skin Appearance) No Abnormality, Assessed -Temperature ([place]-wound Skin No Abnormality Appearance) (Pt Warm) -Tenderness on Palpation ([place]-wound No Skin Appearance) -Ulcer Cleansing Rinsed/ Irrigated with Saline -Foul Odor after Cleansing No -Anesthetic Used 5% Lidocaine Gel WC - Nurse 2 - General Ulcer CM Notes Start: 08/06/21 09:27 Freq: Status: Active Protocol: Activity Type Activity Date Activity User E-Sign Co-Sign Detail Recorded Client Recorded Date Recorded By Document 08/06/21 09:58 MW [id number] 08/06/21 10:05 MW 08/06/21 09:58 Wound Center Nurse 2 -Time 09:58 -Correct Patient Yes -Correct Side, Site, Position Yes -Correct Procedure Yes -Procedure Performed Yes -Type of Procedure Debridement -Clinical Debridement Subcutaneous -Tissue Removed Subcutaneous -Post Debridement (cm) - Length 2.0 -Post Debridement (cm) - Width 3.5 -Post Debridement (cm) - Depth 0.5 -Total Square (Post) (cm) 7.00 -Area of Debridement (cm) - Length 2.0 -Area of Debridement (cm) - Width 3.5 -Total Square (Area) (cm) 7.00 -Tunneling No -Undermining/Tunneling No -Circular Undermining No -Wound/Ulcer Outcome Not Healed -Ulcer Cleansing Rinsed/ Irrigated with Saline -Foul Odor after Cleansing No -Bioengineered Tissue No -Bleeding Controlled with Pressure -Treatment Response Procedure Tolerated Well -Offloading No -Debridement - Subq, 1st 20sq cm Yes Pain Scale: 0-10 Numeric Is Patient Pain Free? Yes Assessment/Plan Assessment/Plan (1) Nonhealing nonsurgical wound limited to breakdown of skin: CODE(S): T14.8XXA - Other injury of unspecified body region, initial encounter (2) Diabetic foot ulcers: CODE(S): E11.621 - Type 2 diabetes mellitus with foot ulcer; L97.509 - Non-pressure chronic ulcer of other part of unspecified foot with unspecified severity QUALIFIERS: Diabetic foot ulcer location: midfoot Diabetes mellitus type: type 2 Laterality: left Non-pressure ulcer stage: with fat layer exposed Qualified Code(s): E11.621 - Type 2 diabetes mellitus with foot ulcer; L97.422 - 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 Apply Aquacel extra to wound base cover with absorbent dressing and stasis pad on left lateral pressure area change daily Continue to offload foot Drink supplements of Premier 30 g of protein and increase protein intake. Follow-up 1 week (3) Pressure ulcer of foot, stage 3: CODE(S): L89.893 - Pressure ulcer of other site, stage 3 QUALIFIERS: Laterality: left Qualified Code(s): L89.893 - Pressure ulcer of other site, stage 3 (4) Polyneuropathy in diabetes: CODE(S): E11.42 - Type 2 diabetes mellitus with diabetic polyneuropathy QUALIFIERS: Diabetes mellitus type: type 2 Qualified Code(s): E11.42 - Type 2 diabetes mellitus with diabetic polyneuropathy (5) Type 2 diabetes mellitus with diabetic polyneuropathy: CODE(S): E11.42 - Type 2 diabetes mellitus with diabetic polyneuropathy QUALIFIERS: Diabetes mellitus chcf insulin use: unspecified inspector printed circuit boards insulin use status Qualified Code(s): E11.42 - Type 2 diabetes mellitus with diabetic polyneuropathy
[2021-08-13 09:16] VITALS: BP 120/79; PULSE 88; TEMP 36.6; BMI 37.7
--- NOTE | 2021-08-13 11:11 | PCM.WC.PN ---
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 He therefore wears an AFO on the left lower leg. Patient is developing Charcot and his left foot and the AFO rubs on the bone that is protruding at the left lateral foot. The area is perfectly round and positive depth about the size of a dime on the left lateral foot. Same area that always opens. Patient never follows up with Christopher about the rubbing and is gone back to his old boot. Progress of Wound: The wound looks a lot better this week has not started his linezolid yet though he will be seeing infectious disease today. He states he has been offloading and saw [employer]ion[employer] that really helped fix his offloading boot. The lateral aspect of his foot is scabbed over and looks very good and the plantar side of his left lateral foot is smaller. Subjective Subjective Patient is very happy with his boot Objective Data Objective Data As stated above in progress notes we will give him 1 more week off before we start the epi fix to close to give him a chance to get on the antibiotic for 1 week. Vital Signs: Vital Signs Temp Pulse Resp BP 97.8 F 88 18 120/79 08/13/21 09:16 08/13/21 09:16 08/06/21 00:24 08/13/21 09:16 Weight: 310 lb Body Mass Index (BMI) 37.7 Lab / Micro Data Attestation: I reviewed the patient's lab results. Micro: Microbiology 08/06/21 10:02 Wound Abcess - Plantar Gram Stain - Final 08/06/21 10:02 Wound Abcess - Plantar Wound Culture - Final Streptococcus agalactiae (B) Staphylococcus epidermidis Corynebacterium striatum 08/06/21 10:02 Wound Abcess - Plantar Anaerobic Culture - Final No anaerobic bacteria isolated. Physical Exam Const oriented x3 General Appearance: cooperative Exam Limitations: no limitations Resp normal respiratory effort Effort and Inspection: able to speak in complete sentences Auscultation: clear to auscultation bilaterally Cardio regular rate and regular rhythm Palpation: normal PMI Rate: regular rate Rhythm: regular rhythm Extremity Extremity Narrative: Left lateral foot wound DFU from improper footwear and offloading about the size of a dime with depth General Extremity: normal exam except as noted Skin Wound Narrative: Left lateral foot DFU wound Neuro oriented x3 Psych Appearance: grossly normal Speech: normal speech Thought Content: normal thought content Judgement: judgement good Debridement Note Debridement Note Wound debrided: Left foot plantar side ulcer stage III Laterality: Left Wound Grade/Stage: Stage III Type of Debridement: Excisional debridement Anesthesia Used: 5% Lidocaine Gel Depth: in the subcutaneous layer Percentage of wound debrided: 100 Instrument Used: 3mm curette Tissue Removed: Fibrin and some devitalized tissue Severity: Fat Layer Exposed Amount of bleeding with debridement: Mild Bleeding Controlled with: Compression and gauze Patient tolerated procedure: Patient tolerated procedure well Post-Debridement Measurements and Additional Note: Post-Debridement Measurements/Treatment - Nurse 1 - General Ulcer Assessment Start: 08/06/21 09:27 Freq: Status: Active Protocol: GM.ELIAST Activity Type Activity Date Activity User E-Sign Co-Sign Detail Recorded Client Recorded Date Recorded By Document 08/06/21 09:27 EV [id number] 08/06/21 09:34 KR Document 08/13/21 09:16 EV [id number] 08/13/21 09:18 KR 08/06/21 08/13/21 09:27 09:16 - Today's Visit Information Type of service Follow-up Visit Follow-up Visit (Physician/ANALYTICAL SCIENCES DIRECTOR (Physician/ANALYTICAL SCIENCES DIRECTOR ) ) Arrival Mode Wheelchair Wheelchair Patient Identification Verified (Name & Yes Yes ) Height and Weight Body Mass Index (BMI) 37.7 37.7 BMI Classification Obese Obese Vital Signs Temperature (97.8 F-99.1 F) 97.2 F L 97.8 F Temperature Source Temporal Temporal Pulse Rate (60-100) 91 88 Pulse Location Monitor Monitor Blood Pressure (90/60-120/80) 139/78 H 120/79 Blood Pressure Mean (mm Hg) 98 92 Source Monitor Monitor Position Semi-Fowlers Semi-Fowlers Blood Pressure Location Left Arm Left Arm History Since Last Visit- (Skip if this is Patient's initial visit) Have you changed medications since your No No last visit? Any new allergies or adverse reactions No No Had a fall/change in ADL's that may No No increase risk of falls Signs or symptoms of abuse and/or No No neglect since last visit Have you been in the hospital since your No No last visit? Has dressing in place as prescribed Yes Yes Has compression in place as prescribed Yes Has offloadiing in place as prescribed N/A N/A Experienced any changes in pain level or No No management Pain Scale: 0-10 Numeric Is Patient Pain Free? Yes Yes GM - Nurse 1 - General Ulcer Measurement Start: 08/06/21 09:27 Freq: Status: Active Protocol: Activity Type Activity Date Activity User E-Sign Co-Sign Detail Recorded Client Recorded Date Recorded By Document 08/06/21 09:27 EV [id number] 08/06/21 09:34 KR Document 08/13/21 09:16 KR [id number] 08/13/21 09:18 KR 08/06/21 08/13/21 09:27 09:16 Wound Center Nurse 1 #7- L LAT PLANTAR FOOT -Current Size (cm) - Length 1.1 0.4 -Current Size (cm) - Width 1 0.9 -Current Size (cm) - Depth 0.3 0.2 -Total Square Cm 1.1 0.36 -Exudate Amt Medium Medium -Exudate Type Serosanguineous Serosanguineous -Wound Margin Distinct, Distinct, Outline Outline Attached Attached -Granulation Amt Medium (34-66%) Medium (34-66%) -Granulation Quality [place] -Necrosis Amt Medium (34-66%) Medium (34-66%) -Necrotic Tissue Type Adherent Slough Adherent Slough -Texture ([place]-wound Skin Appearance) Assessed, Assessed, Scarring Scarring -Moisture ([place]-wound Skin Appearance) No Abnormality, No Abnormality, Assessed Assessed -Color ([place]-wound Skin Appearance) No Abnormality, No Abnormality, Assessed Assessed -Temperature ([place]-wound Skin No Abnormality No Abnormality Appearance) (Pt Warm) (Pt Warm) -Tenderness on Palpation ([place]-wound No No Skin Appearance) -Ulcer Cleansing Rinsed/ Rinsed/ Irrigated with Irrigated with Saline Saline -Foul Odor after Cleansing No No -Anesthetic Used 5% Lidocaine 5% Lidocaine Gel Gel WC - Nurse 2 - General Ulcer CM Notes Start: 08/06/21 09:27 Freq: Status: Active Protocol: Activity Type Activity Date Activity User E-Sign Co-Sign Detail Recorded Client Recorded Date Recorded By Document 08/06/21 09:58 MW [id number] 08/06/21 10:05 MW Document 08/13/21 09:26 MW [id number] 08/13/21 09:29 MW 08/06/21 08/13/21 09:58 09:26 Wound Center Nurse 2 #7- L LAT PLANTAR FOOT -Time 09:58 09:26 -Correct Patient Yes Yes -Correct Side, Site, Position Yes Yes -Correct Procedure Yes Yes -Procedure Performed Yes Yes -Type of Procedure Debridement Debridement -Clinical Debridement Subcutaneous Subcutaneous -Tissue Removed Subcutaneous Subcutaneous -Post Debridement (cm) - Length 2.0 0.5 -Post Debridement (cm) - Width 3.5 0.9 -Post Debridement (cm) - Depth 0.5 0.3 -Total Square (Post) (cm) 7.00 0.45 -Area of Debridement (cm) - Length 2.0 0.5 -Area of Debridement (cm) - Width 3.5 0.9 -Total Square (Area) (cm) 7.00 0.45 -Tunneling No No -Undermining/Tunneling No No -Circular Undermining No No -Wound/Ulcer Outcome Not Healed Not Healed -Ulcer Cleansing Rinsed/ Rinsed/ Irrigated with Irrigated with Saline Saline -Foul Odor after Cleansing No No -Bioengineered Tissue No No -Bleeding Controlled with Pressure Pressure -Treatment Response Procedure Procedure Tolerated Well Tolerated Well -Offloading No -Debridement - Subq, 1st 20sq cm Yes Yes Pain Scale: 0-10 Numeric Is Patient Pain Free? Yes Yes WC - Nurse 3 - General Ulcer D/C NN Start: 08/06/21 09:27 Freq: Status: Active Protocol: Activity Type Activity Date Activity User E-Sign Co-Sign Detail Recorded Client Recorded Date Recorded By Document 08/06/21 10:30 KR [id number] 08/06/21 10:31 KR Document 08/13/21 09:35 KR [id number] 08/13/21 09:35 KR 08/06/21 08/13/21 10:30 09:35 Wound Care Nurse 3 #7- L LAT PLANTAR FOOT -Ulcer Cleansing Rinsed/ Rinsed/ Irrigated with Irrigated with Saline Saline -Primary Dressing Applied Aquacel Extra Aquacel Extra -Primary Dressing Covered/Secured with Dry Gauze, Dry Gauze,Dry Secured with Gauze & Roll Tape Gauze,Secured with Tape -Aquacel Extra 1 1 Pain Scale: 0-10 Numeric Is Patient Pain Free? Yes Yes WC - Visit Discharge Discharge Condition Stable Stable Ambulatory Status Wheelchair Wheelchair Transportation Private Auto Private Auto Assessment/Plan Assessment/Plan (1) Nonhealing nonsurgical wound limited to breakdown of skin: CODE(S): T14.8XXA - Other injury of unspecified body region, initial encounter (2) Diabetic foot ulcers: CODE(S): E11.621 - Type 2 diabetes mellitus with foot ulcer; L97.509 - Non-pressure chronic ulcer of other part of unspecified foot with unspecified severity QUALIFIERS: Diabetic foot ulcer location: midfoot Diabetes mellitus type: type 2 Laterality: left Non-pressure ulcer stage: with fat layer exposed Qualified Code(s): E11.621 - Type 2 diabetes mellitus with foot ulcer; L97.422 - 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 Apply Aquacel extra to wound base cover with absorbent dressing and stasis pad on left lateral pressure area change daily Continue to offload foot Drink supplements of Premier 30 g of protein and increase protein intake. Start the linezolid 600 mg twice daily for 10 days with food Follow-up 1 week (3) Pressure ulcer of foot, stage 3: CODE(S): L89.893 - Pressure ulcer of other site, stage 3 QUALIFIERS: Laterality: left Qualified Code(s): L89.893 - Pressure ulcer of other site, stage 3 (4) Polyneuropathy in diabetes: CODE(S): E11.42 - Type 2 diabetes mellitus with diabetic polyneuropathy QUALIFIERS: Diabetes mellitus type: type 2 Qualified Code(s): E11.42 - Type 2 diabetes mellitus with diabetic polyneuropathy (5) Type 2 diabetes mellitus with diabetic polyneuropathy: CODE(S): E11.42 - Type 2 diabetes mellitus with diabetic polyneuropathy QUALIFIERS: Diabetes mellitus fci insulin use: unspecified adjunct faculty for medical terminology insulin use status Qualified Code(s): E11.42 - Type 2 diabetes mellitus with diabetic polyneuropathy
[2021-08-20 09:07] VITALS: BP 138/74; PULSE 90; TEMP 36.1; BMI 37.7
--- NOTE | 2021-08-20 11:52 | PCM.WC.PN ---
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 He therefore wears an AFO on the left lower leg. Patient is developing Charcot and his left foot and the AFO rubs on the bone that is protruding at the left lateral foot. The area is perfectly round and positive depth about the size of a dime on the left lateral foot. Same area that always opens. Patient never follows up with [facility] about the rubbing and is gone back to his old boot. Progress of Wound: The wound looks a lot better this week has started his linezolid . He states he has been offloading and saw Christopher hutchinss that really helped fix his offloading boot. The lateral aspect of his foot is scabbed over and looks very good and the plantar side of his left lateral foot is smaller. We applied epi fix #1 he was approved but had infection we waited. Subjective Subjective Patient is very happy that we get the approval for epi fix and will do what he can to keep it clean and dry Objective Data Objective Data As stated above in progress notes no sign of infection still has depth were applying epi fix #1 to the area. Vital Signs: Vital Signs Temp Pulse Resp BP 97.0 F L 90 18 138/74 H 08/20/21 09:07 08/20/21 09:07 08/06/21 00:24 08/20/21 09:07 Weight: 310 lb Body Mass Index (BMI) 37.7 Lab / Micro Data Micro: Microbiology 08/06/21 10:02 Wound Abcess - Plantar Gram Stain - Final 08/06/21 10:02 Wound Abcess - Plantar Wound Culture - Final Streptococcus agalactiae (B) Staphylococcus epidermidis Corynebacterium striatum 08/06/21 10:02 Wound Abcess - Plantar Anaerobic Culture - Final No anaerobic bacteria isolated. Physical Exam Const oriented x3 General Appearance: cooperative Exam Limitations: no limitations Resp normal respiratory effort Effort and Inspection: able to speak in complete sentences Auscultation: clear to auscultation bilaterally Cardio regular rate and regular rhythm Palpation: normal PMI Rate: regular rate Rhythm: regular rhythm Extremity Extremity Narrative: Left lateral foot wound DFU from improper footwear and offloading about the size of a dime with depth General Extremity: normal exam except as noted Skin Wound Narrative: Left lateral foot DFU wound Neuro oriented x3 Psych Appearance: grossly normal Speech: normal speech Thought Content: normal thought content Judgement: judgement good Debridement Note Debridement Note Wound debrided: Left plantar foot diabetic foot ulcer from pressure Wound Grade/Stage: Stage III Type of Debridement: Excisional debridement Anesthesia Used: 4% Lidocaine Solution and 5% Lidocaine Gel Depth: in the subcutaneous layer Percentage of wound debrided: 100 Instrument Used: 3mm curette, #15 blade (To pare down the surrounding skin) and - Tissue Removed: Fibrin devitalized tissue Severity: Fat Layer Exposed Amount of bleeding with debridement: Mild Bleeding Controlled with: Compression and gauze Patient tolerated procedure: Patient tolerated procedure well Post-Debridement Measurements and Additional Note: Post-Debridement Measurements/Treatment - Nurse 1 - General Ulcer Assessment Start: 08/06/21 09:27 Freq: Status: Active Protocol: MARIEL Activity Type Activity Date Activity User E-sign Co-sign Detail Recorded Client Recorded Date Recorded By Document 08/06/21 09:27 EV [id number] 08/06/21 09:34 KR Document 08/13/21 09:16 KR [id number] 08/13/21 09:18 KR Document 08/20/21 09:07 EV [id number] 08/20/21 09:08 KR 08/06/21 08/13/21 08/20/21 09:27 09:16 09:07 - Today's Visit Information Type of service Follow-up Visit Follow-up Visit Follow-up Visit (Physician/CHOCOLATE MAKER (Physician/CHOCOLATE MAKER (Physician/CHOCOLATE MAKER ) ) ) Arrival Mode Wheelchair Wheelchair Wheelchair Patient Identification Verified (Name & Yes Yes Yes ) Height and Weight Body Mass Index (BMI) 37.7 37.7 37.7 BMI Classification Obese Obese Obese Vital Signs Temperature (97.8 F-99.1 F) 97.2 F L 97.8 F 97.0 F L Temperature Source Temporal Temporal Temporal Pulse Rate (60-100) 91 88 90 Pulse Location Monitor Monitor Monitor Blood Pressure (90/60-120/80) 139/78 H 120/79 138/74 H Blood Pressure Mean (mm Hg) 98 92 95 Source Monitor Monitor Monitor Position Semi-Fowlers Semi-Fowlers Sitting Blood Pressure Location Left Arm Left Arm Right Arm History Since Last Visit- (Skip if this is Patient's initial visit) Have you changed medications since your No No No last visit? Any new allergies or adverse reactions No No No Had a fall/change in ADL's that may No No No increase risk of falls Signs or symptoms of abuse and/or No No No neglect since last visit Have you been in the hospital since your No No No last visit? Has dressing in place as prescribed Yes Yes Yes Has compression in place as prescribed Yes N/A Has offloadiing in place as prescribed N/A N/A N/A Experienced any changes in pain level or No No No management Left Footwear Regular Shoe Right Footwear Regular Shoe Pain Scale: 0-10 Numeric Is Patient Pain Free? Yes Yes Yes WC - Nurse 1 - General Ulcer Measurement Start: 08/06/21 09:27 Freq: Status: Active Protocol: Activity Type Activity Date Activity User E-sign Co-sign Detail Recorded Client Recorded Date Recorded By Document 08/06/21 09:27 EV [id number] 08/06/21 09:34 KR Document 08/13/21 09:16 KR [id number] 08/13/21 09:18 KR Document 08/20/21 09:07 KR [id number] 08/20/21 09:08 KR 08/06/21 08/13/21 08/20/21 09:27 09:16 09:07 Wound Center Nurse 1 #7- L LAT PLANTAR FOOT -Current Size (cm) - Length 1.1 0.4 0.8 -Current Size (cm) - Width 1 0.9 1 -Current Size (cm) - Depth 0.3 0.2 0.1 -Total Square Cm 1.1 0.36 0.8 -Exudate Amt Medium Medium Small -Exudate Type Serosanguineous Serosanguineous Serosanguineous -Wound Margin Distinct, Distinct, Distinct, Outline Outline Outline Attached Attached Attached -Granulation Amt Medium (34-66%) Medium (34-66%) Small (1-33%) -Granulation Quality [place] -Necrosis Amt Medium (34-66%) Medium (34-66%) Small (1-33%) -Necrotic Tissue Type Adherent Slough Adherent Slough Adherent Slough -Texture ([place]-wound Skin Appearance) Assessed, Assessed, Assessed, Scarring Scarring Scarring -Moisture ([place]-wound Skin Appearance) No Abnormality, No Abnormality, No Abnormality, Assessed Assessed Assessed -Color ([place]-wound Skin Appearance) No Abnormality, No Abnormality, No Abnormality, Assessed Assessed Assessed -Temperature ([place]-wound Skin No Abnormality No Abnormality No Abnormality Appearance) (Pt Warm) (Pt Warm) (Pt Warm) -Tenderness on Palpation ([place]-wound No No No Skin Appearance) -Ulcer Cleansing Rinsed/ Rinsed/ Rinsed/ Irrigated with Irrigated with Irrigated with Saline Saline Saline -Foul Odor after Cleansing No No No -Anesthetic Used 5% Lidocaine 5% Lidocaine 5% Lidocaine Gel Gel Gel WC - Nurse 2 - General Ulcer CM Notes Start: 08/06/21 09:27 Freq: Status: Active Protocol: Activity Type Activity Date Activity User E-sign Co-sign Detail Recorded Client Recorded Date Recorded By Document 08/06/21 09:58 MW [id number] 08/06/21 10:05 MW Document 08/13/21 09:26 MW [id number] 08/13/21 09:29 MW Document 08/20/21 09:31 MW [id number] 08/20/21 09:40 MW 08/06/21 08/13/21 08/20/21 09:58 09:26 09:31 Wound Center Nurse 2 #7- L LAT PLANTAR FOOT -Time 09:58 09:26 09:32 -Correct Patient Yes Yes Yes -Correct Side, Site, Position Yes Yes Yes -Correct Procedure Yes Yes Yes -Procedure Performed Yes Yes Yes -Type of Procedure Debridement Debridement Debridement -Clinical Debridement Subcutaneous Subcutaneous Subcutaneous -Tissue Removed Subcutaneous Subcutaneous Subcutaneous -Post Debridement (cm) - Length 2.0 0.5 0.7 -Post Debridement (cm) - Width 3.5 0.9 1.0 -Post Debridement (cm) - Depth 0.5 0.3 0.3 -Total Square (Post) (cm) 7.00 0.45 0.70 -Area of Debridement (cm) - Length 2.0 0.5 0.7 -Area of Debridement (cm) - Width 3.5 0.9 1.0 -Total Square (Area) (cm) 7.00 0.45 0.70 -Tunneling No No No -Undermining/Tunneling No No No -Circular Undermining No No No -Wound/Ulcer Outcome Not Healed Not Healed Not Healed -Ulcer Cleansing Rinsed/ Rinsed/ Rinsed/ Irrigated with Irrigated with Irrigated with Saline Saline Saline -Foul Odor after Cleansing No No No -Bioengineered Tissue No No Yes -Type of Bioengineered Tissue Epifix 18mm Disc -Expiration Date 05/06/26 -Product Lot Number [id number] -Percent Used 100 -Lot number of Saline Used [id number] -Bleeding Controlled with Pressure Pressure Pressure -Treatment Response Procedure Procedure Procedure Tolerated Well Tolerated Well Tolerated Well -Offloading No No -Debridement - Subq, 1st 20sq cm Yes Yes No -Apply Skin Sub - 1st 25 sq cm - Feet 1 -Epifix 18mm Disc 3 Pain Scale: 0-10 Numeric Is Patient Pain Free? Yes Yes Yes WC - Nurse 3 - General Ulcer D/C NN Start: 08/06/21 09:27 Freq: Status: Active Protocol: Activity Type Activity Date Activity User E-sign Co-sign Detail Recorded Client Recorded Date Recorded By Document 08/06/21 10:30 KR [id number] 08/06/21 10:31 KR Document 08/13/21 09:35 KR [id number] 08/13/21 09:35 KR Document 08/20/21 09:49 MW [id number] 08/20/21 09:50 MW 08/06/21 08/13/21 08/20/21 10:30 09:35 09:49 Wound Care Nurse 3 #7- L LAT PLANTAR FOOT -Ulcer Cleansing Rinsed/ Rinsed/ Not Cleansed Irrigated with Irrigated with Saline Saline -Foul Odor after Cleansing No -Negative Pressure Wound Therapy N/A -Primary Dressing Applied Aquacel Extra Aquacel Extra -Primary Dressing Covered/Secured with Dry Gauze, Dry Gauze,Dry Dry Gauze & Secured with Gauze & Roll Roll Gauze, Tape Gauze,Secured Secured with with Tape Tape -Other Covering ABD PAD -Aquacel Extra 1 1 Left -Lotion applied to leg before Yes compression wrap -Tubular Bandage Double Layer -Size of Tubigrip Used Size E -Size E ($) 2 -Stockings No Treatment Response Procedure Tolerated Well Pain Scale: 0-10 Numeric Is Patient Pain Free? Yes Yes Yes Teaching: Wound Center Dressing Your Wound -Person Taught Patient -Teaching Method Discussion, Demonstration -Response to teaching Verbalize understanding WC - Visit Discharge Discharge Condition Stable Stable Stable Ambulatory Status Wheelchair Wheelchair Wheelchair Transportation Private Auto Private Auto Private Auto Accompanied by SELF Medication Reconcilliation completed & No provided to patient/care provider Clinical Summary of Care Provided Yes Assessment/Plan Assessment/Plan (1) Nonhealing nonsurgical wound limited to breakdown of skin: CODE(S): T14.8XXA - Other injury of unspecified body region, initial encounter (2) Diabetic foot ulcers: CODE(S): E11.621 - Type 2 diabetes mellitus with foot ulcer; L97.509 - Non-pressure chronic ulcer of other part of unspecified foot with unspecified severity QUALIFIERS: Diabetic foot ulcer location: midfoot Diabetes mellitus type: type 2 Laterality: left Non-pressure ulcer stage: with fat layer exposed Qualified Code(s): E11.621 - Type 2 diabetes mellitus with foot ulcer; L97.422 - 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 layer exposed PLAN: Epi fix #1 applied to the wound base covered with wound veil Steri-Strips gauze pad. Patient is to keep it dry only touchdown to the Steri-Strips if necessary Continue to offload foot Drink supplements of Premier 30 g of protein and increase protein intake. Start the linezolid 600 mg twice daily for 10 days with food Follow-up 1 week (3) Pressure ulcer of foot, stage 3: CODE(S): L89.893 - Pressure ulcer of other site, stage 3 QUALIFIERS: Laterality: left Qualified Code(s): L89.893 - Pressure ulcer of other site, stage 3 (4) Polyneuropathy in diabetes: CODE(S): E11.42 - Type 2 diabetes mellitus with diabetic polyneuropathy QUALIFIERS: Diabetes mellitus type: type 2 Qualified Code(s): E11.42 - Type 2 diabetes mellitus with diabetic polyneuropathy (5) Type 2 diabetes mellitus with diabetic polyneuropathy: CODE(S): E11.42 - Type 2 diabetes mellitus with diabetic polyneuropathy QUALIFIERS: Diabetes mellitus director long term care insulin use: unspecified director long term care insulin use status Qualified Code(s): E11.42 - Type 2 diabetes mellitus with diabetic polyneuropathy
[2021-08-27 08:54] VITALS: BP 125/68; PULSE 97; TEMP 36.4; BMI 37.7
--- NOTE | 2021-08-27 10:02 | PCM.WC.PN ---
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 He therefore wears an AFO on the left lower leg. Patient is developing Charcot and his left foot and the AFO rubs on the bone that is protruding at the left lateral foot. The area is perfectly round and positive depth about the size of a dime on the left lateral foot. Same area that always opens. Patient never follows up with [facility] about the rubbing and is gone back to his old boot. Progress of Wound: The wound looks a lot better this week has started his linezolid . He states he has been offloading and saw [facility] that really helped fix his offloading boot. The lateral aspect of his foot is scabbed over and looks very good and the plantar side of his left lateral foot is smaller. We applied epi fix #2 Subjective Subjective Patient has no concerns Objective Data Objective Data The epi fix #1 is filling and still has depth but is getting a base to his ulcer. Vital Signs: Vital Signs Temp Pulse Resp BP 97.5 F L 97 18 125/68 H 08/27/21 08:54 08/27/21 08:54 08/06/21 00:24 08/27/21 08:54 Weight: 310 lb Body Mass Index (BMI) 37.7 Lab / Micro Data Micro: Microbiology 08/06/21 10:02 Wound Abcess - Plantar Gram Stain - Final 08/06/21 10:02 Wound Abcess - Plantar Wound Culture - Final Streptococcus agalactiae (B) Staphylococcus epidermidis Corynebacterium striatum 08/06/21 10:02 Wound Abcess - Plantar Anaerobic Culture - Final No anaerobic bacteria isolated. Physical Exam Const oriented x3 General Appearance: cooperative Exam Limitations: no limitations Resp normal respiratory effort Effort and Inspection: able to speak in complete sentences Auscultation: clear to auscultation bilaterally Cardio regular rate and regular rhythm Palpation: normal PMI Rate: regular rate Rhythm: regular rhythm Extremity Extremity Narrative: Left lateral foot wound DFU from improper footwear and offloading about the size of a dime with depth General Extremity: normal exam except as noted Skin Wound Narrative: Left lateral foot DFU wound Neuro oriented x3 Psych Appearance: grossly normal Speech: normal speech Thought Content: normal thought content Judgement: judgement good Debridement Note Debridement Note Wound debrided: Left lateral plantar wound of foot Wound Grade/Stage: Stage III Depth: in the subcutaneous layer Percentage of wound debrided: 100 Instrument Used: 5mm curette Tissue Removed: Fibrin and callus Severity: Fat Layer Exposed Amount of bleeding with debridement: None Bleeding Controlled with: Pressure Patient tolerated procedure: Patient tolerated procedure well Post-Debridement Measurements and Additional Note: Post-Debridement Measurements/Treatment - Nurse 1 - General Ulcer Assessment Start: 08/06/21 09:27 Freq: Status: Active Protocol: [email or web address] Activity Type Activity Date Activity User E-sign Co-sign Detail Recorded Client Recorded Date Recorded By Document 08/06/21 09:27 KR [id number] 08/06/21 09:34 KR Document 08/13/21 09:16 KR [id number] 08/13/21 09:18 KR Document 08/20/21 09:07 KR [id number] 08/20/21 09:08 KR Document 08/27/21 08:54 KR [id number] 08/27/21 08:55 KR 08/06/21 08/13/21 08/20/21 09:27 09:16 09:07 - Today's Visit Information Type of service Follow-up Visit Follow-up Visit Follow-up Visit (Physician/LAUNDRY MACHINE MECHANIC (Physician/LAUNDRY MACHINE MECHANIC (Physician/LAUNDRY MACHINE MECHANIC ) ) ) Arrival Mode Wheelchair Wheelchair Wheelchair Patient Identification Verified (Name & Yes Yes Yes ) Height and Weight Body Mass Index (BMI) 37.7 37.7 37.7 BMI Classification Obese Obese Obese Vital Signs Temperature (97.8 F-99.1 F) 97.2 F L 97.8 F 97.0 F L Temperature Source Temporal Temporal Temporal Pulse Rate (60-100) 91 88 90 Pulse Location Monitor Monitor Monitor Blood Pressure (90/60-120/80) 139/78 H 120/79 138/74 H Blood Pressure Mean (mm Hg) 98 92 95 Source Monitor Monitor Monitor Position Semi-Fowlers Semi-Fowlers Sitting Blood Pressure Location Left Arm Left Arm Right Arm History Since Last Visit- (Skip if this is Patient's initial visit) Have you changed medications since your No No No last visit? Any new allergies or adverse reactions No No No Had a fall/change in ADL's that may No No No increase risk of falls Signs or symptoms of abuse and/or No No No neglect since last visit Have you been in the hospital since your No No No last visit? Has dressing in place as prescribed Yes Yes Yes Has compression in place as prescribed Yes N/A Has offloadiing in place as prescribed N/A N/A N/A Experienced any changes in pain level or No No No management Left Footwear Regular Shoe Right Footwear Regular Shoe Pain Scale: 0-10 Numeric Is Patient Pain Free? Yes Yes Yes 08/27/21 08:54 WC - Today's Visit Information Type of service Follow-up Visit (Physician/LAUNDRY MACHINE MECHANIC ) Arrival Mode Wheelchair Patient Identification Verified (Name & Yes ) Height and Weight Body Mass Index (BMI) 37.7 BMI Classification Obese Vital Signs Temperature (97.8 F-99.1 F) 97.5 F L Temperature Source Temporal Pulse Rate (60-100) 97 Pulse Location Monitor Blood Pressure (90/60-120/80) 125/68 H Blood Pressure Mean (mm Hg) 87 Source Monitor Position Sitting Blood Pressure Location Left Arm History Since Last Visit- (Skip if this is Patient's initial visit) Have you changed medications since your No last visit? Any new allergies or adverse reactions No Had a fall/change in ADL's that may No increase risk of falls Signs or symptoms of abuse and/or No neglect since last visit Have you been in the hospital since your No last visit? Has dressing in place as prescribed Yes Has compression in place as prescribed N/A Has offloadiing in place as prescribed N/A Experienced any changes in pain level or No management Left Footwear Right Footwear Pain Scale: 0-10 Numeric Is Patient Pain Free? Yes - Nurse 1 - General Ulcer Measurement Start: 08/06/21 09:27 Freq: Status: Active Protocol: Activity Type Activity Date Activity User E-sign Co-sign Detail Recorded Client Recorded Date Recorded By Document 08/06/21 09:27 EV [id number] 08/06/21 09:34 KR Document 08/13/21 09:16 KR [id number] 08/13/21 09:18 KR Document 08/20/21 09:07 KR [id number] 08/20/21 09:08 KR Document 08/27/21 08:54 KR [id number] 08/27/21 08:55 KR 08/06/21 08/13/21 08/20/21 09:27 09:16 09:07 Wound Center Nurse 1 #7- L LAT PLANTAR FOOT -Current Size (cm) - Length 1.1 0.4 0.8 -Current Size (cm) - Width 1 0.9 1 -Current Size (cm) - Depth 0.3 0.2 0.1 -Total Square Cm 1.1 0.36 0.8 -Exudate Amt Medium Medium Small -Exudate Type Serosanguineous Serosanguineous Serosanguineous -Wound Margin Distinct, Distinct, Distinct, Outline Outline Outline Attached Attached Attached -Granulation Amt Medium (34-66%) Medium (34-66%) Small (1-33%) -Granulation Quality Ambler Ambler Ambler -Necrosis Amt Medium (34-66%) Medium (34-66%) Small (1-33%) -Necrotic Tissue Type Adherent Slough Adherent Slough Adherent Slough -Texture ([place]-wound Skin Appearance) Assessed, Assessed, Assessed, Scarring Scarring Scarring -Moisture ([place]-wound Skin Appearance) No Abnormality, No Abnormality, No Abnormality, Assessed Assessed Assessed -Color ([place]-wound Skin Appearance) No Abnormality, No Abnormality, No Abnormality, Assessed Assessed Assessed -Temperature ([place]-wound Skin No Abnormality No Abnormality No Abnormality Appearance) (Pt Warm) (Pt Warm) (Pt Warm) -Tenderness on Palpation ([place]-wound No No No Skin Appearance) -Ulcer Cleansing Rinsed/ Rinsed/ Rinsed/ Irrigated with Irrigated with Irrigated with Saline Saline Saline -Foul Odor after Cleansing No No No -Anesthetic Used 5% Lidocaine 5% Lidocaine 5% Lidocaine Gel Gel Gel 08/27/21 08:54 Wound Center Nurse 1 #7- L LAT PLANTAR FOOT -Current Size (cm) - Length 0.6 -Current Size (cm) - Width 0.7 -Current Size (cm) - Depth 0.2 -Total Square Cm 0.42 -Exudate Amt Small -Exudate Type Serosanguineous -Wound Margin Distinct, Outline Attached -Granulation Amt Medium (34-66%) -Granulation Quality Ambler -Necrosis Amt Medium (34-66%) -Necrotic Tissue Type Adherent Slough -Texture ([place]-wound Skin Appearance) Assessed, Scarring -Moisture ([place]-wound Skin Appearance) No Abnormality, Assessed -Color ([place]-wound Skin Appearance) No Abnormality, Assessed -Temperature ([place]-wound Skin No Abnormality Appearance) (Pt Warm) -Tenderness on Palpation ([place]-wound No Skin Appearance) -Ulcer Cleansing Rinsed/ Irrigated with Saline -Foul Odor after Cleansing No -Anesthetic Used 5% Lidocaine Gel WC - Nurse 2 - General Ulcer CM Notes Start: 08/06/21 09:27 Freq: Status: Active Protocol: Activity Type Activity Date Activity User E-sign Co-sign Detail Recorded Client Recorded Date Recorded By Document 08/06/21 09:58 MW [id number] 08/06/21 10:05 MW Document 08/13/21 09:26 MW [id number] 08/13/21 09:29 MW Document 08/20/21 09:31 MW [id number] 08/20/21 09:40 MW Document 08/27/21 09:03 MW [id number] 08/27/21 09:11 MW 08/06/21 08/13/21 08/20/21 09:58 09:26 09:31 Wound Center Nurse 2 #7- L LAT PLANTAR FOOT -Time 09:58 09:26 09:32 -Correct Patient Yes Yes Yes -Correct Side, Site, Position Yes Yes Yes -Correct Procedure Yes Yes Yes -Procedure Performed Yes Yes Yes -Type of Procedure Debridement Debridement Debridement -Clinical Debridement Subcutaneous Subcutaneous Subcutaneous -Tissue Removed Subcutaneous Subcutaneous Subcutaneous -Post Debridement (cm) - Length 2.0 0.5 0.7 -Post Debridement (cm) - Width 3.5 0.9 1.0 -Post Debridement (cm) - Depth 0.5 0.3 0.3 -Total Square (Post) (cm) 7.00 0.45 0.70 -Area of Debridement (cm) - Length 2.0 0.5 0.7 -Area of Debridement (cm) - Width 3.5 0.9 1.0 -Total Square (Area) (cm) 7.00 0.45 0.70 -Tunneling No No No -Undermining/Tunneling No No No -Circular Undermining No No No -Wound/Ulcer Outcome Not Healed Not Healed Not Healed -Ulcer Cleansing Rinsed/ Rinsed/ Rinsed/ Irrigated with Irrigated with Irrigated with Saline Saline Saline -Foul Odor after Cleansing No No No -Bioengineered Tissue No No Yes -Type of Bioengineered Tissue Epifix 18mm Disc -Expiration Date 05/06/26 -Product Lot Number [id number] -Percent Used 100 -Lot number of Saline Used -Bleeding Controlled with Pressure Pressure Pressure -Treatment Response Procedure Procedure Procedure Tolerated Well Tolerated Well Tolerated Well -Offloading No No -Type of Offloading -Debridement - Subq, 1st 20sq cm Yes Yes No -Apply Skin Sub - 1st 25 sq cm - Feet 1 -Epifix 18mm Disc 3 Pain Scale: 0-10 Numeric Is Patient Pain Free? Yes Yes Yes 08/27/21 09:03 Wound Center Nurse 2 #7- L LAT PLANTAR FOOT -Time 09:04 -Correct Patient Yes -Correct Side, Site, Position Yes -Correct Procedure Yes -Procedure Performed Yes -Type of Procedure Debridement -Clinical Debridement Subcutaneous -Tissue Removed Subcutaneous -Post Debridement (cm) - Length 0.4 -Post Debridement (cm) - Width 0.7 -Post Debridement (cm) - Depth 0.2 -Total Square (Post) (cm) 0.28 -Area of Debridement (cm) - Length 0.4 -Area of Debridement (cm) - Width 0.7 -Total Square (Area) (cm) 0.28 -Tunneling No -Undermining/Tunneling No -Circular Undermining No -Wound/Ulcer Outcome Not Healed -Ulcer Cleansing Rinsed/ Irrigated with Saline -Foul Odor after Cleansing No -Bioengineered Tissue Yes -Type of Bioengineered Tissue Epifix 18mm Disc -Expiration Date 05/06/26 -Product Lot Number [id number] -Percent Used 100 -Lot number of Saline Used -Bleeding Controlled with Pressure -Treatment Response Procedure Tolerated Well -Offloading Yes -Type of Offloading Camwalker -Debridement - Subq, 1st 20sq cm No -Apply Skin Sub - 1st 25 sq cm - Feet 1 -Epifix 18mm Disc 3 Pain Scale: 0-10 Numeric Is Patient Pain Free? Yes - Nurse 3 - General Ulcer D/C NN Start: 08/06/21 09:27 Freq: Status: Active Protocol: Activity Type Activity Date Activity User E-sign Co-sign Detail Recorded Client Recorded Date Recorded By Document 08/06/21 10:30 KR [id number] 08/06/21 10:31 KR Document 08/13/21 09:35 KR [id number] 08/13/21 09:35 KR Document 08/20/21 09:49 MW [id number] 08/20/21 09:50 MW Document 08/27/21 09:19 KR [id number] 08/27/21 09:19 KR 08/06/21 08/13/21 08/20/21 10:30 09:35 09:49 Wound Care Nurse 3 #7- L LAT PLANTAR FOOT -Ulcer Cleansing Rinsed/ Rinsed/ Not Cleansed Irrigated with Irrigated with Saline Saline -Foul Odor after Cleansing No -Negative Pressure Wound Therapy N/A -Primary Dressing Applied Aquacel Extra Aquacel Extra -Primary Dressing Covered/Secured with Dry Gauze, Dry Gauze,Dry Dry Gauze & Secured with Gauze & Roll Roll Gauze, Tape Gauze,Secured Secured with with Tape Tape -Other Covering ABD PAD -Aquacel Extra 1 1 -Aquacel AG 4x4 Left -Lotion applied to leg before Yes compression wrap -Compression Wrap -Tubular Bandage Double Layer -Size of Tubigrip Used Size E -Size E ($) 2 -Stockings No Treatment Response Procedure Tolerated Well Pain Scale: 0-10 Numeric Is Patient Pain Free? Yes Yes Yes Teaching: Wound Center Dressing Your Wound -Person Taught Patient -Teaching Method Discussion, Demonstration -Response to teaching Verbalize understanding WC - Visit Discharge Discharge Condition Stable Stable Stable Ambulatory Status Wheelchair Wheelchair Wheelchair Transportation Private Auto Private Auto Private Auto Accompanied by SELF Medication Reconcilliation completed & No provided to patient/care provider Clinical Summary of Care Provided Yes 08/27/21 09:19 Wound Care Nurse 3 #7- L LAT PLANTAR FOOT -Ulcer Cleansing Rinsed/ Irrigated with Saline -Foul Odor after Cleansing -Negative Pressure Wound Therapy -Primary Dressing Applied Aquacel AG 4x4 -Primary Dressing Covered/Secured with Dry Gauze,Dry Gauze & Roll Gauze,Secured with Tape -Other Covering -Aquacel Extra -Aquacel AG 4x4 1 Left -Lotion applied to leg before compression wrap -Compression Wrap Vinay Wrap -Tubular Bandage -Size of Tubigrip Used -Size E ($) -Stockings Treatment Response Pain Scale: 0-10 Numeric Is Patient Pain Free? Yes Teaching: Wound Center Dressing Your Wound -Person Taught -Teaching Method -Response to teaching WC - Visit Discharge Discharge Condition Stable Ambulatory Status Wheelchair Transportation Private Auto Accompanied by Medication Reconcilliation completed & provided to patient/care provider Clinical Summary of Care Provided Assessment/Plan Assessment/Plan (1) Nonhealing nonsurgical wound limited to breakdown of skin: CODE(S): T14.8XXA - Other injury of unspecified body region, initial encounter (2) Diabetic foot ulcers: CODE(S): E11.621 - Type 2 diabetes mellitus with foot ulcer; L97.509 - Non-pressure chronic ulcer of other part of unspecified foot with unspecified severity QUALIFIERS: Diabetic foot ulcer location: midfoot Diabetes mellitus type: type 2 Laterality: left Non-pressure ulcer stage: with fat layer exposed Qualified Code(s): E11.621 - Type 2 diabetes mellitus with foot ulcer; L97.422 - 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 layer exposed PLAN: Epi fix #2 applied to the wound base covered with wound veil Steri-Strips gauze pad. Patient is to keep it dry only touchdown to the Steri-Strips if necessary Continue to offload foot Drink supplements of Premier 30 g of protein and increase protein intake. Start the linezolid 600 mg twice daily for 10 days with food Follow-up 1 week (3) Pressure ulcer of foot, stage 3: CODE(S): L89.893 - Pressure ulcer of other site, stage 3 QUALIFIERS: Laterality: left Qualified Code(s): L89.893 - Pressure ulcer of other site, stage 3 (4) Polyneuropathy in diabetes: CODE(S): E11.42 - Type 2 diabetes mellitus with diabetic polyneuropathy QUALIFIERS: Diabetes mellitus type: type 2 Qualified Code(s): E11.42 - Type 2 diabetes mellitus with diabetic polyneuropathy (5) Type 2 diabetes mellitus with diabetic polyneuropathy: CODE(S): E11.42 - Type 2 diabetes mellitus with diabetic polyneuropathy QUALIFIERS: Diabetes mellitus rat exterminator insulin use: unspecified assisted insulin use status Qualified Code(s): E11.42 - Type 2 diabetes mellitus with diabetic polyneuropathy
[2021-09-03 10:17] VITALS: BP 115/65; PULSE 94; RESP 16; TEMP 36.7; BMI 37.7
--- NOTE | 2021-09-03 12:00 | PCM.WC.PN ---
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 He therefore wears an AFO on the left lower leg. Patient is developing Charcot and his left foot and the AFO rubs on the bone that is protruding at the left lateral foot. The area is perfectly round and positive depth about the size of a dime on the left lateral foot. Same area that always opens. Patient never follows up with [facility] about the rubbing and is gone back to his old boot. Progress of Wound: The wound looks a lot better this week has finished antibiotics. He states he has been offloading and saw [facility] that really helped fix his offloading boot. We applied epi fix #3 Subjective Subjective Patient has no concerns Objective Data Objective Data Areas look well epi fix is are healing well developing new cells looks more shallow. Vital Signs: Vital Signs Temp Pulse Resp BP 98.0 F 94 16 115/65 09/03/21 10:17 09/03/21 10:17 09/03/21 10:17 09/03/21 10:17 Weight: 310 lb Body Mass Index (BMI) 37.7 Lab / Micro Data Micro: Microbiology 08/06/21 10:02 Wound Abcess - Plantar Gram Stain - Final 08/06/21 10:02 Wound Abcess - Plantar Wound Culture - Final Streptococcus agalactiae (B) Staphylococcus epidermidis Corynebacterium striatum 08/06/21 10:02 Wound Abcess - Plantar Anaerobic Culture - Final No anaerobic bacteria isolated. Physical Exam Const oriented x3 General Appearance: cooperative Exam Limitations: no limitations Resp normal respiratory effort Effort and Inspection: able to speak in complete sentences Auscultation: clear to auscultation bilaterally Cardio regular rate and regular rhythm Palpation: normal PMI Rate: regular rate Rhythm: regular rhythm Extremity Extremity Narrative: Left lateral foot wound DFU from improper footwear and offloading about the size of a dime with depth General Extremity: normal exam except as noted Skin Wound Narrative: Left lateral foot DFU wound Neuro oriented x3 Psych Appearance: grossly normal Speech: normal speech Thought Content: normal thought content Judgement: judgement good Debridement Note Debridement Note Wound debrided: Left plantar diabetic foot ulcer Wound Grade/Stage: Stage III for depth Type of Debridement: Excisional debridement Anesthesia Used: 5% Lidocaine Gel Depth: in the subcutaneous layer Percentage of wound debrided: 100 Instrument Used: 5mm curette and #15 blade Tissue Removed: Callus devitalized tissue and fibrin Severity: Fat Layer Exposed Amount of bleeding with debridement: Mild Bleeding Controlled with: Compression and gauze Patient tolerated procedure: Patient tolerated procedure well Post-Debridement Measurements and Additional Note: Post-Debridement Measurements/Treatment - Nurse 1 - General Ulcer Assessment Start: 08/06/21 09:27 Freq: Status: Active Protocol: MARIEL Activity Type Activity Date Activity User E-sign Co-sign Detail Recorded Client Recorded Date Recorded By Document 08/06/21 09:27 KR [id number] 08/06/21 09:34 KR Document 08/13/21 09:16 KR [id number] 08/13/21 09:18 KR Document 08/20/21 09:07 KR [id number] 08/20/21 09:08 KR Document 08/27/21 08:54 KR [id number] 08/27/21 08:55 KR Document 09/03/21 10:17 ML [id number] 09/03/21 10:19 ML 08/06/21 08/13/21 08/20/21 09:27 09:16 09:07 - Today's Visit Information Type of service Follow-up Visit Follow-up Visit Follow-up Visit (Physician/PERIODONTAL ASSISTANT (Physician/PERIODONTAL ASSISTANT (Physician/PERIODONTAL ASSISTANT ) ) ) Arrival Mode Wheelchair Wheelchair Wheelchair Transfer Assistance Patient Identification Verified (Name & Yes Yes Yes ) Patient Requires Transmission-Based Precautions Safety Precautions Height and Weight Body Mass Index (BMI) 37.7 37.7 37.7 BMI Classification Obese Obese Obese Vital Signs Temperature (97.8 F-99.1 F) 97.2 F L 97.8 F 97.0 F L Temperature Source Temporal Temporal Temporal Pulse Rate (60-100) 91 88 90 Pulse Location Monitor Monitor Monitor Respiratory Rate (12-18) Respiratory rate source Blood Pressure (90/60-120/80) 139/78 H 120/79 138/74 H Blood Pressure Mean (mm Hg) 98 92 95 Source Monitor Monitor Monitor Position Semi-Fowlers Semi-Fowlers Sitting Blood Pressure Location Left Arm Left Arm Right Arm History Since Last Visit- (Skip if this is Patient's initial visit) Have you changed medications since your No No No last visit? Any new allergies or adverse reactions No No No Had a fall/change in ADL's that may No No No increase risk of falls Signs or symptoms of abuse and/or No No No neglect since last visit Have you been in the hospital since your No No No last visit? Has dressing in place as prescribed Yes Yes Yes Has compression in place as prescribed Yes N/A Has offloadiing in place as prescribed N/A N/A N/A Experienced any changes in pain level or No No No management Left Footwear Regular Shoe Right Footwear Regular Shoe Pain Scale: 0-10 Numeric Is Patient Pain Free? Yes Yes Yes 08/27/21 09/03/21 08:54 10:17 WC - Today's Visit Information Type of service Follow-up Visit Follow-up Visit (Physician/PERIODONTAL ASSISTANT (Physician/PERIODONTAL ASSISTANT ) ) Arrival Mode Wheelchair Wheelchair Transfer Assistance None Patient Identification Verified (Name & Yes Yes ) Patient Requires Transmission-Based No Precautions Safety Precautions NA Height and Weight Body Mass Index (BMI) 37.7 37.7 BMI Classification Obese Obese Vital Signs Temperature (97.8 F-99.1 F) 97.5 F L 98.0 F Temperature Source Temporal Temporal Pulse Rate (60-100) 97 94 Pulse Location Monitor Monitor Respiratory Rate (12-18) 16 Respiratory rate source Observation Blood Pressure (90/60-120/80) 125/68 H 115/65 Blood Pressure Mean (mm Hg) 87 81 Source Monitor Monitor Position Sitting Sitting Blood Pressure Location Left Arm Left Arm History Since Last Visit- (Skip if this is Patient's initial visit) Have you changed medications since your No No last visit? Any new allergies or adverse reactions No No Had a fall/change in ADL's that may No No increase risk of falls Signs or symptoms of abuse and/or No No neglect since last visit Have you been in the hospital since your No No last visit? Has dressing in place as prescribed Yes Yes Has compression in place as prescribed N/A N/A Has offloadiing in place as prescribed N/A N/A Experienced any changes in pain level or No No management Left Footwear Regular Shoe Right Footwear No Footwear Pain Scale: 0-10 Numeric Is Patient Pain Free? Yes Yes WC - Nurse 1 - General Ulcer Measurement Start: 08/06/21 09:27 Freq: Status: Active Protocol: Activity Type Activity Date Activity User E-sign Co-sign Detail Recorded Client Recorded Date Recorded By Document 08/06/21 09:27 KR [id number] 08/06/21 09:34 KR Document 08/13/21 09:16 KR [id number] 08/13/21 09:18 KR Document 08/20/21 09:07 KR [id number] 08/20/21 09:08 KR Document 08/27/21 08:54 KR [id number] 08/27/21 08:55 KR Document 09/03/21 10:17 ML [id number] 09/03/21 10:19 ML 08/06/21 08/13/21 08/20/21 09:27 09:16 09:07 Wound Center Nurse 1 #7- L LAT PLANTAR FOOT -Current Size (cm) - Length 1.1 0.4 0.8 -Current Size (cm) - Width 1 0.9 1 -Current Size (cm) - Depth 0.3 0.2 0.1 -Total Square Cm 1.1 0.36 0.8 -Exudate Amt Medium Medium Small -Exudate Type Serosanguineous Serosanguineous Serosanguineous -Wound Margin Distinct, Distinct, Distinct, Outline Outline Outline Attached Attached Attached -Granulation Amt Medium (34-66%) Medium (34-66%) Small (1-33%) -Granulation Quality Zurich Zurich Zurich -Slough/Fibrin -Necrosis Amt Medium (34-66%) Medium (34-66%) Small (1-33%) -Necrotic Tissue Type Adherent Slough Adherent Slough Adherent Slough -Texture ([place]-wound Skin Appearance) Assessed, Assessed, Assessed, Scarring Scarring Scarring -Moisture ([place]-wound Skin Appearance) No Abnormality, No Abnormality, No Abnormality, Assessed Assessed Assessed -Color ([place]-wound Skin Appearance) No Abnormality, No Abnormality, No Abnormality, Assessed Assessed Assessed -Temperature ([place]-wound Skin No Abnormality No Abnormality No Abnormality Appearance) (Pt Warm) (Pt Warm) (Pt Warm) -Tenderness on Palpation ([place]-wound No No No Skin Appearance) -Ulcer Cleansing Rinsed/ Rinsed/ Rinsed/ Irrigated with Irrigated with Irrigated with Saline Saline Saline -Foul Odor after Cleansing No No No -Anesthetic Used 5% Lidocaine 5% Lidocaine 5% Lidocaine Gel Gel Gel 08/27/21 09/03/21 08:54 10:17 Wound Center Nurse 1 #7- L LAT PLANTAR FOOT -Current Size (cm) - Length 0.6 0.5 -Current Size (cm) - Width 0.7 0.5 -Current Size (cm) - Depth 0.2 0.3 -Total Square Cm 0.42 0.25 -Exudate Amt Small Medium -Exudate Type Serosanguineous Serous -Wound Margin Distinct, Distinct, Outline Outline Attached Attached -Granulation Amt Medium (34-66%) Small (1-33%) -Granulation Quality [place] -Slough/Fibrin Yes -Necrosis Amt Medium (34-66%) Large (67-100%) -Necrotic Tissue Type Adherent Slough Adherent Slough -Texture ([place]-wound Skin Appearance) Assessed, Assessed Scarring -Moisture ([place]-wound Skin Appearance) No Abnormality, Assessed Assessed -Color ([place]-wound Skin Appearance) No Abnormality, Assessed Assessed -Temperature ([place]-wound Skin No Abnormality No Abnormality Appearance) (Pt Warm) (Pt Warm) -Tenderness on Palpation ([place]-wound No No Skin Appearance) -Ulcer Cleansing Rinsed/ Soap and Water Irrigated with Saline -Foul Odor after Cleansing No No -Anesthetic Used 5% Lidocaine Gel WC - Nurse 2 - General Ulcer CM Notes Start: 08/06/21 09:27 Freq: Status: Active Protocol: Activity Type Activity Date Activity User E-sign Co-sign Detail Recorded Client Recorded Date Recorded By Document 08/06/21 09:58 MW [id number] 08/06/21 10:05 MW Document 08/13/21 09:26 MW [id number] 08/13/21 09:29 MW Document 08/20/21 09:31 MW [id number] 08/20/21 09:40 MW Document 08/27/21 09:03 MW [id number] 08/27/21 09:11 MW Document 09/03/21 10:21 MW [id number] 09/03/21 10:30 MW 08/06/21 08/13/21 06 09:58 09:26 09:31 Wound Center Nurse 2 #7- L LAT PLANTAR FOOT -Time 09:58 09:26 09:32 -Correct Patient Yes Yes Yes -Correct Side, Site, Position Yes Yes Yes -Correct Procedure Yes Yes Yes -Procedure Performed Yes Yes Yes -Type of Procedure Debridement Debridement Debridement -Clinical Debridement Subcutaneous Subcutaneous Subcutaneous -Tissue Removed Subcutaneous Subcutaneous Subcutaneous -Post Debridement (cm) - Length 2.0 0.5 0.7 -Post Debridement (cm) - Width 3.5 0.9 1.0 -Post Debridement (cm) - Depth 0.5 0.3 0.3 -Total Square (Post) (cm) 7.00 0.45 0.70 -Area of Debridement (cm) - Length 2.0 0.5 0.7 -Area of Debridement (cm) - Width 3.5 0.9 1.0 -Total Square (Area) (cm) 7.00 0.45 0.70 -Tunneling No No No -Undermining/Tunneling No No No -Circular Undermining No No No -Wound/Ulcer Outcome Not Healed Not Healed Not Healed -Ulcer Cleansing Rinsed/ Rinsed/ Rinsed/ Irrigated with Irrigated with Irrigated with Saline Saline Saline -Foul Odor after Cleansing No No No -Bioengineered Tissue No No Yes -Type of Bioengineered Tissue Epifix 18mm Disc -Expiration Date 05/06/26 -Product Lot Number [id number] -Percent Used 100 -Lot number of Saline Used [id number] -Bleeding Controlled with Pressure Pressure Pressure -Treatment Response Procedure Procedure Procedure Tolerated Well Tolerated Well Tolerated Well -Offloading No No -Type of Offloading -Debridement - Subq, 1st 20sq cm Yes Yes No -Apply Skin Sub - 1st 25 sq cm - Feet 1 -Epifix 18mm Disc 3 Pain Scale: 0-10 Numeric Is Patient Pain Free? Yes Yes Yes 08/27/21 09/03/21 09:03 10:21 Wound Center Nurse 2 #7- L LAT PLANTAR FOOT -Time 09:04 10:22 -Correct Patient Yes Yes -Correct Side, Site, Position Yes Yes -Correct Procedure Yes Yes -Procedure Performed Yes Yes -Type of Procedure Debridement Debridement -Clinical Debridement Subcutaneous Subcutaneous -Tissue Removed Subcutaneous Subcutaneous -Post Debridement (cm) - Length 0.4 0.4 -Post Debridement (cm) - Width 0.7 0.7 -Post Debridement (cm) - Depth 0.2 0.2 -Total Square (Post) (cm) 0.28 0.28 -Area of Debridement (cm) - Length 0.4 0.4 -Area of Debridement (cm) - Width 0.7 0.7 -Total Square (Area) (cm) 0.28 0.28 -Tunneling No No -Undermining/Tunneling No No -Circular Undermining No No -Wound/Ulcer Outcome Not Healed Not Healed -Ulcer Cleansing Rinsed/ Rinsed/ Irrigated with Irrigated with Saline Saline -Foul Odor after Cleansing No No -Bioengineered Tissue Yes Yes -Type of Bioengineered Tissue Epifix 18mm Epifix 18mm Disc Disc -Expiration Date 05/06/26 06/06/26 -Product Lot Number [id number] -Percent Used 100 100 -Lot number of Saline Used [id number] -Bleeding Controlled with Pressure Pressure -Treatment Response Procedure Procedure Tolerated Well Tolerated Well -Offloading Yes No -Type of Offloading Camwalker -Debridement - Subq, 1st 20sq cm No No -Apply Skin Sub - 1st 25 sq cm - Feet 1 1 -Epifix 18mm Disc 3 3 Pain Scale: 0-10 Numeric Is Patient Pain Free? Yes Yes WC - Nurse 3 - General Ulcer D/C NN Start: 08/06/21 09:27 Freq: Status: Active Protocol: Activity Type Activity Date Activity User E-sign Co-sign Detail Recorded Client Recorded Date Recorded By Document 08/06/21 10:30 KR [id number] 08/06/21 10:31 KR Document 08/13/21 09:35 KR [id number] 08/13/21 09:35 KR Document 08/20/21 09:49 MW [id number] 08/20/21 09:50 MW Document 08/27/21 09:19 KR [id number] 08/27/21 09:19 KR Document 09/03/21 10:36 MW [id number] 09/03/21 10:37 MW 08/06/21 08/13/21 08/20/21 10:30 09:35 09:49 Wound Care Nurse 3 #7- L LAT PLANTAR FOOT -Ulcer Cleansing Rinsed/ Rinsed/ Not Cleansed Irrigated with Irrigated with Saline Saline -Foul Odor after Cleansing No -Negative Pressure Wound Therapy N/A -Primary Dressing Applied Aquacel Extra Aquacel Extra -Primary Dressing Covered/Secured with Dry Gauze, Dry Gauze,Dry Dry Gauze & Secured with Gauze & Roll Roll Gauze, Tape Gauze,Secured Secured with with Tape Tape -Other Covering ABD PAD -Aquacel Extra 1 1 -Aquacel AG 4x4 Left -Lotion applied to leg before Yes compression wrap -Compression Wrap -Tubular Bandage Double Layer -Size of Tubigrip Used Size E -Size E ($) 2 -Stockings No Treatment Response Procedure Tolerated Well Pain Scale: 0-10 Numeric Is Patient Pain Free? Yes Yes Yes Teaching: Wound Center Dressing Your Wound -Person Taught Patient -Teaching Method Discussion, Demonstration -Response to teaching Verbalize understanding WC - Visit Discharge Discharge Condition Stable Stable Stable Ambulatory Status Wheelchair Wheelchair Wheelchair Transportation Private Auto Private Auto Private Auto Accompanied by SELF Medication Reconcilliation completed & No provided to patient/care provider Clinical Summary of Care Provided Yes 08/27/21 09/03/21 09:19 10:36 Wound Care Nurse 3 #7- L LAT PLANTAR FOOT -Ulcer Cleansing Rinsed/ Rinsed/ Irrigated with Irrigated with Saline Saline -Foul Odor after Cleansing No -Negative Pressure Wound Therapy N/A -Primary Dressing Applied Aquacel AG 4x4 Aquacel Extra -Primary Dressing Covered/Secured with Dry Gauze,Dry Dry Gauze & Gauze & Roll Roll Gauze, Gauze,Secured Secured with with Tape Tape -Other Covering abd -Aquacel Extra 1 -Aquacel AG 4x4 1 Left -Lotion applied to leg before No compression wrap -Compression Wrap Vinay Wrap Vinay Wrap -Tubular Bandage -Size of Tubigrip Used -Size E ($) -Stockings Treatment Response Procedure Tolerated Well Pain Scale: 0-10 Numeric Is Patient Pain Free? Yes Yes Teaching: Wound Center Dressing Your Wound -Person Taught Patient -Teaching Method Discussion -Response to teaching Verbalize understanding WC - Visit Discharge Discharge Condition Stable Stable Ambulatory Status Wheelchair Wheelchair Transportation Private Auto Private Auto Accompanied by self Medication Reconcilliation completed & No provided to patient/care provider Clinical Summary of Care Provided Yes Assessment/Plan Assessment/Plan (1) Nonhealing nonsurgical wound limited to breakdown of skin: CODE(S): T14.8XXA - Other injury of unspecified body region, initial encounter (2) Diabetic foot ulcers: CODE(S): E11.621 - Type 2 diabetes mellitus with foot ulcer; L97.509 - Non-pressure chronic ulcer of other part of unspecified foot with unspecified severity QUALIFIERS: Diabetic foot ulcer location: midfoot Diabetes mellitus type: type 2 Laterality: left Non-pressure ulcer stage: with fat layer exposed Qualified Code(s): E11.621 - Type 2 diabetes mellitus with foot ulcer; L97.422 - 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 layer exposed PLAN: Epi fix #3 applied to the wound base covered with wound veil Steri-Strips gauze pad. Patient is to keep it dry only touchdown to the Steri-Strips if necessary Continue to offload foot Drink supplements of Premier 30 g of protein and increase protein intake. Follow-up 1 week (3) Pressure ulcer of foot, stage 3: CODE(S): L89.893 - Pressure ulcer of other site, stage 3 QUALIFIERS: Laterality: left Qualified Code(s): L89.893 - Pressure ulcer of other site, stage 3 (4) Polyneuropathy in diabetes: CODE(S): E11.42 - Type 2 diabetes mellitus with diabetic polyneuropathy QUALIFIERS: Diabetes mellitus type: type 2 Qualified Code(s): E11.42 - Type 2 diabetes mellitus with diabetic polyneuropathy (5) Type 2 diabetes mellitus with diabetic polyneuropathy: CODE(S): E11.42 - Type 2 diabetes mellitus with diabetic polyneuropathy QUALIFIERS: Diabetes mellitus intermediate card tender insulin use: unspecified fci insulin use status Qualified Code(s): E11.42 - Type 2 diabetes mellitus with diabetic polyneuropathy
== END 2021-09-04 23:59 | disposition home or self-care (01) ==
LOC: WC 09:30
PROVIDERS: PCP Family Medicine Sports Medicine; Visit Provider Nurse Practitioner
DX: E11.621 Type 2 diabetes mellitus with foot ulcer (principal); L89.893 Pressure ulcer of other site, stage 3; Z89.511 Acquired absence of right leg below knee; L97.422 Non-pressure 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 with fat layer exposed; E11.610 Type 2 diabetes mellitus with diabetic neuropathic arthropathy; E11.42 Type 2 diabetes mellitus with diabetic polyneuropathy; T14.8XXA Other injury of unspecified body region, initial encounter; M14.672 Charcot's joint, left ankle and foot
CPT/HCPCS: 11042; 15275; 87070; 87075; 87077; 87186; 87205; Q4186

== ENCOUNTER 2021-10-01 09:30 | Outpatient (RCR) | payer MEDICARE, SELFPAY ==
[2021-09-05 00:18] VITALS: BP 115/65; PULSE 94; RESP 16; TEMP 36.7; BMI 37.7
[2021-09-10 09:30] VITALS: BP 133/79; PULSE 87; RESP 17; TEMP 35.9; BMI 37.7
--- NOTE | 2021-09-10 10:30 | PN.PCM_ITS ---
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 He therefore wears an AFO on the left lower leg. Patient is developing Charcot and his left foot and the AFO rubs on the bone that is protruding at the left lateral foot. The area is perfectly round and positive depth about the size of a dime on the left lateral foot. Same area that always opens. Patient never follows up with Christopher about the rubbing and is gone back to his old boot. Progress of Wound: The wound itself is healing well but his ankle is swollen and its red up on his agrawal again and around the circumference of the wound. We will reculture after debridement today. Also will start him on clindamycin and metronidazole. Subjective Subjective Patient has no concerns except the swelling of the left foot and he denies any fever or chills Objective Data Objective Data As stated above the wound itself is healing well and filling in with the epi fix is we will continue with epi fix. But he has redness and swelling also suggested he wear his compression stocking better We obtained cultures of the wound because of the redness. Vital Signs: Vital Signs Temp Pulse Resp BP 96.7 F L 87 17 133/79 H 09/10/21 09:30 09/10/21 09:30 09/10/21 09:30 09/10/21 09:30 Weight: 310 lb Body Mass Index (BMI) 37.7 Physical Exam Const oriented x3 General Appearance: cooperative Exam Limitations: no limitations Resp normal respiratory effort Effort and Inspection: able to speak in complete sentences Auscultation: clear to auscultation bilaterally Cardio regular rate and regular rhythm Palpation: normal PMI Rate: regular rate Rhythm: regular rhythm Extremity Extremity Narrative: Left lateral foot wound DFU from improper footwear and offloading about the size of a dime with depth General Extremity: normal exam except as noted Skin Wound Narrative: Left lateral foot DFU wound Neuro oriented x3 Psych Appearance: grossly normal Speech: normal speech Thought Content: normal thought content Judgement: judgement good Debridement Note Debridement Note Wound debrided: Left plantar foot diabetic foot ulcer Wound Grade/Stage: Stage III Type of Debridement: Excisional debridement Anesthesia Used: 5% Lidocaine Gel Depth: in the subcutaneous layer Percentage of wound debrided: 100 Instrument Used: 5mm curette Tissue Removed: Fibrin and callus around the wound Severity: Fat Layer Exposed Amount of bleeding with debridement: Mild Bleeding Controlled with: Compression and gauze Patient tolerated procedure: Patient tolerated procedure well Post-Debridement Measurements and Additional Note: Post-Debridement Measurements/Treatment WC - Nurse 1 - General Ulcer Assessment Start: 09/10/21 09:30 Freq: Status: Active Protocol: LEWEXYuko Activity Type Activity Date Activity User E-sign Co-sign Detail Recorded Client Recorded Date Recorded By Document 09/10/21 09:30 ML [id number] 09/10/21 09:33 ML 09/10/21 09:30 WC - Today's Visit Information Type of service Follow-up Visit (Physician/[facility]RI[employer]ADER ) Arrival Mode Wheelchair Transfer Assistance None Patient Identification Verified (Name & Yes ) Patient Requires Transmission-Based No Precautions Safety Precautions NA Finger Stick Blood Sugar(mg/dl) (if 137 indicated): Blood Sugar Stated by Patient Height and Weight Body Mass Index (BMI) 37.7 BMI Classification Obese Vital Signs Temperature (97.8 F-99.1 F) 96.7 F L Temperature Source Temporal Pulse Rate (60-100) 87 Pulse Location Monitor Respiratory Rate (12-18) 17 Respiratory rate source Observation Blood Pressure (90/60-120/80) 133/79 H Blood Pressure Mean (mm Hg) 97 Source Monitor Position Sitting Blood Pressure Location Left Arm History Since Last Visit- (Skip if this is Patient's initial visit) Have you changed medications since your No last visit? Any new allergies or adverse reactions No Had a fall/change in ADL's that may No increase risk of falls Signs or symptoms of abuse and/or No neglect since last visit Have you been in the hospital since your No last visit? Has dressing in place as prescribed Yes Has compression in place as prescribed Yes Has offloadiing in place as prescribed Yes Experienced any changes in pain level or No management Left Footwear Surgical Shoe with pressure relief insole Right Footwear Regular Shoe Pain Scale: 0-10 Numeric Is Patient Pain Free? Yes GM - Nurse 1 - General Ulcer Measurement Start: 09/10/21 09:30 Freq: Status: Active Protocol: Activity Type Activity Date Activity User E-sign Co-sign Detail Recorded Client Recorded Date Recorded By Document 07/06/22 09:30 ML [id number] 09/10/21 09:33 ML 09/10/21 09:30 Wound Center Nurse 1 #7- L LAT PLANTAR FOOT -Current Size (cm) - Length 0.2 -Current Size (cm) - Width 0.5 -Current Size (cm) - Depth 0.2 -Total Square Cm 0.10 -Exudate Amt Small -Exudate Type Serous -Wound Margin Distinct, Outline Attached -Granulation Amt Medium (34-66%) -Granulation Quality [place] -Slough/Fibrin Yes -Necrosis Amt Medium (34-66%) -Necrotic Tissue Type Adherent Slough -Texture ([place]-wound Skin Appearance) Assessed -Moisture ([place]-wound Skin Appearance) Maceration -Color ([place]-wound Skin Appearance) Assessed -Ulcer Cleansing Rinsed/ Irrigated with Saline -Foul Odor after Cleansing No -Anesthetic Used 5% Lidocaine Gel WC - Nurse 2 - General Ulcer CM Notes Start: 09/10/21 09:30 Freq: Status: Active Protocol: Activity Type Activity Date Activity User E-sign Co-sign Detail Recorded Client Recorded Date Recorded By Document 09/10/21 09:49 MW [id number] 09/10/21 10:02 MW 09/10/21 09:49 Wound Center Nurse 2 -Time 09:54 -Correct Patient Yes -Correct Side, Site, Position Yes -Correct Procedure Yes -Procedure Performed Yes -Type of Procedure Debridement -Clinical Debridement Subcutaneous -Tissue Removed Subcutaneous -Post Debridement (cm) - Length 0.4 -Post Debridement (cm) - Width 0.7 -Post Debridement (cm) - Depth 0.2 -Total Square (Post) (cm) 0.28 -Area of Debridement (cm) - Length 0.4 -Area of Debridement (cm) - Width 0.7 -Total Square (Area) (cm) 0.28 -Tunneling No -Undermining/Tunneling No -Circular Undermining No -Wound/Ulcer Outcome Not Healed -Ulcer Cleansing Rinsed/ Irrigated with Saline -Foul Odor after Cleansing No -Bioengineered Tissue Yes -Type of Bioengineered Tissue Epifix 18mm Disc -Bleeding Controlled with Pressure -Treatment Response Procedure Tolerated Well -Offloading No -Debridement - Subq, 1st 20sq cm No -Apply Skin Sub - 1st 25 sq cm - Feet 1 -Epifix 18mm Disc 3 Pain Scale: 0-10 Numeric Is Patient Pain Free? Yes WC - Nurse 3 - General Ulcer D/C NN Start: 09/10/21 09:30 Freq: Status: Active Protocol: Activity Type Activity Date Activity User E-sign Co-sign Detail Recorded Client Recorded Date Recorded By Document 09/10/21 10:24 ML [id number] 09/10/21 10:25 ML 09/10/21 10:24 Wound Care Nurse 3 #7- L LAT PLANTAR FOOT -Primary Dressing Applied Aquacel Extra -Other Dressing abd -Primary Dressing Covered/Secured with Dry Gauze & Roll Gauze, Secured with Tape -Aquacel Extra 1 Left -Tubular Bandage Single Layer -Size of Tubigrip Used Size E -Size E ($) 1 Pain Scale: 0-10 Numeric Is Patient Pain Free? Yes Assessment/Plan Assessment/Plan (1) Nonhealing nonsurgical wound limited to breakdown of skin: CODE(S): T14.8XXA - Other injury of unspecified body region, initial encounter (2) Diabetic foot ulcers: CODE(S): E11.621 - Type 2 diabetes mellitus with foot ulcer; L97.509 - Non-pressure chronic ulcer of other part of unspecified foot with unspecified severity QUALIFIERS: Diabetic foot ulcer location: midfoot Diabetes mellitus type: type 2 Laterality: left Non-pressure ulcer stage: with fat layer exposed Qualified Code(s): E11.621 - Type 2 diabetes mellitus with foot ulcer; L97.422 - 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 [place] exposed PLAN: Epi fix #4 applied to the wound base covered with wound veil Steri-Strips gauze pad. Patient is to keep it dry only touchdown to the Steri-Strips if necessary Continue to offload foot Drink supplements of Premier 30 g of protein and increase protein intake. We will call with results of the cultures obtained today Patient to start clindamycin 300 mg 3 times daily for 14 days Metronidazole 250 mg 1 p.o. 3 times daily for 14 days Follow-up 1 week (3) Pressure ulcer of foot, stage 3: CODE(S): L89.893 - Pressure ulcer of other site, stage 3 QUALIFIERS: Laterality: left Qualified Code(s): L89.893 - Pressure ulcer of other site, stage 3 (4) Polyneuropathy in diabetes: CODE(S): E11.42 - Type 2 diabetes mellitus with diabetic polyneuropathy QUALIFIERS: Diabetes mellitus type: type 2 Qualified Code(s): E11.42 - Type 2 diabetes mellitus with diabetic polyneuropathy (5) Type 2 diabetes mellitus with diabetic polyneuropathy: CODE(S): E11.42 - Type 2 diabetes mellitus with diabetic polyneuropathy QUALIFIERS: Diabetes mellitus [facility] insulin use: unspecified [facility] insulin use status Qualified Code(s): E11.42 - Type 2 diabetes mellitus with diabetic polyneuropathy
[2021-09-17 11:22] VITALS: BP 111/55; PULSE 104; TEMP 35.7; BMI 37.7
--- NOTE | 2021-09-17 12:07 | PN.PCM_ITS ---
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 He therefore wears an AFO on the left lower leg. Patient is developing Charcot and his left foot and the AFO rubs on the bone that is protruding at the left lateral foot. The area is perfectly round and positive depth about the size of a dime on the left lateral foot. Same area that always opens. Patient never follows up with Christopher about the rubbing and is gone back to his old boot. Progress of Wound: The wound itself is healing well. Patient cultured out a bug that we really do not treat. Suggested he is having problems with the clindamycin we will stop the clindamycin he can just take the Flagyl till it is done. We will continue with epi fix Subjective Subjective Patient is complaining that it is making him sick the clindamycin Objective Data Objective Data Wound itself looks very good we will apply epi #5 to the wound base filling in nicely. Noticing some maceration probably from not being changed for a week. Vital Signs: Vital Signs Temp Pulse Resp BP 96.2 F L 104 H 17 111/55 L 09/17/21 11:22 09/17/21 11:22 09/10/21 09:30 09/17/21 11:22 Weight: 310 lb Body Mass Index (BMI) 37.7 Lab / Micro Data Attestation: I reviewed the patient's lab results. Micro: Microbiology 09/10/21 10:00 Wound - Other Gram Stain - Final 09/10/21 10:00 Wound - Other Wound Culture - Final Corynebacterium striatum 09/10/21 10:00 Wound - Other Anaerobic Culture - Final No anaerobic bacteria isolated. Physical Exam Const oriented x3 General Appearance: cooperative Exam Limitations: no limitations Resp normal respiratory effort Effort and Inspection: able to speak in complete sentences Auscultation: clear to auscultation bilaterally Cardio regular rate and regular rhythm Palpation: normal PMI Rate: regular rate Rhythm: regular rhythm Extremity Extremity Narrative: Left lateral foot wound DFU from improper footwear and offloading about the size of a dime with depth General Extremity: normal exam except as noted Skin Wound Narrative: Left lateral foot DFU wound Neuro oriented x3 Psych Appearance: grossly normal Speech: normal speech Thought Content: normal thought content Judgement: judgement good Debridement Note Debridement Note Wound debrided: Left lateral and plantar foot pressure ulcer Laterality: Left Wound Grade/Stage: Stage III Anesthesia Used: 4% Lidocaine Solution and 5% Lidocaine Gel Depth: in the subcutaneous layer Percentage of wound debrided: 100 Instrument Used: 5mm curette Tissue Removed: Callus Severity: Limited To Skin Breakdown Amount of bleeding with debridement: None Patient tolerated procedure: Patient tolerated procedure well Post-Debridement Measurements and Additional Note: Post-Debridement Measurements/Treatment - Nurse 1 - General Ulcer Assessment Start: 09/10/21 09:30 Freq: Status: Active Protocol: GMHotPadsEXYuko Activity Type Activity Date Activity User E-sign Co-sign Detail Recorded Client Recorded Date Recorded By Document 09/10/21 09:30 ML [id number] 09/10/21 09:33 ML Document 09/17/21 11:22 AK [id number] 09/17/21 11:26 AK 09/10/21 09/17/21 09:30 11:22 - Today's Visit Information Type of service Follow-up Visit Follow-up Visit (Physician/CASUAL SHOE INSPECTOR (Physician/CASUAL SHOE INSPECTOR ) ) Arrival Mode Wheelchair Ambulatory Transfer Assistance None Patient Identification Verified (Name & Yes No ) Patient Requires Transmission-Based No No Precautions Safety Precautions NA NA Finger Stick Blood Sugar(mg/dl) (if 137 indicated): Blood Sugar Stated by Patient Height and Weight Body Mass Index (BMI) 37.7 37.7 BMI Classification Obese Obese Vital Signs Temperature (97.8 F-99.1 F) 96.7 F L 96.2 F L Temperature Source Temporal Temporal Pulse Rate (60-100) 87 104 H Pulse Location Monitor Monitor Respiratory Rate (12-18) 17 Respiratory rate source Observation Blood Pressure (90/60-120/80) 133/79 H 111/55 L Blood Pressure Mean (mm Hg) 97 73 Source Monitor Monitor Position Sitting Blood Pressure Location Left Arm History Since Last Visit- (Skip if this is Patient's initial visit) Have you changed medications since your No No last visit? Any new allergies or adverse reactions No No Had a fall/change in ADL's that may No No increase risk of falls Signs or symptoms of abuse and/or No No neglect since last visit Have you been in the hospital since your No No last visit? Has dressing in place as prescribed Yes Yes Has compression in place as prescribed Yes Yes Has offloadiing in place as prescribed Yes N/A Experienced any changes in pain level or No No management Left Footwear Surgical Shoe Regular Shoe with pressure relief insole Right Footwear Regular Shoe Pain Scale: 0-10 Numeric Is Patient Pain Free? Yes Yes WC - Nurse 1 - General Ulcer Measurement Start: 09/10/21 09:30 Freq: Status: Active Protocol: Activity Type Activity Date Activity User E-sign Co-sign Detail Recorded Client Recorded Date Recorded By Document 09/10/21 09:30 ML [id number] 09/10/21 09:33 ML Document 09/17/21 11:22 AK [id number] 09/17/21 11:26 AK 09/10/21 09/17/21 09:30 11:22 Wound Center Nurse 1 #7- L LAT PLANTAR FOOT -Combined with other wound No -Current Size (cm) - Length 0.2 0.3 -Current Size (cm) - Width 0.5 0.4 -Current Size (cm) - Depth 0.2 0.1 -Total Square Cm 0.10 0.12 -Photo Taken No -Tunneling No -Undermining/Tunneling No -Circular Undermining No -Change in Wound Grade/Stage No -Exudate Amt Small Small -Exudate Type Serous -Wound Margin Distinct, Distinct, Outline Outline Attached Attached -Granulation Amt Medium (34-66%) Small (1-33%) -Granulation Quality [place] -Slough/Fibrin Yes Yes -Necrosis Amt Medium (34-66%) Small (1-33%) -Necrotic Tissue Type Adherent Slough Adherent Slough -Structure Exposed N/A -Texture ([place]-wound Skin Appearance) Assessed No Abnormality, Assessed -Moisture ([place]-wound Skin Appearance) Maceration No Abnormality, Assessed -Color ([place]-wound Skin Appearance) Assessed No Abnormality, Assessed -Temperature ([place]-wound Skin No Abnormality Appearance) (Pt Warm) -Tenderness on Palpation ([place]-wound No Skin Appearance) -Ulcer Cleansing Rinsed/ Rinsed/ Irrigated with Irrigated with Saline Saline -Foul Odor after Cleansing No No -Anesthetic Used 5% Lidocaine 5% Lidocaine Gel Gel Right Calf (cm) 40 Right Ankle (cm) 24 WC - Nurse 2 - General Ulcer CM Notes Start: 09/10/21 09:30 Freq: Status: Active Protocol: Activity Type Activity Date Activity User E-sign Co-sign Detail Recorded Client Recorded Date Recorded By Document 09/10/21 09:49 MW [id number] 09/10/21 10:02 MW Document 09/17/21 09:47 MW [id number] 09/17/21 09:54 MW 09/10/21 09/17/21 09:49 09:47 Wound Center Nurse 2 #7- L LAT PLANTAR FOOT -Time 09:54 09:49 -Correct Patient Yes Yes -Correct Side, Site, Position Yes Yes -Correct Procedure Yes Yes -Procedure Performed Yes Yes -Type of Procedure Debridement Debridement -Clinical Debridement Subcutaneous Subcutaneous -Tissue Removed Subcutaneous Subcutaneous -Post Debridement (cm) - Length 0.4 0.5 -Post Debridement (cm) - Width 0.7 0.5 -Post Debridement (cm) - Depth 0.2 0.1 -Total Square (Post) (cm) 0.28 0.25 -Area of Debridement (cm) - Length 0.4 0.5 -Area of Debridement (cm) - Width 0.7 0.5 -Total Square (Area) (cm) 0.28 0.25 -Tunneling No No -Undermining/Tunneling No No -Circular Undermining No No -Wound/Ulcer Outcome Not Healed Not Healed -Ulcer Cleansing Rinsed/ Rinsed/ Irrigated with Irrigated with Saline Saline -Foul Odor after Cleansing No No -Bioengineered Tissue Yes Yes -Type of Bioengineered Tissue Epifix 18mm Epifix 18mm Disc Disc -Expiration Date 07/06/26 -Product Lot Number [id number] -Percent Used 100 -Lot number of Saline Used [id number] -Bleeding Controlled with Pressure Pressure -Treatment Response Procedure Procedure Tolerated Well Tolerated Well -Offloading No No -Debridement - Subq, 1st 20sq cm No No -Apply Skin Sub - 1st 25 sq cm - Feet 1 1 -Epifix 18mm Disc 3 3 Pain Scale: 0-10 Numeric Is Patient Pain Free? Yes Yes WC - Nurse 3 - General Ulcer D/C NN Start: 09/10/21 09:30 Freq: Status: Active Protocol: Activity Type Activity Date Activity User E-sign Co-sign Detail Recorded Client Recorded Date Recorded By Document 09/10/21 10:24 ML [id number] 09/10/21 10:25 ML Document 09/17/21 09:54 MW [id number] 09/17/21 09:55 MW 09/10/21 09/17/21 10:24 09:54 Wound Care Nurse 3 #7- L LAT PLANTAR FOOT -Ulcer Cleansing Not Cleansed -Foul Odor after Cleansing No -Negative Pressure Wound Therapy N/A -Primary Dressing Applied Aquacel Extra -Other Dressing abd -Primary Dressing Covered/Secured with Dry Gauze & Dry Gauze & Roll Gauze, Roll Gauze, Secured with Secured with Tape Tape -Other Covering ABD pad -Aquacel Extra 1 Left -Lotion applied to leg before No compression wrap -Compression Wrap [place] Wrap -Tubular Bandage Single Layer -Size of Tubigrip Used Size E -Size E ($) 1 Treatment Response Procedure Tolerated Well Pain Scale: 0-10 Numeric Is Patient Pain Free? Yes Yes Teaching: Wound Center Dressing Your Wound -Person Taught Patient -Teaching Method Discussion -Response to teaching Return demonstration WC - Visit Discharge Discharge Condition Stable Ambulatory Status Wheelchair Transportation Private Auto Accompanied by self Medication Reconcilliation completed & No provided to patient/care provider Clinical Summary of Care Provided Yes Assessment/Plan Assessment/Plan (1) Nonhealing nonsurgical wound limited to breakdown of skin: CODE(S): T14.8XXA - Other injury of unspecified body region, initial encounter (2) Diabetic foot ulcers: CODE(S): E11.621 - Type 2 diabetes mellitus with foot ulcer; L97.509 - Non-pressure chronic ulcer of other part of unspecified foot with unspecified severity QUALIFIERS: Diabetic foot ulcer location: midfoot Diabetes mellitus type: type 2 Laterality: left Non-pressure ulcer stage: with fat layer exposed Qualified Code(s): E11.621 - Type 2 diabetes mellitus with foot ulcer; L97.422 - 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 layer exposed PLAN: Epi fix #5 applied to the wound base covered with wound veil Steri-Strips gauze pad. Patient is to keep it dry only touchdown to the Steri-Strips if necessary Continue to offload foot Drink supplements of Premier 30 g of protein and increase protein intake. We will call with results of the cultures obtained today Stop clindamycin 300 mg 3 times daily and continue metronidazole 250 mg 1 p.o. 3 times daily for 14 days Follow-up 1 week (3) Pressure ulcer of foot, stage 3: CODE(S): L89.893 - Pressure ulcer of other site, stage 3 QUALIFIERS: Laterality: left Qualified Code(s): L89.893 - Pressure ulcer of other site, stage 3 (4) Polyneuropathy in diabetes: CODE(S): E11.42 - Type 2 diabetes mellitus with diabetic polyneuropathy QUALIFIERS: Diabetes mellitus type: type 2 Qualified Code(s): E11.42 - Type 2 diabetes mellitus with diabetic polyneuropathy (5) Type 2 diabetes mellitus with diabetic polyneuropathy: CODE(S): E11.42 - Type 2 diabetes mellitus with diabetic polyneuropathy QUALIFIERS: Diabetes mellitus [facility] insulin use: unspecified [employer] insulin use status Qualified Code(s): E11.42 - Type 2 diabetes mellitus with diabetic polyneuropathy
[2021-09-24 09:48] VITALS: BP 114/64; PULSE 64; TEMP 36.1; BMI 37.7
--- NOTE | 2021-09-24 12:13 | PN.PCM_ITS ---
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 He therefore wears an AFO on the left lower leg. Patient is developing Charcot and his left foot and the AFO rubs on the bone that is protruding at the left lateral foot. The area is perfectly round and positive depth about the size of a dime on the left lateral foot. Same area that always opens. Patient never follows up with Christopher about the rubbing and is gone back to his old boot. Progress of Wound: The wound itself is healing well. Patient cultured out a bug that we really do not treat. The wound on the left lateral foot looks better but his whole leg from ankle up is all red and he has a streak going up into his groin with pain. Patient states he has a lot of problems with chronic cellulitis in this leg. He usually ends up in the hospital. We will send him over for labs culture blood and get a CBC also Subjective Subjective Patient states this always happens and that is why he sees infectious disease doctor. Suggested he make appointment immediately with infectious disease also and will fax over results of her labs Objective Data Objective Data I am concerned about the color of the leg and streak going up into his groin with pain. Told the patient he gets worse just go to the hospital he will get labs drawn today hopefully we can give him some answers right away as to if he should just go to the hospital for IV antibiotics and follow-up with his infectious disease doctor. In the meantime we will go ahead and start him on linezolid 600 mg twice a day for 14 days until we get the results back Vital Signs: Vital Signs Temp Pulse Resp BP 97.0 F L 64 17 114/64 09/24/21 09:48 09/24/21 09:48 09/10/21 09:30 09/24/21 09:48 Weight: 310 lb Body Mass Index (BMI) 37.7 Lab / Micro Data Micro: Microbiology 09/10/21 10:00 Wound - Other Gram Stain - Final 09/10/21 10:00 Wound - Other Wound Culture - Final Corynebacterium striatum 09/10/21 10:00 Wound - Other Anaerobic Culture - Final No anaerobic bacteria isolated. Physical Exam Const oriented x3 General Appearance: cooperative Exam Limitations: no limitations Resp normal respiratory effort Effort and Inspection: able to speak in complete sentences Auscultation: clear to auscultation bilaterally Cardio regular rate and regular rhythm Palpation: normal PMI Rate: regular rate Rhythm: regular rhythm Extremity Extremity Narrative: Left lateral foot wound DFU from improper footwear and offloading about the size of a dime with depth General Extremity: normal exam except as noted Skin Wound Narrative: Left lateral foot DFU wound Neuro oriented x3 Psych Appearance: grossly normal Speech: normal speech Thought Content: normal thought content Judgement: judgement good Debridement Note Debridement Note Wound debrided: Left plantar ulcer Laterality: Left Wound Grade/Stage: Stage III Type of Debridement: Excisional debridement Anesthesia Used: 5% Lidocaine Gel Depth: Down to and including healthy tissue Percentage of wound debrided: 100 Instrument Used: 3mm curette Tissue Removed: Fibrin Severity: Limited To Skin Breakdown Amount of bleeding with debridement: Mild Bleeding Controlled with: Compression and gauze Patient tolerated procedure: Patient tolerated procedure well Post-Debridement Measurements and Additional Note: Post-Debridement Measurements/Treatment - Nurse 1 - General Ulcer Assessment Start: 09/10/21 09:30 Freq: Status: Active Protocol: MARIEL Activity Type Activity Date Activity User E-sign Co-sign Detail Recorded Client Recorded Date Recorded By Document 09/10/21 09:30 ML [id number] 09/10/21 09:33 ML Document 09/17/21 11:22 AK [id number] 09/17/21 11:26 AK Document 09/24/21 09:48 KR [id number] 09/24/21 09:50 KR 09/10/21 09/17/21 09/24/21 09:30 11:22 09:48 - Today's Visit Information Type of service Follow-up Visit Follow-up Visit Follow-up Visit (Physician/NEONATAL DOCTOR (Physician/NEONATAL DOCTOR (Physician/NEONATAL DOCTOR ) ) ) Arrival Mode Wheelchair Ambulatory Wheelchair Transfer Assistance None Patient Identification Verified (Name & Yes No Yes ) Patient Requires Transmission-Based No No Precautions Safety Precautions NA NA Finger Stick Blood Sugar(mg/dl) (if 137 indicated): Blood Sugar Stated by Patient Height and Weight Body Mass Index (BMI) 37.7 37.7 37.7 BMI Classification Obese Obese Obese Vital Signs Temperature (97.8 F-99.1 F) 96.7 F L 96.2 F L 97.0 F L Temperature Source Temporal Temporal Temporal Pulse Rate (60-100) 87 104 H 64 Pulse Location Monitor Monitor Monitor Respiratory Rate (12-18) 17 Respiratory rate source Observation Blood Pressure (90/60-120/80) 133/79 H 111/55 L 114/64 Blood Pressure Mean (mm Hg) 97 73 80 Source Monitor Monitor Monitor Position Sitting Sitting Blood Pressure Location Left Arm Left Arm History Since Last Visit- (Skip if this is Patient's initial visit) Have you changed medications since your No No No last visit? Any new allergies or adverse reactions No No No Had a fall/change in ADL's that may No No No increase risk of falls Signs or symptoms of abuse and/or No No No neglect since last visit Have you been in the hospital since your No No No last visit? Has dressing in place as prescribed Yes Yes Yes Has compression in place as prescribed Yes Yes N/A Has offloadiing in place as prescribed Yes N/A N/A Experienced any changes in pain level or No No No management Left Footwear Surgical Shoe Regular Shoe with pressure relief insole Right Footwear Regular Shoe Pain Scale: 0-10 Numeric Is Patient Pain Free? Yes Yes Yes WC - Nurse 1 - General Ulcer Measurement Start: 09/10/21 09:30 Freq: Status: Active Protocol: Activity Type Activity Date Activity User E-sign Co-sign Detail Recorded Client Recorded Date Recorded By Document 09/10/21 09:30 ML [id number] 09/10/21 09:33 ML Document 09/17/21 11:22 AK [id number] 09/17/21 11:26 AK Document 09/24/21 09:48 KR [id number] 09/24/21 09:50 KR 09/10/21 09/17/21 09/24/21 09:30 11:22 09:48 Wound Center Nurse 1 #7- L LAT PLANTAR FOOT -Combined with other wound No -Current Size (cm) - Length 0.2 0.3 0.3 -Current Size (cm) - Width 0.5 0.4 0.5 -Current Size (cm) - Depth 0.2 0.1 0.1 -Total Square Cm 0.10 0.12 0.15 -Photo Taken No -Tunneling No -Undermining/Tunneling No -Circular Undermining No -Change in Wound Grade/Stage No -Exudate Amt Small Small None Present -Exudate Type Serous -Wound Margin Distinct, Distinct, Distinct, Outline Outline Outline Attached Attached Attached -Granulation Amt Medium (34-66%) Small (1-33%) Small (1-33%) -Granulation Quality [place] -Slough/Fibrin Yes Yes -Necrosis Amt Medium (34-66%) Small (1-33%) None Present (0 %) -Necrotic Tissue Type Adherent Slough Adherent Slough -Structure Exposed N/A -Texture ([place]-wound Skin Appearance) Assessed No Abnormality, Assessed, Assessed Scarring -Moisture ([place]-wound Skin Appearance) Maceration No Abnormality, No Abnormality, Assessed Assessed -Color ([place]-wound Skin Appearance) Assessed No Abnormality, No Abnormality, Assessed Assessed -Temperature ([place]-wound Skin No Abnormality No Abnormality Appearance) (Pt Warm) (Pt Warm) -Tenderness on Palpation ([place]-wound No No Skin Appearance) -Ulcer Cleansing Rinsed/ Rinsed/ Rinsed/ Irrigated with Irrigated with Irrigated with Saline Saline Saline -Foul Odor after Cleansing No No No -Anesthetic Used 5% Lidocaine 5% Lidocaine 5% Lidocaine Gel Gel Gel Right Calf (cm) 40 Right Ankle (cm) 24 WC - Nurse 2 - General Ulcer CM Notes Start: 09/10/21 09:30 Freq: Status: Active Protocol: Activity Type Activity Date Activity User E-sign Co-sign Detail Recorded Client Recorded Date Recorded By Document 09/10/21 09:49 MW [id number] 09/10/21 10:02 MW Document 09/17/21 09:47 MW [id number] 09/17/21 09:54 MW Document 09/24/21 10:05 MW [id number] 09/24/21 10:15 MW 09/10/21 09/17/21 09/24/21 09:49 09:47 10:05 Wound Center Nurse 2 #7- L LAT PLANTAR FOOT -Time 09:54 09:49 10:06 -Correct Patient Yes Yes Yes -Correct Side, Site, Position Yes Yes Yes -Correct Procedure Yes Yes Yes -Procedure Performed Yes Yes Yes -Type of Procedure Debridement Debridement Debridement -Clinical Debridement Subcutaneous Subcutaneous Subcutaneous -Tissue Removed Subcutaneous Subcutaneous Subcutaneous -Post Debridement (cm) - Length 0.4 0.5 0.3 -Post Debridement (cm) - Width 0.7 0.5 0.3 -Post Debridement (cm) - Depth 0.2 0.1 0.2 -Total Square (Post) (cm) 0.28 0.25 0.09 -Area of Debridement (cm) - Length 0.4 0.5 0.3 -Area of Debridement (cm) - Width 0.7 0.5 0.3 -Total Square (Area) (cm) 0.28 0.25 0.09 -Tunneling No No No -Undermining/Tunneling No No No -Circular Undermining No No No -Wound/Ulcer Outcome Not Healed Not Healed Not Healed -Ulcer Cleansing Rinsed/ Rinsed/ Rinsed/ Irrigated with Irrigated with Irrigated with Saline Saline Saline -Foul Odor after Cleansing No No No -Bioengineered Tissue Yes Yes Yes -Type of Bioengineered Tissue Epifix 18mm Epifix 18mm Epifix 18mm Disc Disc Disc -Expiration Date 07/06/26 07/06/26 -Product Lot Number [id number] -Percent Used 100 100 -Lot number of Saline Used [id number] -Bleeding Controlled with Pressure Pressure Pressure -Treatment Response Procedure Procedure Procedure Tolerated Well Tolerated Well Tolerated Well -Offloading No No -Debridement - Subq, 1st 20sq cm No No No -Apply Skin Sub - 1st 25 sq cm - Feet 1 1 1 -Epifix 18mm Disc 3 3 3 Pain Scale: 0-10 Numeric Is Patient Pain Free? Yes Yes Yes - Nurse 3 - General Ulcer D/C NN Start: 09/10/21 09:30 Freq: Status: Active Protocol: Activity Type Activity Date Activity User E-sign Co-sign Detail Recorded Client Recorded Date Recorded By Document 09/10/21 10:24 ML [id number] 09/10/21 10:25 ML Document 09/17/21 09:54 MW [id number] 09/17/21 09:55 MW Document 09/24/21 10:26 KR [id number] 09/24/21 10:26 KR 07/08/2709/17/21 09/24/21 10:24 09:54 10:26 Wound Care Nurse 3 #7- L LAT PLANTAR FOOT -Ulcer Cleansing Not Cleansed -Foul Odor after Cleansing No -Negative Pressure Wound Therapy N/A -Primary Dressing Applied Aquacel Extra Aquacel Extra -Other Dressing abd -Primary Dressing Covered/Secured with Dry Gauze & Dry Gauze & Dry Gauze, Roll Gauze, Roll Gauze, Secured with Secured with Secured with Tape Tape Tape -Other Covering ABD pad -Aquacel Extra 1 1 Left -Lotion applied to leg before No compression wrap -Compression Wrap Vinay Wrap -Tubular Bandage Single Layer -Size of Tubigrip Used Size E -Size E ($) 1 Treatment Response Procedure Tolerated Well Pain Scale: 0-10 Numeric Is Patient Pain Free? Yes Yes Yes Teaching: Wound Center Dressing Your Wound -Person Taught Patient -Teaching Method Discussion -Response to teaching Return demonstration WC - Visit Discharge Discharge Condition Stable Stable Ambulatory Status Wheelchair Wheelchair Transportation Private Auto Private Auto Accompanied by self Medication Reconcilliation completed & No provided to patient/care provider Clinical Summary of Care Provided Yes Assessment/Plan Assessment/Plan (1) Nonhealing nonsurgical wound limited to breakdown of skin: CODE(S): T14.8XXA - Other injury of unspecified body region, initial encounter (2) Diabetic foot ulcers: CODE(S): E11.621 - Type 2 diabetes mellitus with foot ulcer; L97.509 - Non-pressure chronic ulcer of other part of unspecified foot with unspecified severity QUALIFIERS: Diabetic foot ulcer location: midfoot Diabetes mellitus type: type 2 Laterality: left Non-pressure ulcer stage: with fat layer exposed Qualified Code(s): E11.621 - Type 2 diabetes mellitus with foot ulcer; L97.422 - 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 layer exposed PLAN: Epi fix #6 applied to the wound base covered with wound veil Steri-Strips gauze pad. Patient is to keep it dry only touchdown to the Steri-Strips if necessary Continue to offload foot Drink supplements of Premier 30 g of protein and increase protein intake. We will call with lab results and culture results and will get them faxed to his infectious disease doctor also Follow-up 1 week (3) Pressure ulcer of foot, stage 3: CODE(S): L89.893 - Pressure ulcer of other site, stage 3 QUALIFIERS: Laterality: left Qualified Code(s): L89.893 - Pressu re ulcer of other site, stage 3 (4) Polyneuropathy in diabetes: CODE(S): E11.42 - Type 2 diabetes mellitus with diabetic polyneuropathy QUALIFIERS: Diabetes mellitus type: type 2 Qualified Code(s): E11.42 - Type 2 diabetes mellitus with diabetic polyneuropathy (5) Type 2 diabetes mellitus with diabetic polyneuropathy: CODE(S): E11.42 - Type 2 diabetes mellitus with diabetic polyneuropathy QUALIFIERS: Diabetes mellitus termite exterminator helper insulin use: unspecified termite exterminator helper insulin use status Qualified Code(s): E11.42 - Type 2 diabetes mellitus with diabetic polyneuropathy
[2021-10-01 09:39] VITALS: BP 145/95; PULSE 95; TEMP 36.2; BMI 37.7
--- NOTE | 2021-10-01 11:47 | PN.PCM_ITS ---
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 He therefore wears an AFO on the left lower leg. Patient is developing Charcot and his left foot and the AFO rubs on the bone that is protruding at the left lateral foot. The area is perfectly round and positive depth about the size of a dime on the left lateral foot. Same area that always opens. Patient never follows up with Christopher about the rubbing and is gone back to his old boot. Progress of Wound: The left lateral foot ulcer is almost healed healing will receive his epi fix #7. The whole foot looks healthy and his leg is no longer red and inflamed Patient is taking his antibiotics as prescribed and cultures came back negative. Subjective Subjective Patient is pleased with the response Objective Data Objective Data Wound is healing well we will reapply an epi fix it may heal next week. Vital Signs: Vital Signs Temp Pulse Resp BP 97.2 F L 95 17 145/95 H 10/01/21 09:39 10/01/21 09:39 09/10/21 09:30 10/01/21 09:39 Weight: 310 lb Body Mass Index (BMI) 37.7 Lab / Micro Data Micro: Microbiology 09/24/21 10:10 Wound Abcess - Left Foot Gram Stain - Final 09/24/21 10:10 Wound Abcess - Left Foot Wound Culture - Final Corynebacterium minutissimum 09/24/21 10:10 Wound Abcess - Left Foot Anaerobic Culture - Final No anaerobic bacteria isolated. 09/10/21 10:00 Wound - Other Gram Stain - Final 09/10/21 10:00 Wound - Other Wound Culture - Final Corynebacterium striatum 09/10/21 10:00 Wound - Other Anaerobic Culture - Final No anaerobic bacteria isolated. Physical Exam Const oriented x3 General Appearance: cooperative Exam Limitations: no limitations Resp normal respiratory effort Effort and Inspection: able to speak in complete sentences Auscultation: clear to auscultation bilaterally Cardio regular rate and regular rhythm Palpation: normal PMI Rate: regular rate Rhythm: regular rhythm Extremity Extremity Narrative: Left lateral foot wound DFU from improper footwear and offloading about the size of a dime with depth General Extremity: normal exam except as noted Skin Wound Narrative: Left lateral foot DFU wound Neuro oriented x3 Psych Appearance: grossly normal Speech: normal speech Thought Content: normal thought content Judgement: judgement good Debridement Note Debridement Note Wound debrided: Left lateral plantar foot ulcer Laterality: Left Wound Grade/Stage: Stage III Type of Debridement: Selective debridement Anesthesia Used: 5% Lidocaine Gel Depth: Down to and including healthy tissue Percentage of wound debrided: 100 Instrument Used: - (Gauze) Tissue Removed: Devitalized tissue Severity: Limited To Skin Breakdown Amount of bleeding with debridement: None Patient tolerated procedure: Patient tolerated procedure well Post-Debridement Measurements and Additional Note: Post-Debridement Measurements/Treatment - Nurse 1 - General Ulcer Assessment Start: 09/10/21 09:30 Freq: Status: Active Protocol: MARIEL Activity Type Activity Date Activity User E-sign Co-sign Detail Recorded Client Recorded Date Recorded By Document 09/10/21 09:30 ML [id number] 09/10/21 09:33 ML Document 09/17/21 11:22 AK [id number] 09/17/21 11:26 AK Document 09/24/21 09:48 KR [id number] 09/24/21 09:50 KR Document 10/01/21 09:39 KR [id number] 10/01/21 09:44 KR 09/10/21 09/17/21 09/24/21 09:30 11:22 09:48 - Today's Visit Information Type of service Follow-up Visit Follow-up Visit Follow-up Visit (Physician/MANAGER TRANSFER (Physician/MANAGER TRANSFER (Physician/MANAGER TRANSFER ) ) ) Arrival Mode Wheelchair Ambulatory Wheelchair Transfer Assistance None Patient Identification Verified (Name & Yes No Yes ) Patient Requires Transmission-Based No No Precautions Safety Precautions NA NA Finger Stick Blood Sugar(mg/dl) (if 137 indicated): Blood Sugar Stated by Patient Height and Weight Body Mass Index (BMI) 37.7 37.7 37.7 BMI Classification Obese Obese Obese Vital Signs Temperature (97.8 F-99.1 F) 96.7 F L 96.2 F L 97.0 F L Temperature Source Temporal Temporal Temporal Pulse Rate (60-100) 87 104 H 64 Pulse Location Monitor Monitor Monitor Respiratory Rate (12-18) 17 Respiratory rate source Observation Blood Pressure (90/60-120/80) 133/79 H 111/55 L 114/64 Blood Pressure Mean (mm Hg) 97 73 80 Source Monitor Monitor Monitor Position Sitting Sitting Blood Pressure Location Left Arm Left Arm History Since Last Visit- (Skip if this is Patient's initial visit) Have you changed medications since your No No No last visit? Any new allergies or adverse reactions No No No Had a fall/change in ADL's that may No No No increase risk of falls Signs or symptoms of abuse and/or No No No neglect since last visit Have you been in the hospital since your No No No last visit? Has dressing in place as prescribed Yes Yes Yes Has compression in place as prescribed Yes Yes N/A Has offloadiing in place as prescribed Yes N/A N/A Experienced any changes in pain level or No No No management Left Footwear Surgical Shoe Regular Shoe with pressure relief insole Right Footwear Regular Shoe Pain Scale: 0-10 Numeric Is Patient Pain Free? Yes Yes Yes 10/01/21 09:39 WC - Today's Visit Information Type of service Follow-up Visit (Physician/MANAGER TRANSFER ) Arrival Mode Wheelchair Transfer Assistance Patient Identification Verified (Name & Yes ) Patient Requires Transmission-Based Precautions Safety Precautions Finger Stick Blood Sugar(mg/dl) (if indicated): Blood Sugar Height and Weight Body Mass Index (BMI) 37.7 BMI Classification Obese Vital Signs Temperature (97.8 F-99.1 F) 97.2 F L Temperature Source Temporal Pulse Rate (60-100) 95 Pulse Location Monitor Respiratory Rate (12-18) Respiratory rate source Blood Pressure (90/60-120/80) 145/95 H Blood Pressure Mean (mm Hg) 111 Source Monitor Position Semi-Fowlers Blood Pressure Location Right Arm History Since Last Visit- (Skip if this is Patient's initial visit) Have you changed medications since your No last visit? Any new allergies or adverse reactions No Had a fall/change in ADL's that may No increase risk of falls Signs or symptoms of abuse and/or No neglect since last visit Have you been in the hospital since your No last visit? Has dressing in place as prescribed Yes Has compression in place as prescribed Yes Has offloadiing in place as prescribed Yes Experienced any changes in pain level or No management Left Footwear Right Footwear Pain Scale: 0-10 Numeric Is Patient Pain Free? Yes WC - Nurse 1 - General Ulcer Measurement Start: 09/10/21 09:30 Freq: Status: Active Protocol: Activity Type Activity Date Activity User E-sign Co-sign Detail Recorded Client Recorded Date Recorded By Document 09/10/21 09:30 ML [id number] 09/10/21 09:33 ML Document 09/17/21 11:22 AK [id number] 09/17/21 11:26 AK Document 09/24/21 09:48 KR [id number] 09/24/21 09:50 KR Document 10/01/21 09:39 KR [id number] 10/01/21 09:44 KR 09/10/21 09/17/21 09/24/21 09:30 11:22 09:48 Wound Center Nurse 1 #7- L LAT PLANTAR FOOT -Combined with other wound No -Current Size (cm) - Length 0.2 0.3 0.3 -Current Size (cm) - Width 0.5 0.4 0.5 -Current Size (cm) - Depth 0.2 0.1 0.1 -Total Square Cm 0.10 0.12 0.15 -Photo Taken No -Tunneling No -Undermining/Tunneling No -Circular Undermining No -Change in Wound Grade/Stage No -Exudate Amt Small Small None Present -Exudate Type Serous -Wound Margin Distinct, Distinct, Distinct, Outline Outline Outline Attached Attached Attached -Granulation Amt Medium (34-66%) Small (1-33%) Small (1-33%) -Granulation Quality [place] -Slough/Fibrin Yes Yes -Necrosis Amt Medium (34-66%) Small (1-33%) None Present (0 %) -Necrotic Tissue Type Adherent Slough Adherent Slough -Structure Exposed N/A -Texture ([place]-wound Skin Appearance) Assessed No Abnormality, Assessed, Assessed Scarring -Moisture ([place]-wound Skin Appearance) Maceration No Abnormality, No Abnormality, Assessed Assessed -Color ([place]-wound Skin Appearance) Assessed No Abnormality, No Abnormality, Assessed Assessed -Temperature ([place]-wound Skin No Abnormality No Abnormality Appearance) (Pt Warm) (Pt Warm) -Tenderness on Palpation ([place]-wound No No Skin Appearance) -Ulcer Cleansing Rinsed/ Rinsed/ Rinsed/ Irrigated with Irrigated with Irrigated with Saline Saline Saline -Foul Odor after Cleansing No No No -Anesthetic Used 5% Lidocaine 5% Lidocaine 5% Lidocaine Gel Gel Gel Right Calf (cm) 40 Right Ankle (cm) 24 10/01/21 09:39 Wound Center Nurse 1 #7- L LAT PLANTAR FOOT -Combined with other wound -Current Size (cm) - Length 0.1 -Current Size (cm) - Width 0.1 -Current Size (cm) - Depth 0.1 -Total Square Cm 0.01 -Photo Taken -Tunneling -Undermining/Tunneling -Circular Undermining -Change in Wound Grade/Stage -Exudate Amt Small -Exudate Type Serosanguineous -Wound Margin Distinct, Outline Attached -Granulation Amt Small (1-33%) -Granulation Quality [place] -Slough/Fibrin -Necrosis Amt None Present (0 %) -Necrotic Tissue Type -Structure Exposed -Texture ([place]-wound Skin Appearance) Assessed, Scarring -Moisture ([place]-wound Skin Appearance) No Abnormality, Assessed -Color ([place]-wound Skin Appearance) No Abnormality, Assessed -Temperature ([place]-wound Skin No Abnormality Appearance) (Pt Warm) -Tenderness on Palpation ([place]-wound No Skin Appearance) -Ulcer Cleansing Soap and Water -Foul Odor after Cleansing No -Anesthetic Used 5% Lidocaine Gel Right Calf (cm) Right Ankle (cm) WC - Nurse 2 - General Ulcer CM Notes Start: 09/10/21 09:30 Freq: Status: Active Protocol: Activity Type Activity Date Activity User E-sign Co-sign Detail Recorded Client Recorded Date Recorded By Document 09/10/21 09:49 MW [id number] 09/10/21 10:02 MW Document 09/17/21 09:47 MW [id number] 09/17/21 09:54 MW Document 09/24/21 10:05 MW [id number] 09/24/21 10:15 MW Document 10/01/21 09:57 MW [id number] 10/01/21 10:03 MW 09/10/21 09/17/21 09/24/21 09:49 09:47 10:05 Wound Center Nurse 2 #7- L LAT PLANTAR FOOT -Time 09:54 09:49 10:06 -Correct Patient Yes Yes Yes -Correct Side, Site, Position Yes Yes Yes -Correct Procedure Yes Yes Yes -Procedure Performed Yes Yes Yes -Type of Procedure Debridement Debridement Debridement -Clinical Debridement Subcutaneous Subcutaneous Subcutaneous -Tissue Removed Subcutaneous Subcutaneous Subcutaneous -Post Debridement (cm) - Length 0.4 0.5 0.3 -Post Debridement (cm) - Width 0.7 0.5 0.3 -Post Debridement (cm) - Depth 0.2 0.1 0.2 -Total Square (Post) (cm) 0.28 0.25 0.09 -Area of Debridement (cm) - Length 0.4 0.5 0.3 -Area of Debridement (cm) - Width 0.7 0.5 0.3 -Total Square (Area) (cm) 0.28 0.25 0.09 -Tunneling No No No -Undermining/Tunneling No No No -Circular Undermining No No No -Wound/Ulcer Outcome Not Healed Not Healed Not Healed -Ulcer Cleansing Rinsed/ Rinsed/ Rinsed/ Irrigated with Irrigated with Irrigated with Saline Saline Saline -Foul Odor after Cleansing No No No -Bioengineered Tissue Yes Yes Yes -Type of Bioengineered Tissue Epifix 18mm Epifix 18mm Epifix 18mm Disc Disc Disc -Expiration Date 07/06/26 07/06/26 -Product Lot Number [id number] -Percent Used 100 100 -Lot number of Saline Used [id number] -Bleeding Controlled with Pressure Pressure Pressure -Treatment Response Procedure Procedure Procedure Tolerated Well Tolerated Well Tolerated Well -Offloading No No -Debridement - Open, 1st 20sq cm -Debridement - Subq, 1st 20sq cm No No No -Apply Skin Sub - 1st 25 sq cm - Feet 1 1 1 -Epifix 18mm Disc 3 3 3 Pain Scale: 0-10 Numeric Is Patient Pain Free? Yes Yes Yes 10/01/21 09:57 Wound Center Nurse 2 #7- L LAT PLANTAR FOOT -Time 09:58 -Correct Patient Yes -Correct Side, Site, Position Yes -Correct Procedure Yes -Procedure Performed Yes -Type of Procedure Debridement -Clinical Debridement Epidermis / Dermis -Tissue Removed Epidermis -Post Debridement (cm) - Length 0.2 -Post Debridement (cm) - Width 0.3 -Post Debridement (cm) - Depth 0.1 -Total Square (Post) (cm) 0.06 -Area of Debridement (cm) - Length 0.2 -Area of Debridement (cm) - Width 0.3 -Total Square (Area) (cm) 0.06 -Tunneling No -Undermining/Tunneling No -Circular Undermining No -Wound/Ulcer Outcome Not Healed -Ulcer Cleansing Rinsed/ Irrigated with Saline -Foul Odor after Cleansing No -Bioengineered Tissue Yes -Type of Bioengineered Tissue Epifix 18mm Disc -Expiration Date 07/06/26 -Product Lot Number [id number] -Percent Used 100 -Lot number of Saline Used [id number] -Bleeding Controlled with Pressure -Treatment Response Procedure Tolerated Well -Offloading No -Debridement - Open, 1st 20sq cm No -Debridement - Subq, 1st 20sq cm -Apply Skin Sub - 1st 25 sq cm - Feet 1 -Epifix 18mm Disc 3 Pain Scale: 0-10 Numeric Is Patient Pain Free? Yes WC - Nurse 3 - General Ulcer D/C NN Start: 09/10/21 09:30 Freq: Status: Active Protocol: Activity Type Activity Date Activity User E-sign Co-sign Detail Recorded Client Recorded Date Recorded By Document 09/10/21 10:24 ML [id number] 09/10/21 10:25 ML Document 09/17/21 09:54 MW [id number] 09/17/21 09:55 MW Document 09/24/21 10:26 KR [id number] 09/24/21 10:26 KR 09/10/21 09/17/21 09/24/21 10:24 09:54 10:26 Wound Care Nurse 3 #7- L LAT PLANTAR FOOT -Ulcer Cleansing Not Cleansed -Foul Odor after Cleansing No -Negative Pressure Wound Therapy N/A -Primary Dressing Applied Aquacel Extra Aquacel Extra -Other Dressing abd -Primary Dressing Covered/Secured with Dry Gauze & Dry Gauze & Dry Gauze, Roll Gauze, Roll Gauze, Secured with Secured with Secured with Tape Tape Tape -Other Covering ABD pad -Aquacel Extra 1 1 Left -Lotion applied to leg before No compression wrap -Compression Wrap Vinay Wrap -Tubular Bandage Single Layer -Size of Tubigrip Used Size E -Size E ($) 1 Treatment Response Procedure Tolerated Well Pain Scale: 0-10 Numeric Is Patient Pain Free? Yes Yes Yes Teaching: Wound Center Dressing Your Wound -Person Taught Patient -Teaching Method Discussion -Response to teaching Return demonstration WC - Visit Discharge Discharge Condition Stable Stable Ambulatory Status Wheelchair Wheelchair Transportation Private Auto Private Auto Accompanied by self Medication Reconcilliation completed & No provided to patient/care provider Clinical Summary of Care Provided Yes
== END 2021-10-05 23:59 | disposition home or self-care (01) ==
LOC: WC 09:30
PROVIDERS: PCP Family Medicine Sports Medicine; Visit Provider Nurse Practitioner
DX: E11.621 Type 2 diabetes mellitus with foot ulcer (principal); L89.893 Pressure ulcer of other site, stage 3; L97.522 Non-pressure chronic ulcer of other part of left foot with fat layer exposed; L97.422 Non-pressure 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 with fat layer exposed; E11.610 Type 2 diabetes mellitus with diabetic neuropathic arthropathy; E11.42 Type 2 diabetes mellitus with diabetic polyneuropathy
CPT/HCPCS: 15275; 87070; 87075; 87077; 87205; Q4186

== ENCOUNTER 2021-10-08 09:05 | Outpatient (RCR) | payer MEDICARE, SELFPAY ==
[2021-10-06 00:15] VITALS: BP 145/95; PULSE 95; RESP 17; TEMP 36.2; BMI 37.7
[2021-10-08 09:16] VITALS: BP 140/80; PULSE 94; TEMP 35.7; BMI 37.7
--- NOTE | 2021-10-08 10:44 | PCM.WC.PN ---
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 He therefore wears an AFO on the left lower leg. Patient is developing Charcot and his left foot and the AFO rubs on the bone that is protruding at the left lateral foot. The area is perfectly round and positive depth about the size of a dime on the left lateral foot. Same area that always opens. Patient never follows up with Christopher about the rubbing and is gone back to his old boot. Progress of Wound: Left lateral plantar foot healed patient will be discharged from the wound center. Subjective Subjective Patient is very happy Objective Data Objective Data New skin surrounding skin tissue looks normal no sign of infection or redness. The wound itself is healed patient will be discharged from the wound center Vital Signs: Vital Signs Temp Pulse Resp BP 96.3 F L 94 17 140/80 H 10/08/21 09:16 10/08/21 09:16 10/06/21 00:15 10/08/21 09:16 Weight: 310 lb Body Mass Index (BMI) 37.7 Physical Exam Const oriented x3 General Appearance: cooperative Exam Limitations: no limitations Resp normal respiratory effort Effort and Inspection: able to speak in complete sentences Auscultation: clear to auscultation bilaterally Cardio regular rate and regular rhythm Palpation: normal PMI Rate: regular rate Rhythm: regular rhythm Extremity Extremity Narrative: Left lateral foot wound DFU from improper footwear and offloading about the size of a dime with depth General Extremity: normal exam except as noted Skin Wound Narrative: Left lateral foot DFU wound Neuro oriented x3 Psych Appearance: grossly normal Speech: normal speech Thought Content: normal thought content Judgement: judgement good Debridement Note Debridement Note No debridement was completed: No debridement was completed today Post-Debridement Measurements and Additional Note: Post-Debridement Measurements/Treatment - Nurse 1 - General Ulcer Assessment Start: 10/08/21 09:16 Freq: Status: Active Protocol: MARIEL Activity Type Activity Date Activity User E-sign Co-sign Detail Recorded Client Recorded Date Recorded By Document 10/08/21 09:16 STANLEY [id number] 10/08/21 09:18 STANLEY 10/08/21 09:16 WC - Today's Visit Information Type of service Follow-up Visit (Physician/SLOPE HOIST OPERATOR ) Arrival Mode Wheelchair Patient Identification Verified (Name & Yes ) Patient Requires Transmission-Based No Precautions Safety Precautions NA Height and Weight Body Mass Index (BMI) 37.7 BMI Classification Obese Vital Signs Temperature (97.8 F-99.1 F) 96.3 F L Temperature Source Temporal Pulse Rate (60-100) 94 Pulse Location Monitor Blood Pressure (90/60-120/80) 140/80 H Blood Pressure Mean (mm Hg) 100 Source Monitor History Since Last Visit- (Skip if this is Patient's initial visit) Have you changed medications since your No last visit? Any new allergies or adverse reactions No Had a fall/change in ADL's that may No increase risk of falls Signs or symptoms of abuse and/or No neglect since last visit Have you been in the hospital since your No last visit? Has dressing in place as prescribed Yes Has compression in place as prescribed N/A Has offloadiing in place as prescribed N/A Experienced any changes in pain level or No management Right Footwear Regular Shoe Pain Scale: 0-10 Numeric Is Patient Pain Free? Yes - Nurse 1 - General Ulcer Measurement Start: 10/08/21 09:16 Freq: Status: Active Protocol: Activity Type Activity Date Activity User E-sign Co-sign Detail Recorded Client Recorded Date Recorded By Document 10/08/21 09:16 STANLEY [id number] 10/08/21 09:18 STANLEY 10/08/21 09:16 Wound Center Nurse 1 #7- L LAT PLANTAR FOOT -Combined with other wound No -Current Size (cm) - Length 0.1 -Current Size (cm) - Width 0.1 -Current Size (cm) - Depth 0.1 -Total Square Cm 0.01 -Date of Last Picture (Recall this 10/08/21 field) -Photo Taken Yes -Epithelialization None Present -Tunneling No -Undermining/Tunneling No -Circular Undermining No -Change in Wound Grade/Stage No -Exudate Amt None Present -Granulation Amt None Present (0 %) -Slough/Fibrin No -Necrosis Amt None Present (0 %) -Structure Exposed N/A -Texture ([place]-wound Skin Appearance) No Abnormality, Assessed -Moisture ([place]-wound Skin Appearance) No Abnormality, Assessed -Color ([place]-wound Skin Appearance) No Abnormality, Assessed -Temperature ([place]-wound Skin No Abnormality Appearance) (Pt Warm) -Tenderness on Palpation ([place]-wound No Skin Appearance) -Ulcer Cleansing Soap and Water -Foul Odor after Cleansing No WC - Nurse 2 - General Ulcer CM Notes Start: 10/08/21 09:16 Freq: Status: Active Protocol: Activity Type Activity Date Activity User E-sign Co-sign Detail Recorded Client Recorded Date Recorded By Document 10/08/21 10:00 PL [id number] 10/08/21 10:00 PL 10/08/21 10:00 Wound Center Nurse 2 -Procedure Performed No -Wound/Ulcer Outcome Healed- Epithelialized Pain Scale: 0-10 Numeric Is Patient Pain Free? Yes - Nurse 3 - General Ulcer D/C NN Start: 10/08/21 09:16 Freq: Status: Active Protocol: Activity Type Activity Date Activity User E-sign Co-sign Detail Recorded Client Recorded Date Recorded By Document 10/08/21 09:51 [facility] [id number] 10/08/21 09:52 [facility] 10/08/21 09:51 Wound Care Nurse 3 #7- L LAT PLANTAR FOOT -Primary Dressing Applied Other -Other Dressing PAD AND PROTECT /HEALED -Primary Dressing Covered/Secured with Secured with Tape,Other -Other Covering ABD Treatment Response Procedure Tolerated Well Pain Scale: 0-10 Numeric Is Patient Pain Free? Yes - Visit Discharge Discharge Condition Stable Ambulatory Status Ambulatory Transportation Private Auto Assessment/Plan Assessment/Plan (1) Nonhealing nonsurgical wound limited to breakdown of skin: CODE(S): T14.8XXA - Other injury of unspecified body region, initial encounter (2) Diabetic foot ulcers: CODE(S): E11.621 - Type 2 diabetes mellitus with foot ulcer; L97.509 - Non-pressure chronic ulcer of other part of unspecified foot with unspecified severity QUALIFIERS: Diabetic foot ulcer location: midfoot Diabetes mellitus type: type 2 Laterality: left Non-pressure ulcer stage: with fat layer exposed Qualified Code(s): E11.621 - Type 2 diabetes mellitus with foot ulcer; L97.422 - 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 layer exposed PLAN: Discharge from the wound center follow-up as needed (3) Pressure ulcer of foot, stage 3: CODE(S): L89.893 - Pressure ulcer of other site, stage 3 QUALIFIERS: Laterality: left Qualified Code(s): L89.893 - Pressure ulcer of other site, stage 3 PLAN: Resolved (4) Polyneuropathy in diabetes: CODE(S): E11.42 - Type 2 diabetes mellitus with diabetic polyneuropathy QUALIFIERS: Diabetes mellitus type: type 2 Qualified Code(s): E11.42 - Type 2 diabetes mellitus with diabetic polyneuropathy PLAN: Will continue wearing his AFO and boot (5) Type 2 diabetes mellitus with diabetic polyneuropathy: CODE(S): E11.42 - Type 2 diabetes mellitus with diabetic polyneuropathy QUALIFIERS: Diabetes mellitus terminal carman insulin use: unspecified senior care insulin use status Qualified Code(s): E11.42 - Type 2 diabetes mellitus with diabetic polyneuropathy
== END 2021-10-10 09:00 | disposition home or self-care (01) ==
LOC: WC 09:05
PROVIDERS: PCP Family Medicine Sports Medicine; Visit Provider Nurse Practitioner
DX: E11.621 Type 2 diabetes mellitus with foot ulcer (principal); L89.893 Pressure ulcer of other site, stage 3; L97.422 Non-pressure 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 with fat layer exposed; E11.610 Type 2 diabetes mellitus with diabetic neuropathic arthropathy; E11.42 Type 2 diabetes mellitus with diabetic polyneuropathy; T14.8XXA Other injury of unspecified body region, initial encounter
CPT/HCPCS: 87070; 87075; 87077; 87186; 87205; 99213; G0463

== ENCOUNTER 2021-11-05 09:30 | Outpatient (RCR) | payer MEDICARE, SELFPAY ==
[2021-10-29 08:11] VITALS: BP 148/80; PULSE 84; TEMP 36.3
--- NOTE | 2021-10-29 09:59 | PN.PCM_ITS ---
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 He therefore wears an AFO on the left lower leg. Patient is developing Charcot and his left foot and the AFO rubs on the bone that is protruding at the left lateral foot. Patient was healed but returned because a still not gotten a new AFO for his left foot. And developed a blister on the left lateral dorsal side of the foot that has now penetrated into the plantar side of the left foot. At the previous site that it was that. Progress of Wound: Slough we will collect cultures today. We will try him on Fibracol this time and see if that helps heal him and will wait for culture results. Has not developed any cellulitis up on his leg from this at all like he has done in the past. Subjective Subjective Patient states he did not do anything it just blistered and then it opened he has been using Aquacel extra on it since it opened. Objective Data Objective Data Vital Signs: Vital Signs Temp Pulse BP 97.3 F L 84 148/80 H 10/29/21 08:11 10/29/21 08:11 10/29/21 08:11 Physical Exam Const oriented x3 General Appearance: cooperative Exam Limitations: no limitations Resp normal respiratory effort Effort and Inspection: able to speak in complete sentences Auscultation: clear to auscultation bilaterally Cardio regular rate and regular rhythm Palpation: normal PMI Rate: regular rate Rhythm: regular rhythm Extremity Extremity Narrative: Left lateral foot wound DFU from improper footwear and offloading about the size of a dime with depth General Extremity: normal exam except as noted Skin Wound Narrative: Left lateral foot DFU wound Neuro oriented x3 Psych Appearance: grossly normal Speech: normal speech Thought Content: normal thought content Judgement: judgement good Debridement Note Debridement Note Wound debrided: Left lateral foot from pressure Laterality: Left Wound Grade/Stage: Stage II pressure ulcer Type of Debridement: Excisional debridement Anesthesia Used: 5% Lidocaine Gel Depth: in the subcutaneous layer Percentage of wound debrided: 100 Instrument Used: 5mm curette Tissue Removed: Slough devitalized tissue fibrin Severity: Fat Layer Exposed Amount of bleeding with debridement: Mild Bleeding Controlled with: Compression and gauze Patient tolerated procedure: Patient tolerated procedure well Post-Debridement Measurements and Additional Note: Post-Debridement Measurements/Treatment GM - Nurse 1 - General Ulcer Assessment Start: 10/29/21 08:11 Freq: Status: Active Protocol: MARIEL Activity Type Activity Date Activity User E-sign Co-sign Detail Recorded Client Recorded Date Recorded By Document 10/29/21 08:11 STANLEY [id number] 10/29/21 08:14 STANLEY 10/29/21 08:11 WC - Today's Visit Information Type of service Follow-up Visit (Physician/SUPERVISOR SCREEN PRINTING ) Arrival Mode Ambulatory, Wheelchair Patient Identification Verified (Name & Yes ) Patient Requires Transmission-Based No Precautions Vital Signs Temperature (97.8 F-99.1 F) 97.3 F L Temperature Source Temporal Pulse Rate (60-100) 84 Pulse Location Monitor Blood Pressure (90/60-120/80) 148/80 H Blood Pressure Mean (mm Hg) 102 Source Monitor History Since Last Visit- (Skip if this is Patient's initial visit) Have you changed medications since your No last visit? Any new allergies or adverse reactions No Had a fall/change in ADL's that may No increase risk of falls Signs or symptoms of abuse and/or No neglect since last visit Have you been in the hospital since your No last visit? Has dressing in place as prescribed Yes Has compression in place as prescribed Yes Has offloadiing in place as prescribed N/A Experienced any changes in pain level or No management Left Footwear Regular Shoe Right Footwear Regular Shoe Pain Scale: 0-10 Numeric Is Patient Pain Free? Yes - Nurse 1 - General Ulcer Measurement Start: 10/29/21 08:11 Freq: Status: Active Protocol: Activity Type Activity Date Activity User E-sign Co-sign Detail Recorded Client Recorded Date Recorded By Document 10/29/21 08:11 STANLEY [id number] 10/29/21 08:14 STANLEY 10/29/21 08:11 Wound Center Nurse 1 #9 L lateral foot -Current Size (cm) - Length 1.6 -Current Size (cm) - Width 2.5 -Current Size (cm) - Depth 0.1 -Total Square Cm 4.00 -Photo Taken No -Tunneling No -Undermining/Tunneling No -Circular Undermining No -Change in Wound Grade/Stage No -Exudate Amt Large -Exudate Type Serosanguineous -Wound Margin Distinct, Outline Attached -Granulation Amt Medium (34-66%) -Granulation Quality [place] -Slough/Fibrin Yes -Necrosis Amt Large (67-100%) -Necrotic Tissue Type Adherent Slough -Structure Exposed N/A -Texture ([place]-wound Skin Appearance) Assessed, Localized Edema ,Scarring -Moisture ([place]-wound Skin Appearance) Assessed, Weeping -Color ([place]-wound Skin Appearance) No Abnormality, Assessed -Temperature ([place]-wound Skin No Abnormality Appearance) (Pt Warm) -Tenderness on Palpation ([place]-wound No Skin Appearance) -Ulcer Cleansing Rinsed/ Irrigated with Saline -Foul Odor after Cleansing No -Anesthetic Used 5% Lidocaine Gel Left Calf (cm) 38 Left Ankle (cm) 25 WC - Nurse 2 - General Ulcer CM Notes Start: 10/29/21 08:11 Freq: Status: Active Protocol: Activity Type Activity Date Activity User E-sign Co-sign Detail Recorded Client Recorded Date Recorded By Document 10/29/21 08:38 PL [id number] 10/29/21 08:39 PL 10/29/21 08:38 Wound Center Nurse 2 #9 L lateral foot -Time 08:26 -Correct Patient Yes -Correct Side, Site, Position Yes -Correct Procedure Yes -Procedure Performed Yes -Type of Procedure Debridement -Clinical Debridement Subcutaneous -Tissue Removed Subcutaneous -Post Debridement (cm) - Length 2.5 -Post Debridement (cm) - Width 4.0 -Post Debridement (cm) - Depth 0.3 -Total Square (Post) (cm) 10.00 -Area of Debridement (cm) - Length 2.5 -Area of Debridement (cm) - Width 4.0 -Total Square (Area) (cm) 10.00 -Tunneling No -Undermining/Tunneling No -Circular Undermining No -Wound/Ulcer Outcome Not Healed -Ulcer Cleansing Rinsed/ Irrigated with Saline -Foul Odor after Cleansing No -Bioengineered Tissue No -Bleeding Controlled with Pressure -Treatment Response Procedure Tolerated Well -Debridement - Subq, 1st 20sq cm Yes Pain Scale: 0-10 Numeric Is Patient Pain Free? Yes GM - Nurse 3 - General Ulcer D/C NN Start: 10/29/21 08:11 Freq: Status: Active Protocol: Activity Type Activity Date Activity User E-sign Co-sign Detail Recorded Client Recorded Date Recorded By Document 10/29/21 08:37 EV [id number] 10/29/21 08:38 EV 10/29/21 08:37 Wound Care Nurse 3 #9 L lateral foot -Ulcer Cleansing Rinsed/ Irrigated with Saline -Primary Dressing Applied Fibracol Plus 4x4 -Primary Dressing Covered/Secured with Dry Gauze,Dry Gauze & Roll Gauze,Secured with Tape -Fibracol Plus 4x4 1 Pain Scale: 0-10 Numeric Is Patient Pain Free? Yes WC - Visit Discharge Discharge Condition Stable Ambulatory Status Wheelchair Transportation Private Auto Assessment/Plan Assessment/Plan (1) Diabetic foot ulcers: CODE(S): E11.621 - Type 2 diabetes mellitus with foot ulcer; L97.509 - Non-pressure chronic ulcer of other part of unspecified foot with unspecified severity QUALIFIERS: Diabetic foot ulcer location: midfoot Diabetes mellitus type: type 2 Laterality: left Non-pressure ulcer stage: with fat layer exposed Qualified Code(s): E11.621 - Type 2 diabetes mellitus with foot ulcer; L97.422 - 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 layer exposed PLAN: Discharge from the wound center follow-up as needed (2) Polyneuropathy in diabetes: CODE(S): E11.42 - Type 2 diabetes mellitus with diabetic polyneuropathy QUALIFIERS: Diabetes mellitus type: type 2 Qualified Code(s): E11.42 - Type 2 diabetes mellitus with diabetic polyneuropathy PLAN: Will continue wearing his AFO and boot (3) Type 2 diabetes mellitus with diabetic polyneuropathy: CODE(S): E11.42 - Type 2 diabetes mellitus with diabetic polyneuropathy QUALIFIERS: Diabetes mellitus retirement insulin use: unspecified intermediate accountant insulin use status Qualified Code(s): E11.42 - Type 2 diabetes mellitus with diabetic polyneuropathy (4) Decubitus ulcer of foot, stage 2: CODE(S): L89.892 - Pressure ulcer of other site, stage 2 QUALIFIERS: Laterality: left Qualified Code(s): L89.892 - Pressure ulcer of other site, stage 2 PLAN: Wash left foot and leg with antibacterial soap. Apply Fibracol to left lateral and plantar side of left foot. Cover with Adaptic and gauze Daily dressing Will call with culture results that were obtained Follow-up in 1 week
[2021-11-05 09:24] VITALS: BP 142/76; PULSE 82; RESP 18; TEMP 36
--- NOTE | 2021-11-05 12:23 | PCM.WC.PN ---
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 He therefore wears an AFO on the left lower leg. Patient is developing Charcot and his left foot and the AFO rubs on the bone that is protruding at the left lateral foot. Patient was healed but returned because a still not gotten a new AFO for his left foot. And developed a blister on the left lateral dorsal side of the foot that has now penetrated into the plantar side of the left foot. At the previous site that it was that. Progress of Wound: Big improvement in 1 week the plantar side is pretty much scabbed over the lateral side is smaller. Did grow 4 different bacteria's but no anaerobes. Was already started on 1 antibiotic we will start another 1 today for the 2 different bugs he has strep and staph growing Subjective Subjective Patient is glad to hear that it is healing well Objective Data Objective Data No redness in his leg or swelling in the foot patient is tolerating treatments well we will continue with using the Fibracol Adaptic and ABD to protect Vital Signs: Vital Signs Temp Pulse Resp BP O2 Del Method 96.8 F L 82 18 142/76 H Room Air 11/05/21 09:24 11/05/21 09:24 11/05/21 09:24 11/05/21 09:24 11/05/21 09:24 Oxygen Delivery Method Room Air Physical Exam Const oriented x3 General Appearance: cooperative Exam Limitations: no limitations Resp normal respiratory effort Effort and Inspection: able to speak in complete sentences Auscultation: clear to auscultation bilaterally Cardio regular rate and regular rhythm Palpation: normal PMI Rate: regular rate Rhythm: regular rhythm Extremity Extremity Narrative: Left lateral foot wound DFU from improper footwear and offloading about the size of a dime with depth General Extremity: normal exam except as noted Skin Wound Narrative: Left lateral foot DFU wound Neuro oriented x3 Psych Appearance: grossly normal Speech: normal speech Thought Content: normal thought content Judgement: judgement good Debridement Note Debridement Note Wound debrided: Left lateral foot decubitus ulcer Laterality: Left Wound Grade/Stage: Stage II Type of Debridement: Excisional debridement Anesthesia Used: 5% Lidocaine Gel Depth: Down to and including healthy tissue Percentage of wound debrided: 100 Instrument Used: 7mm curette Tissue Removed: Fibrin and some devitalized tissue Severity: Fat Layer Exposed Amount of bleeding with debridement: Mild Bleeding Controlled with: Compression and gauze Patient tolerated procedure: Patient tolerated procedure well Post-Debridement Measurements and Additional Note: Post-Debridement Measurements/Treatment WC - Nurse 1 - General Ulcer Assessment Start: 10/29/21 08:11 Freq: Status: Active Protocol: MARIEL Activity Type Activity Date Activity User E-sign Co-sign Detail Recorded Client Recorded Date Recorded By Document 10/29/21 08:11 AK [id number] 10/29/21 08:14 AK Document 11/05/21 09:24 MW [id number] 11/05/21 09:33 MW 10/29/21 11/05/21 08:11 09:24 WC - Today's Visit Information Type of service Follow-up Visit Follow-up Visit (Physician/BORDERER (Physician/BORDERER ) ) Arrival Mode Ambulatory, Wheelchair Wheelchair Transfer Assistance None Accompanied by self Patient Identification Verified (Name & Yes Yes ) Patient Requires Transmission-Based No No Precautions Safety Precautions Fall Prevention Finger Stick Blood Sugar(mg/dl) (if 140 indicated): Blood Sugar Stated by Patient Vital Signs Temperature (97.8 F-99.1 F) 97.3 F L 96.8 F L Temperature Source Temporal Temporal Pulse Rate (60-100) 84 82 Pulse Location Monitor Monitor Respiratory Rate (12-18) 18 Respiratory rate source Observation Oxygen Delivery Method Room Air Blood Pressure (90/60-120/80) 148/80 H 142/76 H Blood Pressure Mean (mm Hg) 102 98 Source Monitor Monitor Position Supine Blood Pressure Location Left Arm History Since Last Visit- (Skip if this is Patient's initial visit) Have you changed medications since your No No last visit? Any new allergies or adverse reactions No No Had a fall/change in ADL's that may No No increase risk of falls Signs or symptoms of abuse and/or No No neglect since last visit Have you been in the hospital since your No No last visit? Has dressing in place as prescribed Yes Yes Has compression in place as prescribed Yes Yes Has offloadiing in place as prescribed N/A N/A Experienced any changes in pain level or No No management Left Footwear Regular Shoe Removable Cast Walker/Walking Boot Right Footwear Regular Shoe Other Footwear (Comment) Other Footwear right prostesis Pain Scale: 0-10 Numeric Is Patient Pain Free? Yes Yes WC - Nurse 1 - General Ulcer Measurement Start: 10/29/21 08:11 Freq: Status: Active Protocol: Activity Type Activity Date Activity User E-sign Co-sign Detail Recorded Client Recorded Date Recorded By Document 10/29/21 08:11 AK [id number] 10/29/21 08:14 AK Document 11/05/21 09:24 MW [id number] 11/05/21 09:33 MW 10/29/21 11/05/21 08:11 09:24 Wound Center Nurse 1 #9 L lateral foot -Combined with other wound No -Current Size (cm) - Length 1.6 1.9 -Current Size (cm) - Width 2.5 2.1 -Current Size (cm) - Depth 0.1 0.1 -Total Square Cm 4.00 3.99 -Photo Taken No -Tunneling No -Undermining/Tunneling No -Circular Undermining No -Change in Wound Grade/Stage No -Exudate Amt Large Small -Exudate Type Serosanguineous Serosanguineous -Wound Margin Distinct, Distinct, Outline Outline Attached Attached -Granulation Amt Medium (34-66%) Medium (34-66%) -Granulation Quality [place] -Slough/Fibrin Yes -Necrosis Amt Large (67-100%) Medium (34-66%) -Necrotic Tissue Type Adherent Slough Adherent Slough -Structure Exposed N/A -Texture ([place]-wound Skin Appearance) Assessed, Assessed, Localized Edema Scarring ,Scarring -Moisture ([place]-wound Skin Appearance) Assessed, No Abnormality, Weeping Assessed -Color ([place]-wound Skin Appearance) No Abnormality, No Abnormality, Assessed Assessed -Temperature ([place]-wound Skin No Abnormality No Abnormality Appearance) (Pt Warm) (Pt Warm) -Tenderness on Palpation ([place]-wound No No Skin Appearance) -Ulcer Cleansing Rinsed/ Rinsed/ Irrigated with Irrigated with Saline Saline -Foul Odor after Cleansing No No -Anesthetic Used 5% Lidocaine 5% Lidocaine Gel Gel Left Calf (cm) 38 Left Ankle (cm) 25 WC - Nurse 2 - General Ulcer CM Notes Start: 10/29/21 08:11 Freq: Status: Active Protocol: Activity Type Activity Date Activity User E-sign Co-sign Detail Recorded Client Recorded Date Recorded By Document 10/29/21 08:38 PL [id number] 10/29/21 08:39 PL Document 11/05/21 09:58 MW [id number] 11/05/21 10:02 MW 10/29/21 11/05/21 08:38 09:58 Wound Center Nurse 2 #9 L lateral foot -Time 08:26 09:59 -Correct Patient Yes Yes -Correct Side, Site, Position Yes Yes -Correct Procedure Yes Yes -Procedure Performed Yes Yes -Type of Procedure Debridement Debridement -Clinical Debridement Subcutaneous Subcutaneous -Tissue Removed Subcutaneous Subcutaneous -Post Debridement (cm) - Length 2.5 1.7 -Post Debridement (cm) - Width 4.0 2.0 -Post Debridement (cm) - Depth 0.3 0.2 -Total Square (Post) (cm) 10.00 3.40 -Area of Debridement (cm) - Length 2.5 1.7 -Area of Debridement (cm) - Width 4.0 2.0 -Total Square (Area) (cm) 10.00 3.40 -Tunneling No No -Undermining/Tunneling No No -Circular Undermining No No -Wound/Ulcer Outcome Not Healed Not Healed -Ulcer Cleansing Rinsed/ Rinsed/ Irrigated with Irrigated with Saline Saline -Foul Odor after Cleansing No No -Bioengineered Tissue No No -Bleeding Controlled with Pressure Pressure -Treatment Response Procedure Procedure Tolerated Well Tolerated Well -Offloading No -Debridement - Subq, 1st 20sq cm Yes Yes Pain Scale: 0-10 Numeric Is Patient Pain Free? Yes Yes WC - Nurse 3 - General Ulcer D/C NN Start: 10/29/21 08:11 Freq: Status: Active Protocol: Activity Type Activity Date Activity User E-sign Co-sign Detail Recorded Client Recorded Date Recorded By Document 10/29/21 08:37 KR [id number] 10/29/21 08:38 KR Document 11/05/21 10:42 KR [id number] 11/05/21 10:42 KR 10/29/21 11/05/21 08:37 10:42 Wound Care Nurse 3 #9 L lateral foot -Ulcer Cleansing Rinsed/ Rinsed/ Irrigated with Irrigated with Saline Saline -Primary Dressing Applied Fibracol Plus Fibracol Plus 4x4 4x4 -Primary Dressing Covered/Secured with Dry Gauze,Dry Dry Gauze, Gauze & Roll Secured with Gauze,Secured Tape with Tape -Fibracol Plus 4x4 1 1 Pain Scale: 0-10 Numeric Is Patient Pain Free? Yes Yes WC - Visit Discharge Discharge Condition Stable Stable Ambulatory Status Wheelchair Wheelchair Transportation Private Auto Private Auto Assessment/Plan Assessment/Plan (1) Diabetic foot ulcers: CODE(S): E11.621 - Type 2 diabetes mellitus with foot ulcer; L97.509 - Non-pressure chronic ulcer of other part of unspecified foot with unspecified severity QUALIFIERS: Diabetic foot ulcer location: midfoot Diabetes mellitus type: type 2 Laterality: left Non-pressure ulcer stage: with fat layer exposed Qualified Code(s): E11.621 - Type 2 diabetes mellitus with foot ulcer; L97.422 - 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 layer exposed PLAN: Discharge from the wound center follow-up as needed (2) Polyneuropathy in diabetes: CODE(S): E11.42 - Type 2 diabetes mellitus with diabetic polyneuropathy QUALIFIERS: Diabetes mellitus type: type 2 Qualified Code(s): E11.42 - Type 2 diabetes mellitus with diabetic polyneuropathy PLAN: Will continue wearing his AFO and boot (3) Type 2 diabetes mellitus with diabetic polyneuropathy: CODE(S): E11.42 - Type 2 diabetes mellitus with diabetic polyneuropathy QUALIFIERS: Diabetes mellitus senior care insulin use: unspecified intermodal customer service insulin use status Qualified Code(s): E11.42 - Type 2 diabetes mellitus with diabetic polyneuropathy (4) Decubitus ulcer of foot, stage 2: CODE(S): L89.892 - Pressure ulcer of other site, stage 2 QUALIFIERS: Laterality: left Qualified Code(s): L89.892 - Pressure ulcer of other site, stage 2 PLAN: Wash left foot and leg with antibacterial soap. Apply Fibracol to left lateral and plantar side of left foot. Cover with Adaptic and gauze Daily dressing Patient currently taking Cipro and will add linezolid 600 mg twice a day for 10 days Follow-up in 1 week
== END 2021-11-05 23:59 | disposition home or self-care (01) ==
LOC: WC 09:30
PROVIDERS: PCP Family Medicine Sports Medicine; Visit Provider Nurse Practitioner
DX: E11.621 Type 2 diabetes mellitus with foot ulcer (principal); L89.892 Pressure ulcer of other site, stage 2; L97.422 Non-pressure 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 with fat layer exposed; L97.522 Non-pressure chronic ulcer of other part of left foot with fat layer exposed; E11.610 Type 2 diabetes mellitus with diabetic neuropathic arthropathy; E11.42 Type 2 diabetes mellitus with diabetic polyneuropathy
CPT/HCPCS: 11042; 99213; G0463

== ENCOUNTER 2021-11-26 09:30 | Outpatient (RCR) | payer MEDICARE, SELFPAY ==
[2021-11-06 00:48] VITALS: BP 142/76; PULSE 82; RESP 18; TEMP 36
[2021-11-12 10:26] VITALS: BP 129/79; PULSE 96; TEMP 35.7
--- NOTE | 2021-11-12 12:07 | PN.PCM_ITS ---
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 He therefore wears an AFO on the left lower leg. Patient is developing Charcot and his left foot and the AFO rubs on the bone that is protruding at the left lateral foot. Patient was healed but returned because a still not gotten a new AFO for his left foot. And developed a blister on the left lateral dorsal side of the foot that has now penetrated into the plantar side of the left foot. At the previous site that it was that. Progress of Wound: Continues to improve, measurements are smaller. The depth is less and does not look angry around the area. No maceration noted. Did also grow another bacteria and will be started on Zyvox this week. Subjective Subjective Patient has no concerns Objective Data Objective Data Wound is healing better we will continue using the Fibracol moistened with Adaptic over top Vital Signs: Vital Signs Temp Pulse Resp BP 96.2 F L 96 18 129/79 H 11/12/21 10:26 11/12/21 10:26 11/06/21 00:48 11/12/21 10:26 Lab / Micro Data Attestation: I reviewed the patient's lab results. Physical Exam Const oriented x3 General Appearance: cooperative Exam Limitations: no limitations Resp normal respiratory effort Effort and Inspection: able to speak in complete sentences Auscultation: clear to auscultation bilaterally Cardio regular rate and regular rhythm Palpation: normal PMI Rate: regular rate Rhythm: regular rhythm Extremity Extremity Narrative: Left lateral foot wound DFU from improper footwear and offloading about the size of a dime with depth General Extremity: normal exam except as noted Skin Wound Narrative: Left lateral foot DFU wound Neuro oriented x3 Psych Appearance: grossly normal Speech: normal speech Thought Content: normal thought content Judgement: judgement good Debridement Note Debridement Note Wound debrided: Left lateral foot Wound Grade/Stage: Stage II Type of Debridement: Excisional debridement Anesthesia Used: 5% Lidocaine Gel Depth: Down to and including healthy tissue Percentage of wound debrided: 100 Instrument Used: 7mm curette Tissue Removed: Fibrin and some devitalized tissue Severity: Limited To Skin Breakdown Amount of bleeding with debridement: Mild Bleeding Controlled with: Compression and gauze Patient tolerated procedure: Patient tolerated procedure well Post-Debridement Measurements and Additional Note: Post-Debridement Measurements/Treatment - Nurse 1 - General Ulcer Assessment Start: 11/12/21 10:04 Freq: Status: Active Protocol: MARIEL Activity Type Activity Date Activity User E-sign Co-sign Detail Recorded Client Recorded Date Recorded By Document 11/12/21 10:26 STANLEY [id number] 11/12/21 10:28 STANLEY 11/12/21 10:26 WC - Today's Visit Information Type of service Follow-up Visit (Physician/STRATEGIC DEBRIEFING SPECIALIST ) Arrival Mode Wheelchair Patient Identification Verified (Name & Yes ) Vital Signs Temperature (97.8 F-99.1 F) 96.2 F L Temperature Source Temporal Pulse Rate (60-100) 96 Pulse Location Monitor Blood Pressure (90/60-120/80) 129/79 H Blood Pressure Mean (mm Hg) 95 Source Monitor History Since Last Visit- (Skip if this is Patient's initial visit) Have you changed medications since your No last visit? Any new allergies or adverse reactions No Had a fall/change in ADL's that may No increase risk of falls Signs or symptoms of abuse and/or No neglect since last visit Have you been in the hospital since your No last visit? Has dressing in place as prescribed Yes Has compression in place as prescribed Yes Has offloadiing in place as prescribed N/A Experienced any changes in pain level or No management Left Footwear Regular Shoe Right Footwear Regular Shoe Pain Scale: 0-10 Numeric Is Patient Pain Free? Yes GM - Nurse 1 - General Ulcer Measurement Start: 11/12/21 10:04 Freq: Status: Active Protocol: Activity Type Activity Date Activity User E-sign Co-sign Detail Recorded Client Recorded Date Recorded By Document 11/12/21 10:26 STANLEY [id number] 11/12/21 10:28 DC 11/12/21 10:26 Wound Center Nurse 1 #9 L lateral foot -Combined with other wound No -Current Size (cm) - Length 1 -Current Size (cm) - Width 1.5 -Current Size (cm) - Depth 0.1 -Total Square Cm 1.5 -Photo Taken No -Tunneling No -Undermining/Tunneling No -Circular Undermining No -Change in Wound Grade/Stage No -Exudate Amt Medium -Exudate Type Serosanguineous -Wound Margin Distinct, Outline Attached -Granulation Amt Medium (34-66%) -Granulation Quality [place],Red -Slough/Fibrin Yes -Necrosis Amt Medium (34-66%) -Necrotic Tissue Type Adherent Slough -Structure Exposed N/A -Texture ([place]-wound Skin Appearance) No Abnormality, Assessed -Moisture ([place]-wound Skin Appearance) No Abnormality, Assessed -Color ([place]-wound Skin Appearance) No Abnormality, Assessed -Temperature ([place]-wound Skin No Abnormality Appearance) (Pt Warm) -Tenderness on Palpation ([place]-wound No Skin Appearance) -Ulcer Cleansing Rinsed/ Irrigated with Saline -Foul Odor after Cleansing No -Anesthetic Used 5% Lidocaine Gel Left Calf (cm) 37 Left Ankle (cm) 23 WC - Nurse 2 - General Ulcer CM Notes Start: 11/12/21 10:04 Freq: Status: Active Protocol: Activity Type Activity Date Activity User E-sign Co-sign Detail Recorded Client Recorded Date Recorded By Document 11/12/21 10:05 MW [id number] 11/12/21 10:08 MW 11/12/21 10:05 Wound Center Nurse 2 #9 L lateral foot -Time 10:06 -Correct Patient Yes -Correct Side, Site, Position Yes -Correct Procedure Yes -Procedure Performed Yes -Type of Procedure Debridement -Clinical Debridement Subcutaneous -Tissue Removed Subcutaneous -Post Debridement (cm) - Length 1.6 -Post Debridement (cm) - Width 1.5 -Post Debridement (cm) - Depth 0.2 -Total Square (Post) (cm) 2.40 -Area of Debridement (cm) - Length 1.6 -Area of Debridement (cm) - Width 1.5 -Total Square (Area) (cm) 2.40 -Tunneling No -Undermining/Tunneling No -Circular Undermining No -Wound/Ulcer Outcome Not Healed -Ulcer Cleansing Rinsed/ Irrigated with Saline -Foul Odor after Cleansing No -Bioengineered Tissue No -Bleeding Controlled with Pressure -Treatment Response Procedure Tolerated Well -Offloading No -Debridement - Subq, 1st 20sq cm Yes Pain Scale: 0-10 Numeric Is Patient Pain Free? Yes GM - Nurse 3 - General Ulcer D/C NN Start: 11/12/21 10:04 Freq: Status: Active Protocol: Activity Type Activity Date Activity User E-sign Co-sign Detail Recorded Client Recorded Date Recorded By Document 11/12/21 10:13 EV [id number] 11/12/21 10:13 EV 11/12/21 10:13 Wound Care Nurse 3 #9 L lateral foot -Ulcer Cleansing Rinsed/ Irrigated with Saline -Primary Dressing Applied Fibracol Plus 4x4,NonAdherent Contact Layer -Primary Dressing Covered/Secured with Dry Gauze,Dry Gauze & Roll Gauze,Secured with Tape -Fibracol Plus 4x4 1 Pain Scale: 0-10 Numeric Is Patient Pain Free? Yes WC - Visit Discharge Discharge Condition Stable Ambulatory Status Wheelchair Transportation Private Auto Assessment/Plan Assessment/Plan (1) Diabetic foot ulcers: CODE(S): E11.621 - Type 2 diabetes mellitus with foot ulcer; L97.509 - Non-pressure chronic ulcer of other part of unspecified foot with unspecified severity QUALIFIERS: Diabetic foot ulcer location: midfoot Diabetes mellitus type: type 2 Laterality: left Non-pressure ulcer stage: with fat layer exposed Qualified Code(s): E11.621 - Type 2 diabetes mellitus with foot ulcer; L97.422 - 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 layer exposed PLAN: Discharge from the wound center follow-up as needed (2) Polyneuropathy in diabetes: CODE(S): E11.42 - Type 2 diabetes mellitus with diabetic polyneuropathy QUALIFIERS: Diabetes mellitus type: type 2 Qualified Code(s): E11.42 - Type 2 diabetes mellitus with diabetic polyneuropathy PLAN: Will continue wearing his AFO and boot (3) Type 2 diabetes mellitus with diabetic polyneuropathy: CODE(S): E11.42 - Type 2 diabetes mellitus with diabetic polyneuropathy QUALIFIERS: Diabetes mellitus director long term care insulin use: unspecified [facility] insulin use status Qualified Code(s): E11.42 - Type 2 diabetes mellitus with diabetic polyneuropathy (4) Decubitus ulcer of foot, stage 2: CODE(S): L89.892 - Pressure ulcer of other site, stage 2 QUALIFIERS: Laterality: left Qualified Code(s): L89.892 - Pressure ulcer of other site, stage 2 PLAN: Wash left foot and leg with antibacterial soap. Apply Fibracol to left lateral and plantar side of left foot. Cover with Adaptic and gauze Daily dressing Patient currently taking Cipro and will add linezolid 600 mg twice a day for 10 days Follow-up in 1 week
[2021-11-19 09:36] VITALS: BP 123/79; PULSE 102; RESP 18; TEMP 36.6
--- NOTE | 2021-11-19 12:39 | PCM.WC.PN ---
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 He therefore wears an AFO on the left lower leg. Patient is developing Charcot and his left foot and the AFO rubs on the bone that is protruding at the left lateral foot. Patient was healed but returned because a still not gotten a new AFO for his left foot. And developed a blister on the left lateral dorsal side of the foot that has now penetrated into the plantar side of the left foot. At the previous site that it was that. Progress of Wound: Measurements on lateral foot are slightly larger after a large debridement he is also starting to develop callus and contusion on the plantar side where his old wound was. We will apply for epi fix for his lateral foot. And I am requesting a pad over the plantar foot to stop the pressure. Subjective Subjective Patient states he still waiting to hear from the new shoe Objective Data Objective Data No sign of infection wounds are shallower but healing slowly Vital Signs: Vital Signs Temp Pulse Resp BP O2 Del Method 97.8 F 102 H 18 123/79 H Room Air 11/19/21 09:36 11/19/21 09:36 11/19/21 09:36 11/19/21 09:36 11/19/21 09:36 Oxygen Delivery Method Room Air Physical Exam Const oriented x3 General Appearance: cooperative Exam Limitations: no limitations Resp normal respiratory effort Effort and Inspection: able to speak in complete sentences Auscultation: clear to auscultation bilaterally Cardio regular rate and regular rhythm Palpation: normal PMI Rate: regular rate Rhythm: regular rhythm Extremity Extremity Narrative: Left lateral foot wound DFU from improper footwear and offloading about the size of a dime with depth General Extremity: normal exam except as noted Skin Wound Narrative: Left lateral foot DFU wound Neuro oriented x3 Psych Appearance: grossly normal Speech: normal speech Thought Content: normal thought content Judgement: judgement good Debridement Note Debridement Note Wound debrided: Left lateral foot Laterality: Left Wound Grade/Stage: Stage II Type of Debridement: Excisional debridement Anesthesia Used: 5% Lidocaine Gel Depth: in the subcutaneous layer Percentage of wound debrided: 100 Instrument Used: 7mm curette, #15 blade, Forceps and - (Scissors nippers) Tissue Removed: Devitalized tissue and fibrin Severity: Limited To Skin Breakdown Amount of bleeding with debridement: Mild Bleeding Controlled with: Compression and gauze Patient tolerated procedure: Patient tolerated procedure well Post-Debridement Measurements and Additional Note: Post-Debridement Measurements/Treatment WC - Nurse 1 - General Ulcer Assessment Start: 11/12/21 10:04 Freq: Status: Active Protocol: MARIEL Activity Type Activity Date Activity User E-sign Co-sign Detail Recorded Client Recorded Date Recorded By Document 11/12/21 10:26 AK [id number] 11/12/21 10:28 AK Document 11/19/21 09:36 [facility] [id number] 11/19/21 09:43 BM 11/12/21 11/19/21 10:26 09:36 WC - Today's Visit Information Type of service Follow-up Visit Follow-up Visit (Physician/TECHNICAL CUSTOMER SUPPORT SPECIALIST (Physician/TECHNICAL CUSTOMER SUPPORT SPECIALIST ) ) Arrival Mode Wheelchair Wheelchair Transfer Assistance None Patient Identification Verified (Name & Yes Yes ) Patient Requires Transmission-Based No Precautions Vital Signs Temperature (97.8 F-99.1 F) 96.2 F L 97.8 F Temperature Source Temporal Temporal Pulse Rate (60-100) 96 102 H Pulse Location Monitor Monitor Respiratory Rate (12-18) 18 Respiratory rate source Observation Oxygen Delivery Method Room Air Blood Pressure (90/60-120/80) 129/79 H 123/79 H Blood Pressure Mean (mm Hg) 95 93 Source Monitor Monitor Position Sitting Blood Pressure Location Left Arm History Since Last Visit- (Skip if this is Patient's initial visit) Have you changed medications since your No No last visit? Any new allergies or adverse reactions No No Had a fall/change in ADL's that may No No increase risk of falls Signs or symptoms of abuse and/or No No neglect since last visit Have you been in the hospital since your No No last visit? Has dressing in place as prescribed Yes Yes Has compression in place as prescribed Yes Yes Has offloadiing in place as prescribed N/A Yes Experienced any changes in pain level or No No management Left Footwear Regular Shoe Right Footwear Regular Shoe Pain Scale: 0-10 Numeric Is Patient Pain Free? Yes Yes GM [place] Nurse 1 - General Ulcer Measurement Start: 11/12/21 10:04 Freq: Status: Active Protocol: Activity Type Activity Date Activity User E-sign Co-sign Detail Recorded Client Recorded Date Recorded By Document 11/12/21 10:26 AK [id number] 11/12/21 10:28 AK Document 11/19/21 09:36 [facility] [id number] 11/19/21 09:43 BM 11/12/21 11/19/21 10:26 09:36 Wound Center Nurse 1 #9 L lateral foot -Combined with other wound No No -Current Size (cm) - Length 1 1.3 -Current Size (cm) - Width 1.5 0.8 -Current Size (cm) - Depth 0.1 0.1 -Total Square Cm 1.5 1.04 -Date of Last Picture (Recall this 11/19/21 field) -Photo Taken No Yes -Epithelialization None Present -Tunneling No No -Undermining/Tunneling No No -Circular Undermining No No -Change in Wound Grade/Stage No -Exudate Amt Medium Small -Exudate Type Serosanguineous Serosanguineous -Wound Margin Distinct, Flat & Intact Outline Attached -Granulation Amt Medium (34-66%) Medium (34-66%) -Granulation Quality [place],Red Red -Slough/Fibrin Yes Yes -Necrosis Amt Medium (34-66%) Medium (34-66%) -Necrotic Tissue Type Adherent Slough Adherent Slough -Structure Exposed N/A -Texture ([place]-wound Skin Appearance) No Abnormality, Assessed, Assessed Scarring -Moisture ([place]-wound Skin Appearance) No Abnormality, Assessed,Dry/ Assessed Scaly -Color ([place]-wound Skin Appearance) No Abnormality, Assessed Assessed -Temperature ([place]-wound Skin No Abnormality No Abnormality Appearance) (Pt Warm) (Pt Warm) -Tenderness on Palpation ([place]-wound No No Skin Appearance) -Ulcer Cleansing Rinsed/ Rinsed/ Irrigated with Irrigated with Saline Saline -Foul Odor after Cleansing No No -Anesthetic Used 5% Lidocaine 5% Lidocaine Gel Gel Left Calf (cm) 37 37.3 Left Ankle (cm) 23 22.2 WC - Nurse 2 - General Ulcer CM Notes Start: 11/12/21 10:04 Freq: Status: Active Protocol: Activity Type Activity Date Activity User E-sign Co-sign Detail Recorded Client Recorded Date Recorded By Document 11/12/21 10:05 MW [id number] 11/12/21 10:08 MW Document 11/19/21 09:50 MW [id number] 11/19/21 09:54 MW 11/12/21 11/19/21 10:05 09:50 Wound Center Nurse 2 #9 L lateral foot -Time 10:06 09:51 -Correct Patient Yes Yes -Correct Side, Site, Position Yes Yes -Correct Procedure Yes Yes -Procedure Performed Yes Yes -Type of Procedure Debridement Debridement -Clinical Debridement Subcutaneous Subcutaneous -Tissue Removed Subcutaneous Subcutaneous -Post Debridement (cm) - Length 1.6 1.1 -Post Debridement (cm) - Width 1.5 1.9 -Post Debridement (cm) - Depth 0.2 0.2 -Total Square (Post) (cm) 2.40 2.09 -Area of Debridement (cm) - Length 1.6 1.1 -Area of Debridement (cm) - Width 1.5 1.9 -Total Square (Area) (cm) 2.40 2.09 -Tunneling No No -Undermining/Tunneling No No -Circular Undermining No No -Wound/Ulcer Outcome Not Healed Not Healed -Ulcer Cleansing Rinsed/ Rinsed/ Irrigated with Irrigated with Saline Saline -Foul Odor after Cleansing No No -Bioengineered Tissue No No -Bleeding Controlled with Pressure Pressure -Treatment Response Procedure Procedure Tolerated Well Tolerated Well -Offloading No No -Debridement - Subq, 1st 20sq cm Yes Yes Pain Scale: 0-10 Numeric Is Patient Pain Free? Yes Yes WC - Nurse 3 - General Ulcer D/C NN Start: 11/12/21 10:04 Freq: Status: Active Protocol: Activity Type Activity Date Activity User E-sign Co-sign Detail Recorded Client Recorded Date Recorded By Document 11/12/21 10:13 KR [id number] 11/12/21 10:13 KR Document 11/19/21 10:12 [facility] [id number] 11/19/21 10:13 BMF 11/12/21 11/19/21 10:13 10:12 Wound Care Nurse 3 #9 L lateral foot -Ulcer Cleansing Rinsed/ Rinsed/ Irrigated with Irrigated with Saline Saline -Foul Odor after Cleansing No -Primary Dressing Applied Fibracol Plus Aquacel Extra, 4x4,NonAdherent NonAdherent Contact Layer Contact Layer -Primary Dressing Covered/Secured with Dry Gauze,Dry Dry Gauze & Gauze & Roll Roll Gauze, Gauze,Secured Secured with with Tape Tape -Other Covering ABD; CALLUS PADDED PER ORDER -Aquacel Extra 1 -Fibracol Plus 4x4 1 Left -Compression Wrap Vinay Wrap -Other VINAY TO SECURE Treatment Response Procedure Tolerated Well Pain Scale: 0-10 Numeric Is Patient Pain Free? Yes Yes WC - Visit Discharge Discharge Condition Stable Stable Ambulatory Status Wheelchair Wheelchair Transportation Private Auto Assessment/Plan Assessment/Plan (1) Diabetic foot ulcers: CODE(S): E11.621 - Type 2 diabetes mellitus with foot ulcer; L97.509 - Non-pressure chronic ulcer of other part of unspecified foot with unspecified severity QUALIFIERS: Diabetic foot ulcer location: midfoot Diabetes mellitus type: type 2 Laterality: left Non-pressure ulcer stage: with fat layer exposed Qualified Code(s): E11.621 - Type 2 diabetes mellitus with foot ulcer; L97.422 - 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 layer exposed PLAN: Discharge from the wound center follow-up as needed (2) Polyneuropathy in diabetes: CODE(S): E11.42 - Type 2 diabetes mellitus with diabetic polyneuropathy QUALIFIERS: Diabetes mellitus type: type 2 Qualified Code(s): E11.42 - Type 2 diabetes mellitus with diabetic polyneuropathy PLAN: Will continue wearing his AFO and boot (3) Type 2 diabetes mellitus with diabetic polyneuropathy: CODE(S): E11.42 - Type 2 diabetes mellitus with diabetic polyneuropathy QUALIFIERS: Diabetes mellitus intermediate insulin use: unspecified intermediate insulin use status Qualified Code(s): E11.42 - Type 2 diabetes mellitus with diabetic polyneuropathy (4) Decubitus ulcer of foot, stage 2: CODE(S): L89.892 - Pressure ulcer of other site, stage 2 QUALIFIERS: Laterality: left Qualified Code(s): L89.892 - Pressure ulcer of other site, stage 2 PLAN: Wash left foot and leg with antibacterial soap. Apply Fibracol to left lateral and stasis pad to plantar foot. Cover with Adaptic and gauze Daily dressing Patient currently taking Cipro and will add linezolid 600 mg twice a day for 10 days Follow-up in 1 week
[2021-11-26 09:48] VITALS: BP 144/94; PULSE 96; RESP 16; TEMP 36.4
--- NOTE | 2021-11-26 11:03 | PN.PCM_ITS ---
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 He therefore wears an AFO on the left lower leg. Patient is developing Charcot and his left foot and the AFO rubs on the bone that is protruding at the left lateral foot. Patient was healed but returned because a still not gotten a new AFO for his left foot. And developed a blister on the left lateral dorsal side of the foot that has now penetrated into the plantar side of the left foot. At the previous site that it was that. Progress of Wound: Measurements are about the same but flatter wound less depth. The plantar side using the stasis pad seems to be helping that it is crusted and scabbed. Patient was approved for epi fix for the lateral left foot but patient is seeing a cable television program director that is going to shave the bone down on January 01 and then suture him close there is no point in wasting epi fix on the wound base. We will continue seeing patient and dressing changes till seen in surgery. Subjective Subjective Patient is proof of that in fact he is the one that wanted to hold off on the epi fix. Objective Data Objective Data No sign of infection healing well we will continue with the Aquacel extra gauze and stasis pad on the plantar side.. Patient has a new AFO and it seems to be helping with healing he is not aggravating the wounds like he was before We will continue treatment still having surgery Vital Signs: Vital Signs Temp Pulse Resp BP O2 Del Method 97.5 F L 96 16 144/94 H Room Air 11/26/21 09:48 11/26/21 09:48 11/26/21 09:48 11/26/21 09:48 11/26/21 09:48 Oxygen Delivery Method Room Air Physical Exam Const oriented x3 General Appearance: cooperative Exam Limitations: no limitations Resp normal respiratory effort Effort and Inspection: able to speak in complete sentences Auscultation: clear to auscultation bilaterally Cardio regular rate and regular rhythm Palpation: normal PMI Rate: regular rate Rhythm: regular rhythm Extremity Extremity Narrative: Left lateral foot wound DFU from improper footwear and offloading about the size of a dime with depth General Extremity: normal exam except as noted Skin Wound Narrative: Left lateral foot DFU wound Neuro oriented x3 Psych Appearance: grossly normal Speech: normal speech Thought Content: normal thought content Judgement: judgement good Debridement Note Debridement Note Wound debrided: Left lateral foot decubitus ulcer Laterality: Left Wound Grade/Stage: Stage II Type of Debridement: Excisional debridement Anesthesia Used: 5% Lidocaine Gel Depth: Down to and including healthy tissue and in the subcutaneous layer Percentage of wound debrided: 100 Instrument Used: 7mm curette Tissue Removed: Fibrin callus Severity: Limited To Skin Breakdown Amount of bleeding with debridement: Mild Bleeding Controlled with: Compression and gauze Patient tolerated procedure: Patient tolerated procedure well Post-Debridement Measurements and Additional Note: Post-Debridement Measurements/Treatment - Nurse 1 - General Ulcer Assessment Start: 11/12/21 10:04 Freq: Status: Active Protocol: MARIEL Activity Type Activity Date Activity User E-sign Co-sign Detail Recorded Client Recorded Date Recorded By Document 11/12/21 10:26 DE [id number] 11/12/21 10:28 DE Document 11/19/21 09:36 [facility] [id number] 11/19/21 09:43 [facility] Document 11/26/21 09:48 [facility] [id number] 11/26/21 09:54 [facility] 11/12/21 11/19/21 11/26/21 10:26 09:36 09:48 - Today's Visit Information Type of service Follow-up Visit Follow-up Visit Follow-up Visit (Physician/MUSIC AGENT (Physician/MUSIC AGENT (Physician/MUSIC AGENT ) ) ) Arrival Mode Wheelchair Wheelchair Ambulatory, Wheelchair Transfer Assistance None None Patient Identification Verified (Name & Yes Yes Yes ) Patient Requires Transmission-Based No No Precautions Vital Signs Temperature (97.8 F-99.1 F) 96.2 F L 97.8 F 97.5 F L Temperature Source Temporal Temporal Temporal Pulse Rate (60-100) 96 102 H 96 Pulse Location Monitor Monitor Monitor Respiratory Rate (12-18) 18 16 Respiratory rate source Observation Observation Oxygen Delivery Method Room Air Room Air Blood Pressure (90/60-120/80) 129/79 H 123/79 H 144/94 H Blood Pressure Mean (mm Hg) 95 93 110 Source Monitor Monitor Monitor Position Sitting Sitting Blood Pressure Location Left Arm Left Arm History Since Last Visit- (Skip if this is Patient's initial visit) Have you changed medications since your No No No last visit? Any new allergies or adverse reactions No No No Had a fall/change in ADL's that may No No increase risk of falls Signs or symptoms of abuse and/or No No No neglect since last visit Have you been in the hospital since your No No No last visit? Has dressing in place as prescribed Yes Yes Yes Has compression in place as prescribed Yes Yes N/A Has offloadiing in place as prescribed N/A Yes Yes Experienced any changes in pain level or No No No management Left Footwear Regular Shoe Custom Shoe Right Footwear Regular Shoe Other Footwear (Comment) Other Footwear PROSTHETIC LEG TO RLE Pain Scale: 0-10 Numeric Is Patient Pain Free? Yes Yes Yes WC - Nurse 1 - General Ulcer Measurement Start: 11/12/21 10:04 Freq: Status: Active Protocol: Activity Type Activity Date Activity User E-sign Co-sign Detail Recorded Client Recorded Date Recorded By Document 11/12/21 10:26 DE [id number] 11/12/21 10:28 DE Document 11/19/21 09:36 [facility] [id number] 11/19/21 09:43 [facility] Document 11/26/21 09:48 [facility] [id number] 11/26/21 09:54 [facility] 11/12/21 11/19/21 11/26/21 10:26 09:36 09:48 Wound Center Nurse 1 #9 L lateral foot -Combined with other wound No No No -Current Size (cm) - Length 1 1.3 1.6 -Current Size (cm) - Width 1.5 0.8 0.5 -Current Size (cm) - Depth 0.1 0.1 0.2 -Total Square Cm 1.5 1.04 0.80 -Date of Last Picture (Recall this 11/19/21 11/26/21 field) -Photo Taken No Yes Yes -Epithelialization None Present None Present -Tunneling No No No -Undermining/Tunneling No No No -Circular Undermining No No No -Change in Wound Grade/Stage No -Exudate Amt Medium Small Medium -Exudate Type Serosanguineous Serosanguineous Serosanguineous -Wound Margin Distinct, Flat & Intact Distinct, Outline Outline Attached Attached -Granulation Amt Medium (34-66%) Medium (34-66%) Large (67-100%) -Granulation Quality [place],Red Red Red -Slough/Fibrin Yes Yes Yes -Necrosis Amt Medium (34-66%) Medium (34-66%) Small (1-33%) -Necrotic Tissue Type Adherent Slough Adherent Slough Adherent Slough -Structure Exposed N/A -Texture ([place]-wound Skin Appearance) No Abnormality, Assessed, Assessed,Callus Assessed Scarring ,Scarring -Moisture ([place]-wound Skin Appearance) No Abnormality, Assessed,Dry/ Assessed,Dry/ Assessed Scaly Scaly -Color ([place]-wound Skin Appearance) No Abnormality, Assessed Assessed Assessed -Temperature ([place]-wound Skin No Abnormality No Abnormality No Abnormality Appearance) (Pt Warm) (Pt Warm) (Pt Warm) -Tenderness on Palpation ([place]-wound No No No Skin Appearance) -Ulcer Cleansing Rinsed/ Rinsed/ Rinsed/ Irrigated with Irrigated with Irrigated with Saline Saline Saline -Foul Odor after Cleansing No No No -Anesthetic Used 5% Lidocaine 5% Lidocaine 5% Lidocaine Gel Gel Gel Left Calf (cm) 37 37.3 Left Ankle (cm) 23 22.2 WC - Nurse 2 - General Ulcer CM Notes Start: 11/12/21 10:04 Freq: Status: Active Protocol: Activity Type Activity Date Activity User E-sign Co-sign Detail Recorded Client Recorded Date Recorded By Document 11/12/21 10:05 MW [id number] 11/12/21 10:08 MW Document 11/19/21 09:50 MW [id number] 11/19/21 09:54 MW Document 11/26/21 09:59 MW Desktop 11/26/21 10:04 MW 11/12/21 11/19/21 11/26/21 10:05 09:50 09:59 Wound Center Nurse 2 #9 L lateral foot -Time 10:06 09:51 10:00 -Correct Patient Yes Yes Yes -Correct Side, Site, Position Yes Yes Yes -Correct Procedure Yes Yes Yes -Procedure Performed Yes Yes Yes -Type of Procedure Debridement Debridement Debridement -Clinical Debridement Subcutaneous Subcutaneous Subcutaneous -Tissue Removed Subcutaneous Subcutaneous Subcutaneous -Post Debridement (cm) - Length 1.6 1.1 2.0 -Post Debridement (cm) - Width 1.5 1.9 1.1 -Post Debridement (cm) - Depth 0.2 0.2 0.2 -Total Square (Post) (cm) 2.40 2.09 2.20 -Area of Debridement (cm) - Length 1.6 1.1 2.0 -Area of Debridement (cm) - Width 1.5 1.9 1.1 -Total Square (Area) (cm) 2.40 2.09 2.20 -Tunneling No No No -Undermining/Tunneling No No No -Circular Undermining No No No -Wound/Ulcer Outcome Not Healed Not Healed Not Healed -Ulcer Cleansing Rinsed/ Rinsed/ Rinsed/ Irrigated with Irrigated with Irrigated with Saline Saline Saline -Foul Odor after Cleansing No No No -Bioengineered Tissue No No No -Bleeding Controlled with Pressure Pressure Pressure -Treatment Response Procedure Procedure Procedure Tolerated Well Tolerated Well Tolerated Well -Offloading No No No -Debridement - Subq, 1st 20sq cm Yes Yes Yes Pain Scale: 0-10 Numeric Is Patient Pain Free? Yes Yes Yes - Nurse 3 - General Ulcer D/C NN Start: 11/12/21 10:04 Freq: Status: Active Protocol: Activity Type Activity Date Activity User E-sign Co-sign Detail Recorded Client Recorded Date Recorded By Document 11/12/21 10:13 [id number] 11/12/21 10:13 Document 11/19/21 10:12 [facility] [id number] 11/19/21 10:13 [facility] Document 11/26/21 10:14 [facility] [id number] 11/26/21 10:15 [facility] 11/12/21 11/19/21 11/26/21 10:13 10:12 10:14 Wound Care Nurse 3 #9 L lateral foot -Ulcer Cleansing Rinsed/ Rinsed/ Rinsed/ Irrigated with Irrigated with Irrigated with Saline Saline Saline -Foul Odor after Cleansing No -Primary Dressing Applied Fibracol Plus Aquacel Extra, Aquacel Extra, 4x4,NonAdherent NonAdherent NonAdherent Contact Layer Contact Layer Contact Layer -Other Dressing STASIS PAD TO DRSG -Primary Dressing Covered/Secured with Dry Gauze,Dry Dry Gauze & Dry Gauze & Gauze & Roll Roll Gauze, Roll Gauze, Gauze,Secured Secured with Secured with with Tape Tape Tape -Other Covering ABD; CALLUS ABD PADDED PER ORDER -Aquacel Extra 1 1 -Fibracol Plus 4x4 1 Left -Compression Wrap Vinay Wrap Vinay Wrap -Other VINAY TO SECURE VINAY TO SECURE Treatment Response Procedure Procedure Tolerated Well Tolerated Well Pain Scale: 0-10 Numeric Is Patient Pain Free? Yes Yes Yes WC - Visit Discharge Discharge Condition Stable Stable Stable Ambulatory Status Wheelchair Wheelchair Wheelchair Transportation Private Auto Private Auto Assessment/Plan Assessment/Plan (1) Diabetic foot ulcers: CODE(S): E11.621 - Type 2 diabetes mellitus with foot ulcer; L97.509 - Non-pressure chronic ulcer of other part of unspecified foot with unspecified severity QUALIFIERS: Diabetic foot ulcer location: midfoot Diabetes mellitus type: type 2 Laterality: left Non-pressure ulcer stage: with fat layer exposed Qualified Code(s): E11.621 - Type 2 diabetes mellitus with foot ulcer; L97.422 - 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 layer exposed PLAN: Discharge from the wound center follow-up as needed (2) Polyneuropathy in diabetes: CODE(S): E11.42 - Type 2 diabetes mellitus with diabetic polyneuropathy QUALIFIERS: Diabetes mellitus type: type 2 Qualified Code(s): E11.42 - Type 2 diabetes mellitus with diabetic polyneuropathy PLAN: Will continue wearing his AFO and boot (3) Type 2 diabetes mellitus with diabetic polyneuropathy: CODE(S): E11.42 - Type 2 diabetes mellitus with diabetic polyneuropathy QUALIFIERS: 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 Apply Aquacel extra to left lateral and stasis pad to plantar foot. Cover with Adaptic and gauze Daily dressing Follow-up in 2 week
== END 2021-12-05 23:59 | disposition home or self-care (01) ==
LOC: WC 09:30
PROVIDERS: PCP Family Medicine Sports Medicine; Visit Provider Nurse Practitioner
DX: E11.621 Type 2 diabetes mellitus with foot ulcer (principal); L89.892 Pressure ulcer of other site, stage 2; E11.42 Type 2 diabetes mellitus with diabetic polyneuropathy
CPT/HCPCS: 11042

== ENCOUNTER 2021-12-10 09:21 | Outpatient (RCR) | payer MEDICARE, SELFPAY ==
[2021-12-06 01:40] VITALS: BP 144/94; PULSE 96; RESP 16; TEMP 36.4
[2021-12-10 09:55] VITALS: BP 143/87; PULSE 97; TEMP 37
--- NOTE | 2021-12-10 12:52 | PN.PCM_ITS ---
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 He therefore wears an AFO on the left lower leg. Patient is developing Charcot and his left foot and the AFO rubs on the bone that is protruding at the left lateral foot. Patient was healed but returned because a still not gotten a new AFO for his left foot. And developed a blister on the left lateral dorsal side of the foot that has now penetrated into the plantar side of the left foot. At the previous site that it was that. Progress of Wound: Has been seen by a ticket sorter in [place] who is actually going to do surgery and remove that bone. We will transfer care over to him. We have been seeing him up to surgery which will be in the next 2 weeks. And he will close it. Subjective Subjective Patient has been very pleased with his care Objective Data Objective Data She will open very flat shallow measures much smaller patient is to continue using the Aquacel extra until the surgery. Vital Signs: Vital Signs Temp Pulse Resp BP 98.6 F 97 16 143/87 H 12/10/21 09:55 12/10/21 09:55 12/06/21 01:40 12/10/21 09:55 Lab / Micro Data Attestation: I reviewed the patient's lab results. Physical Exam Const oriented x3 General Appearance: cooperative Exam Limitations: no limitations Resp normal respiratory effort Effort and Inspection: able to speak in complete sentences Auscultation: clear to auscultation bilaterally Cardio regular rate and regular rhythm Palpation: normal PMI Rate: regular rate Rhythm: regular rhythm Extremity Extremity Narrative: Left lateral foot wound DFU from improper footwear and offloading about the size of a dime with depth General Extremity: normal exam except as noted Skin Wound Narrative: Left lateral foot DFU wound Neuro oriented x3 Psych Appearance: grossly normal Speech: normal speech Thought Content: normal thought content Judgement: judgement good Debridement Note Debridement Note Wound debrided: Left lateral foot Laterality: Left Wound Grade/Stage: Stage II Type of Debridement: Excisional debridement Anesthesia Used: 5% Lidocaine Gel Depth: in the subcutaneous layer Percentage of wound debrided: 100 Instrument Used: 5mm curette Tissue Removed: Fibrin Severity: Limited To Skin Breakdown Amount of bleeding with debridement: Mild Bleeding Controlled with: Compression and gauze Patient tolerated procedure: Patient tolerated procedure well Post-Debridement Measurements and Additional Note: Post-Debridement Measurements/Treatment - Nurse 1 - General Ulcer Assessment Start: 12/10/21 09:54 Freq: Status: Active Protocol: MARIEL Activity Type Activity Date Activity User E-sign Co-sign Detail Recorded Client Recorded Date Recorded By Document 12/10/21 09:55 STANLEY [id number] 12/10/21 09:57 STANLEY 12/10/21 09:55 WC - Today's Visit Information Type of service Follow-up Visit (Physician/RN ORTHOPAEDIC ) Arrival Mode Ambulatory Patient Identification Verified (Name & Yes ) Patient Requires Transmission-Based No Precautions Safety Precautions NA Vital Signs Temperature (97.8 F-99.1 F) 98.6 F Temperature Source Temporal Pulse Rate (60-100) 97 Pulse Location Monitor Blood Pressure (90/60-120/80) 143/87 H Blood Pressure Mean (mm Hg) 105 Source Monitor History Since Last Visit- (Skip if this is Patient's initial visit) Have you changed medications since your No last visit? Any new allergies or adverse reactions No Had a fall/change in ADL's that may No increase risk of falls Signs or symptoms of abuse and/or No neglect since last visit Have you been in the hospital since your No last visit? Has dressing in place as prescribed Yes Has compression in place as prescribed Yes Has offloadiing in place as prescribed N/A Experienced any changes in pain level or No management Left Footwear Regular Shoe Right Footwear Regular Shoe Pain Scale: 0-10 Numeric Is Patient Pain Free? Yes - Nurse 1 - General Ulcer Measurement Start: 12/10/21 09:54 Freq: Status: Active Protocol: Activity Type Activity Date Activity User E-sign Co-sign Detail Recorded Client Recorded Date Recorded By Document 12/10/21 09:55 STANLEY [id number] 12/10/21 09:57 STANLEY 12/10/21 09:55 Wound Center Nurse 1 #9 L lateral foot -Combined with other wound No -Current Size (cm) - Length 1 -Current Size (cm) - Width 0.5 -Current Size (cm) - Depth 0.1 -Total Square Cm 0.5 -Photo Taken Yes -Tunneling No -Undermining/Tunneling No -Circular Undermining No -Change in Wound Grade/Stage No -Exudate Amt Medium -Exudate Type Serosanguineous -Wound Margin Distinct, Outline Attached -Granulation Amt Medium (34-66%) -Granulation Quality [employer] -Slough/Fibrin Yes -Necrosis Amt Small (1-33%) -Necrotic Tissue Type Adherent Slough -Structure Exposed N/A -Texture ([place]-wound Skin Appearance) Assessed,Callus -Moisture ([place]-wound Skin Appearance) No Abnormality, Assessed -Color ([place]-wound Skin Appearance) No Abnormality, Assessed -Temperature ([place]-wound Skin No Abnormality Appearance) (Pt Warm) -Tenderness on Palpation ([place]-wound No Skin Appearance) -Ulcer Cleansing Rinsed/ Irrigated with Saline -Foul Odor after Cleansing No -Anesthetic Used 5% Lidocaine Gel WC - Nurse 2 - General Ulcer CM Notes Start: 12/10/21 09:54 Freq: Status: Active Protocol: Activity Type Activity Date Activity User E-sign Co-sign Detail Recorded Client Recorded Date Recorded By Document 12/10/21 10:00 MW [id number] 12/10/21 10:04 MW 12/10/21 10:00 Wound Center Nurse 2 -Time 10:02 -Correct Patient Yes -Correct Side, Site, Position Yes -Correct Procedure Yes -Procedure Performed Yes -Type of Procedure Debridement -Clinical Debridement Subcutaneous -Tissue Removed Subcutaneous -Post Debridement (cm) - Length 0.5 -Post Debridement (cm) - Width 1.0 -Post Debridement (cm) - Depth 0.1 -Total Square (Post) (cm) 0.50 -Area of Debridement (cm) - Length 0.5 -Area of Debridement (cm) - Width 1.0 -Total Square (Area) (cm) 0.50 -Tunneling No -Undermining/Tunneling No -Circular Undermining No -Wound/Ulcer Outcome Not Healed -Ulcer Cleansing Rinsed/ Irrigated with Saline -Foul Odor after Cleansing No -Bioengineered Tissue No -Bleeding Controlled with Pressure -Treatment Response Procedure Tolerated Well -Offloading No -Debridement - Subq, 1st 20sq cm Yes Pain Scale: 0-10 Numeric Is Patient Pain Free? Yes WC - Nurse 3 - General Ulcer D/C NN Start: 12/10/21 09:54 Freq: Status: Active Protocol: Activity Type Activity Date Activity User E-sign Co-sign Detail Recorded Client Recorded Date Recorded By Document 12/10/21 12:10 STANLEY [id number] 12/10/21 12:12 STANLEY 12/10/21 12:10 Wound Care Nurse 3 #9 L lateral foot -Ulcer Cleansing Rinsed/ Irrigated with Saline -Foul Odor after Cleansing No -Negative Pressure Wound Therapy N/A -Primary Dressing Applied Aquacel Extra -Other Dressing ABD -Primary Dressing Covered/Secured with Dry Gauze & Roll Gauze, Secured with Tape -Aquacel Extra 1 Pain Scale: 0-10 Numeric Is Patient Pain Free? Yes WC - Visit Discharge Discharge Condition Stable Ambulatory Status Wheelchair Transportation Private Auto Medication Reconcilliation completed & Yes provided to patient/care provider Clinical Summary of Care Provided Yes Assessment/Plan Assessment/Plan (1) Diabetic foot ulcers: CODE(S): E11.621 - Type 2 diabetes mellitus with foot ulcer; L97.509 - Non-pressure chronic ulcer of other part of unspecified foot with unspecified severity QUALIFIERS: Diabetic foot ulcer location: midfoot Diabetes mellitus type: type 2 Laterality: left Non-pressure ulcer stage: with fat layer exposed Qualified Code(s): E11.621 - Type 2 diabetes mellitus with foot ulcer; L97.422 - 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 layer exposed PLAN: Discharge from the wound center follow-up as needed (2) Polyneuropathy in diabetes: CODE(S): E11.42 - Type 2 diabetes mellitus with diabetic polyneuropathy QUALIFIERS: Diabetes mellitus type: type 2 Qualified Code(s): E11.42 - Type 2 diabetes mellitus with diabetic polyneuropathy PLAN: Will continue wearing his AFO and boot (3) Type 2 diabetes mellitus with diabetic polyneuropathy: CODE(S): E11.42 - Type 2 diabetes mellitus with diabetic polyneuropathy QUALIFIERS: Diabetes mellitus halfway insulin use: unspecified halfway insulin use status Qualified Code(s): E11.42 - Type 2 diabetes mellitus with diabetic polyneuropathy (4) Decubitus ulcer of foot, stage 2: CODE(S): L89.892 - Pressure ulcer of other site, stage 2 QUALIFIERS: Laterality: left Qualified Code(s): L89.892 - Pressure ulcer of other site, stage 2 PLAN: Wash left foot and leg with antibacterial soap. Apply Aquacel extra to left lateral and stasis pad to plantar foot. Cover with Adaptic and gauze Daily dressing Follow-up in 2 week
== END 2022-01-05 23:59 | disposition home or self-care (01) ==
LOC: WC 09:21
PROVIDERS: PCP Family Medicine Sports Medicine; Visit Provider Nurse Practitioner
DX: E11.621 Type 2 diabetes mellitus with foot ulcer (principal); L89.892 Pressure ulcer of other site, stage 2; L97.422 Non-pressure 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 with fat layer exposed; E11.610 Type 2 diabetes mellitus with diabetic neuropathic arthropathy; E11.42 Type 2 diabetes mellitus with diabetic polyneuropathy
CPT/HCPCS: 11042